=== PATIENT | male | born 1935 | race Caucasian/White ===

== ENCOUNTER → 2017-09-26 11:12 | Outpatient (CLI) | payer MEDICARE, OTHER, SELFPAY ==
[2017-09-26 12:17] LABS: Absolute Lymphocyte Count 2.05 X10^3/ul (0.83-4.51); Absolute Neutrophil Count 4.5 X10^3/uL (2.0-7.7); Basophil# 0.02 X10^3/uL; Basophil% 0.3 % (0-1); Eosinophil# 0.33 X10^3/uL; Eosinophils% 4.5 % (0-5); Hemoglobin 13.4 g/dl (13.0-16.5); Lymphocyte # 2.05 X10^3/ul (4.0); Lymphocyte % 27.7 % (19-41); Mean Corp Hgb Conc 32.7 g/gl (32-36); Mean Corpuscular Hgb 30.4 pg (27.0-32.0); Mean Platelet Vol. 10.4 fl (6.2-12.0); Monocyte# 0.46 X10^3/uL; Monocyte% 6.2 % (0-10); Neutrophil # 4.51 X10^3/uL (2.7-7.7); Platelet Count 228 K/mm3 (150-450); RBC Distribution Width CV 14.6 % (11.6-14.6); RBC Distribution Width SD 48.2 fl (35.1-43.9); Red Blood Count 4.41 M/mm3 (4.6-6.2); White Blood Count 7.4 K/mm3 (4.4-11.0)
[2017-09-26 12:19] LABS: POSITIVE COUNT NO; POSITIVE DIFFERENTIAL NO; POSITIVE MORPHOLOGY NO
[2017-09-26 12:23] LABS: ALB/GLOB Ratio 1.2 RATIO (0.9-2.4); AST(SGOT) 24 U/L (15-37); Alanine Aminotransfer ALT/SGPT 27 U/L (16-61); Albumin, Serum 4.3 g/dL (3.2-5.0); Alkaline Phosphatase 98 U/L (45-117); Anion Gap 10 (5-15); BUN 27 mg/dL (7-18); BUN/Creat Ratio 19.7 RATIO (10-20); Calcium,Total 8.9 mg/dL (8.5-10.1); Chloride 106 mmol/L (98-107); Creatinine, Serum 1.37 mg/dL (0.70-1.30); EST Glomerular Filtration Rate 53 mL/min (>60); Est Glom Filt Rate - Afr Amer 64 mL/min (>60); Globulin 3.6 g/dL (2.2-4.2); Glucose 88 mg/dL (74-106); Potassium 4.4 mmol/L (3.5-5.1); Protein, Total 7.9 g/dL (6.4-8.2); Sodium Level 140 mmol/L (136-145); Uric Acid 3.6 mg/dL (3.5-7.2)
== END ==
PROVIDERS: Family Provider Family Medicine Geriatric Medicine; PCP Family Medicine Geriatric Medicine; Visit Provider Family Medicine Geriatric Medicine
DX: I10 Essential (primary) hypertension (principal); E55.9 Vitamin D deficiency, unspecified; M10.9 Gout, unspecified
CPT/HCPCS: 36415; 80053; 82306; 84443; 84550; 85025

== ENCOUNTER → 2018-03-28 10:02 | Outpatient (CLI) | payer MEDICARE, OTHER, SELFPAY ==
[2018-03-28 12:48] LABS: Absolute Lymphocyte Count 2.03 X10^3/ul (0.83-4.51); Absolute Neutrophil Count 3.7 X10^3/uL (2.0-7.7); Basophil# 0.02 X10^3/uL; Basophil% 0.3 % (0-1); Eosinophil# 0.42 X10^3/uL; Eosinophils% 6.4 % (0-5); Hematocrit 40.3 % (40-54); Hemoglobin 13.4 g/dl (13.0-16.5); Lymphocyte # 2.03 X10^3/ul (4.0); Lymphocyte % 30.7 % (19-41); Mean Corp Hgb Conc 33.3 g/gl (32-36); Mean Corpuscular Hgb 31.4 pg (27.0-32.0); Mean Corpuscular Volume 94.4 fL (80-94); Mean Platelet Vol. 9.9 fl (6.2-12.0); Monocyte# 0.42 X10^3/uL; Monocyte% 6.4 % (0-10); Neutrophil # 3.71 X10^3/uL (2.7-7.7); Platelet Count 229 K/mm3 (150-450); RBC Distribution Width SD 46.8 fl (35.1-43.9); Red Blood Count 4.27 M/mm3 (4.6-6.2); White Blood Count 6.6 K/mm3 (4.4-11.0)
[2018-03-28 12:53] LABS: POSITIVE COUNT NO; POSITIVE DIFFERENTIAL NO; POSITIVE MORPHOLOGY NO
[2018-03-28 13:16] LABS: ALB/GLOB Ratio 1.2 RATIO (0.9-2.4); AST(SGOT) 23 U/L (15-37); Alanine Aminotransfer ALT/SGPT 21 U/L (16-61); Albumin, Serum 4.3 g/dL (3.2-5.0); Alkaline Phosphatase 72 U/L (45-117); Anion Gap 11 (5-15); BUN 29 mg/dL (7-18); Calcium,Total 9.4 mg/dL (8.5-10.1); Chloride 107 mmol/L (98-107); Creatinine, Serum 1.53 mg/dL (0.70-1.30); EST Glomerular Filtration Rate 47 mL/min (>60); Est Glom Filt Rate - Afr Amer 56 mL/min (>60); Globulin 3.7 g/dL (2.2-4.2); Glucose 88 mg/dL (74-106); Potassium 4.6 mmol/L (3.5-5.1); Sodium Level 140 mmol/L (136-145); Uric Acid 4.4 mg/dL (3.5-7.2)
[2018-03-29 08:49] LABS: Vitamin D,25 Hydroxy 48.4 ng/mL (29.95-100.01)
== END ==
PROVIDERS: Family Provider Family Medicine Geriatric Medicine; PCP Family Medicine Geriatric Medicine; Visit Provider Family Medicine Geriatric Medicine
DX: I10 Essential (primary) hypertension (principal); E55.9 Vitamin D deficiency, unspecified; M10.9 Gout, unspecified
CPT/HCPCS: 80053; 82306; 84443; 84550; 85025

== ENCOUNTER → 2018-09-30 11:46 | Outpatient (CLI) | payer MEDICARE, OTHER, SELFPAY ==
[2018-09-30 13:44] LABS: Absolute Lymphocyte Count 2.13 X10^3/ul (0.83-4.51); Absolute Neutrophil Count 3.4 X10^3/uL (2.0-7.7); Basophil# 0.02 X10^3/uL; Basophil% 0.3 % (0-1); Eosinophil# 0.45 X10^3/uL; Hematocrit 41.4 % (40-54); Hemoglobin 13.1 g/dl (13.0-16.5); Lymphocyte # 2.13 X10^3/ul (4.0); Lymphocyte % 33.3 % (19-41); Mean Corp Hgb Conc 31.6 g/gl (32-36); Mean Corpuscular Hgb 30.4 pg (27.0-32.0); Mean Corpuscular Volume 96.1 fL (80-94); Mean Platelet Vol. 10.1 fl (6.2-12.0); Monocyte# 0.36 X10^3/uL; Monocyte% 5.6 % (0-10); Neutrophil # 3.43 X10^3/uL (2.7-7.7); Neutrophil % 53.6 % (47-70); Platelet Count 231 K/mm3 (150-450); RBC Distribution Width CV 13.9 % (11.6-14.6); RBC Distribution Width SD 48.9 fl (35.1-43.9); Red Blood Count 4.31 M/mm3 (4.6-6.2); White Blood Count 6.4 K/mm3 (4.4-11.0)
[2018-09-30 13:46] LABS: POSITIVE COUNT NO; POSITIVE DIFFERENTIAL NO; POSITIVE MORPHOLOGY NO
[2018-09-30 14:00] LABS: ALB/GLOB Ratio 1.3 RATIO (0.9-2.4); AST(SGOT) 18 U/L (15-37); Alanine Aminotransfer ALT/SGPT 20 U/L (16-61); Albumin, Serum 4.3 g/dL (3.2-5.0); Alkaline Phosphatase 76 U/L (45-117); Anion Gap 13 (5-15); BUN 29 mg/dL (7-18); BUN/Creat Ratio 18.8 RATIO (10-20); Chloride 110 mmol/L (98-107); Creatinine, Serum 1.54 mg/dL (0.70-1.30); EST Glomerular Filtration Rate 46 mL/min (>60); Est Glom Filt Rate - Afr Amer 56 mL/min (>60); Globulin 3.4 g/dL (2.2-4.2); Glucose 99 mg/dL (74-106); Potassium 4.2 mmol/L (3.5-5.1); Protein, Total 7.7 g/dL (6.4-8.2); Sodium Level 145 mmol/L (136-145); Thyroid Stim Hormone (TSH) 1.28 uIU/mL (0.358-3.74); Uric Acid 3.4 mg/dL (3.5-7.2)
== END ==
PROVIDERS: Family Provider Family Medicine Geriatric Medicine; PCP Family Medicine Geriatric Medicine; Visit Provider Family Medicine Geriatric Medicine
DX: E11.9 Type 2 diabetes mellitus without complications (principal); E55.9 Vitamin D deficiency, unspecified; M10.9 Gout, unspecified; I10 Essential (primary) hypertension
CPT/HCPCS: 36415; 80053; 82306; 84443; 84550; 85025

== ENCOUNTER → 2019-04-02 | Outpatient (CLI) | payer MEDICARE, OTHER, SELFPAY ==
[2019-04-02 12:48] LABS: Absolute Lymphocyte Count 1.95 X10^3/uL (0.83-4.51); Absolute Neutrophil Count 4.3 X10^3/uL (2.0-7.7); Basophil# 0.02 X10^3/uL; Basophil% 0.3 % (0-1); Eosinophils% 4.4 % (0-5); Hematocrit 39.2 % (40-54); Hemoglobin 12.9 g/dL (13.0-16.5); Lymphocyte # 1.95 X10^3/ul (4.0); Lymphocyte % 28.3 % (19-41); Mean Corp Hgb Conc 32.9 g/dL (32-36); Mean Corpuscular Hgb 31.3 pg (27.0-32.0); Mean Corpuscular Volume 95.1 fL (80-94); Monocyte# 0.29 X10^3/uL; Monocyte% 4.2 % (0-10); NRBC Flagged by Analyzer 0 % (0-5); Neutrophil % 62.4 % (47-70); Platelet Count 208 K/mm3 (150-450); RBC Distribution Width CV 14.3 % (11.6-14.6); RBC Distribution Width SD 49.6 fl (35.1-43.9); Red Blood Count 4.12 M/mm3 (4.6-6.2); White Blood Count 6.9 K/mm3 (4.4-11.0)
[2019-04-02 13:07] LABS: Vitamin D,25 Hydroxy 74.4 ng/mL (29.95-100.01)
[2019-04-02 13:12] LABS: ALB/GLOB Ratio 1.1 RATIO (0.9-2.4); AST(SGOT) 17 U/L (15-37); Alanine Aminotransfer ALT/SGPT 20 U/L (16-61); Albumin, Serum 3.9 g/dL (3.2-5.0); Alkaline Phosphatase 76 U/L (45-117); BUN 31 mg/dL (7-18); BUN/Creat Ratio 19.3 RATIO (10-20); Calcium,Total 9.1 mg/dL (8.5-10.1); Creatinine, Serum 1.61 mg/dL (0.70-1.30); EST Glomerular Filtration Rate 44 mL/min (>60); Est Glom Filt Rate - Afr Amer 53 mL/min (>60); Globulin 3.6 g/dL (2.2-4.2); Glucose 114 mg/dL (74-106); Potassium 4.3 mmol/L (3.5-5.1); Protein, Total 7.5 g/dL (6.4-8.2); Sodium Level 140 mmol/L (136-145); Uric Acid 3.4 mg/dL (3.5-7.2)
[2019-04-02 13:13] LABS: Anion Gap 9 (5-15); Chloride 109 mmol/L (98-107); Thyroid Stim Hormone (TSH) 0.97 uIU/mL (0.358-3.74)
== END | disposition home or self-care (01) ==
LOC: POLAB3 08:47
PROVIDERS: Family Provider Family Medicine Geriatric Medicine; PCP Family Medicine Geriatric Medicine; Visit Provider Family Medicine Geriatric Medicine
DX: E55.9 Vitamin D deficiency, unspecified (principal); I10 Essential (primary) hypertension; M10.9 Gout, unspecified
CPT/HCPCS: 36415; 80053; 82306; 84443; 84550; 85025

== ENCOUNTER → 2019-09-16 10:45 | Outpatient (CLI) | payer MEDICARE, OTHER, SELFPAY ==
--- NOTE | 2019-09-16 10:55 | RAD_ITS ---
STUDY: X-RAY - LEFT KNEE REASON FOR EXAM: Left knee pain. TECHNIQUE: 4 view(s) of the knee. COMPARISON: Radiographs 09/14/2014. FINDINGS: Normal visualized distal femur. Normal visualized proximal tibia and fibula. Normal proximal tibiofibular articulation. Normal medial femorotibial compartment. There is severe joint space loss of the lateral femorotibial compartment, increased since the prior study. There is mild joint space narrowing of the patellofemoral articulation without interval change. There is a small metallic foreign body at the anterior aspect of the knee as on the prior study. There is vascular calcification. RAD/Knee 4 or More Views IMPRESSION: Arthrosis of the lateral femorotibial compartment, increased since the prior study. Mild arthrosis of the patellofemoral compartment. Electronically Signed: Sahil Amaya MD at 11:08 EST Tel , Service support ,
== END ==
LOC: RAD 10:50
PROVIDERS: PCP Family Medicine Geriatric Medicine; Referring Provider Family Medicine Geriatric Medicine; Visit Provider Family Medicine Geriatric Medicine
DX: M25.562 Pain in left knee (principal)
CPT/HCPCS: 73564

== ENCOUNTER → 2019-09-30 13:47 | Outpatient (CLI) | payer MEDICARE, OTHER, SELFPAY ==
[2019-09-24 08:14] VITALS: BMI 22.7
[2019-09-30 15:12] LABS: Erythrocyte Sedimentation Rate 17 mm/hr (0-20)
[2019-09-30 15:15] LABS: Absolute Neutrophil Count 7.6 X10^3/uL (2.0-7.7); Basophil# 0.03 X10^3/uL; Basophil% 0.3 % (0-1); Hematocrit 38.1 % (40-54); Hemoglobin 12.3 g/dL (13.0-16.5); Lymphocyte % 18.8 % (19-41); Mean Corp Hgb Conc 32.3 g/dL (32-36); Mean Corpuscular Volume 92.9 fL (80-94); Mean Platelet Vol. 9.7 fl (6.2-12.0); Monocyte# 0.38 X10^3/uL; Monocyte% 3.8 % (0-10); NRBC Flagged by Analyzer 0 % (0-5); Neutrophil # 7.58 X10^3/uL (2.7-7.7); Neutrophil % 74.7 % (47-70); Platelet Count 246 K/mm3 (150-450); RBC Distribution Width CV 14.5 % (11.6-14.6); RBC Distribution Width SD 49.5 fl (35.1-43.9); White Blood Count 10.1 K/mm3 (4.4-11.0)
[2019-09-30 16:26] LABS: Anion Gap 6 (5-15); BUN 33 mg/dL (7-18); BUN/Creat Ratio 19.2 RATIO (10-20); Calcium,Total 9.1 mg/dL (8.5-10.1); Chloride 112 mmol/L (98-107); Creatinine, Serum 1.72 mg/dL (0.70-1.30); EST Glomerular Filtration Rate 41 mL/min (>60); Est Glom Filt Rate - Afr Amer 49 mL/min (>60); Glucose 151 mg/dL (74-106); Potassium 4.2 mmol/L (3.5-5.1); Sodium Level 139 mmol/L (136-145)
[2019-09-30 19:47] LABS: M R Staph aureus DNA By PCR Negative (Negative); Probe Check PASS; Staph aureus DNA By PCR POSITIVE (Negative)
== END ==
PROVIDERS: PCP Family Medicine Geriatric Medicine; Referring Provider Podiatrist; Visit Provider Podiatrist
DX: L03.032 Cellulitis of left toe (principal)
CPT/HCPCS: 36415; 80048; 85025; 85652; 86140; 87070; 87075; 87077; 87186; 87205; 87640

== ENCOUNTER → 2019-10-02 09:24 | Outpatient (CLI) | payer MEDICARE, OTHER, SELFPAY ==
[2019-09-24 08:14] VITALS: BMI 22.7
[2019-10-02 12:34] LABS: Absolute Lymphocyte Count 1.91 X10^3/uL (0.83-4.51); Absolute Neutrophil Count 9.3 X10^3/uL (2.0-7.7); Basophil# 0.04 X10^3/uL; Basophil% 0.3 % (0-1); Eosinophil# 0.34 X10^3/uL; Eosinophils% 2.8 % (0-5); Hematocrit 38.6 % (40-54); Hemoglobin 12.2 g/dL (13.0-16.5); Lymphocyte # 1.91 X10^3/ul (4.0); Lymphocyte % 15.8 % (19-41); Mean Corp Hgb Conc 31.6 g/dL (32-36); Mean Corpuscular Hgb 29.6 pg (27.0-32.0); Mean Corpuscular Volume 93.7 fL (80-94); Mean Platelet Vol. 9.6 fl (6.2-12.0); Monocyte# 0.39 X10^3/uL; Monocyte% 3.2 % (0-10); NRBC Flagged by Analyzer 0 % (0-5); Neutrophil # 9.34 X10^3/uL (2.7-7.7); Neutrophil % 77.3 % (47-70); Platelet Count 266 K/mm3 (150-450); RBC Distribution Width CV 14.4 % (11.6-14.6); RBC Distribution Width SD 49.2 fl (35.1-43.9); Red Blood Count 4.12 M/mm3 (4.6-6.2); White Blood Count 12.1 K/mm3 (4.4-11.0)
[2019-10-02 12:58] LABS: Vitamin D,25 Hydroxy 22.2 ng/mL (29.95-100.01)
[2019-10-02 13:03] LABS: ALB/GLOB Ratio 0.9 RATIO (0.9-2.4); AST(SGOT) 15 U/L (15-37); Alanine Aminotransfer ALT/SGPT 23 U/L (16-61); Albumin, Serum 3.7 g/dL (3.2-5.0); Alkaline Phosphatase 111 U/L (45-117); Anion Gap 8 (5-15); BUN 27 mg/dL (7-18); BUN/Creat Ratio 19.7 RATIO (10-20); Calcium,Total 9.3 mg/dL (8.5-10.1); Chloride 114 mmol/L (98-107); Creatinine, Serum 1.37 mg/dL (0.70-1.30); EST Glomerular Filtration Rate 53 mL/min (>60); Est Glom Filt Rate - Afr Amer 64 mL/min (>60); Globulin 4.3 g/dL (2.2-4.2); Glucose 142 mg/dL (74-106); Potassium 4.1 mmol/L (3.5-5.1); Sodium Level 141 mmol/L (136-145); Thyroid Stim Hormone (TSH) 1.21 uIU/mL (0.358-3.74); Uric Acid 3.2 mg/dL (3.5-7.2)
== END ==
PROVIDERS: PCP Family Medicine Geriatric Medicine; Visit Provider Family Medicine Geriatric Medicine
DX: I10 Essential (primary) hypertension (principal); E55.9 Vitamin D deficiency, unspecified; M10.9 Gout, unspecified
CPT/HCPCS: 36415; 80053; 82306; 84443; 84550; 85025

== ENCOUNTER 2019-10-13 12:53 | Day surgery (SDC) | payer MEDICARE, OTHER, SELFPAY ==
[2019-09-24 08:14] VITALS: BMI 22.7
[2019-10-13 13:00] VITALS: BP 136/81; PULSE 82; RESP 16; TEMP 36.9; O2SAT 98; BMI 21.8
--- NOTE | 2019-10-13 14:15 | BON_PTH ---
PATIENT: JACK LEBRON LOC: [facility] – [place] U#:[id number] AGE/SX: 84/M ROOM: RE10/13/[address]: Dr. Ryan Gonzales DPM : 1935 BED: DIS: 10/13/2019 SPEC #: [id number] RECD: 10/13/19 16:10 STATUS: [place] RERadha #: [id number] DANIELLE: 10/13/19 14:[address]: Ryan Gonzales DEPT: SURGICAL PATHOLOGY RECD BY: Chiki Woods ENTERED: 10/14/19 09:26 SP TYPE: Bone OTHR DR: Dr. Mayur Pereira MD Tissues: A - Bone of foot, NOS B - Bone of foot, NOS Procedures: Decalcification bone/plaque Special Stain Group I Surgery Specimen Level III Surgery Specimen Level IV AFB Stain (control) GMS Stain (control) HEADER OPERATION: Debridement/partial amputation second toe PRE-OP DIAGNOSIS: Cellulitis left lower limb; osteomyelitis left second toe TISSUE SUBMITTED: A - Clearance fragment left second toe, B - Left second toe MICROSCOPIC DIAGNOSIS A. Left second toe, clearance fragment: A piece of bone, negative for acute osteomyelitis. B. Left second toe, amputation: Focal ulceration with associated acute inflammation and abscess formation. Underlying bone with acute osteomyelitis. Special stains for acid fast bacilli and fungi are negative for organisms; matched controls are appropriate. ALEJANDRA:sepideh 10/17/19 MICROSCOPIC DESCRIPTION Slides are reviewed. GROSS DESCRIPTION A - Received in fixative is one container labeled with the patient's name and designated clearance fragment left second toe. The specimen consists of a piece of bone measuring 0.8 x 0.6 x 0.2 cm. The entire specimen is submitted in one cassette after decalcification. B - Received in fixative is one container labeled with the patient's name and designated left second toe. The specimen consists of a portion of toe measuring 3 x 2 x 1.5 cm. The tip of the toe shows an extensive area of ulceration measuring 1 cm in greatest dimension. Reporting Process Consultant sections are submitted in two cassettes as follows: 1 - skin with ulceration, 2 - bone after decalcification. / ALEJANDRA:sepideh 10/14/19 TC:2 CPT: 71757, 84309, 70411 x2, 75736 x2
--- NOTE | 2019-10-13 14:15 | RAD_ITS ---
STUDY: X-RAY LEFT FOOT, SECOND TOE REASON FOR EXAM: Male, 84 years old. PARTIAL AMPUTATION LEFT 2nd TOE TECHNIQUE: 2 view(s) of the toe were obtained. COMPARISON: None. FINDINGS: Normal visualized metatarsus. Normal metatarsophalangeal (M.T.P) joint. Normal interphalangeal joints. There are status post amputation changes of the second toe at the level of the PIP joint. The soft tissue structures are unremarkable. RAD/Toe(s) Min 2 Views IMPRESSION: Status post amputation changes of the second digit at the level of the PIP joint. Electronically Signed: Modesto Aldana MD at 16:24 EST , Service support ,
--- NOTE | 2019-10-13 14:43 | DCINST_ITS ---
Discharge Diet: Light diet - advance as tolerated Weight Bearing Status: Partial weight bearing - Limit weightbearing on left foot, wear offloading surgical shoe to left foot with all weightbearing and ambulation Keep extremity elevated above heart level: Left Leg - Keep left foot elevated as much as possible Call your doctor if your incision/area has: Continuous Slow Oozing, Sudden Increased Bleeding, Foul Smelling Discharge Call your doctor if you observe: Fever of 101 or Higher, Shortness of breath, Chest pain, Calf discomfort, Uncontrolled pain Cleanse incision/area with: Do not get Incision Wet - Keep dressing left foot clean, dry and intact., Keep Dressing Clean & Dry Allergies/Adverse Reactions: Allergies No Known Allergies Allergy (Verified 10/09/19 14:50) Medications to take at Discharge allopurinol 300 mg tablet 300 mg PO DAILY 09/24/19 doxazosin 2 mg tablet 2 mg PO DAILY 09/24/19 pramipexole 1.5 mg tablet 1.5 mg PO QHS 09/24/19 pravastatin 20 mg tablet 20 mg PO DAILY 09/24/19 Amoxicillin/Potassium Clav [Amox-Clav 500-125 mg Tablet] 1 ea PO BID 10/09/19 Donepezil HCl [Aricept] 5 mg PO DAILY 10/09/19 Multivitamin [Daily Multiple Vitamin] 1 ea PO DAILY 10/09/19 Primary Care Physician: Mayur Pereira Chi, MD [Primary Care Provider] - Test Results: Test results from this visit will be discussed in further detail at your follow- up appointment, if applicable. Please Follow Up With: Ryan Gonzales DPM When: Sunday10/17/2019 at 11:45AM, sooner if needed
[2019-10-13] MEDS: Bupivacaine Mpf 0.5% 30 ML VIAL (14:50)
--- NOTE | 2019-10-13 15:30 | OP.PCM_ITS ---
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 Jose Daniel Ramos Type of Anesthesia:: Local Specimen's removed: 1. Removed soft tissue and bone from left 2nd toe sent to pathology. 2. Culture of necrotic bone left 2nd toe sent to micobiology. 3. Clearance fragment left 2nd toe sent to pathology and microbiology Estimated Blood Loss (mL): 10mL Description of Procedure: Indications: The patient is a 84 year old gentleman who has necrotic ulceration at the very distal tip of the left 2nd toe, culture shows staph aureus, bone is exposed with localized erythema and edema to the distal toe, there is some purulence to the tip of the toe as well. We discussed the options with the patient as well as with his in detail. Patient elected to proceed with surgical debridement/amputation of the left 2nd toe.This was discussed in great detail, and ultimately patient elected to proceed with this procedure. This was discussed with him (his was present as well) in detail, reviewed the possible benefits vs risks. They were advised the risks include, but are not limited to pain, further infections, need for further surgery, nonhealing, delay healing, scarring, poor cosmetic result, numbness, weakness, loss of function, complex regional pain syndrome, blood clots, loss of limb, loss of life. Patient expressed understanding and agreement, and able to repeat back, all questions were answered. The consent form was reviewed and it was freely signed. No guaranties were given nor implied. Operative Procedure: The patient was brought into the operating room, and was place on the operating room table in the supine position. He was carefully secured to the operating room table with a safely belt around his waist. A time out was performed, the patient was properly identified and the surgical plan was confirmed. Patient was already on antibiotics - Augmentin 500/125mg PO q 12 hours. A well padded pneumatic tourniquet was placed around the left ankle. The patient received a total of 7mL of 0.5% Marcaine plain was given as a left foot 2nd ray block after the skin was cleansed with 70% isopropyl alcohol. The left f oot was scrubbed, prepped and draped in the usual aseptic fashion. The left foot was exsanguinated using as Esmarch bandage, and the left ankle pneumatic tourniquet was inflated to 250mmHg. There was noted to be an ulceration to the distal aspect of the 2nd toe as noted above. The cellulitis extended to the base of the middle phalanx. Also the 2nd toe was hammered (chronic). The ulceration measured 1cm x 1cm and 0.7cm in depth down to bone. Using a 15 scalpel blade the ulceration was debrided in excisional fashion removing all nonviable, necrotic soft tissue and bone from the site. The toe was disarticulated at the proximal interphalangeal joint excising the distal toe and ulceration. The distal phalanx was noted to be nonviable, soft, yellow consistent with osteomyelitis. The middle phalanx was more healthy appearing and base of the middle phalanx was hard, white and did not appear to be infected. A bone culture was obtained from the distal phalanx and was sent to microbiology for further evaluation. The debrided distal toe was sent to pathology for further evaluation as well. The site was flushed out with copious amounts of normal saline solution. Using a bone cutting rongeur a piece of the bone was resected from the base of the middle phalanx and sent to microbiology and pathology as a clearance fragment. All remaining tissues appeared to be healthy and viable, free of any infection. The site was again flushed out with copious amounts of normal saline solution. A flap was created with the remaining viable skin using a 15 blade, the skin edges were brought together and were reapproximated using 3-0 Prolene. The pneumatic tourniquet was deflated (total tourniquet time was 15 minutes), and there was immediate return of good vascular flow to the left foot, with normal temperature gradient and CFT < 2 seconds to the amputation site and to all remaining toes. A dressing was applied which consisted of betadine soaked adaptic, 4x4 gauze, kerlix and eunice dressing. Intra operative flouroscopy was obtained and the end of the procedure which confirmed 2nd toe debridement, no acute changes otherwise. Images were saved and printed. Patient tolerated the above procedure well with no complications. He was transported from the operating room to the recovery room in good condition. Post operative orders placed. Post operating instructions were reviewed with patient and his and son (they were with patient today) in detail. Keep left foot elevated, keep dressing left foot clean, dry and intact, and limit weightbearing left foot as much as possible. Continue with Augmentin 500/125mg q 12 hours, new labs were ordered and are pending at this time. Patient to follow up with me in office on Sunday10/17/2019 at 11:45am, sooner if needed. They agreed with plan. Grafts/Implants Used: None - Complications None
[2019-10-13 15:52] VITALS: BP 137/81; BP 162/77; PULSE 79; RESP 16; TEMP 36.5; O2SAT 99
[2019-10-13 16:01] LABS: Absolute Lymphocyte Count 1.81 X10^3/uL (0.83-4.51); Absolute Neutrophil Count 5.5 X10^3/uL (2.0-7.7); Basophil# 0.03 X10^3/uL; Basophil% 0.4 % (0-1); Eosinophil# 0.59 X10^3/uL; Hematocrit 37.2 % (40-54); Hemoglobin 11.8 g/dL (13.0-16.5); Lymphocyte # 1.81 X10^3/ul (4.0); Lymphocyte % 21.5 % (19-41); Mean Corp Hgb Conc 31.7 g/dL (32-36); Mean Corpuscular Volume 91.4 fL (80-94); Mean Platelet Vol. 8.7 fl (6.2-12.0); Monocyte# 0.38 X10^3/uL; Monocyte% 4.5 % (0-10); NRBC Flagged by Analyzer 0 % (0-5); Neutrophil # 5.51 X10^3/uL (2.7-7.7); Neutrophil % 65.6 % (47-70); Platelet Count 226 K/mm3 (150-450); RBC Distribution Width CV 14.6 % (11.6-14.6); RBC Distribution Width SD 48.7 fl (35.1-43.9); Red Blood Count 4.07 M/mm3 (4.6-6.2); White Blood Count 8.4 K/mm3 (4.4-11.0)
[2019-10-13 16:31] LABS: Anion Gap 7 (5-15); BUN 34 mg/dL (7-18); BUN/Creat Ratio 26.8 RATIO (10-20); Calcium,Total 9.3 mg/dL (8.5-10.1); Chloride 114 mmol/L (98-107); Creatinine, Serum 1.27 mg/dL (0.70-1.30); EST Glomerular Filtration Rate 58 mL/min (>60); Est Glom Filt Rate - Afr Amer 70 mL/min (>60); Estimated Creatinine Clearance 49.37 ml/min; Glucose 91 mg/dL (74-106); Potassium 4.3 mmol/L (3.5-5.1); Sodium Level 142 mmol/L (136-145)
== END 2019-10-13 15:57 | disposition home or self-care (01) ==
LOC: SDC 12:53 → AC 12:55
PROVIDERS: PCP Family Medicine Geriatric Medicine; Referring Provider Podiatrist; Visit Provider Podiatrist
PROC: (CPT 28825; principal; 2019-10-13 14:00)
DX: L97.524 Non-pressure chronic ulcer of other part of left foot with necrosis of bone (principal); M19.90 Unspecified osteoarthritis, unspecified site; Z87.891 Personal history of nicotine dependence; Z79.899 Other long term (current) drug therapy; M86.172 Other acute osteomyelitis, left ankle and foot; B95.61 Methicillin susceptible Staphylococcus aureus infection as the cause of diseases classified elsewhere; M20.42 Other hammer toe(s) (acquired), left foot; G60.8 Other hereditary and idiopathic neuropathies; L03.116 Cellulitis of left lower limb
CPT/HCPCS: 28825; 36415; 73660; 76000; 80048; 85025; 87015; 87070; 87075; 87102; 87116; 87176; 87205; 87206; 88304; 88305; 88311; 88312

== ENCOUNTER → 2019-12-04 11:35 | Outpatient (CLI) | payer MEDICARE, OTHER, SELFPAY | PROVIDERS: Referring Provider Podiatrist; Visit Provider Podiatrist | DX: L03.032 Cellulitis of left toe (principal) | CPT/HCPCS: 87070; 87075; 87077; 87186; 87205 ==

== ENCOUNTER 2019-12-05 10:17 | Day surgery (SDC) | payer MEDICARE, OTHER, SELFPAY ==
--- NOTE | 2019-12-05 | BON_PTH ---
PATIENT: JACK LEBRON [place] [facility] [place][id number] AGE/SX: 84/M ROOM: RE12/05/[address]: Dr. Ryan Gonzales DPM : 1935 BED: DIS: 12/05/2019 SPEC #: [id number] RECD: 12/06/19 00:37 STATUS: [place] REQ #: [id number] DANIELLE: 12/05/19 00:[address]: Ryan Gonzales DEPT: SURGICAL PATHOLOGY RECD BY: Kelvin Arriola ENTERED: 12/08/19 10:09 SP TYPE: Bone OTHR DR: Dr. Mayur Pereira MD Tissues: A - Bone of foot, NOS B - Bone of foot, NOS Procedures: Decalcification bone/plaque Special Stain Group I Surgery Specimen Level III Surgery Specimen Level IV AFB Stain (control) GMS Stain (control) HEADER OPERATION: Amputation second toe PRE-OP DIAGNOSIS: Osteomyelitis and cellulitis of left second toe TISSUE SUBMITTED: A - Left second toe, B - Clearance fragment left second toe MICROSCOPIC DIAGNOSIS A. Left second toe, amputation: Focal ulceration, acute inflammation and abscess formation. Bone with acute osteomyelitis. Special stains for acid fast bacilli and fungi are negative for organisms; matched controls are appropriate. B. Clearance fragment left second toe: A piece of bone, negative for acute osteomyelitis. ALEJANDRA:sepideh 12/11/19 MICROSCOPIC DESCRIPTION Slides are reviewed. GROSS DESCRIPTION A - Received in fixative is one container labeled with the patient's name and designated left second toe. The specimen consists of a portion of toe measuring 5.5 x 1.5 x 1 cm. A focal area of ulceration is noted close to the tip measuring 1 cm in greatest dimension. Also present in the container are detached pieces of skin and soft tissue measuring in aggregate 3 x 2 x 0.5 cm. Outboard Motor Tester sections are submitted in three cassettes as follows: 1 - bone underneath the ulcerated area, 2 - ulcerated area, 3 - longitudinal section of the toe after decalcification. B - Received in fixative is one container labeled with the patient's name and designated clearance fragment left second toe. The specimen consists of a fragment of bone 0.6 x 0.3 x 0.2 cm. The specimen is totally submitted in one cassette after decalcification. / ALEJANDRA:sepideh 12/08/19 TC:2 CPT: 14309, 24127, 65434 x2, 98209 x2
[2019-12-05 10:45] VITALS: BP 115/66; PULSE 88; RESP 16; TEMP 36.6; O2SAT 100; BMI 22.8
--- NOTE | 2019-12-05 12:33 | DCINST_ITS ---
Discharge Diet: Light diet - advance as tolerated Discharge Activity: May Not Drive Weight Bearing Status: Partial weight bearing - Ok to put weight on left heel, - - Limit weightbearing to left foot as much as absolute possible. Use surgical shoe when up to left foot Keep extremity elevated above heart level: Left Leg - Keep left foot elevated for at least 50 minutes of every hour Call your doctor if your incision/area has: Continuous Slow Oozing, Sudden In creased Bleeding, Increased Pain/ Swelling, Increased Redness, Foul Smelling Discharge Call your doctor if you observe: Fever of 101 or Higher, Shortness of breath, Chest pain, Calf discomfort, Uncontrolled pain Cleanse incision/area with: Do not get Incision Wet, Keep Dressing Clean & Dry Allergies/Adverse Reactions: Allergies No Known Allergies Allergy (Verified 10/09/19 14:50) Medications to take at Discharge allopurinol 300 mg tablet 300 mg PO DAILY 09/24/19 doxazosin 2 mg tablet 2 mg PO DAILY 09/24/19 pramipexole 1.5 mg tablet 1.5 mg PO QHS 09/24/19 pravastatin 20 mg tablet 20 mg PO DAILY 09/24/19 Amoxicillin/Potassium Clav [Amox-Clav 500-125 mg Tablet] 1 ea PO BID 10/09/19 Donepezil HCl [Aricept] 5 mg PO DAILY 10/09/19 Multivitamin [Daily Multiple Vitamin] 1 ea PO DAILY 10/09/19 Amoxicillin/Potassium Clav [Augmentin 500-125 Tablet] 1 ea PO Q12H #14 tab 10/13/19 Primary Care Physician: Mayur Pereira Chi, MD [Primary Care Provider] - Test Results: Test results from this visit will be discussed in further detail at your follow- up appointment, if applicable. Please Follow Up With: Ryan Gonzales DPM When: as scheduled on Sunday12/08/2019 at noon, call sooner if needed
[2019-12-05] MEDS: Bupivacaine Mpf 0.5% 30 ML VIAL (12:55)
--- NOTE | 2019-12-05 13:48 | PCM.OPRPT ---
Report of Operation Date of Procedure: 12/05/19 Pre-Operative Diagnosis: Ulcer down to bone, osteomyelitis, cellulitis left 2nd toe Post-Operative Diagnosis: Same Surgery/Procedure Performed:: Left 2nd toe amputation Type of Anesthesia:: Local Specimen's removed: 1. Removed left 2nd toe sent to patholgy. 2. Bone biopsy of the proximal phalanx (head) left 2nd toe sent to microbiology. 3. Clearance fragment from base of the proximal phalanx left 2nd toe sent to pathology and microbiology Estimated Blood Loss (mL): 20mL Description of Procedure: Indications: The patient is a 84 year old gentleman who had a necrotic ulceration at the very distal tip of the left 2nd toe, culture showed staph aureus, bone was exposed with localized erythema and edema to the distal toe, and patient underwent partial 2nd toe debridement/amputation 10/13/2019. Site was healing, clearance fragment negative for osteomyelitis but the site did not heal all of the way, opened up and got reinfected w/ bone exposed. Patient and his thinks the site got irritated from rubbing in his slippers at home, also patient and his reports he has been very active on foot. Given the findings patient elected to proceed with further surgical debridement/amputation of the entire left 2nd toe.This was discussed in great detail, and ultimately patient elected to proceed with this procedure. This was discussed with him (his was present as well) in detail, reviewed the possible benefits vs risks. They were advised the risks include, but are not limited to pain, further infections, need for further surgery, nonhealing, delay healing, scarring, poor cosmetic result, numbness, weakness, loss of function, complex regional pain syndrome, blood clots, loss of limb, loss of life. Patient expressed understanding and agreement, and able to repeat back, all questions were answered. The consent form was reviewed and it was freely signed. No guaranties were given nor implied. Operative Procedure: The patient was brought into the operating room, and was place on the operating room table in the supine position. He was carefully secured to the operating room table with a safely belt around his waist. A time out was performed, the patient was properly identified and the surgical plan was confirmed. Patient was already on antibiotics - Augmentin 500/125mg PO q 12 hours. A well padded pneumatic tourniquet was placed around the left ankle. The patient received a total of 10mL of 0.5% Marcaine plain was given as a left foot 2nd ray block after the skin was cleansed with 70% isopropyl alcohol. The left foot was scrubbed, prepped and draped in the usual aseptic fashion. The left foot was exsanguinated using as Esmarch bandage, and the left ankle pneumatic tourniquet was inflated to 250mmHg. There was noted to be an ulceration to the distal aspect of the 2nd toe which probed to the head of the proximal phalanx, there was some cellulitis and drainage from site which only extended to the tip of the residual toe. The ulceration measured 0.7cm x 0.4cm and 0.3cm in depth down to bone. Using a 15 scalpel blade an incision was made around the base of the toe, and the toe was disarticulated at the level of the 2nd metatarsal phalangeal joint excising the toe and ulceration. The head of the proximal phalanx of hard and clinically did not appear to have clear signs of osteomyelitis. The base of the proximal phalanx was healthy appearing was hard, white and did not appear to be infected. A bone culture was obtained from the head of the proximal phalanx and was sent to microbiology for further evaluation. The debrided/excised 2nd toe was sent to pathology for further evaluation as well. The site was flushed out with copious amounts of normal saline solution. Using a bone cutting rongeur a piece of the bone was resected from the base of the proximal phalanx and sent to microbiology and pathology as a clearance fragment. The head of the 2nd metatarsal was also healthy, viable, white, hard and appeared free of infection. All remaining tissues appeared to be healthy and viable, free of any infection. The site was again flushed out with copious amounts of normal saline solution. A flap was created with the remaining viable skin using a 15 blade, the skin edges were brought together and were reapproximated using 3-0 Prolene. The pneumatic tourniquet was deflated (total tourniquet time was 7 minutes) early and prior to closure due to bleeding/venous tourniquet effect, and there was immediate return of good vascular flow to the left foot, with normal temperature gradient and CFT < 2 seconds to the amputation site and to all remaining toes. Hemostasis achieved prior to closure. A dressing was applied which consisted of betadine soaked adaptic, 4x4 gauze, kerlix and eunice dressing. Patient tolerated the above procedure well with no complications. He was transported from the operating room to the recovery room in good condition. Post operative orders placed. Post operating instructions were reviewed with patient and his who was with patient today, in detail. Keep left foot elevated for at least 50 minutes per hour, keep dressing left foot clean, dry and intact, and limit weightbearing left foot as much as possible. Advised patient he must take it very easy and recommended heel weightbearing w/ surgical shoe only, recommended use of a walker, he declined an order/prescription for one, patient's states they have on at home or can get one from her aunt. Continue with Augmentin 500/125mg q 12 hours. Patient to follow up with me in office on Sunday12/08/2019 at noon, sooner if needed. They agreed with plan. Also of note left foot xrays were obtained after procedure, 3 views. These were reviewed. There is amputation of the left 2nd toe, otherwise no acute findings. Grafts/Implants Used: None - Complications None
--- NOTE | 2019-12-05 13:50 | RAD_ITS ---
STUDY: X-RAY - LEFT FOOT CLINICAL: Male, 84 years old. POST OP 2ND DIGIT AMPUTATION TECHNIQUE: 3 view(s) of the foot. COMPARISON: None. FINDINGS: There is metatarsus varus hallux valgus deformity. Degenerative arthrosis of the first metatarsophalangeal (M.T.P) joint. Normal interphalangeal joints of the remaining toes. There are status post amputation changes of the second toe at the level of the PIP joint. The soft tissue structures are unremarkable. RAD/Foot min 3 Views IMPRESSION: Status post amputation changes of the second digit at the level of the PIP joint. Electronically Signed: Rajni Moreira, at 14:23 EDT Tel , Service support ,
[2019-12-05 14:26] VITALS: BP 115/66; BP 162/83; PULSE 79; RESP 16; TEMP 36.4; O2SAT 98
== END 2019-12-05 14:31 | disposition home or self-care (01) ==
LOC: SDC 10:19 → AC 10:19
PROVIDERS: PCP Family Medicine Geriatric Medicine; Referring Provider Podiatrist; Visit Provider Podiatrist
PROC: (CPT 28810; principal; 2019-12-05 11:45)
DX: M86.172 Other acute osteomyelitis, left ankle and foot (principal); L03.032 Cellulitis of left toe; L97.522 Non-pressure chronic ulcer of other part of left foot with fat layer exposed; M19.90 Unspecified osteoarthritis, unspecified site; Z87.891 Personal history of nicotine dependence; Z79.899 Other long term (current) drug therapy; L03.116 Cellulitis of left lower limb; G60.8 Other hereditary and idiopathic neuropathies
CPT/HCPCS: 28810; 73630; 87015; 87070; 87075; 87077; 87102; 87116; 87176; 87186; 87205; 87206; 88304; 88305; 88311; 88312

== ENCOUNTER → 2019-12-29 10:36 | Outpatient (CLI) | payer MEDICARE, OTHER, SELFPAY ==
[2019-12-05 10:45] VITALS: BMI 22.8
--- NOTE | 2019-12-29 10:41 | ART_ITS ---
Reason For Study: Left foot ulcer Procedure A bilateral lower extremity continuous wave Doppler with analog waveform analysis,segmental pressures,and ankle brachial indexes without exercise. Left Segmental Pressures Left brachial= 160mmHg. Left posterior tibial artery = >254mmHg. Left dorsalis pedis artery = >254mmHg. Left digit = 83 mmHg. The left dorsalis pedis waveforms are biphasic. The left posterior tibial artery waveforms are biphasic. Right Segmental Pressures Right brachial= 154mmHg. Right posterior tibial artery = >254mmHg. Right dorsalis pedis artery = >254mmHg. Right digit = 88 mmHg. The right dorsalis pedis waveforms are triphasic. The right posterior tibial artery waveforms are triphasic. Indices The right ankle brachial index by the dorsalis pedis is NC. The right ankle brachial index by the posterior tibial artery is NC. The right digital-brachial index is 0.55. The left ankle brachial index by the dorsalis pedis is NC. The left ankle brachial index by the posterior tibial artery is NC. The left digital-brachial index is 0.52. Interpretation Summary Triphasic Doppler waveforms are noted at ankle level on the right. Biphasic Doppler waveforms are noted at ankle level on the left. Pulse-volume recording waveform amplitudes are diminished at ankle and digital levels bilaterally. Resting ankle-brachial indices could not be determined on either side due to the non-compressibility of the vasculature. Digital-brachial indices are mildly diminished. There is evidence of arterial calcification at ankle level bilaterally. 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 Ordering Physician: Ryan Gonzales Referring Physician: Mayur Pereira Chi Performed By: Mar Dugan RVT
== END ==
PROVIDERS: PCP Family Medicine Geriatric Medicine; Referring Provider Podiatrist; Visit Provider Podiatrist
DX: I73.9 Peripheral vascular disease, unspecified (principal); L97.529 Non-pressure chronic ulcer of other part of left foot with unspecified severity
CPT/HCPCS: 93923

== ENCOUNTER → 2020-01-27 11:13 | Outpatient (CLI) | payer MEDICARE, OTHER, SELFPAY ==
[2020-01-27 12:49] LABS: Absolute Lymphocyte Count 3.34 X10^3/uL (0.83-4.51); Basophil# 0.05 X10^3/uL; Basophil% 0.6 % (0-1); Eosinophil# 0.91 X10^3/uL; Eosinophils% 11.8 % (0-5); Hematocrit 38.3 % (40-54); Hemoglobin 12.1 g/dL (13.0-16.5); Lymphocyte # 3.34 X10^3/ul (4.0); Lymphocyte % 43.2 % (19-41); Mean Corp Hgb Conc 31.6 g/dL (32-36); Mean Corpuscular Hgb 29.7 pg (27.0-32.0); Mean Corpuscular Volume 93.9 fL (80-94); Mean Platelet Vol. 9.9 fl (6.2-12.0); Monocyte% 5.2 % (0-10); NRBC Flagged by Analyzer 0 % (0-5); Neutrophil # 3.03 X10^3/uL (2.7-7.7); Neutrophil % 39.1 % (47-70); Platelet Count 234 K/mm3 (150-450); RBC Distribution Width CV 14.1 % (11.6-14.6); RBC Distribution Width SD 47.5 fl (35.1-43.9); Red Blood Count 4.08 M/mm3 (4.6-6.2); White Blood Count 7.7 K/mm3 (4.4-11.0)
[2020-01-27 13:26] LABS: ALB/GLOB Ratio 0.9 RATIO (0.9-2.4); AST(SGOT) 19 U/L (15-37); Alanine Aminotransfer ALT/SGPT 17 U/L (16-61); Albumin, Serum 3.9 g/dL (3.2-5.0); Alkaline Phosphatase 90 U/L (45-117); Anion Gap 8 (5-15); BUN 27 mg/dL (7-18); BUN/Creat Ratio 18.5 RATIO (10-20); Calcium,Total 9.5 mg/dL (8.5-10.1); Chloride 111 mmol/L (98-107); Creatinine, Serum 1.46 mg/dL (0.70-1.30); EST Glomerular Filtration Rate 49 mL/min (>60); Est Glom Filt Rate - Afr Amer 59 mL/min (>60); Globulin 4.2 g/dL (2.2-4.2); Glucose 100 mg/dL (74-106); Potassium 4.3 mmol/L (3.5-5.1); Protein, Total 8.1 g/dL (6.4-8.2); Sodium Level 139 mmol/L (136-145); Thyroid Stim Hormone (TSH) 0.92 uIU/mL (0.358-3.74); Uric Acid 3.3 mg/dL (3.5-7.2)
== END ==
PROVIDERS: PCP Family Medicine Geriatric Medicine; Visit Provider Family Medicine Geriatric Medicine
DX: I10 Essential (primary) hypertension (principal); E55.9 Vitamin D deficiency, unspecified; M10.9 Gout, unspecified
CPT/HCPCS: 36415; 80053; 82306; 84443; 84550; 85025

== ENCOUNTER → 2020-03-15 10:54 | Outpatient (CLI) | payer MEDICARE, OTHER, SELFPAY ==
--- NOTE | 2020-03-15 11:16 | CT_ITS ---
STUDY: CT BRAIN WITHOUT CONTRAST REASON FOR EXAM: Male, 84 years old. FALL/? CLOSED HEAD INJURY RADIATION DOSAGE (If Supplied By Facility): CTDIvol = ( 44.99 ) mGy, DLP = ( 829.85 ) mGycm TECHNIQUE: Transaxial CT imaging of the brain was performed without administration of intravenous contrast material. Individualized dose optimization techniques were used for this CT. COMPARISON: No relevant priors. FINDINGS: Normal soft tissue structures. Normal calvarium. There is mild cerebral atrophy with widening of the extra-axial spaces and ventricular dilatation. There are areas of decreased attenuation within the white matter tracts of the supratentorial brain, consistent with microvascular disease changes. There are small punctate calcifications of the basal ganglia which are seen in the aging brain as a normal variant. Normal brainstem. Normal cerebellum. There is no intracranial hemorrhage. There are no findings of an acute ischemic infarction. Atherosclerotic calcification of the cavernous portions of the internal carotid arteries bilaterally as well as the vertebral arteries. Normal visualized paranasal sinuses. CT/Brain/Head without Contrast IMPRESSION: Chronic involutional changes of the brain. Electronically Signed: Dustin Brito, at 12:32 EDT , Service support ,
--- NOTE | 2020-03-15 11:30 | RAD_ITS ---
STUDY: X-RAY CHEST REASON FOR EXAM: Male, 84 years old. DYSPNEA ON EXERTION. TECHNIQUE: PA and lateral views of the chest. COMPARISON: Comparison is made with prior study dated 09-11-12. FINDINGS: Mild elevation of the right hemidiaphragm. Persistent increased linear markings at the lung bases. This may represent bibasilar scarring. There is no demonstrated pleural abnormality. Normal size heart. Normal mediastinum and donal. Normal visualized pulmonary arteries. There is atherosclerotic calcification of the aortic arch with tortuosity. There are diffuse degenerative changes of the visualized thoracic spine. Mild dextroscoliosis. Normal visualized ribs, clavicles, and shoulders. There is no demonstrated abnormality of the visualized soft tissue structures of the upper abdomen. RAD/Chest PA and Lateral IMPRESSION: Findings suggestive of bibasilar scarring. This has progressed as compared to prior study. Electronically Signed: Dustin Brito, at 12:36 EDT , Service support ,
[2020-03-15 12:17] LABS: Absolute Lymphocyte Count 2.13 X10^3/uL (0.83-4.51); Absolute Neutrophil Count 4.3 X10^3/uL (2.0-7.7); Basophil# 0.04 X10^3/uL; Basophil% 0.5 % (0-1); Eosinophil# 0.62 X10^3/uL; Eosinophils% 8.3 % (0-5); Hematocrit 37.2 % (40-54); Hemoglobin 11.6 g/dL (13.0-16.5); Lymphocyte # 2.13 X10^3/ul (4.0); Lymphocyte % 28.5 % (19-41); Mean Corp Hgb Conc 31.2 g/dL (32-36); Mean Corpuscular Hgb 28.9 pg (27.0-32.0); Mean Corpuscular Volume 92.8 fL (80-94); Mean Platelet Vol. 9.8 fl (6.2-12.0); Monocyte# 0.41 X10^3/uL; Monocyte% 5.5 % (0-10); NRBC Flagged by Analyzer 0 % (0-5); Neutrophil # 4.25 X10^3/uL (2.7-7.7); Neutrophil % 56.8 % (47-70); Platelet Count 231 K/mm3 (150-450); RBC Distribution Width SD 50.7 fl (35.1-43.9); Red Blood Count 4.01 M/mm3 (4.6-6.2); White Blood Count 7.5 K/mm3 (4.4-11.0)
[2020-03-15 12:53] LABS: ALB/GLOB Ratio 0.9 RATIO (0.9-2.4); AST(SGOT) 21 U/L (15-37); Alanine Aminotransfer ALT/SGPT 19 U/L (16-61); Albumin, Serum 3.7 g/dL (3.2-5.0); Alkaline Phosphatase 103 U/L (45-117); Anion Gap 4 (5-15); BUN 33 mg/dL (7-18); BUN/Creat Ratio 24.1 RATIO (10-20); Calcium,Total 9.1 mg/dL (8.5-10.1); Chloride 109 mmol/L (98-107); Creatinine, Serum 1.37 mg/dL (0.70-1.30); EST Glomerular Filtration Rate 53 mL/min (>60); Est Glom Filt Rate - Afr Amer 64 mL/min (>60); Globulin 3.9 g/dL (2.2-4.2); Glucose 98 mg/dL (74-106); Potassium 4.2 mmol/L (3.5-5.1); Protein, Total 7.6 g/dL (6.4-8.2); Sodium Level 138 mmol/L (136-145)
== END ==
PROVIDERS: PCP Family Medicine Geriatric Medicine; Referring Provider Family Medicine Geriatric Medicine; Visit Provider Family Medicine Geriatric Medicine
DX: G93.9 Disorder of brain, unspecified (principal); S09.90XA Unspecified injury of head, initial encounter; R06.89 Other abnormalities of breathing
CPT/HCPCS: 36415; 70450; 71046; 80053; 85025

== ENCOUNTER → 2020-03-30 14:25 | Outpatient (CLI) | payer MEDICARE, OTHER, SELFPAY ==
[2020-03-30 15:53] LABS: Absolute Lymphocyte Count 1.95 X10^3/uL (0.83-4.51); Absolute Neutrophil Count 4.7 X10^3/uL (2.0-7.7); Basophil# 0.03 X10^3/uL; Basophil% 0.4 % (0-1); Eosinophil# 0.56 X10^3/uL; Eosinophils% 7.4 % (0-5); Hemoglobin 11.8 g/dL (13.0-16.5); Lymphocyte # 1.95 X10^3/ul (4.0); Lymphocyte % 25.7 % (19-41); Mean Corp Hgb Conc 32.8 g/dL (32-36); Mean Corpuscular Hgb 30.1 pg (27.0-32.0); Mean Corpuscular Volume 91.8 fL (80-94); Monocyte# 0.35 X10^3/uL; Monocyte% 4.6 % (0-10); NRBC Flagged by Analyzer 0 % (0-5); Neutrophil # 4.66 X10^3/uL (2.7-7.7); Neutrophil % 61.5 % (47-70); Platelet Count 232 K/mm3 (150-450); RBC Distribution Width CV 15.3 % (11.6-14.6); RBC Distribution Width SD 51.2 fl (35.1-43.9); Red Blood Count 3.92 M/mm3 (4.6-6.2); White Blood Count 7.6 K/mm3 (4.4-11.0)
--- NOTE | 2020-03-30 15:56 | RAD_ITS ---
STUDY: X-RAY - LUMBAR SPINE REASON FOR EXAM: Male, 84 years old. Her back pain radiating down both legs. Numbness. TECHNIQUE: 3 view(s) of the lumbar spine were obtained. COMPARISON: None FINDINGS: Normal lumbar lordosis. There is a levoscoliosis with convexity at T12. There is a normal alignment of the vertebrae. There is generalized demineralization of the vertebral bodies. There is endplate spondylosis and disc space narrowing at multiple levels. There is no evidence of acute fracture or loss of vertebral axial height. There is atherosclerotic calcification of the abdominal aorta without a demonstrated aneurysm. RAD/Lumbar Spine 2 or 3 Views IMPRESSION: 1. Levoscoliosis of the thoracolumbar spine. 2. Visual changes and osteopenia of the lumbar spine without fracture or subluxation. Electronically Signed: Marko Curtis DO at 21:43 EDT Tel [phone], Service support ,
[2020-03-30 16:29] LABS: AST(SGOT) 22 U/L (15-37); Alanine Aminotransfer ALT/SGPT 22 U/L (16-61); Albumin, Serum 3.8 g/dL (3.2-5.0); Alkaline Phosphatase 92 U/L (45-117); Anion Gap 5 (5-15); BUN 31 mg/dL (7-18); BUN/Creat Ratio 18.9 RATIO (10-20); Calcium,Total 9.1 mg/dL (8.5-10.1); Chloride 110 mmol/L (98-107); Creatinine, Serum 1.64 mg/dL (0.70-1.30); EST Glomerular Filtration Rate 43 mL/min (>60); Est Glom Filt Rate - Afr Amer 52 mL/min (>60); Globulin 3.8 g/dL (2.2-4.2); Glucose 95 mg/dL (74-106); Potassium 4.2 mmol/L (3.5-5.1); Protein, Total 7.6 g/dL (6.4-8.2); Sodium Level 139 mmol/L (136-145); Thyroid Stim Hormone (TSH) 1.16 uIU/mL (0.358-3.74); Uric Acid 3.5 mg/dL (3.5-7.2)
[2020-03-30 16:55] LABS: Vitamin D,25 Hydroxy 29.3 ng/mL
== END ==
LOC: POLAB3 14:26 → RAD 15:41
PROVIDERS: PCP Family Medicine Geriatric Medicine; Referring Provider Family Medicine Geriatric Medicine; Visit Provider Family Medicine Geriatric Medicine
DX: E55.9 Vitamin D deficiency, unspecified (principal); I10 Essential (primary) hypertension; M10.9 Gout, unspecified; R20.9 Unspecified disturbances of skin sensation
CPT/HCPCS: 36415; 72100; 80053; 82306; 84443; 84550; 85025

== ENCOUNTER → 2020-05-25 12:34 | Outpatient (CLI) | payer MEDICARE, OTHER, SELFPAY ==
[2020-05-06 11:55] VITALS: BMI 22.3
--- NOTE | 2020-05-25 12:35 | CDU_ITS ---
Reason For Study: Syncope Rt. Velocities/BP Lt. Velocities/BP Prox CCA 77.3/9.5 cm/sec. Prox CCA 76.5/5.3 cm/sec. Mid CCA 73.4/6.9 cm/sec. Mid CCA 54.2/9.1 cm/sec. Dist CCA 86.5/6.9 cm/sec. Dist CCA 64 cm/sec. Prox ICA 79/9 cm/sec. Prox ICA 145.5/20.4 cm/sec. Mid ICA 135.7/22.5 cm/sec. Mid ICA 112.6/11.6 cm/sec. Dist ICA 91.3/15.1 cm/sec. Dist ICA 57.2/17 cm/sec. Rt. ICA/CCA = 1.76. Lt. ICA/CCA = 2.27. Prox ECA 112 cm/sec. Prox ECA 176.9 cm/sec. Rt. Vert. 54.2/8 cm/sec. Lt. Vert. 35.5/8 cm/sec. Right Extracranial There is heterogeneous, irregular atherosclerotic plaque noted in the right common carotid artery. There is heterogeneous, irregular atherosclerotic plaque noted in the right internal carotid artery. There is intimal thickening but no significant atherosclerotic plaque noted in the right external carotid artery. Antegrade flow is noted in the right vertebral artery. Left Extracranial There is homogeneous, smooth atherosclerotic plaque noted in the left common carotid artery. There is heterogeneous, irregular atherosclerotic plaque noted in the left internal carotid artery. There is heterogeneous, irregular atherosclerotic plaque noted in the left external carotid artery. Antegrade flow is noted in the left vertebral artery. Procedure Carotid Duplex [id number]. This is a Carotid Duplex examination using B-mode, color flow and specral Doppler. Exam performed in department. Interpretation Summary Irregular calcific plaque with shadowing right common carotid with an extensive amount within the proximal right internal carotid 50-69% stenosis right internal carotid <50% stenosis right external carotid Irregular calcific plaque within the proximal left internal carotid with 50-69% stenosis <50% stenosis left external carotid Patent and antegrade vertebrals bilaterally Ordering Physician: Paresh Diaz Referring Physician: Mayur Pereira Chi Performed By: Mar Dugan RVT
--- NOTE | 2020-05-25 12:35 | ECHOD_ITS ---
Reason For Study: Syncope Procedure This was a 2D Doppler, Color Flow transthoracic echocardiogram. The exam was of adequate technical quality. Exam performed in department. Left Ventricle Normal LV size. Mild concentric left ventricular hypertrophy. Left ventricular systolic function is normal. The estimated ejection fraction is 60 %. No evidence for diastolic dysfunction. No regional wall motion abnormalities noted. Right Ventricle Normal RV size. Normal systolic function. Atria The left atrium is mildly enlarged. Normal right atrium. No doppler evidence for ASD. Mitral Valve There is no mitral annular calcification. Mild focal mitral valve calcification of the posterior leaflet. Tricuspid Valve Normal tricuspid valve. Mild tricuspid valve insufficiency. Right ventricular systolic pressure estimated to be 34 mmHg. Aortic Valve Trisinus/trileaflet aortic valve. Mild diffuse aortic valve thickening. Moderate diffuse aortic valve calcification. Mild aortic stenosis. Mild (1+) aortic valve insufficiency. Pulmonic Valve The pulmonic valve is not well visualized. Trivial pulmonic valve insufficiency. Great Vessels Normal sized aortic root. Pericardium/Pleural No pericardial effusion. MMode/2D Measurements & Calculations LVIDd: 4.5 cm IVSd: 1.4 cm LVOT diam: 2.0 cm LVIDs: 2.8 cm LVPWd: 1.4 cm LVOT area: 3.2 cm2 FS: 38.3 % Ao root diam: 4.1 cm LAV(MOD-bp): 63.3 ml LVAd ap4: 29.9 cm2 LA dimension: 3.9 cm LAV(MOD-bp) Indexed: 30.9 ml/m2 EDV(MOD-sp4): 80.6 ml LAV(MOD-sp2): 58.6 ml EDV(sp4-el): 81.9 ml LAV(MOD-sp4): 67.1 ml LVAs ap4: 15.7 cm2 ESV(MOD-sp4): 29.2 ml ESV(sp4-el): 28.2 ml EF(MOD-sp4): 63.8 % EF(sp4-el): 65.6 % SV(MOD-sp4): 51.4 ml SV(sp4-el): 53.7 ml LA A4 area: 22.0 cm2 RA A4 area: 18.4 cm2 Time Measurements MV dec time: 0.26 sec Doppler Measurements & Calculations MV E max umair: 94.9 cm/sec Lat Peak E' Umair: 7.4 cm/sec Med Peak E' Umair: 7.7 cm/sec MV A max umair: 118.0 cm/sec E/E' lat: 12.8 E/E' med: 12.3 MV E/A: 0.80 MV V2 max: 123.3 cm/sec MV P1/2t max umair: 107.9 cm/sec Ao V2 max: 167.4 cm/sec MV max P.1 mmHg MV P1/2t: 87.7 msec Ao max P.2 mmHg MV V2 mean: 69.2 cm/sec MV mean P.3 mmHg MV dec slope: 360.2 cm/sec2 JOY(V,D): 1.8 cm2 MV V2 VTI: 34.6 cm MVA(P1/2t): 2.5 cm2 AI max umair: 507.2 cm/sec LV V1 max: 92.3 cm/sec PA V2 max: 82.5 cm/sec AI max P.9 mmHg LV V1 max P.4 mmHg AI dec slope: 323.1 cm/sec2 AI P1/2t: 459.8 msec TR max umair: 275.9 cm/sec TR max P.5 mmHg Interpretation Summary Left ventricular systolic function is normal. The estimated ejection fraction is 60 %. Mild concentric left ventricular hypertrophy. The left atrium is mildly enlarged. Mild focal mitral valve calcification of the posterior leaflet. Mild tricuspid valve insufficiency. Mild aortic stenosis. Mild (1+) aortic valve insufficiency. Trivial pulmonic valve insufficiency. Right ventricular systolic pressure estimated to be 34 mmHg. No evidence for diastolic dysfunction. Ordering Physician: Paresh Diaz Referring Physician: Mayur Pereira Chi Performed By: Gabriel Martínez RCS
== END ==
PROVIDERS: PCP Family Medicine Geriatric Medicine; Referring Provider Internal Medicine Cardiovascular Disease; Visit Provider Internal Medicine Cardiovascular Disease
DX: R55 Syncope and collapse (principal); R06.02 Shortness of breath; E78.2 Mixed hyperlipidemia; I10 Essential (primary) hypertension; G30.9 Alzheimer's disease, unspecified; F02.80 Dementia in other diseases classified elsewhere, unspecified severity, without behavioral disturbance, psychotic disturbance, mood disturbance, and anxiety
CPT/HCPCS: 93225; 93226; 93306; 93880

== ENCOUNTER → 2020-06-28 14:59 | Outpatient (CLI) | payer MEDICARE, OTHER, SELFPAY ==
[2020-06-28 14:59] VITALS: BMI 22.3
[2020-06-28 15:35] LABS: Absolute Lymphocyte Count 1.47 X10^3/uL (0.83-4.51); Absolute Neutrophil Count 4.8 X10^3/uL (2.0-7.7); Basophil# 0.04 X10^3/uL; Basophil% 0.5 % (0-1); Eosinophil# 0.65 X10^3/uL; Eosinophils% 8.8 % (0-5); Hematocrit 34.6 % (40-54); Hemoglobin 11.2 g/dL (13.0-16.5); Lymphocyte # 1.47 X10^3/ul (4.0); Lymphocyte % 19.9 % (19-41); Mean Corp Hgb Conc 32.4 g/dL (32-36); Mean Corpuscular Hgb 31.6 pg (27.0-32.0); Mean Corpuscular Volume 97.7 fL (80-94); Mean Platelet Vol. 9.2 fl (6.2-12.0); Monocyte# 0.43 X10^3/uL; Monocyte% 5.8 % (0-10); NRBC Flagged by Analyzer 0 % (0-5); Neutrophil # 4.79 X10^3/uL (2.7-7.7); Neutrophil % 64.7 % (47-70); Platelet Count 235 K/mm3 (150-450); RBC Distribution Width CV 14.3 % (11.6-14.6); RBC Distribution Width SD 51.5 fl (35.1-43.9); Red Blood Count 3.54 M/mm3 (4.6-6.2); White Blood Count 7.4 K/mm3 (4.4-11.0)
[2020-06-28 16:04] LABS: Vitamin D,25 Hydroxy 28.1 ng/mL
[2020-06-28 16:26] LABS: ALB/GLOB Ratio 0.9 RATIO (0.9-2.4); AST(SGOT) 25 U/L (15-37); Alanine Aminotransfer ALT/SGPT 24 U/L (16-61); Albumin, Serum 3.7 g/dL (3.2-5.0); Alkaline Phosphatase 108 U/L (45-117); Anion Gap 6 (5-15); BUN 29 mg/dL (7-18); BUN/Creat Ratio 18.8 RATIO (10-20); Calcium,Total 8.8 mg/dL (8.5-10.1); Chloride 110 mmol/L (98-107); Creatinine, Serum 1.54 mg/dL (0.70-1.30); EST Glomerular Filtration Rate 46 mL/min (>60); Est Glom Filt Rate - Afr Amer 56 mL/min (>60); Globulin 4.2 g/dL (2.2-4.2); Glucose 93 mg/dL (74-106); Potassium 4.6 mmol/L (3.5-5.1); Protein, Total 7.9 g/dL (6.4-8.2); Sodium Level 139 mmol/L (136-145); Thyroid Stim Hormone (TSH) 1.38 uIU/mL (0.358-3.74)
== END ==
PROVIDERS: PCP Family Medicine Geriatric Medicine; Referring Provider Family Medicine Geriatric Medicine; Visit Provider Family Medicine Geriatric Medicine
DX: E55.9 Vitamin D deficiency, unspecified (principal); I10 Essential (primary) hypertension; M10.9 Gout, unspecified
CPT/HCPCS: 36415; 80053; 82306; 84443; 84550; 85025

== ENCOUNTER → 2020-08-27 12:15 | Outpatient (CLI) | payer MEDICARE, OTHER, SELFPAY ==
[2020-06-28 14:59] VITALS: BMI 22.3
--- NOTE | 2020-08-27 12:20 | RAD_ITS ---
STUDY: X-RAY - LUMBAR SPINE REASON FOR EXAM: Male, 84 years old. LEFT FOOT DROP, HX FALL TECHNIQUE: 2 view(s) of the lumbar spine were obtained. COMPARISON: 03/30/2020 FINDINGS: Normal lumbar lordosis. Moderate levoscoliosis of the thoracic lumbar spine. 10 mm of anterolisthesis of L4 on L5 which is unchanged There is multilevel endplate spondylosis of the lumbar vertebrae. There is multi-level degenerative disc disease with multi-level disc space narrowing. The soft tissue structures are unremarkable. RAD/Lumbar Spine 2 or 3 Views IMPRESSION: Moderate levoscoliosis with diffuse degenerative disc disease with 10 mm of anterolisthesis of L4 and L5. Electronically Signed: Vadim Guevara MD at 17:23 EST Tel , Service support ,
--- NOTE | 2020-08-27 12:20 | CT_ITS ---
STUDY: CT BRAIN WITHOUT CONTRAST REASON FOR EXAM: Male, 84 years old. Closed head injury 2 weeks ago. RADIATION DOSAGE (If Supplied By Facility): CTDIvol = ( 44.99 ) mGy, DLP = ( 829.85 ) mGycm TECHNIQUE: Transaxial CT imaging of the brain was performed without administration of intravenous contrast material. Individualized dose optimization techniques were used for this CT. COMPARISON: Comparison is made with prior study dated 03/15/2020. FINDINGS: Normal soft tissue structures. Normal calvarium. There is mild cerebral atrophy with widening of the extra-axial spaces and ventricular dilatation. There are areas of decreased attenuation within the white matter tracts of the supratentorial brain, consistent with microvascular disease changes. Normal basal ganglia and thalami. Normal brainstem. There is mild cerebellar atrophy. There is no intracranial hemorrhage. There are no findings of an acute ischemic infarction. Atherosclerotic calcification of the cavernous portions of the internal carotid arteries as well as the vertebral arteries. Normal visualized paranasal sinuses. CT/Brain/Head without Contrast IMPRESSION: Chronic involutional changes of the brain. Electronically Signed: Dustin Brito, at 13:01 EST , Service support ,
--- NOTE | 2020-08-27 12:21 | RAD_ITS ---
STUDY: X-RAY - LEFT KNEE REASON FOR EXAM: Male, 84 years old. LEFT FOOT DROP, HX FALL TECHNIQUE: 4 view(s) of the knee. COMPARISON: 09/16/2019 FINDINGS: Normal visualized distal femur. Normal visualized proximal tibia and fibula. Normal proximal tibiofibular articulation. There is mild degenerative arthrosis of the medial femorotibial compartment. There is moderate degenerative arthrosis of the lateral femorotibial compartment with moderate joint space narrowing. There is mild degenerative arthrosis of the patellofemoral articulation. The soft tissue structures are unremarkable. RAD/Knee 4 or More Views IMPRESSION: Degenerative arthrosis. Electronically Signed: Vadim Guevara MD at 17:24 EST Tel , Service support ,
--- NOTE | 2020-08-27 12:21 | RAD_ITS ---
STUDY: X-RAY - LEFT TIBIA AND FIBULA REASON FOR EXAM: Male, 84 years old. LEFT FOOT DROP, HX FALL TECHNIQUE: 4 view(s) of the tibia and fibula were obtained. COMPARISON: None. FINDINGS: Normal visualized tibia. Normal visualized fibula. Vascular calcification RAD/Tibia & Fibula 2 Views IMPRESSION: Vascular calcification. No acute abnormality is seen. Electronically Signed: Dustin Brito, at 14:57 EST , Service support ,
--- NOTE | 2020-08-27 12:21 | RAD_ITS ---
STUDY: X-RAY - LEFT ANKLE REASON FOR EXAM: Male, 84 years old. LEFT FOOT DROP, HX FALL TECHNIQUE: 3 view(s) of the ankle. COMPARISON: None. FINDINGS: Normal visualized distal tibia and fibula. Normal medial and lateral malleoli. Normal tibiotalar articulation and ankle mortise. Normal visualized talus and calcaneus. The visualized subtalar, talonavicular, calcaneocuboid and tarsal articulations are normal. The soft tissue structures are unremarkable. RAD/Ankle min 3 Views IMPRESSION: Normal x-ray examination of the ankle. Electronically Signed: Vadim Guevara MD at 7:16 EST Tel , Service support ,
== END ==
PROVIDERS: PCP Family Medicine Geriatric Medicine; Referring Provider Family Medicine Geriatric Medicine; Visit Provider Family Medicine Geriatric Medicine
DX: S09.90XA Unspecified injury of head, initial encounter (principal); M21.372 Foot drop, left foot
CPT/HCPCS: 70450; 72100; 73564; 73590; 73610

== ENCOUNTER → 2020-09-04 07:40 | Outpatient (CLI) | payer MEDICARE, OTHER, SELFPAY ==
[2020-06-28 14:59] VITALS: BMI 22.3
--- NOTE | 2020-09-04 07:45 | MRI_ITS ---
STUDY: MRI LUMBAR SPINE WITHOUT CONTRAST REASON FOR EXAM: Male, 84 years old. left radiculopathy -- severe weakness left leg, unable to bear weight, unable to walk, prev lumbar surgery 2006 TECHNIQUE: Standardized fat and water weighted pulse sequences were obtained in the sagittal and axial planes. COMPARISON: 05/14/2007 FINDINGS: T12-L1: No change in the mild bilobed disc protrusion with right foraminal protrusion which produces mild spinal stenosis and moderate right neural foraminal stenosis. Normal lumbar lordosis. Mild dextroscoliosis. Normal conus medullaris that terminates at the T12 to L1-2: Mild right facet hypertrophy and moderate left facet hypertrophy with the mild ligament flavum hypertrophy. No change in the 2 mm retrolisthesis of L1 on L2 with a mild bilobed disc protrusion which produces mild spinal stenosis and mild bilateral neural foraminal stenosis. L2-3: Moderate bilateral facet hypertrophy and ligament flavum hypertrophy. Enlarging broad disc protrusion which is now moderate in size and produces severe spinal stenosis and mild bilateral neural foraminal stenosis. L3-4: Moderate bilateral facet hypertrophy and ligament flavum hypertrophy. Enlarging broad disc protrusion which is the now moderate in size producing severe spinal stenosis and moderate bilateral neural foraminal stenosis. L4-5: Status post posterior decompression with 10 mm of anterolisthesis of L4 on L5 which is unchanged. Enlarging broad disc protrusion which is now moderate in size producing with severe spinal stenosis and severe bilateral neural foraminal stenosis. L5-S1: Normal endplates. Normal disc height, hydration and morphology. Normal bilateral facet joints. Normal central canal and bilateral lateral recesses. Normal bilateral intervertebral neural foramina. Normal visualized sacral ala. Normal visualized paraspinous soft tissue structures. MRI/Spine Lumbar (Routine) IMPRESSION: Dextroscoliosis with worsening degenerative disc disease as described above. Electronically Signed: Vadim Guevara MD at 11:18 EST Tel , Service support ,
== END ==
LOC: MRI 07:42
PROVIDERS: PCP Family Medicine Geriatric Medicine; Referring Provider Family Medicine Geriatric Medicine; Visit Provider Family Medicine Geriatric Medicine
DX: M54.16 Radiculopathy, lumbar region (principal); M79.605 Pain in left leg
CPT/HCPCS: 72148

== ENCOUNTER → 2020-10-04 15:02 | Outpatient (CLI) | payer MEDICARE, OTHER, SELFPAY ==
[2020-06-28 14:59] VITALS: BMI 22.3
[2020-10-04 15:47] LABS: Absolute Lymphocyte Count 1.25 X10^3/uL (0.83-4.51); Absolute Neutrophil Count 4.5 X10^3/uL (2.0-7.7); Basophil# 0.05 X10^3/uL; Basophil% 0.8 % (0-1); Eosinophil# 0.29 X10^3/uL; Eosinophils% 4.5 % (0-5); Hematocrit 42.4 % (40-54); Hemoglobin 13.3 g/dL (13.0-16.5); Lymphocyte # 1.25 X10^3/ul (4.0); Lymphocyte % 19.3 % (19-41); Mean Corp Hgb Conc 31.4 g/dL (32-36); Mean Corpuscular Hgb 29.6 pg (27.0-32.0); Mean Corpuscular Volume 94.2 fL (80-94); Mean Platelet Vol. 9.5 fl (6.2-12.0); Monocyte# 0.33 X10^3/uL; Monocyte% 5.1 % (0-10); NRBC Flagged by Analyzer 0 % (0-5); Neutrophil # 4.48 X10^3/uL (2.7-7.7); Neutrophil % 69.2 % (47-70); Platelet Count 227 K/mm3 (150-450); RBC Distribution Width CV 15.4 % (11.6-14.6); RBC Distribution Width SD 52.6 fl (35.1-43.9); White Blood Count 6.5 K/mm3 (4.4-11.0)
[2020-10-04 16:12] LABS: Vitamin D,25 Hydroxy 30.7 ng/mL
[2020-10-04 16:21] LABS: AST(SGOT) 35 U/L (15-37); Alanine Aminotransfer ALT/SGPT 26 U/L (16-61); Alkaline Phosphatase 106 U/L (45-117); Anion Gap 6 (5-15); BUN 31 mg/dL (7-18); BUN/Creat Ratio 19.1 RATIO (10-20); Calcium,Total 9.5 mg/dL (8.5-10.1); Chloride 113 mmol/L (98-107); Creatinine, Serum 1.62 mg/dL (0.70-1.30); EST Glomerular Filtration Rate 43 mL/min (>60); Est Glom Filt Rate - Afr Amer 53 mL/min (>60); Globulin 4.2 g/dL (2.2-4.2); Glucose 99 mg/dL (74-106); Potassium 4.5 mmol/L (3.5-5.1); Protein, Total 8.2 g/dL (6.4-8.2); Sodium Level 141 mmol/L (136-145); Thyroid Stim Hormone (TSH) 1.66 uIU/mL (0.358-3.74); Uric Acid 3.8 mg/dL (3.5-7.2)
== END ==
PROVIDERS: PCP Family Medicine Geriatric Medicine; Referring Provider Family Medicine Geriatric Medicine; Visit Provider Family Medicine Geriatric Medicine
DX: I10 Essential (primary) hypertension (principal); E11.9 Type 2 diabetes mellitus without complications; E55.9 Vitamin D deficiency, unspecified; M10.9 Gout, unspecified
CPT/HCPCS: 36415; 80053; 82306; 84443; 84550; 85025

== ENCOUNTER 2020-10-13 11:17 | Outpatient (RCR) | payer MEDICARE, OTHER, SELFPAY ==
[2020-06-28 14:59] VITALS: BMI 22.3
== END 2020-10-13 23:59 ==
LOC: IMMUN 11:17
PROVIDERS: PCP Family Medicine Geriatric Medicine; Visit Provider Family Medicine
DX: Z23 Encounter for immunization (principal)
CPT/HCPCS: 0011A; 0012A; 91301

== ENCOUNTER 2020-12-08 09:15 | Inpatient (IN) | payer MEDICARE, OTHER, SELFPAY ==
[2020-06-28 14:59] VITALS: BMI 22.3
[2020-12-08] VITALS (24 sets, daily range): BP systolic 104–182; BP diastolic 52–88; PULSE 73–92; RESP 15–26; TEMP 36.3–36.8; O2SAT 95–100; BMI 22.7; BMI 22.1
--- NOTE | 2020-12-08 09:33 | EKG12_ITS ---
Test Reason : WEAKNESS Blood Pressure : / mmHG Vent. Rate : 079 BPM Atrial Rate : 079 BPM P-R Int : 000 ms QRS Dur : 092 ms QT Int : 400 ms P-R-T Axes : 020 005 033 degrees QTc Int : 458 ms Sinus rhythm with A-V dissociation and Accelerated Junctional rhythm Left ventricular hypertrophy with repolarization abnormality Abnormal ECG Confirmed by ADRI CHAIDEZ, BROOKE ([id number]), commercial production editor MELISSA VARGAS ([id number]) on 12/10/2020 8:08:46 AM Referred By: Confirmed By:IRLANDA RUSH MD
--- NOTE | 2020-12-08 09:45 | ED.DCSUM_ITS ---
- ER Visit Summary Date of Service: 12/08/20 Chief Complaint: Generalized weakness History of Present Illness: The patient is a 85 M presenting due to generalized weakness x1 week. Patient is also having black stools over the same time period. He is not on anticoagulants. He complains of mild cough. He denies chest pain or shortness of breath. Denies abdominal pain, vomiting, diarrhea. Denies recent fever. He had second Covid vaccine October 2020. History is limited secondary to dementia. Physical Examination: Vitals are stable. Patient is afebrile. Alert no acute distress. HEENT exam is unremarkable. Neck is supple. Lungs are clear and equal bilaterally. Heart is regular rate and rhythm. Abdomen is soft nontender nondistended. Rectal: Black stool Extremities are unremarkable. Skin is warm and dry. No focal neurologic deficit. Normal strength and sensation Remainder of exam is unremarkable. Emergency Department Course and Treatment: Patient was given IV fluids. EKG is sinus rhythm with LVH, rate of 79. CBC shows hemoglobin 7.1. Chemistries show CO2 15, glucose 140, BUN 88, creatinine 1.66. INR 1.2. Lactic acid 3.8. Troponin is negative. Covid negative. Patient was typed and crossed for packed red blood cells. Patient was unable to stand for orthostatic vital signs due to weakness in his legs. Chest x-ray read by myself and radiology shows findings suggestive of scarring. There has been essentially no change. Patient is hemodynamically stable. Discussed with hospitalist for admission. Disposition: Admission Impression: GI bleed, anemia, weakness This note was generated with [employer] dictation software. It may contain incorrect words, spelling, and punctuation that were not noted in review of the chart prior to signing ED Disposition - Plan for ED Patient: Disposition: Acute Care [facility]
[2020-12-08 09:52] LABS: Absolute Lymphocyte Count 1.64 X10^3/uL (0.83-4.51); Absolute Neutrophil Count 6.8 X10^3/uL (2.0-7.7); Basophil# 0.06 X10^3/uL; Basophil% 0.6 % (0-1); Eosinophil# 0.56 X10^3/uL; Eosinophils% 5.9 % (0-5); Hematocrit 22.5 % (40-54); Hemoglobin 7.1 g/dL (13.0-16.5); Lymphocyte # 1.64 X10^3/ul (0.83-4.51); Lymphocyte % 17.3 % (19-41); Mean Corp Hgb Conc 31.6 g/dL (32-36); Mean Corpuscular Hgb 31.6 pg (27.0-32.0); Mean Platelet Vol. 9.6 fl (6.2-12.0); Monocyte# 0.36 X10^3/uL; Monocyte% 3.8 % (0-10); NRBC Flagged by Analyzer 0 % (0-5); Neutrophil # 6.76 X10^3/uL (2.7-7.7); Neutrophil % 71.3 % (47-70); Platelet Count 241 K/mm3 (150-450); RBC Distribution Width CV 15.1 % (11.6-14.6); RBC Distribution Width SD 55.1 fl (35.1-43.9); Red Blood Count 2.25 M/mm3 (4.6-6.2); White Blood Count 9.5 K/mm3 (4.4-11.0)
[2020-12-08 10:01] LABS: Albumin, Serum 3.3 g/dL (3.2-5.0); BUN 88 mg/dL (7-18); Creatinine, Serum 1.66 mg/dL (0.70-1.30); EST Glomerular Filtration Rate 42 mL/min (>60); Est Glom Filt Rate - Afr Amer 51 mL/min (>60); Estimated Creatinine Clearance 36.64 ml/min; Globulin 3.6 g/dL (2.2-4.2); Glucose 140 mg/dL (74-106); International Normalized Ratio 1.2; Protein, Total 6.9 g/dL (6.4-8.2); Prothrombin Time (Protime)PT. 14.7 SECONDS (11.7-14.9)
[2020-12-08 10:02] LABS: ALB/GLOB Ratio 0.9 RATIO (0.9-2.4); AST(SGOT) 17 U/L (15-37); Alanine Aminotransfer ALT/SGPT 19 U/L (16-61); Alkaline Phosphatase 79 U/L (45-117); Anion Gap 11 (5-15); Calcium,Total 8.8 mg/dL (8.5-10.1); Chloride 114 mmol/L (98-107); Partial Thromboplast Time 25.5 Seconds (24.1-36.2); Potassium 3.6 mmol/L (3.5-5.1); Sodium Level 140 mmol/L (136-145)
[2020-12-08 10:06] LABS: Lactic Acid 3.8 mmol/L (0.4-1.9)
--- NOTE | 2020-12-08 10:18 | RAD_ITS ---
STUDY: X-RAY CHEST REASON FOR EXAM: Male, 85 years old. Sob TECHNIQUE: Single AP portable view of the chest. COMPARISON: Comparison is made with prior study dated 03/15/2020. FINDINGS: EKG electrodes are seen. Stable increased linear markings in both upper lobes as well as in the lower lobes suggestive of scarring. There is no demonstrated pleural abnormality. Normal size heart. Normal mediastinum and donal. Normal visualized pulmonary arteries. There is atherosclerotic calcification of the aortic arch with tortuosity. There are diffuse degenerative changes of the visualized thoracic spine. Normal visualized ribs, clavicles, and shoulders. Small hiatal hernia. RAD/Chest 1 View (Portable) IMPRESSION: Findings suggestive of scarring. There has been essentially no change. Electronically Signed: Dustin Brito MD at 10:47 EDT , Service support ,
--- NOTE | 2020-12-08 11:30 | NURSING ---
ICU [facility] GI BLEED, ANEMIA
--- NOTE | 2020-12-08 11:31 | HP.PCM_ITS ---
Problem List (1) Peripheral arterial disease Status: Chronic (2) Bilateral carotid artery stenosis Status: Chronic (3) DDD (degenerative disc disease), lumbar Status: Chronic (4) Segmental and somatic dysfunction of pelvic region Status: Acute (5) Segmental and somatic dysfunction of lumbar region Status: Acute (6) Alzheimers disease Status: Chronic (7) Mixed hyperlipidemia Status: Chronic (8) Essential hypertension Status: Chronic (9) Syncope Status: Inactive Qualifiers: Syncope type: unspecified Qualified Code(s): R55 - Syncope and collapse (10) Upper GI bleed Status: Acute (11) Acute blood loss anemia Status: Acute History of Present Illness Date of Admission: 12/08/20 Chief Complaint: Black stool for more than 1 week The patient is a 85 year old M with multiple comorbidities as listed above came to ER for black stool for more than 1 week probably 10 days. Patient also felt generalized weakness and at one time about a week ago he rolled down from the bed on the floor but did not had major injury and no syncope. Denies chest pain, shortness of breath, abdominal pain, nausea, vomiting or diarrhea. Patient also has dementia and ambulates on walker. He complains of pain and arthritis in the knee and hip joint, more on the left leg. He also had 2 surgeries on the left great toe. Patient has history of hypertension and bilateral carotid artery stenosis, moderate disease and follows Dr. Crespo and Dr. Diaz. Patient is not on anticoagulant. Patient having average 1 bowel movement, black stool for last 1 week. Twelve-lead EKG shows sinus rhythm or accelerated junctional rhythm with LVH, QTC 458 ms. Previous EKG in April 2020 sinus rhythm with LVH. In ED, heart rate in normal range. Blood pressure elevated 160/82 and respiratory rate around 20 per night. H&H found to be 7.1/22 and lactic acid 3.8. BUN/creatinine elevated at 88/1.66 Past Medical History Past Medical History (Chronic Problems): Chronic Problems (Last Reviewed 06/18/20 @ 13:57 by Pati Kern) Peripheral arterial disease (Chronic) Bilateral carotid artery stenosis (Chronic) DDD (degenerative disc disease), lumbar (Chronic) Alzheimers disease (Chronic) Mixed hyperlipidemia (Chronic) Essential hypertension (Chronic) Medical History: Medical History (Last Reviewed 06/18/20 @ 13:57 by Pati Kern) Peripheral arterial disease (Acute) I73.9 Bilateral carotid artery stenosis (Chronic) I65.23 DDD (degenerative disc disease), lumbar (Chronic) M51.36 Segmental and somatic dysfunction of pelvic region (Acute) M99.05 Segmental and somatic dysfunction of lumbar region (Acute) M99.03 Alzheimers disease (Chronic) G30.9, F02.80 Mixed hyperlipidemia (Chronic) E78.2 Essential hypertension (Chronic) I10 Syncope (Acute) R55 BPH (benign prostatic hyperplasia) N40.0 Depression F32.9 Hx of gout Z87.39 RLS (restless legs syndrome) G25.81 Hx of primary hypertension Z86.79 Allergies No Known Allergies Allergy (Verified 12/08/20 09:21) Home Medications: Ambulatory Orders Medication Instructions Recorded allopurinol 300 mg tablet 300 mg PO DAILY 09/24/19 doxazosin 2 mg tablet 2 mg PO DAILY 09/24/19 pravastatin 20 mg tablet 20 mg PO DAILY 09/24/19 Donepezil HCl [Aricept] 5 mg PO DAILY 10/09/19 Multivitamin [Daily Multiple 1 ea PO DAILY 10/09/19 Vitamin] memantine 10 mg tablet 10 mg PO BID 05/04/20 pramipexole 1.5 mg tablet 1.5 mg PO TID tab 05/06/20 sertraline 50 mg tablet 50 mg PO DAILY 05/06/20 polyethylene glycol 3350 17 17 g PO DAILY 06/18/20 gram/dose oral powder Surgical History: Surgical History (Last Reviewed 06/18/20 @ 13:57 by Pati Kern) Amputation of toe of left foot S98.132A History of back surgery Z98.890 History of hernia repair Z98.890, Z87.19 Smoking Status: Former smoker - *Family History Paternal Family History: Family History (Last Updated 06/18/20 @ 13:58 by Pati Kern) Mother Arthritis Father Hypertension CVA (cerebral vascular accident) Review of Systems Constitutional: Reports: Malaise, Weakness, Fatigue. Denies: Chills, Fever, Weight Change HEENT: Reports: Difficulty Hearing. Denies: Head Aches, Sinus Congestion, Sinus Drainage Cardiovascular: Denies: Chest Pain, Palpitations Respiratory: Denies: Cough, Shortness of breath at rest, Sputum production Gastrointestinal: Denies: Abdominal Pain, Nausea, Vomiting Genitourinary: Denies: Dysuria Musculoskeletal: Reports: Joint Pain, Joint stiffness, Leg Pain, Muscle pain. Denies: Joint Tenderness Skin: Denies: Rash, Wounds Neurological: Reports: Balance problems, Incoordination. Denies: Focal weakness, Numbness, Tingling Psychiatric: Reports: Anxiety. Denies: Depression, Homicidal Ideations, Suicidal Ideations Hematologic/ Lymphatic: Denies: Easy Bruising, Easy Bleeding VTE Information - Inpt Only VTE Present on Admission: No VTE Mechan Device Prophylaxis: None VTE Pharm Prophylaxis ordered?: No Reason prophylaxis not ordered:: Medical Contraindication - Active upper GI bleed Objective: Physical exam General: Alert, Oriented x3, Cooperative HEENT: Hard to hear, atraumatic, PERRLA, EOMI, Normocephalic Oral: No Gingival or Mucosal Lesions/ Ulcerations Neck: Supple, No JVD, Negative Carotid Bruits Lungs: Air entry diminished in bilateral lung bases. No crepitation/rhonchi Cardiovascular: Regular rate, Regular Rhythm, Normal S1, Normal S2, ESM over right second ICS and LLSB Abdomen: Bowel Sounds Present, Soft, Non Tender, Non-Distended : No renal angle tenderness. No suprapubic tenderness. Extremities: No edema, Capillary Refill Less than 3 Seconds Skin: No rashes, No breakdown Musculoskeletal: Moderate muscle atrophy of the lower extremities. No Tenderness to Palpation of Joints or Extremities Neurological: Cranial nerves II-XII grossly intact, Deep Tendon Reflexes 2+/4 and Symmetrical, Neuro grossly intact Psych/Mental Status: Mild cognitive impairment, flat affect. - Physical Exam Vitals/I&O's: Vital Signs Temp Pulse Resp BP Pulse Ox 98 F 77 18 160/82 H 100 12/08/20 11:27 12/08/20 11:27 12/08/20 11:27 12/08/20 11:27 12/08/20 11:27 Oxygen Delivery Method Room Air Weight: 172 lb 6.424 oz Body Mass Index (BMI) 22.7 Microbiology Past 72 Hours 12/08/20 09:40 Stool Stool Occult Blood (KARSTEN) - Final 12/08/20 09:42 Mucosa - Nose SARS-CoV-2 Antigen (Rapid) - Final Laboratory Results 12/08/20 09:20: Blood Type Pending, Antibody Screen Pending, Crossmatch See Detail 12/08/20 09:25: WBC 9.5, RBC 2.25 L, Hgb 7.1 L, Hct 22.5 L, MCV 100.0 H, MCH 31.6, MCHC 31.6 L, RDW Std Deviation 55.1 H, RDW Coeff of Kristan 15.1 H, Plt Count 241, MPV 9.6, Immature Gran % (Auto) 1.100 H, Neut % (Auto) 71.3 H, Lymph % (Auto) 17.3 L, [place] % (Auto) 3.8, Eos % (Auto) 5.9 H, Baso % (Auto) 0.6, Absolute Neuts (auto) 6.8, Absolute Lymphs (auto) 1.64, Nucleated RBC % 0 12/08/20 09:25: PT 14.7, INR 1.2, APTT 25.5 12/08/20 09:25: Sodium 140, Potassium 3.6, Chloride 114 H, Carbon Dioxide 15.0 L , Anion Gap 11, BUN 88 H, Creatinine 1.66 H, Estim Creat Clear Calc 36.64, Est GFR (MDRD) Af Amer 51 L, Est GFR (MDRD) Non-Af 42 L, BUN/Creatinine Ratio 53.0 H , Glucose 140 H, Calcium 8.8, Total Bilirubin 0.50, AST 17, ALT 19, Alkaline Phosphatase 79, Troponin I < 0.015, Total Protein 6.9, Albumin 3.3, Globulin 3.6, Albumin/Globulin Ratio 0.9 12/08/20 09:25: Lactic Acid 3.8 H* Assessment/Plan All Active Problems (Last Reviewed 06/18/20 @ 13:57 by Pati Kern) Upper GI bleed (Acute) Acute blood loss anemia (Acute) Segmental and somatic dysfunction of pelvic region (Acute) Segmental and somatic dysfunction of lumbar region (Acute) This 85-year-old question gentleman admitted for generalized weakness, melena and found to have severe anemia and lactic acidosis 1. Acute symptomatic anemia of blood loss due to upper GI bleed: Patient H&H was 13.3/42 in September 2020 and a drop to 7.1/22.1. 1 unit of PRBC ordered. Patient is being admitted in ICU. Surgeon consult consulted. As per patient he had colonoscopy and EGD probably more than 10 years ago and does not remember any abnormality. IV PPI twice daily monitor H&H after PRBC transfusion. 2 lactic acidosis most probably secondary to hypovolemia: Normal saline ordered at 125 mill per hour. Titrate the dose as per intake and output, cardiopulmonary hemodynamic parameters. 3. Acute prerenal azotemia on baseline CKD stage IIIb: Patient last BUN/creatinine 31/1.62 in October 10. Admitted with 88/1.66. Monitor kidney function and electrolytes. 4. Hypertension: Currently n.p.o., IV antihypertensive ordered. Home medication resumed 5. Dyslipidemia: On statin 6. Bilateral carotid stenosis: Follows Dr. Gagan Crespo and Dr. Diaz 7. Other comorbidities include Alzheimer's dementia VTE prophylaxis: Bilateral SCDs. Pharmacological prophylaxis contraindicated Living will/advanced directive/end of life care: Patient does not have living will or advanced directive. His is power of estate planning attorney for health after discussion of benefits/risks procedures involved with full code, DNR CC arrest and DNR CC, the patient opted for DNR-CC Arrest with no intubation and does not want to be on artificial life support measures Patient does not want artificial life support including intubation, tube feed, ventilator and/chest compression, central venous catheter, vasopressor and DC shock if needed Total time spent in [id number] encounter in discussion of advanced directive 16 minutes. Inpatient E&M: 03705 Init Hosp L3 Procedures: 56782 Advncd Care Plan 30 Min
--- NOTE | 2020-12-08 11:36 | NURSING ---
ICU 6 GI BLEED, LACTIC ACIDOSIS MALAIKA
[2020-12-08] MEDS: 0.9% Normal Saline 1,000 ML 125 ML IV (12:42)
[2020-12-08 12:46] LABS: Magnesium 2.3 mg/dL (1.6-2.6)
[2020-12-08] MEDS: 0.9% Saline Lock 10 ML Syringe IV (13:00)
--- NOTE | 2020-12-08 13:38 | CON.PCM_ITS ---
Reason for Consult Date of Consultation: 12/08/20 History of Present Illness: The patient is a 85 year old M presented to the ER due to melena. Patient states been ongoing for about 3 weeks he has vomited about every 2 to 3 days they are looser than usual. Patient states they are black and he came to the ER due to his urging him to do so. Patient denies any reflux, abdominal pain. Patient states he is last had a colonoscopy 5 between 10 and 20 years ago he is only had one is by Dr. Kam. Patient denies ever having an EGD. Patient's hemoglobin on admission was 7.1. He is currently getting 1 unit packed red blood cells. Past Medical History Past Medical History (Chronic Problems): Chronic Problems (Last Reviewed 06/18/20 @ 13:57 by Pati Kern) Peripheral arterial disease (Chronic) Bilateral carotid artery stenosis (Chronic) DDD (degenerative disc disease), lumbar (Chronic) Alzheimers disease (Chronic) Mixed hyperlipidemia (Chronic) Essential hypertension (Chronic) Medical History: Medical History (Last Reviewed 06/18/20 @ 13:57 by Pati Kern) Peripheral arterial disease (Chronic) I73.9 Bilateral carotid artery stenosis (Chronic) I65.23 DDD (degenerative disc disease), lumbar (Chronic) M51.36 Segmental and somatic dysfunction of pelvic region (Acute) M99.05 Segmental and somatic dysfunction of lumbar region (Acute) M99.03 Alzheimers disease (Chronic) G30.9, F02.80 Mixed hyperlipidemia (Chronic) E78.2 Essential hypertension (Chronic) I10 BPH (benign prostatic hyperplasia) N40.0 Depression F32.9 Hx of gout Z87.39 RLS (restless legs syndrome) G25.81 Hx of primary hypertension Z86.79 Syncope (Inactive) R55 Allergies No Known Allergies Allergy (Verified 12/08/20 09:21) Home Medications: Ambulatory Orders Medication Instructions Recorded allopurinol 300 mg tablet 300 mg PO DAILY 09/24/19 doxazosin 2 mg tablet 2 mg PO DAILY 09/24/19 pravastatin 20 mg tablet 20 mg PO DAILY 09/24/19 Donepezil HCl [Aricept] 5 mg PO DAILY 10/09/19 Multivitamin [Daily Multiple 1 ea PO DAILY 10/09/19 Vitamin] memantine 10 mg tablet 10 mg PO BID 09/15/20 pramipexole 1.5 mg tablet 1.5 mg PO TID tab 05/06/20 sertraline 50 mg tablet 50 mg PO DAILY 05/06/20 Surgical History: Surgical History (Last Reviewed 06/18/20 @ 13:57 by Pati Kren) Amputation of toe of left foot S98.132A History of back surgery Z98.890 History of hernia repair Z98.890, Z87.19 Smoking Status: Former smoker - *Family History Paternal Family History: Family History (Last Updated 06/18/20 @ 13:58 by Pati Kern) Mother Arthritis Father Hypertension CVA (cerebral vascular accident) Review of Systems Constitutional: Denies: Anorexia Eyes: Reports: Blurred vision HEENT: Denies: Difficulty Swallowing Cardiovascular: Denies: Chest Pain Respiratory: Denies: Cough Gastrointestinal: Reports: Melena. Denies: Abdominal Pain, Nausea, Vomiting Genitourinary: Denies: Dysuria Musculoskeletal: Denies: Joint Pain Skin: Denies: Jaundice Neurological: Denies: Confusion Psychiatric: Denies: Anxiety, Depression Hematologic/ Lymphatic: Reports: Anemia. Denies: Easy Bruising, Easy Bleeding Patient Problems: Active and Suspected Problems (Last Reviewed 06/18/20 @ 13:57 by Pati Kern) Upper GI bleed (Acute) Acute blood loss anemia (Acute) Segmental and somatic dysfunction of pelvic region (Acute) Segmental and somatic dysfunction of lumbar region (Acute) - Physical Exam Vitals/I&O's: Vital Signs Temp Pulse Resp BP Pulse Ox 97.3 F L 86 26 H 169/75 H 100 12/08/20 12:25 12/08/20 12:45 12/08/20 12:45 12/08/20 12:45 12/08/20 12:45 Oxygen Delivery Method Room Air Weight: 167 lb 8 oz Body Mass Index (BMI) 22.1 Intake and Output for Last 24 Hours 12/06/20 12/07/20 12/08/20 23:59 23:59 23:59 Intake Total 610 / 610 Balance 610 / 610 General: Alert, Oriented x3, Cooperative, No apparent distress HEENT: Atraumatic Lungs: Normal air movement Cardiovascular: Regular rate Abdomen: Soft, Non Tender, Non-Distended Extremities: No clubbing, No cyanosis, No edema Neurological: Cranial nerves II-XII grossly intact Psych/Mental Status: Normal Affect Microbiology Past 72 Hours 12/08/20 09:40 Stool Stool Occult Blood (KARSTEN) - Final 12/08/20 09:42 Mucosa - Nose SARS-CoV-2 Antigen (Rapid) - Final Laboratory Results 12/08/20 09:20: Blood Type O NEGATIVE, Antibody Screen NEGATIVE, Crossmatch See Detail 12/08/20 09:25: WBC 9.5, RBC 2.25 L, Hgb 7.1 L, Hct 22.5 L, MCV 100.0 H, MCH 31.6, MCHC 31.6 L, RDW Std Deviation 55.1 H, RDW Coeff of Kristan 15.1 H, Plt Count 241, MPV 9.6, Immature Gran % (Auto) 1.100 H, Neut % (Auto) 71.3 H, Lymph % (Auto) 17.3 L, [place] % (Auto) 3.8, Eos % (Auto) 5.9 H, Baso % (Auto) 0.6, Absolute Neuts (auto) 6.8, Absolute Lymphs (auto) 1.64, Nucleated RBC % 0 12/08/20 09:25: PT 14.7, INR 1.2, APTT 25.5 12/08/20 09:25: Sodium 140, Potassium 3.6, Chloride 114 H, Carbon Dioxide 15.0 L , Anion Gap 11, BUN 88 H, Creatinine 1.66 H, Estim Creat Clear Calc 36.64, Est GFR (MDRD) Af Amer 51 L, Est GFR (MDRD) Non-Af 42 L, BUN/Creatinine Ratio 53.0 H , Glucose 140 H, Calcium 8.8, Total Bilirubin 0.50, AST 17, ALT 19, Alkaline Phosphatase 79, Troponin I < 0.015, Total Protein 6.9, Albumin 3.3, Globulin 3.6, Albumin/Globulin Ratio 0.9 12/08/20 09:25: Lactic Acid 3.8 H* 12/08/20 09:25: Magnesium 2.3 Current Medications Acetaminophen (Acetaminophen 325 Mg Tablet) 650 mg PO Q6H PRN PRN PRN Reason: Pain Score 1-10/Temp > 100.7 F Al Hydroxide/Mg Hydroxide (Mag Hydrox/Al Hydrox/Simeth 30 Ml Udc) 30 ml PO Q6H PRN PRN PRN Reason: Gastric Burning Albuterol Sulfate (Albuterol 2.5 Mg/3 Ml Vial.Neb.) 2.5 mg INHALATION Q2H PRN PRN PRN Reason: SOB/Wheezing Hydromorphone HCl (Hydromorphone 0.5 Mg/0.5 Ml Syringe) 0.5 mg IV Q4H PRN PRN PRN Reason: Pain Score 6-10 Sodium Chloride () 1,000 mls @ 125 mls/hr IV .Q8H [facility] Stop: 12/09/20 04:13 Last Admin: 12/08/20 12:42 Dose: 125 mls/hr Documented by: Pantoprazole Sodium 40 mg/ (Sodium Chloride) 110 mls @ 330 mls/hr IV Q12 BRTITNEY Sodium Chloride () 500 mls @ 15 mls/hr IV PRN PRN PRN Reason: Blood Transfusion Oxycodone HCl (Oxycodone 5 Mg Tablet) 5 mg PO Q4H PRN PRN PRN Reason: Pain Score 4-5 Prochlorperazine Edisylate (Prochlorperazine 10 Mg/2 Ml Vial) 5 mg IV Q4H PRN PRN PRN Reason: Breakthrough Nausea/Vomiting Senna/Docusate Sodium (Senna/Docusate Sodium 1 Tablet) 2 tablet PO BID PRN PRN Reason: Constipation Sodium Chloride (0.9% Saline Lock 10 Ml Syringe) 10 - 40 ml IV UD PRN PRN Reason: SALINE FLUSH Last Admin: 12/08/20 13:00 Dose: 20 ml Documented by: Assessment/Plan All Active Problems (Last Reviewed 06/18/20 @ 13:57 by Pati Kern) Upper GI bleed (Acute) Acute blood loss anemia (Acute) Segmental and somatic dysfunction of pelvic region (Acute) Segmental and somatic dysfunction of lumbar region (Acute) 85 y/o M with anemia, melena I have discussed the above with the patient. I have offered the patient EGD for evaluation. I have explained the risks/benefits of the procedure and described the procedure. I have discussed the risks with the patient, including but not limited to: infection, bleeding, perforation of the GI tract requiring emergency surgery, inability to complete the procedure, injury to any internal organs, complications of anesthesia, etc. - the patient understands and agrees to proceed. I have answered all the patient's questions to the patient's satisfaction and the patient has no further questions. Asked with patient that if I not find any obvious cause for bleed with EGD would plan to do a bowel prep and a colonoscopy the following day. Patient was agreeable with plan. -IV Protonix Tawanna Cannon M.D. Pager: [phone] [facility] [address] [place] [address], [facility], [address] [place] [address] Office: [phone] Procedure Criteria Procedure Type: Elective - Already received 2 doses of the vaccine last dose was on 11/10/2020 COVID Risk Discussion: The surgeon/proceduralist and patient have discussed in detail the risk of exposure to and/or potential harm posed by the COVID-19 virus with having a surgery/procedure at this time versus the risk of delaying the surgery/procedure. It is not possible to know either the risk of delaying the surgery or procedure or chance of getting an infection with perfect accuracy, but a joint decision was made between the patient and the surgeon/proceduralist to proceed at this time with the scheduled surgery/procedure as indicated on the consent form. Inpatient E&M: 97616 Init Hosp L3
[2020-12-08 13:43] LABS: Reflex Lactate? Y
[2020-12-08 14:21] LABS: Lactic Acid 1.1 mmol/L (0.4-1.9)
[2020-12-08 16:24] LABS: Bacteria 0 SEEN /hpf (None Seen); Mucous, Urine 0 SEEN /hpf (<or=2+); Red Blood Cells-Urine 0 SEEN /hpf (0-5); Squamous Epithelial Cells - UA 0 SEEN /hpf (0-5); White Blood Cells 0 SEEN /hpf (0-5)
[2020-12-08 16:47] LABS: Color, Urine Yellow (Yellow); Glucose, Dipstick Normal (Normal); Ketone-Dipstick Negative (Negative); Leukocyte Esterase-Dipstick Negative /ul (Negative); Nitrite-Dipstick Negative (Negative); Occult Blood-Urine Negative /ul (Negative); Protein-Dipstick Negative (Negative); Specific Gravity, Urine 1.015 (1.002-1.030); Urine Bilirubin Dipstick Negative (Negative); Urine Clarity Clear (Clear); Urine Urobilinogen Normal (Normal)
[2020-12-08] MEDS: hydrALAZINE 20 MG/ML Vial 5 MG IV (17:12)
[2020-12-08 17:26] LABS: Hematocrit 25.1 % (40-54); Hemoglobin 8.1 g/dL (13.0-16.5)
[2020-12-08] MEDS: CLARIFY ORDER NOTE (17:49)
[2020-12-08] MEDS: Acetaminophen 325 MG Tablet 650 MG PO (20:20)
[2020-12-08] MEDS: 0.9% Normal Saline 1,000 ML 100 ML IV (20:42)
[2020-12-08] MEDS: Memantine Hydrochloride 10 MG Tablet PO (20:42)
[2020-12-08] MEDS: Pravastatin 20 MG Tablet PO (20:43)
[2020-12-09] VITALS (37 sets, daily range): BP systolic 89–196; BP diastolic 54–98; PULSE 72–113; RESP 15–26; TEMP 36.1–37; O2SAT 96–100
[2020-12-09 03:27] LABS: Absolute Lymphocyte Count 1.23 X10^3/uL (0.83-4.51); Absolute Neutrophil Count 4.7 X10^3/uL (2.0-7.7); Basophil# 0.07 X10^3/uL; Eosinophils% 9.8 % (0-5); Hematocrit 22.7 % (40-54); Hemoglobin 7.2 g/dL (13.0-16.5); Lymphocyte # 1.23 X10^3/ul (0.83-4.51); Lymphocyte % 17.2 % (19-41); Mean Corp Hgb Conc 31.7 g/dL (32-36); Mean Corpuscular Hgb 31.7 pg (27.0-32.0); Mean Platelet Vol. 8.8 fl (6.2-12.0); Monocyte# 0.39 X10^3/uL; Monocyte% 5.4 % (0-10); NRBC Flagged by Analyzer 0 % (0-5); Neutrophil % 65.5 % (47-70); Platelet Count 210 K/mm3 (150-450); RBC Distribution Width CV 15.1 % (11.6-14.6); RBC Distribution Width SD 54.3 fl (35.1-43.9); Red Blood Count 2.27 M/mm3 (4.6-6.2); White Blood Count 7.2 K/mm3 (4.4-11.0)
[2020-12-09 03:45] LABS: Anion Gap 7 (5-15); BUN 57 mg/dL (7-18); BUN/Creat Ratio 48.7 RATIO (10-20); Calcium,Total 8.2 mg/dL (8.5-10.1); Chloride 118 mmol/L (98-107); Creatinine, Serum 1.17 mg/dL (0.70-1.30); EST Glomerular Filtration Rate 63 mL/min (>60); Est Glom Filt Rate - Afr Amer 76 mL/min (>60); Estimated Creatinine Clearance 51.32 ml/min; Glucose 86 mg/dL (74-106); Potassium 3.4 mmol/L (3.5-5.1); Sodium Level 142 mmol/L (136-145)
--- NOTE | 2020-12-09 06:52 | NURSING ---
0630-Patient transferred to PACU on bed and hooked up to monitor. Handoff was done with [employer].
--- NOTE | 2020-12-09 07:30 | EGD_PTH ---
PATIENT: JACK LEBRON LOC: [facility] U#:[id number] AGE/SX: 85/M ROOM: [facility] RE12/08/[address]: Dr. Kirk Skaggs MD : 1935 BED: 1 DIS: 12/11/2020 SPEC #: [id number] RECD: 12/09/20 11:19 STATUS: [place] RE #: [id number] DANIELLE: 12/09/20 07:[address]: Tawanna Cannon DEPT: SURGICAL PATHOLOGY RECD BY: Chasity Gallego ENTERED: 12/09/20 12:34 SP TYPE: EGD BIOPSY OTHR DR: MD Dr. Mayur Romero Chi, MD Dr. Tamera Robotham, MD Tissues: Gastric mucous membrane Procedures: Surgery Specimen Level IV Comments: @ Ordering doctor for SUIV edited from to @ by RGOOD at 12/09/20 1549 @ Submitting doctor edited from to @ by RGOOD at 12/09/20 1549 HEADER OPERATION: [place] ([facility] PRE-OP DIAGNOSIS: Upper GI bleed; acute blood loss anemia TISSUE SUBMITTED: Antrum biopsy for H. pylori and path MICROSCOPIC DIAGNOSIS Antrum biopsy: Mild gastritis. See microscopic description and comment. ALEJANDRA:sepideh 12/10/2020 COMMENT The results of immunohistochemistry for Helicobacter pylori will be reported separately ([id number]). MICROSCOPIC DESCRIPTION Slides are reviewed. The specimen shows fragments of gastric mucosa with chronic inflammatory cell infiltrates in the lamina propria consisting of lymphocytes and plasma cells, consistent with mild chronic gastritis. GROSS DESCRIPTION Received in fixative is one container labeled with the patient's name and designated antrum biopsy. The specimen consists of one irregular fragment of light sanchez soft tissue that measures 0.4 x 0.4 x 0.1 cm. The specimen is totally submitted in one cassette. / ALEJANDRA:sepideh 12/09/20 TC:3 [facility]: [id number]
--- NOTE | 2020-12-09 07:30 | IMM_PTH ---
PATIENT: JACK LEBRON LOC: [facility] U#:[id number] AGE/SX: 85/M ROOM: [facility] RE12/08/[address]: Dr. Kirk Skaggs MD : 1935 BED: 1 DIS: 12/11/2020 SPEC #: [id number] RECD: 12/09/20 14:29 STATUS: [place] REQ #: [id number] DANIELLE: 12/09/20 07:[address]: Tawanna Cannon DEPT: IMMUNOHISTOCHEMISTRY RECD BY: Laurie Kenney ENTERED: 12/09/20 14:30 SP TYPE: IMMUNO OTHR DR: MD Dr. Mayur Romero Chi, MD Tissues: Stomach, NOS Procedures: H Pylori (initial) PHYSICIAN & INSTITUTION [place] [address] SPECIMEN INFORMATION: Tissue Source: Antrum biopsy Clinical Info: Upper GI bleed, acute blood loss anemia Specimen Number: [id number] CPT code: 80748 METHODOLOGY: Deparaffinized sections of prefer/formalin-fixed tissue or PAP/DQ stained slides are incubated with monoclonal/polyclonal antibodies/oligonucleotide probes. Localization is made via biotin free immunoperoxidase method. Appropriate controls are performed and reacted as expected. Results on target cell population are indicated in the following table: RESULTS: ANTIBODY / CLONE RESULT H Pylori (polyclonal) negative These tests were developed and their performance characteristics determined by [facility]. They may not have been cleared or approved by the U.S. Food and Drug Administration. The FDA has determined that such clearance or approval is not necessary. INTERPRETATION: Antrum biopsy: Negative for Helicobacter pylori organisms. SJ:sepideh 12/10/2020
--- NOTE | 2020-12-09 08:33 | OP.CCLET_ITS ---
12/09/2020 Mayur Pereira MD [address] [place] [address] Re : Upper GI endoscopy procedure for Franco Yates Dear Dr. Pereira This procedure was performed on November. My impressions and recommendations are as follows: Impressions : - Z-line regular, 40 cm from the incisors. - Small hiatal hernia. - Erythematous mucosa in the antrum. Biopsied. - One non-bleeding duodenal ulcer-eroding into pylorus. - Normal first portion of the duodenum and second portion of the duodenum. Recommendations : - Soft diet. - Use Protonix (pantoprazole) 40 mg IV BID while in hospital & will change to PO BID on D/C. - Await pathology results. - Return patient to hospital [facility] for ongoing care. - Continue present medications. My findings are described in the full procedure note, which is enclosed. If I can be of further assistance, please feel free to contact me at Doctor phone number(s): , Work: . Sincerely, MD Tawanna Lomax MD 12/09/2020 8:32:46 AM This report has been signed electronically.
--- NOTE | 2020-12-09 08:33 | OP.EGD_ITS ---
Patient Name: Franco Yates Procedure Date: 12/09/2020 7:04 AM Date of : 1935 Age: 85 Procedure: Upper GI endoscopy Indications: Melena Providers: Tawanna Cannon MD Medicines: Monitored Anesthesia Care Patient Profile: This is an 85 year old male. Complications: No immediate complications. Procedure: Pre-Anesthesia Assessment: - Prior to the procedure, a History and Physical was performed, and patient medications and allergies were reviewed. The patient's tolerance of previous anesthesia was also reviewed. The risks and benefits of the procedure and the sedation options and risks were discussed with the patient. All questions were answered, and informed consent was obtained. Prior Anticoagulants: The patient has taken no previous anticoagulant or antiplatelet agents. ASA Grade Assessment: Per anesthesia. After reviewing the risks and benefits, the patient was deemed in satisfactory condition to undergo the procedure. After obtaining informed consent, the endoscope was passed under direct vision. Throughout the procedure, the patient's blood pressure, pulse, and oxygen saturations were monitored continuously. The gastroscope was introduced through the mouth, and advanced to the second part of duodenum. The upper GI endoscopy was accomplished without difficulty. The patient tolerated the procedure well. Scope In: 7:29:53 AM Scope Out: 7:33:46 AM Total Procedure Duration Time 0 hours 3 minutes 53 seconds Findings: The Z-line was regular and was found 40 cm from the incisors. A small hiatal hernia was present. Moderately erythematous mucosa without bleeding was found in the gastric antrum. Biopsies were taken with a cold forceps for histology. Biopsies were taken with a cold forceps for Helicobacter pylori cultures. One non-bleeding cratered duodenal ulcer was found in the duodenal bulb. The lesion was 10 mm in largest dimension- eroding into pylorus. The first portion of the duodenum and second portion of the duodenum were normal. Impression: - Z-line regular, 40 cm from the incisors. - Small hiatal hernia. - Erythematous mucosa in the antrum. Biopsied. - One non-bleeding duodenal ulcer-eroding into pylorus. - Normal first portion of the duodenum and second portion of the duodenum. Recommendation: - Soft diet. - Use Protonix (pantoprazole) 40 mg IV BID while in hospital & will change to PO BID on D/C. - Await pathology results. - Return patient to hospital [facility] for ongoing care. - Continue present medications. Procedure Code(s): --- Professional --- 61343, Esophagogastroduodenoscopy, flexible, transoral; with biopsy, single or multiple Diagnosis Code(s): --- Professional --- K44.9, Diaphragmatic hernia without obstruction or gangrene K31.89, Other diseases of stomach and duodenum K26.9, Duodenal ulcer, unspecified as acute or chronic, without hemorrhage or perforation K92.1, Melena (includes Hematochezia) CPT copyright 2017 [employer]. All rights reserved. The codes documented in this report are preliminary and upon director global sales review may be revised to meet current compliance requirements. MD Tawanna Lomax MD 12/09/2020 8:32:46 AM This report has been signed electronically. Number of Addenda: 0 Note Initiated On: 12/09/2020 7:04 AM
[2020-12-09] MEDS: Doxazosin 1 MG Tablet 2 MG PO (09:04)
[2020-12-09] MEDS: Allopurinol 100 MG Tablet 200 MG PO (09:04)
[2020-12-09] MEDS: Sertraline 50 MG Tablet PO (09:04)
[2020-12-09] MEDS: Memantine Hydrochloride 10 MG Tablet PO ×2 (09:04→19:58)
[2020-12-09] MEDS: Donepezil HCl 5 MG Tablet PO (09:04)
--- NOTE | 2020-12-09 10:35 | CASEMGMT ---
ADELITA MARROQUIN Face to Face with patient for initial transition planning/care coordination assessment. RN CM introduced self and role at [facility]. Patient lying in bed, alert and slightly confused. Patient willing to participate in assessment and is able to answer most questions appropriately. Patient gave permission to call to verify information. RN CM called , care providers, pharmacy, and demographics verified. Patient and wish to discharge home, will monitor for need for HHC. states he has no further needs or concerns at this time. CM to follow for discharge planning needs that may arise. PCP: Randall Specialists: Emily director of diagnostic imaging Preferred Pharmacy: [facility] Insurance: [facility] Prescription Benefit: yes Living Will/HPOA: yes, Lisa Yates LNOK: Living Arrangements: Patient lives with in a 1.5 story home with bed and bath on first floor. 5 steps and railing to enter the home. Patient is independent but assists with ADLs at times. Transportation: DME/HHC: Patient has shower chair, cane, and walker at home. No previous HHC or SNF. Will monitor how patient progresses with therapy and need for HHC Disposition Plan: Patient to discharge home with family support and follow-up plans in place. Monitor for HHC. Mar LEHMAN, RN, CM
--- NOTE | 2020-12-09 11:32 | NURSING ---
patient stating Help Im in a car and need to find the emergency brake, this thing is rolling away. ADELITA Crouch and this RN redirected patient, boosted up in bed, reoriented and emotional support provided, bed exit on.
--- NOTE | 2020-12-09 11:33 | CASEMGMT ---
Social Work Per RNCM who spoke with pt , pt does have a HCPOA naming Lisa Yates. Documents are not on file. SANDRINE Delgadillo
[2020-12-09] MEDS: proMETHazine 25 MG/ML Syringe 12.5 MG IM (11:59)
[2020-12-09] MEDS: Sucralfate 1 GM Tablet PO ×3 (12:04→19:58)
[2020-12-09] MEDS: Haloperidol Lactate 5 MG/ML Vial 2 MG IV ×2 (13:24→18:19)
--- NOTE | 2020-12-09 14:03 | NURSING ---
pt continuously attempting to get OOB, pulled off EKG leads and pulse ox, stated look at those birds up there and my two sons across the [place]. This RN redirected and attempted to reorient patient, patient becoming more agitated stated just let me leave, you can't hold me here or I will hold you down PRN haldol given, emotional support provided and educated on POC. updated, per she wants patient to stay in the hospital until he is ready to leave, she is unable to care for him at home.
[2020-12-09] MEDS: hydrALAZINE 20 MG/ML Vial 10 MG IV (15:04)
--- NOTE | 2020-12-09 15:25 | PCM.PN.HOSP ---
Patient Problems: Active and Suspected Problems (Last Reviewed 06/18/20 @ 13:57 by Pati Kern) Upper GI bleed (Acute) Acute blood loss anemia (Acute) Segmental and somatic dysfunction of pelvic region (Acute) Segmental and somatic dysfunction of lumbar region (Acute) Reason for Visit: Follow-up for GI bleed, dementia with aggressive behavior Objective: Patient blood pressure is elevated 178/88, 126/88. Heart rate in the 80s to 90s per minute. Sinus rhythm with PVCs General: Awake, fluctuating level of alertness. Dementia, aggression HEENT: Hard to hear, atraumatic, PERRLA, EOMI, Normocephalic Oral: No Gingival or Mucosal Lesions/ Ulcerations Neck: Supple, No JVD, Negative Carotid Bruits Lungs: Air entry diminished in bilateral lung bases. No crepitation/rhonchi Cardiovascular: Regular rate, Regular Rhythm, Normal S1, Normal S2, systolic over right second ICS and LLSB Abdomen: Bowel Sounds Present, Soft, Non Tender, Non-Distended : No renal angle tenderness. No suprapubic tenderness. Extremities: No edema, Capillary Refill Less than 3 Seconds Skin: No rashes, No breakdown Musculoskeletal: Moderate muscle atrophy of the lower extremities. No Tenderness to Palpation of Joints or Extremities Neurological: Cranial nerves II-XII grossly intact, Deep Tendon Reflexes 2+/4 and Symmetrical, Neuro grossly intact Psych/Mental Status: Dementia, flat affect. Vitals/I&O's: Vital Signs Temp Pulse Resp BP Pulse Ox 97.5 F L 98 18 196/88 H 98 12/09/20 12:00 12/09/20 15:04 12/09/20 15:00 12/09/20 15:04 12/09/20 15:00 Oxygen Delivery Method Room Air Weight: 170 lb 3.15 oz Body Mass Index (BMI) 22.1 Intake and Output for Last 24 Hours 12/07/20 12/08/20 12/09/20 23:59 23:59 23:59 Intake Total 1951.25 / 1951.25 2473.33 / 2473.33 Output Total 900 / 900 1275 / 1275 Balance 1051.25 / 1051.25 1198.33 / 1198.33 Microbiology Past 72 Hours 12/08/20 09:40 Stool Stool Occult Blood (KARSTEN) - Final 12/08/20 09:42 Mucosa - Nose SARS-CoV-2 Antigen (Rapid) - Final Laboratory Results 12/08/20 09:20: Crossmatch See Detail 12/08/20 09:20: Crossmatch See Detail 12/08/20 16:10: Urine Color Yellow, Urine Clarity Clear, Urine pH 6.0, Ur Specific [place] 1.015, Urine Protein Negative, Urine Glucose (UA) Normal, Urine Ketones Negative, Urine Occult Blood Negative, Urine Nitrite Negative, Urine Bilirubin Negative, Urine Urobilinogen Normal, Ur Leukocyte Esterase Negative, Urine RBC 0 SEEN, Urine WBC 0 SEEN, Ur Squamous Epith Cells 0 SEEN, Urine Bacteria 0 SEEN, Urine Mucus 0 SEEN 12/08/20 17:13: Hgb 8.1 L, Hct 25.1 L 12/09/20 03:15: WBC 7.2, RBC 2.27 L, Hgb 7.2 L, Hct 22.7 L, MCV 100.0 H, MCH 31.7, MCHC 31.7 L, RDW Std Deviation 54.3 H, RDW Coeff of Kristan 15.1 H, Plt Count 210, MPV 8.8, Immature Gran % (Auto) 1.100 H, Neut % (Auto) 65.5, Lymph % (Auto) 17.2 L, [place] % (Auto) 5.4, Eos % (Auto) 9.8 H, Baso % (Auto) 1.0, Absolute Neuts (auto) 4.7, Absolute Lymphs (auto) 1.23, Nucleated RBC % 0 12/09/20 03:15: Sodium 142, Potassium 3.4 L, Chloride 118 H, Carbon Dioxide 17.0 L, Anion Gap 7, BUN 57 H, Creatinine 1.17, Estim Creat Clear Calc 51.32, Est GFR (MDRD) Af Amer 76, Est GFR (MDRD) Non-Af 63, BUN/Creatinine Ratio 48.7 H, Glucose 86, Calcium 8.2 L Current Medications Acetaminophen (Acetaminophen 325 Mg Tablet) 650 mg PO Q6H PRN PRN PRN Reason: Pain Score 1-10/Temp > 100.7 F Last Admin: 12/08/20 20:20 Dose: 650 mg Documented by: Al Hydroxide/Mg Hydroxide (Mag Hydrox/Al Hydrox/Simeth 30 Ml Udc) 30 ml PO Q6H PRN PRN PRN Reason: Gastric Burning Albuterol Sulfate (Albuterol 2.5 Mg/3 Ml Vial.Neb.) 2.5 mg INHALATION Q2H PRN PRN PRN Reason: SOB/Wheezing Allopurinol (Allopurinol 100 Mg Tablet) 200 mg PO DAILY [facility] Last Admin: 12/09/20 09:04 Dose: 200 mg Documented by: Donepezil HCl (Donepezil Hcl 5 Mg Tablet) 5 mg PO DAILY [facility] Last Admin: 12/09/20 09:04 Dose: 5 mg Documented by: Doxazosin Mesylate (Doxazosin 1 Mg Tablet) 2 mg PO DAILY [facility] Last Admin: 12/09/20 09:04 Dose: 2 mg Documented by: Haloperidol Lactate (Haloperidol Lactate 5 Mg/Ml Vial) 2 mg IV Q4H PRN PRN PRN Reason: AGITATION Last Admin: 12/09/20 13:24 Dose: 2 mg Documented by: Hydralazine HCl (Hydralazine 20 Mg/Ml Vial) 5 mg IV Q4H PRN PRN PRN Reason: SBP more than 160 mmHg Last Admin: 12/08/20 17:12 Dose: 5 mg Documented by: Hydralazine HCl (Hydralazine 20 Mg/Ml Vial) 10 mg IV Q4H PRN PRN PRN Reason: SBP more than 190 mmHg Last Admin: 12/09/20 15:04 Dose: 10 mg Documented by: Hydromorphone HCl (Hydromorphone 0.5 Mg/0.5 Ml Syringe) 0.5 mg IV Q4H PRN PRN PRN Reason: Pain Score 6-10 Pantoprazole Sodium 40 mg/ (Sodium Chloride) 110 mls @ 330 mls/hr IV Q12 [facility] Last Infusion: 12/09/20 09:24 Dose: Infused Documented by: Sodium Chloride () 500 mls @ 15 mls/hr IV PRN PRN PRN Reason: Blood Transfusion Last Infusion: 12/09/20 11:44 Dose: Infused Documented by: Memantine (Memantine Hydrochloride 10 Mg Tablet) 10 mg PO BID [facility] Last Admin: 12/09/20 09:04 Dose: 10 mg Documented by: Oxycodone HCl (Oxycodone 5 Mg Tablet) 5 mg PO Q4H PRN PRN PRN Reason: Pain Score 4-5 Pramipexole Dihydrochloride (Pramipexole Di-Hcl 1 Mg Tablet) 4 mg PO QHS [facility] Pramipexole Dihydrochloride (Pramipexole Di-Hcl 0.5 Mg Tablet) 0.5 mg PO QHS [facility] Pravastatin Sodium (Pravastatin 20 Mg Tablet) 20 mg PO QHS [facility] Last Admin: 12/08/20 20:43 Dose: 20 mg Documented by: Prochlorperazine Edisylate (Prochlorperazine 10 Mg/2 Ml Vial) 5 mg IV Q4H PRN PRN PRN Reason: Breakthrough Nausea/Vomiting Senna/Docusate Sodium (Senna/Docusate Sodium 1 Tablet) 2 tablet PO BID PRN PRN Reason: Constipation Sertraline HCl (Sertraline 50 Mg Tablet) 50 mg PO DAILY [facility] Last Admin: 12/09/20 09:04 Dose: 50 mg Documented by: Sodium Chloride (0.9% Saline Lock 10 Ml Syringe) 10 - 40 ml IV UD PRN PRN Reason: SALINE FLUSH Last Admin: 12/08/20 13:00 Dose: 20 ml Documented by: Sucralfate (Sucralfate 1 Gm Tablet) 1 gm PO 1HR_ACHS [facility] Last Admin: 12/09/20 12:04 Dose: 1 gm Documented by: STROKE Vital Signs/Narrative: Vital Signs Temp Pulse Resp BP BP Pulse Ox 12/09/20 15:04 98 196/88 H 12/09/20 15:00 97 18 196/88 H 98 12/09/20 14:59 104 H 12/09/20 14:00 89 19 H 178/82 H 99 12/09/20 13:00 84 18 147/78 H 100 12/09/20 12:00 97.5 F L 77 17 144/68 H 99 Medical Necessity - Tobacco Use Smoking Status: Former smoker Assessment/Plan All Active Problems (Last Reviewed 06/18/20 @ 13:57 by Pati Kern) Upper GI bleed (Acute) Acute blood loss anemia (Acute) Segmental and somatic dysfunction of pelvic region (Acute) Segmental and somatic dysfunction of lumbar region (Acute) This 85-year-old question gentleman admitted for generalized weakness, melena and found to have severe anemia and lactic acidosis 1. Acute symptomatic anemia of blood loss due to upper GI bleed: Patient H&H was 13.3/42 in September 2020 and a drop to 7.1/22.1. 1 unit of PRBC ordered. Patient is being admitted in ICU. Surgeon consult consulted. As per patient he had colonoscopy and EGD probably more than 10 years ago and does not remember any abnormality. 12/09: On IV PPI. Patient hemoglobin dropped from 8.1. Second unit of PRBC transfusion running. Discussed with the surgeon. EGD shows 1 nonbleeding duodenal ulcer eroding into pylorus, long segment. Greatest mucosa in antrum and small hiatus hernia. On Carafate. 2 lactic acidosis most probably secondary to hypovolemia: Normal saline ordered at 125 mill per hour. Titrate the dose as per intake and output, cardiopulmonary hemodynamic parameters. Mild hypokalemia, potassium replaced. Repeat lactic acid normal 3. Acute prerenal azotemia on baseline CKD stage IIIb: Patient last BUN/creatinine 31/1.62 in October 10. Admitted with 88/1.66. Monitor kidney function and electrolytes. 12/09: BUN/creatinine improved. BUN is still elevated 57. 4. Hypertension: Currently n.p.o., IV antihypertensive ordered. Home medication resumed 5. Dyslipidemia: On statin 6. Bilateral carotid stenosis: Follows Dr. Gagan Crespo and Dr. Diaz 7. Other comorbidities include Alzheimer's dementia: Patient had aggressive behavior, restlessness and Haldol with Phenergan IV ordered. VTE prophylaxis: Bilateral SCDs. Pharmacological prophylaxis contraindicated Living will/advanced directive/end of life care: Patient does not have living will or advanced directive. His is power of commercial litigation attorney for health after discussion of benefits/risks procedures involved with full code, DNR CC arrest and DNR CC, the patient opted for DNR-CC Arrest with no intubation and does not want to be on artificial life support measures Patient does not want artificial life support including intubation, tube feed, ventilator and/chest compression, central venous catheter, vasopressor and DC shock if needed Total time spent in [id number] encounter in discussion of advanced directive 16 minutes. Inpatient E&M: [id number] [facility] L3
[2020-12-09] MEDS: Lactated Ringers 1,000 ML 75 ML IV (15:41)
[2020-12-09] MEDS: 0.9% Saline Lock 10 ML Syringe IV (18:19)
[2020-12-09] MEDS: proCHLORPERazine 10 MG/2 ML Vial 5 MG IV (19:31)
[2020-12-09] MEDS: Pravastatin 20 MG Tablet PO (19:58)
[2020-12-09] MEDS: Pramipexole Di-HCl 0.5 MG Tablet PO (19:58)
[2020-12-09] MEDS: QUEtiapine 25 MG Tablet PO (20:36)
[2020-12-10] VITALS (23 sets, daily range): BP systolic 102–165; BP diastolic 52–88; PULSE 77–111; RESP 14–21; TEMP 36.4–37.1; O2SAT 94–100
[2020-12-10] MEDS: QUEtiapine 25 MG Tablet PO (00:10)
[2020-12-10] MEDS: Haloperidol Lactate 5 MG/ML Vial 2 MG IV (00:10)
[2020-12-10 04:11] LABS: Absolute Lymphocyte Count 1.02 X10^3/uL (0.83-4.51); Absolute Neutrophil Count 7.2 X10^3/uL (2.0-7.7); Basophil# 0.02 X10^3/uL; Basophil% 0.2 % (0-1); Eosinophil# 0.64 X10^3/uL; Eosinophils% 6.8 % (0-5); Hematocrit 25.5 % (40-54); Hemoglobin 8.6 g/dL (13.0-16.5); Lymphocyte # 1.02 X10^3/ul (0.83-4.51); Lymphocyte % 10.9 % (19-41); Mean Corp Hgb Conc 33.7 g/dL (32-36); Mean Corpuscular Hgb 32.2 pg (27.0-32.0); Mean Corpuscular Volume 95.5 fL (80-94); Mean Platelet Vol. 8.5 fl (6.2-12.0); Monocyte# 0.46 X10^3/uL; Monocyte% 4.9 % (0-10); NRBC Flagged by Analyzer 0 % (0-5); Neutrophil # 7.16 X10^3/uL (2.7-7.7); Neutrophil % 76.7 % (47-70); Platelet Count 218 K/mm3 (150-450); RBC Distribution Width CV 15.3 % (11.6-14.6); RBC Distribution Width SD 51.5 fl (35.1-43.9); Red Blood Count 2.67 M/mm3 (4.6-6.2); White Blood Count 9.4 K/mm3 (4.4-11.0)
[2020-12-10 04:46] LABS: Anion Gap 5 (5-15); BUN 31 mg/dL (7-18); BUN/Creat Ratio 26.7 RATIO (10-20); Calcium,Total 8.5 mg/dL (8.5-10.1); Chloride 119 mmol/L (98-107); Creatinine, Serum 1.16 mg/dL (0.70-1.30); EST Glomerular Filtration Rate 64 mL/min (>60); Est Glom Filt Rate - Afr Amer 77 mL/min (>60); Estimated Creatinine Clearance 51.76 ml/min; Glucose 88 mg/dL (74-106); Magnesium 1.9 mg/dL (1.6-2.6); Potassium 3.5 mmol/L (3.5-5.1); Sodium Level 145 mmol/L (136-145)
--- NOTE | 2020-12-10 08:12 | CASEMGMT ---
RN CM NOTE: [facility] Palliative screen completed for [facility] 3. Pt does not meet criteria at this time. Cora LEHMAN RN CM
[2020-12-10] MEDS: 0.9% Saline Lock 10 ML Syringe IV ×2 (11:02→22:07)
--- NOTE | 2020-12-10 11:24 | CASEMGMT ---
Social Work SW reviewed pt chart. Max A x2 for bed mobility and sitting EOB. Max A x2 for attempt to stand and pt unable. Pt confused and agitated. CORRINE placed call to pt Lisa to discuss discharge plan. Lisa states that pt was able to ambulate in his home with a wheeled walker and dress himself. At times Lisa would assist pt with getting out of chair/off commode. Pt was to have an appointment with Dr. Chow for evaluation of knee. Lisa also states pt is alert and oriented and able to hold appropriate conversations with . SW did inform of pt current functionality and recommendations for short term SNF for rehabilitation. Pt states she will absolutely not send pt to a fdc. SW then broached idea of TCU. Pt again refused stating she would care for him at home. SW reiterated that pt is currently needed Max A x2. Lisa would like to hire a caregiver to come to the home to assist. SW provided list of private duty aids to Lisa and encouraged her to start calling immediately as staffing is difficult to find. Discussed skilled home health as well. SW encouraged pt to speak with three sons to discuss discharge plan. Nursing updated. SW will continue to follow for d/c planning. SANDRINE Delgadillo
--- NOTE | 2020-12-10 12:55 | PCM.PN.SRG ---
Patient Problems: Active and Suspected Problems (Last Reviewed 06/18/20 @ 13:57 by Pati Kern) Upper GI bleed (Acute) Acute blood loss anemia (Acute) Segmental and somatic dysfunction of pelvic region (Acute) Segmental and somatic dysfunction of lumbar region (Acute) Subjective: Pt sleeping, per nursing he hasn't slept in 36 hrs, did wake briefly to deny abd pain. - Physical Exam Vitals/I&O's: Vital Signs Temp Pulse Resp BP Pulse Ox 98.6 F 90 16 165/83 H 96 12/10/20 18:41 12/10/20 18:41 12/10/20 18:41 12/10/20 18:41 12/10/20 18:41 Oxygen Delivery Method Room Air Weight: 169 lb 15.622 oz Body Mass Index (BMI) 22.1 Intake and Output for Last 24 Hours 12/08/20 12/09/20 12/10/20 23:59 23:59 23:59 Intake Total 1951.25 / 1951.25 2618.33 / 2678.33 1760 / 1760 Output Total 900 / 900 1275 / 1275 325 / 325 Balance 1051.25 / 1051.25 1343.33 / 1403.33 1435 / 1435 General: Cooperative, No apparent distress Abdomen: Soft, Non Tender, Non-Distended Microbiology Past 72 Hours 12/08/20 09:40 Stool Stool Occult Blood (KARSTEN) - Final 12/08/20 09:42 Mucosa - Nose SARS-CoV-2 Antigen (Rapid) - Final Laboratory Results 12/10/20 03:55: WBC 9.4, RBC 2.67 L, Hgb 8.6 L, Hct 25.5 L, MCV 95.5 H, MCH 32.2 H, MCHC 33.7 D, RDW Std Deviation 51.5 H, RDW Coeff of Kristan 15.3 H, Plt Count 218, MPV 8.5, Immature Gran % (Auto) 0.500, Neut % (Auto) 76.7 H, Lymph % (Auto) 10.9 L, [place] % (Auto) 4.9, Eos % (Auto) 6.8 H, Baso % (Auto) 0.2, Absolute Neuts (auto) 7.2, Absolute Lymphs (auto) 1.02, Nucleated RBC % 0 12/10/20 03:55: Sodium 145, Potassium 3.5, Chloride 119 H, Carbon Dioxide 21.0, Anion Gap 5, BUN 31 H, Creatinine 1.16, Estim Creat Clear Calc 51.76, Est GFR (MDRD) Af Amer 77, Est GFR (MDRD) Non-Af 64, BUN/Creatinine Ratio 26.7 H, Glucose 88, Calcium 8.5, Magnesium 1.9 Current Medications Acetaminophen (Acetaminophen 325 Mg Tablet) 650 mg PO Q6H PRN PRN PRN Reason: Pain Score 1-10/Temp > 100.7 F Last Admin: 12/08/20 20:20 Dose: 650 mg Documented by: Al Hydroxide/Mg Hydroxide (Mag Hydrox/Al Hydrox/Simeth 30 Ml Udc) 30 ml PO Q6H PRN PRN PRN Reason: Gastric Burning Albuterol Sulfate (Albuterol 2.5 Mg/3 Ml Vial.Neb.) 2.5 mg INHALATION Q2H PRN PRN PRN Reason: SOB/Wheezing Allopurinol (Allopurinol 100 Mg Tablet) 200 mg PO DAILY [facility] Last Admin: 12/10/20 13:11 Dose: 200 mg Documented by: Donepezil HCl (Donepezil Hcl 5 Mg Tablet) 5 mg PO DAILY [facility] Last Admin: 12/10/20 13:11 Dose: 5 mg Documented by: Doxazosin Mesylate (Doxazosin 1 Mg Tablet) 2 mg PO DAILY [facility] Last Admin: 12/10/20 13:10 Dose: 2 mg Documented by: Haloperidol Lactate (Haloperidol Lactate 5 Mg/Ml Vial) 2 mg IV Q4H PRN PRN PRN Reason: AGITATION Last Admin: 12/10/20 00:10 Dose: 2 mg Documented by: Hydralazine HCl (Hydralazine 20 Mg/Ml Vial) 5 mg IV Q4H PRN PRN PRN Reason: SBP more than 160 mmHg Last Admin: 12/08/20 17:12 Dose: 5 mg Documented by: Hydralazine HCl (Hydralazine 20 Mg/Ml Vial) 10 mg IV Q4H PRN PRN PRN Reason: SBP more than 190 mmHg Last Admin: 12/09/20 15:04 Dose: 10 mg Documented by: Hydromorphone HCl (Hydromorphone 0.5 Mg/0.5 Ml Syringe) 0.5 mg IV Q4H PRN PRN PRN Reason: Pain Score 6-10 Pantoprazole Sodium 40 mg/ (Sodium Chloride) 110 mls @ 330 mls/hr IV Q12 [facility] Last Infusion: 12/10/20 11:22 Dose: Infused Documented by: Sodium Chloride () 500 mls @ 15 mls/hr IV PRN PRN PRN Reason: Blood Transfusion Last Infusion: 12/09/20 11:44 Dose: Infused Documented by: Memantine (Memantine Hydrochloride 10 Mg Tablet) 10 mg PO BID [facility] Last Admin: 12/10/20 13:11 Dose: 10 mg Documented by: Nutritional Formula (Lactose Free) (Ensure Enlive 120 Ml Liquid) 120 ml PO 4X/DAY [facility] Last Admin: 12/10/20 19:01 Dose: 120 ml Documented by: Oxycodone HCl (Oxycodone 5 Mg Tablet) 5 mg PO Q4H PRN PRN PRN Reason: Pain Score 4-5 Potassium Chloride (Potassium Chloride Oral Soln 20 Meq/15 Ml Udc) [facility] Last Admin: 12/10/20 13:10 Dose: 40 meq Documented by: Pramipexole Dihydrochloride (Pramipexole Di-Hcl 1 Mg Tablet) 4 mg PO QHS [facility] Pramipexole Dihydrochloride (Pramipexole Di-Hcl 0.5 Mg Tablet) 0.5 mg PO QHS [facility] Last Admin: 12/09/20 19:58 Dose: 0.5 mg Documented by: Pravastatin Sodium (Pravastatin 20 Mg Tablet) 20 mg PO QHS [facility] Last Admin: 12/09/20 19:58 Dose: 20 mg Documented by: Prochlorperazine Edisylate (Prochlorperazine 10 Mg/2 Ml Vial) 5 mg IV Q4H PRN PRN PRN Reason: Breakthrough Nausea/Vomiting Last Admin: 12/09/20 19:31 Dose: 5 mg Documented by: Quetiapine Fumarate (Quetiapine 25 Mg Tablet) 25 mg PO QHS PRN PRN PRN Reason: insomnia Senna/Docusate Sodium (Senna/Docusate Sodium 1 Tablet) 2 tablet PO BID PRN PRN Reason: Constipation Sertraline HCl (Sertraline 50 Mg Tablet) 50 mg PO DAILY [facility] Last Admin: 12/10/20 13:11 Dose: 50 mg Documented by: Sodium Chloride (0.9% Saline Lock 10 Ml Syringe) 10 - 40 ml IV UD PRN PRN Reason: SALINE FLUSH Last Admin: 12/10/20 11:02 Dose: 10 ml Documented by: Sucralfate (Sucralfate 1 Gm Tablet) 1 gm PO 1HR_ACHS [facility] Last Admin: 12/10/20 19:01 Dose: 1 gm Documented by: Medical Necessity - Tobacco Use Smoking Status: Former smoker Assessment/Plan All Active Problems (Last Reviewed 06/18/20 @ 13:57 by Pati Kern) Upper GI bleed (Acute) Acute blood loss anemia (Acute) Segmental and somatic dysfunction of pelvic region (Acute) Segmental and somatic dysfunction of lumbar region (Acute) 85 y/o M with anemia, melena s/p EGD duodenal ulcer s/p PRBC x 2 total soft diet Anemia- 8.6 from 7.2 after additional PRBC -IV Protonix, d/c on protonix 40 mg PO BID Tawanna Cannon M.D. Pager: [phone] [facility] [address] [place] [address], Outpatient [place], [address] [place] [address] Office: [phone] Inpatient E&M: [id number] [facility] L2
[2020-12-10] MEDS: Potassium Chloride Oral Soln 20 MEQ/15 ML UDC 40 MEQ PO (13:10)
[2020-12-10] MEDS: Doxazosin 1 MG Tablet 2 MG PO (13:10)
[2020-12-10] MEDS: Donepezil HCl 5 MG Tablet PO (13:11)
[2020-12-10] MEDS: Sertraline 50 MG Tablet PO (13:11)
[2020-12-10] MEDS: Memantine Hydrochloride 10 MG Tablet PO ×2 (13:11→22:10)
[2020-12-10] MEDS: Sucralfate 1 GM Tablet PO ×3 (13:11→22:09)
[2020-12-10] MEDS: Allopurinol 100 MG Tablet 200 MG PO (13:11)
--- NOTE | 2020-12-10 14:10 | NURSING ---
wound photo: left hip
--- NOTE | 2020-12-10 14:11 | NURSING ---
wound photo: nakia
--- NOTE | 2020-12-10 15:34 | CASEMGMT ---
Social Work SW received a call from pt Lisa who is now inquiring about TCU. SW again explained TCU to her including Medicare Coverage, services provided and visitation policy. Lisa states she will now consider this but needs to talk to pt and to her sons again. Message left with Shanthi in TCU inquiring about bed availability. Will await determination. SANDRINE Delgadillo
--- NOTE | 2020-12-10 16:40 | PN_ITS ---
Patient Problems: Active and Suspected Problems (Last Reviewed 06/18/20 @ 13:57 by Pati Kern) Upper GI bleed (Acute) Acute blood loss anemia (Acute) Segmental and somatic dysfunction of pelvic region (Acute) Segmental and somatic dysfunction of lumbar region (Acute) Reason for Visit: Follow-up for GI bleed, altered mental status with agitation. Objective: As per nursing staff, patient was very agitated and could not sleep last night. Was given 2 mg IV Haldol x2 doses in the last 24 hours and patient sleeping in the morning. eating disorder psychologist shows sinus rhythm. Heart rate and blood pressure controlled. Physical exam General: Sleeping in the morning but woke up later. Dementia, intermittent restlessness and anxiety/agitation HEENT: Hard to hear, atraumatic, PERRLA, EOMI, Normocephalic Oral: No Gingival or Mucosal Lesions/ Ulcerations Neck: Supple, No JVD, Negative Carotid Bruits Lungs: Air entry diminished in bilateral lung bases. No crepitation/rhonchi Cardiovascular: Regular rate, Regular Rhythm, Normal S1, Normal S2, systolic over right second ICS and LLSB Abdomen: Bowel Sounds Present, Soft, Non Tender, Non-Distended : No renal angle tenderness. No suprapubic tenderness. Extremities: No edema, Capillary Refill Less than 3 Seconds Skin: No rashes, No breakdown Musculoskeletal: Moderate muscle atrophy of the lower extremities. No Tenderness to Palpation of Joints or Extremities Neurological: Cranial nerves II-XII grossly intact, Deep Tendon Reflexes 2+/4 and Symmetrical, Neuro grossly intact Psych/Mental Status: Dementia, flat affect. Vitals/I&O's: Vital Signs Temp Pulse Resp BP Pulse Ox 98.1 F 81 15 106/54 L 99 12/10/20 12:00 12/10/20 16:00 12/10/20 16:00 12/10/20 16:00 12/10/20 16:00 Oxygen Delivery Method Room Air Weight: 169 lb 15.622 oz Body Mass Index (BMI) 22.1 Intake and Output for Last 24 Hours 12/08/20 12/09/20 12/10/20 23:59 23:59 23:59 Intake Total 1951.25 / 1951.25 2618.33 / 2678.33 1760 / 1760 Output Total 900 / 900 1275 / 1275 325 / 325 Balance 1051.25 / 1051.25 1343.33 / 1403.33 1435 / 1435 Microbiology Past 72 Hours 12/08/20 09:40 Stool Stool Occult Blood (KARSTEN) - Final 12/08/20 09:42 Mucosa - Nose SARS-CoV-2 Antigen (Rapid) - Final Laboratory Results 12/10/20 03:55: WBC 9.4, RBC 2.67 L, Hgb 8.6 L, Hct 25.5 L, MCV 95.5 H, MCH 32.2 H, MCHC 33.7 D, RDW Std Deviation 51.5 H, RDW Coeff of Kristan 15.3 H, Plt Count 218, MPV 8.5, Immature Gran % (Auto) 0.500, Neut % (Auto) 76.7 H, Lymph % (Auto) 10.9 L, [place] % (Auto) 4.9, Eos % (Auto) 6.8 H, Baso % (Auto) 0.2, Absolute Neuts (auto) 7.2, Absolute Lymphs (auto) 1.02, Nucleated RBC % 0 12/10/20 03:55: Sodium 145, Potassium 3.5, Chloride 119 H, Carbon Dioxide 21.0, Anion Gap 5, BUN 31 H, Creatinine 1.16, Estim Creat Clear Calc 51.76, Est GFR (MDRD) Af Amer 77, Est GFR (MDRD) Non-Af 64, BUN/Creatinine Ratio 26.7 H, Glucose 88, Calcium 8.5, Magnesium 1.9 Current Medications Acetaminophen (Acetaminophen 325 Mg Tablet) 650 mg PO Q6H PRN PRN PRN Reason: Pain Score 1-10/Temp > 100.7 F Last Admin: 12/08/20 20:20 Dose: 650 mg Documented by: Al Hydroxide/Mg Hydroxide (Mag Hydrox/Al Hydrox/Simeth 30 Ml Udc) 30 ml PO Q6H PRN PRN PRN Reason: Gastric Burning Albuterol Sulfate (Albuterol 2.5 Mg/3 Ml Vial.Neb.) 2.5 mg INHALATION Q2H PRN PRN PRN Reason: SOB/Wheezing Allopurinol (Allopurinol 100 Mg Tablet) 200 mg PO DAILY [facility] Last Admin: 12/10/20 13:11 Dose: 200 mg Documented by: Donepezil HCl (Donepezil Hcl 5 Mg Tablet) 5 mg PO DAILY [facility] Last Admin: 12/10/20 13:11 Dose: 5 mg Documented by: Doxazosin Mesylate (Doxazosin 1 Mg Tablet) 2 mg PO DAILY [facility] Last Admin: 12/10/20 13:10 Dose: 2 mg Documented by: Haloperidol Lactate (Haloperidol Lactate 5 Mg/Ml Vial) 2 mg IV Q4H PRN PRN PRN Reason: AGITATION Last Admin: 12/10/20 00:10 Dose: 2 mg Documented by: Hydralazine HCl (Hydralazine 20 Mg/Ml Vial) 5 mg IV Q4H PRN PRN PRN Reason: SBP more than 160 mmHg Last Admin: 12/08/20 17:12 Dose: 5 mg Documented by: Hydralazine HCl (Hydralazine 20 Mg/Ml Vial) 10 mg IV Q4H PRN PRN PRN Reason: SBP more than 190 mmHg Last Admin: 12/09/20 15:04 Dose: 10 mg Documented by: Hydromorphone HCl (Hydromorphone 0.5 Mg/0.5 Ml Syringe) 0.5 mg IV Q4H PRN PRN PRN Reason: Pain Score 6-10 Pantoprazole Sodium 40 mg/ (Sodium Chloride) 110 mls @ 330 mls/hr IV Q12 [facility] Last Infusion: 12/10/20 11:22 Dose: Infused Documented by: Sodium Chloride () 500 mls @ 15 mls/hr IV PRN PRN PRN Reason: Blood Transfusion Last Infusion: 12/09/20 11:44 Dose: Infused Documented by: Memantine (Memantine Hydrochloride 10 Mg Tablet) 10 mg PO BID [facility] Last Admin: 12/10/20 13:11 Dose: 10 mg Documented by: Nutritional Formula (Lactose Free) (Ensure Enlive 120 Ml Liquid) 120 ml PO 4X/DAY [facility] Oxycodone HCl (Oxycodone 5 Mg Tablet) 5 mg PO Q4H PRN PRN PRN Reason: Pain Score 4-5 Potassium Chloride (Potassium Chloride Oral Soln 20 Meq/15 Ml Udc) [facility] Last Admin: 12/10/20 13:10 Dose: 40 meq Documented by: Pramipexole Dihydrochloride (Pramipexole Di-Hcl 1 Mg Tablet) 4 mg PO QHS [facility] Pramipexole Dihydrochloride (Pramipexole Di-Hcl 0.5 Mg Tablet) 0.5 mg PO QHS [facility] Last Admin: 12/09/20 19:58 Dose: 0.5 mg Documented by: Pravastatin Sodium (Pravastatin 20 Mg Tablet) 20 mg PO QHS [facility] Last Admin: 12/09/20 19:58 Dose: 20 mg Documented by: Prochlorperazine Edisylate (Prochlorperazine 10 Mg/2 Ml Vial) 5 mg IV Q4H PRN PRN PRN Reason: Breakthrough Nausea/Vomiting Last Admin: 12/09/20 19:31 Dose: 5 mg Documented by: Senna/Docusate Sodium (Senna/Docusate Sodium 1 Tablet) 2 tablet PO BID PRN PRN Reason: Constipation Sertraline HCl (Sertraline 50 Mg Tablet) 50 mg PO DAILY [facility] Last Admin: 12/10/20 13:11 Dose: 50 mg Documented by: Sodium Chloride (0.9% Saline Lock 10 Ml Syringe) 10 - 40 ml IV UD PRN PRN Reason: SALINE FLUSH Last Admin: 12/10/20 11:02 Dose: 10 ml Documented by: Sucralfate (Sucralfate 1 Gm Tablet) 1 gm PO 1HR_ACHS [facility] Last Admin: 12/10/20 13:11 Dose: 1 gm Documented by: STROKE Vital Signs/Narrative: Vital Signs Pulse Resp BP Pulse Ox 12/10/20 16:00 81 15 106/54 L 99 12/10/20 15:00 100 16 129/69 H 100 12/10/20 14:00 104 H 21 H 103/88 H 95 12/10/20 13:00 100 20 H 135/84 H 98 Medical Necessity - Tobacco Use Smoking Status: Former smoker Assessment/Plan All Active Problems (Last Reviewed 06/18/20 @ 13:57 by Pati Kern) Upper GI bleed (Acute) Acute blood loss anemia (Acute) Segmental and somatic dysfunction of pelvic region (Acute) Segmental and somatic dysfunction of lumbar region (Acute) This 85-year-old question gentleman admitted for generalized weakness, melena and found to have severe anemia and lactic acidosis 1. Acute symptomatic anemia of blood loss due to upper GI bleed: Patient H&H was 13.3/42 in September 2020 and a drop to 7.1/22.1. 1 unit of PRBC ordered. Patient is being admitted in ICU. Surgeon consult consulted. As per patient he had colonoscopy and EGD probably more than 10 years ago and does not remember any abnormality. 12/09: On IV PPI. Patient hemoglobin dropped from 8.1. Second unit of PRBC transfusion running. Discussed with the surgeon. EGD shows 1 nonbleeding duodenal ulcer eroding into pylorus, long segment. Greatest mucosa in antrum and small hiatus hernia. On Carafate. 12/10: H&H stable 8./25. Hemodynamically stable to transfer to PCU. 2 lactic acidosis most probably secondary to hypovolemia: Normal saline ordered at 125 mill per hour. Titrate the dose as per intake and output, cardiopulmonary hemodynamic parameters. Mild hypokalemia, potassium replaced. Repeat lactic acid normal. Patient had total of 2 units of PRBC transfusion. Acute encephalopathy/delirium with baseline dementia probably multifactorial related to metabolic/GI bleed/environmental: Patient required IV Haldol but currently quiet and oriented. Continue orientation cues. 3. Acute prerenal azotemia on baseline CKD stage IIIb: Patient last BUN/creatinine 31/1.62 in October 10. Admitted with 88/1.66. Monitor kidney function and electrolytes. 12/09: BUN/creatinine improved. BUN is still elevated 57. 4. Hypertension: Currently n.p.o., IV antihypertensive ordered. Home medication resumed 5. Dyslipidemia: On statin 6. Bilateral carotid stenosis: Follows Dr. Gagan Crespo and Dr. Diaz 7. Other comorbidities include Alzheimer's dementia: Patient had aggressive behavior, restlessness and Haldol with Phenergan IV ordered. VTE prophylaxis: Bilateral SCDs. Pharmacological prophylaxis contraindicated Living will/advanced directive/end of life care: Patient does not have living will or advanced directive. His is power of traffic law attorney for health after discussion of benefits/risks procedures involved with full code, DNR CC arrest and DNR CC, the patient opted for DNR-CC Arrest with no intubation and does not want to be on artificial life support measures Patient does not want artificial life support including intubation, tube feed, ventilator and/chest compression, central venous catheter, vasopressor and DC shock if needed Total time spent in [id number] encounter in discussion of advanced directive 16 minutes. Inpatient E&M: [id number] [id number]
[2020-12-10] MEDS: Pramipexole Di-HCl 1 MG Tablet 4 MG PO (22:08)
[2020-12-10] MEDS: Pramipexole Di-HCl 0.5 MG Tablet PO (22:09)
[2020-12-10] MEDS: Pravastatin 20 MG Tablet PO (22:10)
[2020-12-11] VITALS (7 sets, daily range): BP systolic 130–139; BP diastolic 66–73; PULSE 74–93; RESP 16–18; TEMP 36.4–36.8; O2SAT 95–97
[2020-12-11] MEDS: Sucralfate 1 GM Tablet PO ×2 (06:19→11:39)
[2020-12-11] MEDS: 0.9% Saline Lock 10 ML Syringe IV (06:20)
[2020-12-11 06:29] LABS: Absolute Lymphocyte Count 1.32 X10^3/uL (0.83-4.51); Absolute Neutrophil Count 5.1 X10^3/uL (2.0-7.7); Basophil# 0.03 X10^3/uL; Basophil% 0.4 % (0-1); Hematocrit 27.4 % (40-54); Hemoglobin 8.8 g/dL (13.0-16.5); Lymphocyte # 1.32 X10^3/ul (0.83-4.51); Lymphocyte % 17.5 % (19-41); Mean Corp Hgb Conc 32.1 g/dL (32-36); Mean Corpuscular Hgb 31.8 pg (27.0-32.0); Mean Corpuscular Volume 98.9 fL (80-94); Mean Platelet Vol. 9.5 fl (6.2-12.0); Monocyte# 0.45 X10^3/uL; NRBC Flagged by Analyzer 0 % (0-5); Neutrophil # 5.09 X10^3/uL (2.7-7.7); Neutrophil % 67.6 % (47-70); Platelet Count 249 K/mm3 (150-450); RBC Distribution Width SD 54.3 fl (35.1-43.9); Red Blood Count 2.77 M/mm3 (4.6-6.2); White Blood Count 7.5 K/mm3 (4.4-11.0)
[2020-12-11 06:34] LABS: Anion Gap 5 (5-15); BUN 34 mg/dL (7-18); BUN/Creat Ratio 26.8 RATIO (10-20); Calcium,Total 8.8 mg/dL (8.5-10.1); Chloride 119 mmol/L (98-107); Creatinine, Serum 1.27 mg/dL (0.70-1.30); EST Glomerular Filtration Rate 57 mL/min (>60); Est Glom Filt Rate - Afr Amer 69 mL/min (>60); Estimated Creatinine Clearance 45.75 ml/min; Glucose 102 mg/dL (74-106); Potassium 3.8 mmol/L (3.5-5.1); Sodium Level 144 mmol/L (136-145)
--- NOTE | 2020-12-11 07:39 | PN.SURG_ITS ---
Patient Problems: Active and Suspected Problems (Last Reviewed 06/18/20 @ 13:57 by Pati Kern) Upper GI bleed (Acute) Acute blood loss anemia (Acute) Segmental and somatic dysfunction of pelvic region (Acute) Segmental and somatic dysfunction of lumbar region (Acute) Subjective: No issues overnight - Physical Exam Vitals/I&O's: Vital Signs Temp Pulse Resp BP Pulse Ox 98.1 F 75 18 139/69 H 97 12/11/20 03:07 12/11/20 06:56 12/11/20 03:07 12/11/20 03:07 12/11/20 03:07 Oxygen Delivery Method Room Air Weight: 164 lb 10.965 oz Body Mass Index (BMI) 22.1 Intake and Output for Last 24 Hours 12/09/20 12/10/20 12/11/20 23:59 23:59 23:59 Intake Total 2618.33 / 2678.33 1870 / 1870 Output Total 1275 / 1275 325 / 475 325 / 325 Balance 1343.33 / 1403.33 1545 / 1395 -325 / -325 Neck: No JVD Lungs: Normal air movement Cardiovascular: Regular rate, Regular Rhythm Abdomen: Soft, Non Tender, Non-Distended Microbiology Past 72 Hours 12/08/20 09:40 Stool Stool Occult Blood (KARSTEN) - Final 12/08/20 09:42 Mucosa - Nose SARS-CoV-2 Antigen (Rapid) - Final Laboratory Results 12/11/20 05:34: Sodium 144, Potassium 3.8, Chloride 119 H, Carbon Dioxide 20.0 L , Anion Gap 5, BUN 34 H, Creatinine 1.27, Estim Creat Clear Calc 45.75, Est GFR (MDRD) Af Amer 69, Est GFR (MDRD) Non-Af 57 L, BUN/Creatinine Ratio 26.8 H, Glucose 102, Calcium 8.8 12/11/20 05:34: WBC 7.5, RBC 2.77 L, Hgb 8.8 L, Hct 27.4 L, MCV 98.9 H, MCH 31.8, MCHC 32.1, RDW Std Deviation 54.3 H, RDW Coeff of Kristan 16.0 H, Plt Count 249, MPV 9.5, Immature Gran % (Auto) 0.500, Neut % (Auto) 67.6, Lymph % (Auto) 17.5 L, [place] % (Auto) 6.0, Eos % (Auto) 8.0 H, Baso % (Auto) 0.4, Absolute Neuts (auto) 5.1, Absolute Lymphs (auto) 1.32, Nucleated RBC % 0 Current Medications Acetaminophen (Acetaminophen 325 Mg Tablet) 650 mg PO Q6H PRN PRN PRN Reason: Pain Score 1-10/Temp > 100.7 F Last Admin: 12/08/20 20:20 Dose: 650 mg Documented by: Al Hydroxide/Mg Hydroxide (Mag Hydrox/Al Hydrox/Simeth 30 Ml Udc) 30 ml PO Q6H PRN PRN PRN Reason: Gastric Burning Albuterol Sulfate (Albuterol 2.5 Mg/3 Ml Vial.Neb.) 2.5 mg INHALATION Q2H PRN PRN PRN Reason: SOB/Wheezing Allopurinol (Allopurinol 100 Mg Tablet) 200 mg PO DAILY [facility] Last Admin: 12/10/20 13:11 Dose: 200 mg Documented by: Donepezil HCl (Donepezil Hcl 5 Mg Tablet) 5 mg PO DAILY [facility] Last Admin: 12/10/20 13:11 Dose: 5 mg Documented by: Doxazosin Mesylate (Doxazosin 1 Mg Tablet) 2 mg PO DAILY [facility] Last Admin: 12/10/20 13:10 Dose: 2 mg Documented by: Haloperidol Lactate (Haloperidol Lactate 5 Mg/Ml Vial) 2 mg IV Q4H PRN PRN PRN Reason: AGITATION Last Admin: 12/10/20 00:10 Dose: 2 mg Documented by: Hydralazine HCl (Hydralazine 20 Mg/Ml Vial) 5 mg IV Q4H PRN PRN PRN Reason: SBP more than 160 mmHg Last Admin: 12/08/20 17:12 Dose: 5 mg Documented by: Hydralazine HCl (Hydralazine 20 Mg/Ml Vial) 10 mg IV Q4H PRN PRN PRN Reason: SBP more than 190 mmHg Last Admin: 12/09/20 15:04 Dose: 10 mg Documented by: Hydromorphone HCl (Hydromorphone 0.5 Mg/0.5 Ml Syringe) 0.5 mg IV Q4H PRN PRN PRN Reason: Pain Score 6-10 Pantoprazole Sodium 40 mg/ (Sodium Chloride) 110 mls @ 330 mls/hr IV Q12 [facility] Last Infusion: 12/10/20 22:30 Dose: Infused Documented by: Sodium Chloride () 500 mls @ 15 mls/hr IV PRN PRN PRN Reason: Blood Transfusion Last Infusion: 12/09/20 11:44 Dose: Infused Documented by: Memantine (Memantine Hydrochloride 10 Mg Tablet) 10 mg PO BID [facility] Last Admin: 12/10/20 22:10 Dose: 10 mg Documented by: Nutritional Formula (Lactose Free) (Ensure Enlive 120 Ml Liquid) 120 ml PO 4X/DAY [facility] Last Admin: 12/10/20 22:07 Dose: 120 ml Documented by: Oxycodone HCl (Oxycodone 5 Mg Tablet) 5 mg PO Q4H PRN PRN PRN Reason: Pain Score 4-5 Potassium Chloride (Potassium Chloride Oral Soln 20 Meq/15 Ml Udc) 40 meq PO DAILYCM [facility] Last Admin: 12/10/20 13:10 Dose: 40 meq Documented by: Pramipexole Dihydrochloride (Pramipexole Di-Hcl 1 Mg Tablet) 4 mg PO QHS [facility] Last Admin: 12/10/20 22:08 Dose: 4 mg Documented by: Pramipexole Dihydrochloride (Pramipexole Di-Hcl 0.5 Mg Tablet) 0.5 mg PO QHS [facility] Last Admin: 12/10/20 22:09 Dose: 0.5 mg Documented by: Pravastatin Sodium (Pravastatin 20 Mg Tablet) 20 mg PO QHS [facility] Last Admin: 12/10/20 22:10 Dose: 20 mg Documented by: Prochlorperazine Edisylate (Prochlorperazine 10 Mg/2 Ml Vial) 5 mg IV Q4H PRN PRN PRN Reason: Breakthrough Nausea/Vomiting Last Admin: 12/09/20 19:31 Dose: 5 mg Documented by: Quetiapine Fumarate (Quetiapine 25 Mg Tablet) 25 mg PO QHS PRN PRN PRN Reason: insomnia Senna/Docusate Sodium (Senna/Docusate Sodium 1 Tablet) 2 tablet PO BID PRN PRN Reason: Constipation Sertraline HCl (Sertraline 50 Mg Tablet) 50 mg PO DAILY [facility] Last Admin: 12/10/20 13:11 Dose: 50 mg Documented by: Sodium Chloride (0.9% Saline Lock 10 Ml Syringe) 10 - 40 ml IV UD PRN PRN Reason: SALINE FLUSH Last Admin: 12/11/20 06:20 Dose: 10 ml Documented by: Sucralfate (Sucralfate 1 Gm Tablet) 1 gm PO 1HR_ACHS [facility] Last Admin: 12/11/20 06:19 Dose: 1 gm Documented by: Medical Necessity - Tobacco Use Smoking Status: Former smoker Assessment/Plan All Active Problems (Last Reviewed 06/18/20 @ 13:57 by Pati Kern) Upper GI bleed (Acute) Acute blood loss anemia (Acute) Segmental and somatic dysfunction of pelvic region (Acute) Segmental and somatic dysfunction of lumbar region (Acute) 85-year-old male with anemia and duodenal ulcer 1. Patient is tolerating a diet and is on PPI. Patient should be discharged home on PPI. Okay for discharge from our standpoint as the hemoglobin is staying stable. Jeremy Landers MD Pager: [facility] [address] [place] [address], [address] [place] [address] Office:
[2020-12-11] MEDS: Potassium Chloride Oral Soln 20 MEQ/15 ML UDC 40 MEQ PO (08:52)
[2020-12-11] MEDS: Donepezil HCl 5 MG Tablet PO (08:53)
[2020-12-11] MEDS: Allopurinol 100 MG Tablet 200 MG PO (08:54)
[2020-12-11] MEDS: Sertraline 50 MG Tablet PO (08:54)
[2020-12-11] MEDS: Memantine Hydrochloride 10 MG Tablet PO (08:55)
[2020-12-11] MEDS: Doxazosin 1 MG Tablet 2 MG PO (08:55)
--- NOTE | 2020-12-11 11:21 | TREXTCAR_ITS ---
- Diet 12/09/20 08:53 Diet: Regular - General Food consistency:: Mechanical (Minced/Moist) Liquid Consistency:: Regular/Thin Is pt able to select menu?: Yes Diet Comments: mechanical soft - Routine Orders/Code Status Routine Lab Work: CBC - CBC on 12/14 [facility] - No intubation - Wound(s) left hip Wound Type: Pressure Injury Dressing Change: Mepilex coccyx Wound Type: ? pilonidal cyst Dressing Change: Mepilex - Therapies Weight Bearing: Weight bearing as tolerated Physical Therapy: Eval and Treat Occupational Therapy: Eval and Treat Speech Therapy: Eval and Treat - Problem/Diagnosis (1) Peripheral arterial disease Status: Chronic (2) Bilateral carotid artery stenosis Status: Chronic (3) DDD (degenerative disc disease), lumbar Status: Chronic (4) Segmental and somatic dysfunction of pelvic region Status: Acute (5) Segmental and somatic dysfunction of lumbar region Status: Acute (6) Alzheimers disease Status: Chronic (7) Mixed hyperlipidemia Status: Chronic (8) Essential hypertension Status: Chronic (9) Syncope Status: Inactive (10) Upper GI bleed Status: Acute (11) Acute blood loss anemia Status: Acute - Allergies/Procedures Done in Hospital Allergies/Adverse Reactions: Allergies No Known Allergies Allergy (Verified 12/08/20 09:21) - Type of Care/Length of Stay Estimated LOS: Convalescent Care Less Than 30 days Type of Care Needed: Skilled Rehab Potential: Good Prognosis: Good - Additional Orders/Day of Discharge Day of Discharge: 12/11/20 - Dietary and Speech Recommendations Dietitian Recommendations/Changes: advance diet as tolerated to regular; ONS pending PO intake when diet advanced - Follow Up Care Primary Care Physician: Mayur Pereira Chi, MD [Primary Care Provider] - Please follow up with your Primary Care Physician in: In 1 to 2 weeks Please Follow Up With: Tawanna Cannon MD When: For GI bleed in 2 weeks
--- NOTE | 2020-12-11 11:22 | CASEMGMT ---
SOCIAL WORK Updated by Mar MARROQUIN, per physician patient is ready for discharge. Call to Shanthi with TCU admissions. Per Shanthi, patient able to discharge to TCU today and will update TCU staff. Mar MARROQUIN. Michael Vargas MSW, ANIME DESIGNER
--- NOTE | 2020-12-11 11:23 | PCM.DC.SUM ---
Discharge Date and Diagnosis - Problem List Patient Problems: Active and Suspected Problems (Last Reviewed 06/18/20 @ 13:57 by Pati Kern) Upper GI bleed (Acute) Acute blood loss anemia (Acute) Segmental and somatic dysfunction of pelvic region (Acute) Segmental and somatic dysfunction of lumbar region (Acute) Date of Admission: 12/08/20 Date of Discharge: 12/11/20 - Primary Discharge Diagnosis Acute Problems: Active Problems (Last Reviewed 06/18/20 @ 13:57 by Pati Kern) Upper GI bleed (Acute) Acute blood loss anemia (Acute) Segmental and somatic dysfunction of pelvic region (Acute) Segmental and somatic dysfunction of lumbar region (Acute) - Secondary Discharge Diagnosis Chronic Problems: Chronic Problems (Last Reviewed 06/18/20 @ 13:57 by Pati Kern) Peripheral arterial disease (Chronic) Bilateral carotid artery stenosis (Chronic) DDD (degenerative disc disease), lumbar (Chronic) Alzheimers disease (Chronic) Mixed hyperlipidemia (Chronic) Essential hypertension (Chronic) Hospital Course and Treatment Consultations 12/08/20 16:30 Consult: Onc/Wound/manager inventory management Routine Comment: Reason for Consult:: open area on left hip, not healing per patient Summary of Care Provided: [] This 85-year-old question gentleman admitted for generalized weakness, melena and found to have severe anemia and lactic acidosis. Patient was admitted in ICU. 1. Acute symptomatic anemia of blood loss due to upper GI bleed: Patient H&H was 13.3/42 in September 2020 and a drop to 7.1/22.1. Plavix was held. Surgeon consult consulted. As per patient he had colonoscopy and EGD probably more than 10 years ago and does not remember any abnormality. Patient required 2 units of PRBC transfusion during hospital course. Last H&H 8.04/15. EGD shows 1 nonbleeding duodenal ulcer eroding into pylorus, long segment. Greatest mucosa in antrum and small hiatus hernia. On IV PPI twice daily and Carafate. 2 lactic acidosis most probably secondary to hypovolemia: Patient was well hydrated. Repeat lactic acid is normal Acute encephalopathy/delirium with baseline dementia probably multifactorial related to metabolic/GI bleed/environmental: Patient required IV Haldol but currently quiet and oriented. Continue orientation cues. At time of discharge, patient is pleasant behavior. Acute encephalopathy resolved. 3. Acute prerenal azotemia on baseline CKD stage IIIb: Patient last BUN/creatinine 31/1.62 in October 10. BUN/creatinine at baseline. 34/1.27 4. Hypertension: Home medication resumed 5. Dyslipidemia: On statin 6. Bilateral carotid stenosis: Follows Dr. Gagan Crespo and Dr. Diaz. Plavix resumed 7. Other comorbidities include Alzheimer's dementia: Patient had aggressive behavior, restlessness and Haldol with Phenergan IV ordered. VTE prophylaxis: Bilateral SCDs. Pharmacological prophylaxis contraindicated CODE STATUS: DNR CCA no intubation Discharge medication reconciliation done. Discharge follow-up instructions completed. Discharge process discussed with the patient and all questions were answered to patient's satisfaction. Discharged on Protonix 40 mg p.o. twice daily and Carafate. Discharge to TCU Total time spent, exact 35 minutes on discharge meds reconciliation, examination, coordination of care with nurses and ancillary staff, review of imaging and blood test and discussion with the patient on follow-up instructions Patient Problems: Active and Suspected Problems (Last Reviewed 06/18/20 @ 13:57 by Pati Kern) Upper GI bleed (Acute) Acute blood loss anemia (Acute) Segmental and somatic dysfunction of pelvic region (Acute) Segmental and somatic dysfunction of lumbar region (Acute) Objective: Seen and examined. Pleasant behavior. No agitation. Heart rate and blood pressure controlled. Physical exam General: Confusion. Dementia. disoriented with time place. HEENT: Hard to hear, atraumatic, PERRLA, EOMI, Normocephalic Oral: No Gingival or Mucosal Lesions/ Ulcerations Neck: Supple, No JVD, Negative Carotid Bruits Lungs: Air entry diminished in bilateral lung bases. No crepitation/rhonchi Cardiovascular: Regular rate, Regular Rhythm, Normal S1, Normal S2, systolic over right second ICS and LLSB Abdomen: Bowel Sounds Present, Soft, Non Tender, Non-Distended : No renal angle tenderness. No suprapubic tenderness. Extremities: No edema, Capillary Refill Less than 3 Seconds Skin: No rashes, No breakdown Musculoskeletal: Moderate muscle atrophy of the lower extremities. No Tenderness to Palpation of Joints or Extremities Neurological: Cranial nerves II-XII grossly intact, Deep Tendon Reflexes 2+/4 and Symmetrical, Neuro grossly intact Psych/Mental Status: Dementia, flat affect. - Physical Exam Vitals/I&O's: Vital Signs Temp Pulse Resp BP Pulse Ox 97.6 F L 93 18 137/66 H 95 12/11/20 09:08 12/11/20 09:08 12/11/20 09:08 12/11/20 09:08 12/11/20 09:08 Oxygen Delivery Method Room Air Weight: 164 lb 10.965 oz Body Mass Index (BMI) 22.1 Intake and Output for Last 24 Hours 12/09/20 12/10/20 12/11/20 23:59 23:59 23:59 Intake Total 2618.33 / 2678.33 1870 / 1870 110 / 110 Output Total 1275 / 1275 325 / 475 325 / 325 Balance 1343.33 / 1403.33 1545 / 1395 -215 / -215 Microbiology Past 72 Hours 12/08/20 09:40 Stool Stool Occult Blood (KARSTEN) - Final 12/08/20 09:42 Mucosa - Nose SARS-CoV-2 Antigen (Rapid) - Final Laboratory Results 12/11/20 05:34: Sodium 144, Potassium 3.8, Chloride 119 H, Carbon Dioxide 20.0 L, Anion Gap 5, BUN 34 H, Creatinine 1.27, Estim Creat Clear Calc 45.75, Est GFR (MDRD) Af Amer 69, Est GFR (MDRD) Non-Af 57 L, BUN/Creatinine Ratio 26.8 H, Glucose 102, Calcium 8.8 12/11/20 05:34: WBC 7.5, RBC 2.77 L, Hgb 8.8 L, Hct 27.4 L, MCV 98.9 H, MCH 31.8, MCHC 32.1, RDW Std Deviation 54.3 H, RDW Coeff of Kristan 16.0 H, Plt Count 249, MPV 9.5, Immature Gran % (Auto) 0.500, Neut % (Auto) 67.6, Lymph % (Auto) 17.5 L, [place] % (Auto) 6.0, Eos % (Auto) 8.0 H, Baso % (Auto) 0.4, Absolute Neuts (auto) 5.1, Absolute Lymphs (auto) 1.32, Nucleated RBC % 0 Current Medications Acetaminophen (Acetaminophen 325 Mg Tablet) 650 mg PO Q6H PRN PRN PRN Reason: Pain Score 1-10/Temp > 100.7 F Last Admin: 12/08/20 20:20 Dose: 650 mg Documented by: Al Hydroxide/Mg Hydroxide (Mag Hydrox/Al Hydrox/Simeth 30 Ml Udc) 30 ml PO Q6H PRN PRN PRN Reason: Gastric Burning Albuterol Sulfate (Albuterol 2.5 Mg/3 Ml Vial.Neb.) 2.5 mg INHALATION Q2H PRN PRN PRN Reason: SOB/Wheezing Allopurinol (Allopurinol 100 Mg Tablet) 200 mg PO DAILY [facility] Last Admin: 12/11/20 08:54 Dose: 200 mg Documented by: Donepezil HCl (Donepezil Hcl 5 Mg Tablet) 5 mg PO DAILY [facility] Last Admin: 12/11/20 08:53 Dose: 5 mg Documented by: Doxazosin Mesylate (Doxazosin 1 Mg Tablet) 2 mg PO DAILY [facility] Last Admin: 12/11/20 08:55 Dose: 2 mg Documented by: Haloperidol Lactate (Haloperidol Lactate 5 Mg/Ml Vial) 2 mg IV Q4H PRN PRN PRN Reason: AGITATION Last Admin: 12/10/20 00:10 Dose: 2 mg Documented by: Hydralazine HCl (Hydralazine 20 Mg/Ml Vial) 5 mg IV Q4H PRN PRN PRN Reason: SBP more than 160 mmHg Last Admin: 12/08/20 17:12 Dose: 5 mg Documented by: Hydralazine HCl (Hydralazine 20 Mg/Ml Vial) 10 mg IV Q4H PRN PRN PRN Reason: SBP more than 190 mmHg Last Admin: 12/09/20 15:04 Dose: 10 mg Documented by: Hydromorphone HCl (Hydromorphone 0.5 Mg/0.5 Ml Syringe) 0.5 mg IV Q4H PRN PRN PRN Reason: Pain Score 6-10 Sodium Chloride () 500 mls @ 15 mls/hr IV PRN PRN PRN Reason: Blood Transfusion Last Infusion: 12/09/20 11:44 Dose: Infused Documented by: Memantine (Memantine Hydrochloride 10 Mg Tablet) 10 mg PO BID [facility] Last Admin: 12/11/20 08:55 Dose: 10 mg Documented by: Nutritional Formula (Lactose Free) (Ensure Enlive 120 Ml Liquid) 120 ml PO 4X/DAY [facility] Last Admin: 12/11/20 08:52 Dose: 120 ml Documented by: Oxycodone HCl (Oxycodone 5 Mg Tablet) 5 mg PO Q4H PRN PRN PRN Reason: Pain Score 4-5 Pantoprazole Sodium (Pantoprazole Sodium 40 Mg Tablet) 40 mg PO BID [facility] Potassium Chloride (Potassium Chloride Oral Soln 20 Meq/15 Ml Udc) [facility] Last Admin: 12/11/20 08:52 Dose: 40 meq Documented by: Pramipexole Dihydrochloride (Pramipexole Di-Hcl 1 Mg Tablet) 4 mg PO QHS [facility] Last Admin: 12/10/20 22:08 Dose: 4 mg Documented by: Pramipexole Dihydrochloride (Pramipexole [facility]5 Mg Tablet[facility] Admin: 12/10/20 22:09 Dose: 0.5 mg Documented by: Pravastatin Sodium (Pravastatin 20 Mg Tablet) 20 mg PO QHS [facility] Last Admin: 12/10/20 22:10 Dose: 20 mg Documented by: Prochlorperazine Edisylate (Prochlorperazine 10 Mg/2 Ml Vial) 5 mg IV Q4H PRN PRN PRN Reason: Breakthrough Nausea/Vomiting Last Admin: 12/09/20 19:31 Dose: 5 mg Documented by: Quetiapine Fumarate (Quetiapine 25 Mg Tablet) 25 mg PO QHS PRN PRN PRN Reason: insomnia Senna/Docusate Sodium (Senna/Docusate Sodium 1 Tablet) 2 tablet PO BID PRN PRN Reason: Constipation Sertraline HCl (Sertraline 50 Mg Tablet) 50 mg PO DAILY [facility] Last Admin: 12/11/20 08:54 Dose: 50 mg Documented by: Sodium Chloride (0.9% Saline Lock 10 Ml Syringe) 10 - 40 ml IV UD PRN PRN Reason: SALINE FLUSH Last Admin: 12/11/20 06:20 Dose: 10 ml Documented by: Sucralfate (Sucralfate 1 Gm Tablet) 1 gm PO 1HR_ACHS [facility] Last Admin: 12/11/20 06:19 Dose: 1 gm Documented by: Home Medications: Medications to take at Discharge allopurinol 300 mg tablet 300 mg PO DAILY 09/24/19 doxazosin 2 mg tablet 2 mg PO DAILY 09/24/19 pravastatin 20 mg tablet 20 mg PO DAILY 09/24/19 Donepezil HCl [Aricept] 5 mg PO DAILY 10/09/19 Multivitamin [Daily Multiple Vitamin] 1 ea PO DAILY 10/09/19 memantine 10 mg tablet 10 mg PO BID 05/04/20 pramipexole 1.5 mg tablet 4.5 mg PO QHS tab 05/06/20 sertraline 50 mg tablet 50 mg PO DAILY 05/06/20 Pantoprazole Sodium [Protonix] 40 mg PO BID #120 tab 12/10/20 Clopidogrel Bisulfate [Plavix] 75 mg PO DAILY #0 12/11/20 Senna/Docusate Sodium [Senokot-S] 2 tablet PO BID PRN tablet 12/11/20 Sucralfate [Carafate] 1 gm PO 1HR_ACHS #90 tablet 12/11/20 Following Prescriptions Were Given to Patient: Sucralfate [Carafate] 1 gm PO 1HR_ACHS #90 tablet Transmission Status: Received by [facility]/pharmacy #[id number] Pantoprazole Sodium [Protonix] 40 mg PO BID #120 tab Transmission Status: Received by [facility]/pharmacy #[id number] Primary Care Physician: Mayur Pereira Chi, MD [Primary Care Provider] - Please follow up with your Primary Care Physician in: In 1 to 2 weeks Please Follow Up With: Tawanna Cannon MD When: For GI bleed in 2 weeks Medical Necessity - Tobacco Use Smoking Status: Former smoker Meaningful Use Info Meaningful Use Diagnoses (Choose all that apply): None applicable Inpatient E&M: [id number] [facility]
--- NOTE | 2020-12-23 16:36 | PCM.HOSP.N ---
Hospitalist Note Hi Dr Skaggs, On the transfer summary there is mention of a pressure injury of the left hip and a pilonidal cyst of the coccyx. The discharge summary has open areea on left hip not healing per patient. Please clarify if the pressure injury is a valid diagnosis.
== END 2020-12-11 15:19 | disposition skilled nursing facility (03) | DRG 377 ==
LOC: ED 11:30 → ICU 11:36 → PCU 12-10 18:35
PROVIDERS: Surgery; Admitting Provider Internal Medicine; Emergency Provider Emergency Medicine; PCP Family Medicine Geriatric Medicine; Visit Provider Internal Medicine
PROC: 0DJ08ZZ Inspection of Upper Intestinal Tract, Via Natural or Artificial Opening Endoscopic (ICD-10-PCS; CPT 43235; principal; 2020-12-09 07:25)
DX: K26.4 Chronic or unspecified duodenal ulcer with hemorrhage (principal); G93.41 Metabolic encephalopathy; D62 Acute posthemorrhagic anemia; F02.81 Dementia in other diseases classified elsewhere, unspecified severity, with behavioral disturbance; E87.2 Acidosis; K44.9 Diaphragmatic hernia without obstruction or gangrene; M99.03 Segmental and somatic dysfunction of lumbar region; M99.05 Segmental and somatic dysfunction of pelvic region; I73.9 Peripheral vascular disease, unspecified; M51.36 Other intervertebral disc degeneration, lumbar region; E78.2 Mixed hyperlipidemia; G30.9 Alzheimer's disease, unspecified; N40.0 Benign prostatic hyperplasia without lower urinary tract symptoms; M10.9 Gout, unspecified; F32.9 Major depressive disorder, single episode, unspecified; G25.81 Restless legs syndrome; I12.9 Hypertensive chronic kidney disease with stage 1 through stage 4 chronic kidney disease, or unspecified chronic kidney disease; N18.32 Chronic kidney disease, stage 3b; Z79.899 Other long term (current) drug therapy; Z79.02 Long term (current) use of antithrombotics/antiplatelets; Z87.891 Personal history of nicotine dependence; E87.6 Hypokalemia; Z66 Do not resuscitate; L89.220 Pressure ulcer of left hip, unstageable
CPT/HCPCS: 36415; 71045; 80048; 80053; 81001; 82274; 83605; 83735; 84484; 85014; 85018; 85025; 85610; 85730; 86850; 86900; 86901; 86920; 86922; 87426; 88305; 88342; 93005; 97110; 97162; 97166; 97530; 97535; 97802; 99251; 99285; J7030; J7040; J7120; P9016; A4216; G0463; J2405

== ENCOUNTER 2020-12-11 15:32 | Inpatient (IN) | payer MEDICARE, OTHER, SELFPAY ==
[2020-12-08 12:06] VITALS: BMI 22.1
[2020-12-11 15:54] VITALS: BP 172/84; PULSE 88; RESP 18; TEMP 37.1; O2SAT 97; BMI 21.8
--- NOTE | 2020-12-11 16:46 | PCM.HP.STD ---
Problem List (1) Debility Status: Acute (2) Acute anemia Status: Acute (3) Melena Status: Acute (4) Acute kidney injury Status: Acute (5) Upper gastrointestinal bleed Status: Acute (6) Encephalopathy Status: Acute (7) Peripheral arterial occlusive disease Status: Chronic (8) Lumbar disc disease Status: Chronic (9) Hypertension Status: Chronic (10) Hyperlipidemia Status: Chronic (11) Gout Status: Chronic (12) Benign localized hyperplasia of prostate Status: Chronic (13) Depression Status: Chronic (14) Bilateral carotid artery stenosis Status: Chronic (15) Alzheimers disease Status: Chronic History of Present Illness Date of Admission: 12/11/20 Chief Complaint: Here for rehabilitation, strengthening, prior to discharge home with . 12/08/2020 The patient is a 85 year old Male with below past medical history presented to [facility] Emergency Department with generalized weakness. 12/08/2020 EKG sinus rhythm with AV dissociation, and accelerated junctional rhythm, left ventricular hypertrophy and repolarization abnormality. 12/08/2020 Chest X-ray showed scarring, no change. Generalized weakness for 1 week, black stools for 1 week. Mild cough, up to date on COVID19 vaccine 09/21. IV fluids given, Hemoglobin 7.1, BUN 88, Cr 1.66. Lactic acid 3.8, Troponin negative, COVID19 negative. Type and Cross 1 unit PRBC. 12/08/2020 Admit to ICU. Transfuse 1 unit PRBC, IV PPI BID, consult general surgery for gastrointestinal bleeding. IV blood pressure medication ordered for elevated blood pressure. 12/09/2020 General Surgery performed EGD showing gastritis, small hiatal hernia, non-bleeding duodenal ulcer. 12/09/2020 Transfuse 2nd unit PRBC. Haldol, Phenergan IV ordered for aggressive behavior secondary to Alzheimer Disease. 12/10/2020 Agitated at night, Haldol 2MG IV x 2 doses given. Carafate added. Lactic acid normalized. Acute kidney injury improved with IV fluids, and transfusion. 12/11/2020 Hemoglobin 8.8. IV PPI BID, Carafate for gastritis, duodenal ulcer. Acute encephalopathy resolved. Acute kidney injury resolved. 12/11/2020 Admit to TCU with debility, here for rehabilitation, strengthening, prior to discharge home with . Past Medical History Past Medical History (Chronic Problems): Chronic Problems (Last Reviewed 06/18/20 @ 13:57 by Pati Kern) Peripheral arterial occlusive disease (Chronic) Lumbar disc disease (Chronic) Hypertension (Chronic) Hyperlipidemia (Chronic) Gout (Chronic) Benign localized hyperplasia of prostate (Chronic) Depression (Chronic) Peripheral arterial disease (Chronic) Bilateral carotid artery stenosis (Chronic) DDD (degenerative disc disease), lumbar (Chronic) Alzheimers disease (Chronic) Mixed hyperlipidemia (Chronic) Essential hypertension (Chronic) Medical History: Medical History (Last Reviewed 06/18/20 @ 13:57 by Pati Kern) Peripheral arterial disease (Chronic) I73.9 Bilateral carotid artery stenosis (Chronic) I65.23 DDD (degenerative disc disease), lumbar (Chronic) M51.36 Segmental and somatic dysfunction of pelvic region (Acute) M99.05 Segmental and somatic dysfunction of lumbar region (Acute) M99.03 Alzheimers disease (Chronic) G30.9, F02.80 Mixed hyperlipidemia (Chronic) E78.2 Essential hypertension (Chronic) I10 BPH (benign prostatic hyperplasia) N40.0 Depression F32.9 Hx of gout Z87.39 RLS (restless legs syndrome) G25.81 Hx of primary hypertension Z86.79 Syncope (Inactive) R55 Allergies No Known Allergies Allergy (Verified 12/08/20 09:21) Home Medications: Ambulatory Orders Medication Instructions Recorded allopurinol 300 mg tablet 300 mg PO DAILY 09/24/19 doxazosin 2 mg tablet 2 mg PO DAILY 09/24/19 pravastatin 20 mg tablet 20 mg PO DAILY 09/24/19 Donepezil HCl [Aricept] 5 mg PO DAILY 10/09/19 Multivitamin [Daily Multiple 1 ea PO DAILY 10/09/19 Vitamin] memantine 10 mg tablet 10 mg PO BID 05/04/20 pramipexole 1.5 mg tablet 4.5 mg PO QHS tab 05/06/20 sertraline 50 mg tablet 50 mg PO DAILY 05/06/20 Clopidogrel Bisulfate [Plavix] 75 mg PO DAILY 12/11/20 Pantoprazole Sodium [Protonix] 40 mg PO BID 12/11/20 Senna/Docusate Sodium [Senokot-S] 2 tablet PO BID PRN tablet 12/11/20 Sucralfate [Carafate] 1 gm PO 1HR_ACHS 12/11/20 Surgical History: Surgical History (Last Reviewed 06/18/20 @ 13:57 by Pati Kern) Amputation of toe of left foot S98.132A History of back surgery Z98.890 History of hernia repair Z98.890, Z87.19 Surgical History: herniorrhaphy, - - Amputation left foot toe. Psychiatric History: Depression Lives: Spouse/ Significant Other Smoking Status: Former smoker Tobacco Use: Non-smoker Alcohol: None Drugs: None - *Family History Maternal Family History: Family History (Last Updated 06/18/20 @ 13:58 by Pati Kern) Mother Arthritis Father Hypertension CVA (cerebral vascular accident) History Items: No pertinent history Paternal Family History: Family History (Last Updated 06/18/20 @ 13:58 by Pati Kern) Mother Arthritis Father Hypertension CVA (cerebral vascular accident) History Items: No pertinent history Review of Systems Constitutional: Denies: Chills, Fever, Weight Change HEENT: Denies: Head Aches, Sinus Congestion, Sinus Drainage Cardiovascular: Denies: Chest Pain, Palpitations Respiratory: Denies: Cough, Shortness of breath at rest, Sputum production Gastrointestinal: Denies: Abdominal Pain, Nausea, Vomiting Genitourinary: Denies: Dysuria Musculoskeletal: Denies: Joint Pain, Joint Tenderness Skin: Denies: Rash, Wounds Neurological: Denies: Numbness, Tingling, Focal weakness Psychiatric: Denies: Anxiety, Depression, Homicidal Ideations, Suicidal Ideations Hematologic/ Lymphatic: Denies: Easy Bruising, Easy Bleeding VTE Information - Inpt Only VTE Present on Admission: No VTE Mechan Device Prophylaxis: Knee High RYAN Hose VTE Pharm Prophylaxis ordered?: No Reason prophylaxis not ordered:: Medical Contraindication Patient Problems: Active and Suspected Problems (Last Reviewed 06/18/20 @ 13:57 by Pati Kern) Debility (Acute) Acute anemia (Acute) Melena (Acute) Acute kidney injury (Acute) Upper gastrointestinal bleed (Acute) Encephalopathy (Acute) - Physical Exam Vitals/I&O's: Vital Signs Temp Pulse Resp BP Pulse Ox 98.7 F 88 18 172/84 H 97 12/11/20 15:54 12/11/20 15:54 12/11/20 15:54 12/11/20 15:54 12/11/20 15:54 Oxygen Delivery Method Room Air Weight: 74.933 kg Body Mass Index (BMI) 21.8 General: Alert, Oriented x3, Cooperative HEENT: Atraumatic, PERRLA, EOMI, Normocephalic Neck: Supple, No JVD, Negative Carotid Bruits Lungs: Clear to auscultation, Normal air movement Cardiovascular: Regular rate, No murmurs Abdomen: Bowel Sounds Present, Soft, Non Tender Extremities: No edema, Capillary Refill Less than 3 Seconds Skin: No rashes, No breakdown Musculoskeletal: No Tenderness to Palpation of Joints or Extremities Neurological: Cranial nerves II-XII grossly intact Psych/Mental Status: Normal Affect, Appropriate Current Medications Allopurinol (Allopurinol 300 Mg Tablet) 300 mg PO DAILY@0800 [facility] Clopidogrel Bisulfate (Clopidogrel Bisulfate 75 Mg Tablet) 75 mg PO DAILY [facility] Donepezil HCl (Donepezil Hcl 5 Mg Tablet) 5 mg PO DAILY [facility] Memantine (Memantine Hydrochloride 10 Mg Tablet) 10 mg PO BID [facility] Multivitamins (Multivitamins,Therapeutic Tablet) 1 tablet PO DAILY@0800 [facility] Non-Formulary Medication (Doxazosin Mesylate [Cardura]) 2 mg PO DAILY [facility] Non-Formulary Medication (Pramipexole Di-Hcl [Pramipexole Dihydrochloride]) 4.5 mg PO QHS [facility] Pantoprazole Sodium (Pantoprazole Sodium 40 Mg Tablet) 40 mg PO BID [facility] Pravastatin Sodium (Pravastatin 20 Mg Tablet) 20 mg PO DAILY [facility] Senna/Docusate Sodium (Senna/Docusate Sodium 1 Tablet) 2 tablet PO BID PRN PRN Reason: Constipation Sertraline HCl (Sertraline 50 Mg Tablet) 50 mg PO DAILY [facility] Sodium Chloride (0.9% Saline Lock 10 Ml Syringe) 10 - 40 ml IV UD PRN PRN Reason: SALINE FLUSH Sucralfate (Sucralfate 1 Gm Tablet) 1 gm PO 1HR_ACHS [facility] Tuberculin PPD (Tuberculin,Purif.Prot.Deriv. 50 Tu/Ml Vial) 5 tu ID X1 ONE Stop: 12/12/20 10:01 Tuberculin PPD (Tuberculin,Purif.Prot.Deriv. 50 Tu/Ml Vial) 5 tu ID X1 ONE Stop: 12/19/20 10:01 Assessment/Plan All Active Problems (Last Reviewed 06/18/20 @ 13:57 by Pati Kern) Upper GI bleed (Acute) Acute blood loss anemia (Acute) Debility (Acute) Acute anemia (Acute) Melena (Acute) Acute kidney injury (Acute) Upper gastrointestinal bleed (Acute) Encephalopathy (Acute) Segmental and somatic dysfunction of pelvic region (Acute) Segmental and somatic dysfunction of lumbar region (Acute) 85 year old male with below past medical history hospitalized for upper gastrointestinal bleed secondary to gastritis, duodenal ulcer, complicated by acute encephalopathy, Alzheimer Disease, admitted to TCU with debility, here for rehabilitation, strengthening, prior to discharge home with . Debility - PT/OT. Dysphagia - ST. Pain - Tylenol 1000MG Q6H PRN pain (1-10). Bowel - Senna/colace 2 tablets BID PRN. Adult immunization - Administer Prevnar 13, Pneumovax 23, Fluzone, COVID19 vaccine as appropriate. DVT prophylaxis - Hold, UGIB. Gout - Allopurinol 300MG daily. Peripheral arterial occlusive disease/carotid artery stenosis - Plavix 75MG daily. Alzheimer Disease - Donepezil 5MG daily, Memantine 10MG BID. BPH - Doxazosin 2MG daily. Nutrition - Ensure Enlive 120ML 4x/day. Gastritis/Duodenal ulcer - Pantoprazole 40MG BID, Sucralfate 1GM QACHS. Restless Leg syndrome - Pramexipole 4.5MG QHS. Hyperlipidemia - Pravastatin 20MG QHS. Depression - Sertraline 50MG daily, stable chronic prison use, GDR not recommended. Insomnia - Melatonin 10MG QHS.
[2020-12-11 16:49] VITALS: BP 143/80; PULSE 82
[2020-12-11] MEDS: Memantine Hydrochloride 10 MG Tablet PO (18:20)
[2020-12-11] MEDS: Pantoprazole Sodium 40 MG Tablet PO (18:20)
[2020-12-11] MEDS: 0.9% Saline Lock 10 ML Syringe IV (18:22)
[2020-12-11] MEDS: Pramipexole Di-HCl 0.5 MG Tablet PO (20:30)
[2020-12-11] MEDS: Sucralfate 1 GM Tablet PO (20:30)
[2020-12-11] MEDS: Pramipexole Di-HCl 1 MG Tablet 4 MG PO (20:30)
[2020-12-11] MEDS: Pravastatin 20 MG Tablet PO (20:31)
[2020-12-12] MEDS: Doxazosin 1 MG Tablet 2 MG PO (05:56)
[2020-12-12] MEDS: 0.9% Saline Lock 10 ML Syringe IV ×2 (05:56→18:53)
[2020-12-12] MEDS: Sertraline 50 MG Tablet PO (05:57)
[2020-12-12] MEDS: Donepezil HCl 5 MG Tablet PO (05:57)
[2020-12-12] MEDS: Memantine Hydrochloride 10 MG Tablet PO ×2 (05:57→17:34)
[2020-12-12] MEDS: Pantoprazole Sodium 40 MG Tablet PO ×2 (05:57→17:34)
[2020-12-12] MEDS: Clopidogrel Bisulfate 75 MG Tablet PO (05:57)
[2020-12-12 06:02] VITALS: BP 143/72; PULSE 81; RESP 16; TEMP 36.7; O2SAT 98
[2020-12-12 06:02] LABS: Absolute Lymphocyte Count 1.36 X10^3/uL (0.83-4.51); Absolute Neutrophil Count 4.5 X10^3/uL (2.0-7.7); Basophil# 0.04 X10^3/uL; Basophil% 0.6 % (0-1); Eosinophil# 0.49 X10^3/uL; Eosinophils% 7.1 % (0-5); Hematocrit 33.2 % (40-54); Hemoglobin 9.5 g/dL (13.0-16.5); Lymphocyte # 1.36 X10^3/ul (0.83-4.51); Lymphocyte % 19.8 % (19-41); Mean Corp Hgb Conc 28.6 g/dL (32-36); Mean Corpuscular Hgb 31.7 pg (27.0-32.0); Mean Corpuscular Volume 110.7 fL (80-94); Mean Platelet Vol. 9.2 fl (6.2-12.0); Monocyte% 5.8 % (0-10); NRBC Flagged by Analyzer 0 % (0-5); Neutrophil # 4.54 X10^3/uL (2.7-7.7); Platelet Count 200 K/mm3 (150-450); RBC Distribution Width CV 15.8 % (11.6-14.6); RBC Distribution Width SD 60.4 fl (35.1-43.9); White Blood Count 6.9 K/mm3 (4.4-11.0)
[2020-12-12 06:27] LABS: Anion Gap 2 (5-15); BUN 33 mg/dL (7-18); BUN/Creat Ratio 34.3 RATIO (10-20); Calcium,Total 8.4 mg/dL (8.5-10.1); Chloride 115 mmol/L (98-107); Creatinine, Serum 0.96 mg/dL (0.70-1.30); EST Glomerular Filtration Rate 79 mL/min (>60); Est Glom Filt Rate - Afr Amer 96 mL/min (>60); Estimated Creatinine Clearance 60.71 ml/min; Glucose 117 mg/dL (74-106); Potassium 4.3 mmol/L (3.5-5.1); Sodium Level 134 mmol/L (136-145)
[2020-12-12] MEDS: Sucralfate 1 GM Tablet PO ×4 (06:32→20:48)
[2020-12-12] MEDS: Multivitamins,Therapeutic Tablet 1 TABLET PO (08:19)
[2020-12-12] MEDS: Allopurinol 300 MG Tablet PO (08:19)
[2020-12-12 08:32] VITALS: PULSE 97; O2SAT 96
[2020-12-12] MEDS: Tuberculin,Purif.prot.deriv. 50 TU/ML Vial 5 ML ID (09:59)
[2020-12-12] MEDS: Senna/Docusate Sodium 1 Tablet 2 TABLET PO (10:19)
--- NOTE | 2020-12-12 10:29 | NURSING ---
Pt LBM to be noted on 12/08/20 pt given Prune Juice and PRN Senna will continue to monitor.
[2020-12-12 14:23] VITALS: BP 111/76; PULSE 96; RESP 18; TEMP 36.3; O2SAT 97
[2020-12-12] MEDS: Pramipexole Di-HCl 1 MG Tablet 4 MG PO (20:48)
[2020-12-12] MEDS: Pravastatin 20 MG Tablet PO (20:49)
[2020-12-12] MEDS: Pramipexole Di-HCl 0.5 MG Tablet PO (20:49)
[2020-12-13] MEDS: Clopidogrel Bisulfate 75 MG Tablet PO (06:02)
[2020-12-13] MEDS: Sertraline 50 MG Tablet PO (06:02)
[2020-12-13] MEDS: Doxazosin 1 MG Tablet 2 MG PO (06:02)
[2020-12-13] MEDS: Memantine Hydrochloride 10 MG Tablet PO ×2 (06:02→16:57)
[2020-12-13] MEDS: Sucralfate 1 GM Tablet PO ×4 (06:02→21:53)
[2020-12-13] MEDS: Pantoprazole Sodium 40 MG Tablet PO ×2 (06:02→16:57)
[2020-12-13] MEDS: Donepezil HCl 5 MG Tablet PO (06:02)
[2020-12-13 06:03] VITALS: BP 129/69; PULSE 80; RESP 16; TEMP 36.5; O2SAT 96
[2020-12-13] MEDS: Allopurinol 300 MG Tablet PO (07:50)
[2020-12-13] MEDS: Multivitamins,Therapeutic Tablet 1 TABLET PO (07:50)
[2020-12-13] MEDS: Iron Polysaccharide Complex 150 MG CAPSULE PO (07:50)
[2020-12-13 10:00] VITALS: PULSE 94; RESP 18; O2SAT 94
--- NOTE | 2020-12-13 13:09 | CASEMGMT ---
Addendum entered by Mikala Whitman 12/14/20 09:30: completed Palliative screening tool. Pt is appropriate. Referral made to [facility]. Original Note: Social Work Met with patient for initial assessment. Pt completed BIMS but poor historian. Contacted to complete assessment. confirmed full code code status and is providing copies of advanced directives. states she is HCPOA. Explained Medicare benefit and encouraged to contact secondary insurance to ensure copay coverage. explained goal is for pt to return home with her as she was primary caregiver but starting to fatigue as pt is heavy assist. Inquired about alternative DC plan. stated she would hire additional help at home, no SNF. Offered to provide list of nonskilled HHC - agreeable. Provided list in room for her when she visits pt. denied any other resources at this time. SW to continue to follow. Mikala Whitman, [employer]
[2020-12-13] MEDS: Acetaminophen 500 MG Tablet 1000 MG PO (13:30)
[2020-12-13 14:40] VITALS: BP 119/63; PULSE 93; RESP 20; TEMP 37.2; O2SAT 97
--- NOTE | 2020-12-13 16:11 | PHA.CONS_ITS ---
<Kassy Sanz - Last Filed: 12/13/20 16:11> Progress Note - Pharmacy Subjective: TCU Admission Objective: Allergies No Known Allergies Allergy (Verified 12/08/20 09:21) Current Medications Generic Name Dose Route Start Last Admin Trade Name Jeremyq PRN Reason Stop Dose Admin Acetaminophen 1,000 mg 12/11/20 17:00 12/13/20 13:30 Acetaminophen 500 Mg Tablet PO 1,000 mg Q6H PRN PRN Administration Pain Score 1-10 Allopurinol 300 mg 12/12/20 08:00 12/13/20 07:50 Allopurinol 300 Mg Tablet PO 300 mg DAILY@0800 [facility] Administration Bisacodyl 10 mg 12/12/20 21:30 Bisacodyl 10 Mg Suppository RC DAILY PRN Constipation Clopidogrel Bisulfate 75 mg 12/12/20 06:00 12/13/20 06:02 Clopidogrel Bisulfate 75 Mg Tablet PO 75 mg DAILY BRITTNEY Administration Donepezil HCl 5 mg 12/12/20 06:00 12/13/20 06:02 Donepezil Hcl 5 Mg Tablet PO 5 mg DAILY BRITTNEY Administration Doxazosin Mesylate 2 mg 12/12/20 06:00 12/13/20 06:02 Doxazosin 1 Mg Tablet PO 2 mg DAILY BRITTNEY Administration Melatonin 10 mg 12/13/20 22:00 Melatonin 10 Mg Tablet PO QHS BRITTNEY Memantine 10 mg 12/11/20 18:00 12/13/20 06:02 Memantine Hydrochloride 10 Mg Tablet PO 10 mg BID BRITTNEY Administration Multivitamins 1 tablet 12/12/20 08:00 12/13/20 07:50 Multivitamins,Therapeutic Tablet PO 1 tablet DAILY@0800 [facility] Administration Nutritional Formula (Lactose Free) 120 ml 12/11/20 17:00 12/13/20 11:50 Ensure Enlive 120 Ml Liquid PO 120 ml 4X/DAY BRITTNEY Administration Pantoprazole Sodium 40 mg 12/11/20 18:00 12/13/20 06:02 Pantoprazole Sodium 40 Mg Tablet PO 40 mg BID BRITTNEY Administration Polysaccharide Iron Complex 150 mg 12/13/20 08:00 12/13/20 07:50 Iron Polysaccharide Complex 150 Mg Capsule PO 150 mg DAILYCM BRITTNEY Administration Pramipexole Dihydrochloride 4 mg 12/11/20 22:00 12/12/20 20:48 Pramipexole Di-Hcl 1 Mg Tablet PO 4 mg QHS BRITTNEY Administration Pramipexole Dihydrochloride 0.5 mg 12/11/20 22:00 12/12/20 20:49 Pramipexole Di-Hcl 0.5 Mg Tablet PO 0.5 mg QHS BRITTNEY Administration Pravastatin Sodium 20 mg 12/11/20 22:00 12/12/20 20:49 Pravastatin 20 Mg Tablet PO 20 mg QHS BRITTNEY Administration Senna/Docusate Sodium 2 tablet 12/11/20 16:10 12/12/20 10:19 Senna/Docusate Sodium 1 Tablet PO 2 tablet BID PRN PRN Administration Constipation Sertraline HCl 50 mg 12/12/20 06:00 12/13/20 06:02 Sertraline 50 Mg Tablet PO 50 mg DAILY BRITTNEY Administration Sodium Chloride 10 - 40 ml 12/11/20 15:56 12/12/20 18:53 0.9% Saline Lock 10 Ml Syringe IV 10 ml UD PRN Administration SALINE FLUSH Sucralfate 1 gm 12/11/20 22:00 12/13/20 11:50 Sucralfate 1 Gm Tablet PO 1 gm 1HR_ACHS BRITTNEY Administration Tuberculin PPD 5 tu 12/19/20 10:00 Tuberculin,Purif.Prot.Deriv. 50 Tu/Ml Vial ID 12/19/20 10:01 X1 ONE Problem List (Last Reviewed 06/18/20 @ 13:57 by Pati Kern) Debility (Acute) Acute anemia (Acute) Melena (Acute) Acute kidney injury (Acute) Upper gastrointestinal bleed (Acute) Encephalopathy (Acute) Peripheral arterial occlusive disease (Chronic) Lumbar disc disease (Chronic) Hypertension (Chronic) Hyperlipidemia (Chronic) Gout (Chronic) Benign localized hyperplasia of prostate (Chronic) Depression (Chronic) Bilateral carotid artery stenosis (Chronic) Alzheimers disease (Chronic) Vital Signs Temp Pulse Resp BP Pulse Ox 99 F 93 20 H 119/63 97 12/13/20 14:40 12/13/20 14:40 12/13/20 14:40 12/13/20 14:40 12/13/20 14:40 Oxygen Delivery Method Room Air Weight: 74.933 kg Body Mass Index (BMI) 21.8 Sodium 134 mmol/L (136-145) L 12/12/20 05:50 Potassium 4.3 mmol/L (3.5-5.1) 12/12/20 05:50 Chloride 115 mmol/L (98-107) H 12/12/20 05:50 Carbon Dioxide 17.0 mmol/L (21.0-32.0) L 12/12/20 05:50 Anion Gap 2 (5-15) L 12/12/20 05:50 BUN 33 mg/dL (7-18) H 12/12/20 05:50 Creatinine 0.96 mg/dL (0.70-1.30) 12/12/20 05:50 Est GFR (MDRD) Af Amer 96 mL/min (>60) 12/12/20 05:50 Est GFR (MDRD) Non-Af 79 mL/min (>60) 12/12/20 05:50 BUN/Creatinine Ratio 34.3 RATIO (10-20) H 12/12/20 05:50 Glucose 117 mg/dL (74-106) H 12/12/20 05:50 Assessment/Plan: 1. Pain: acetaminophen 1000mg PO Q6H PRN pain 1-10. Please continue to monitor for increased pain and PRN usage. 2. Gout: allopurinol 300mg PO daily. Please continue to monitor for gout and renal function. 3. PAD/carotid artery stenosis: clopidogrel 75mg PO daily. Please continue to monitor for S/S of bleeding and hemoglobin (last 9.5g/dL). 4. Alzheimer disease: donepezil 5mg PO daily and memantine 10mg PO BID. Please continue to monitor for GI side effects. 5. BPH: doxazosin 2mg PO daily. Please continue to monitor BP (last 119/63). 6. Iron deficiency (hemoglobin 9.5g/dL): Ferrex 150mg PO DAILYCM. Please continue to monitor hemoglobin and for dark stools. 7. Gastritis/duodenal ulcer: pantoprazole 40mg PO BID and sucralfate 1gm PO 1HR_ACHS. Please continue to monitor for diarrhea, S/S of bleeding, and stomach pain. 8. Restless leg syndrome: pramipexole 4.5mg PO QHS. Please continue to monitor for restless legs. *9. Hyperlipidemia: pravastatin 20mg PO QHS. Please consider ordering a lipid panel if clinically appropriate. Last LDL from 2014. Thanks. 10. Insomnia: melatonin 10mg PO QHS. Please continue to monitor for excessive drowsiness. 11. Nutrition: multivitamin 1T PO DAILYCM. Please continue to monitor. Psychotropic Medications: 1. Depression: sertraline 50mg PO daily. Please see physician note regarding GDR. Unnecessary Medications: None Bowel Regimen: senna/docusate 2T PO BID PRN. Please continue to monitor for constipation and PRN usage. Date of Note:: 12/13/20 - Provider Comments Provider responsibility: Provider responsible to enter orders to implement recommendations <Mayur Pereira Chi - Last Filed: 12/13/20 17:24> Progress Note - Pharmacy Subjective: [] Objective: Allergies No Known Allergies Allergy (Verified 12/08/20 09:21) Current Medications Generic Name Dose Route Start Last Admin Trade Name Freq PRN Reason Stop Dose Admin Acetaminophen 1,000 mg 12/11/20 17:00 12/13/20 13:30 Acetaminophen 500 Mg Tablet PO 1,000 mg Q6H PRN PRN Administration Pain Score 1-10 Allopurinol 300 mg 12/12/20 08:00 12/13/20 07:50 Allopurinol 300 Mg Tablet PO 300 mg DAILY@0800 [facility] Administration Bisacodyl 10 mg 12/12/20 21:30 Bisacodyl 10 Mg Suppository RC DAILY PRN Constipation Clopidogrel Bisulfate 75 mg 12/12/20 06:00 12/13/20 06:02 Clopidogrel Bisulfate 75 Mg Tablet PO 75 mg DAILY [facility] Administration Donepezil HCl 5 mg 12/12/20 06:00 12/13/20 06:02 Donepezil Hcl 5 Mg Tablet PO 5 mg DAILY [facility] Administration Doxazosin Mesylate 2 mg 12/12/20 06:00 12/13/20 06:02 Doxazosin 1 Mg Tablet PO 2 mg DAILY BR[facility]NEY Administration Melatonin 10 mg 12/13/20 22:00 Melatonin 10 Mg Tablet PO QHS BRITTNEY Memantine 10 mg 12/11/20 18:00 12/13/20 16:57 Memantine Hydrochloride 10 Mg Tablet PO 10 mg BID BRITTNEY Administration Multivitamins 1 tablet 12/12/20 08:00 12/13/20 07:50 Multivitamins,Therapeutic Tablet PO 1 tablet DAILY@0800 [facility] Administration Nutritional Formula (Lactose Free) 120 ml 12/11/20 17:00 12/13/20 16:58 Ensure Enlive 120 Ml Liquid PO 120 ml 4X/DAY [facility]NEY Administration Pantoprazole Sodium 40 mg 12/11/20 18:00 12/13/20 16:57 Pantoprazole Sodium 40 Mg Tablet PO 40 mg BID BRITTNEY Administration Polysaccharide Iron Complex 150 mg 12/13/20 08:00 12/13/20 07:50 Iron Polysaccharide Complex 150 Mg Capsule PO 150 mg DAILYCM BRITTNEY Administration Pramipexole Dihydrochloride 4 mg 12/11/20 22:00 12/12/20 20:48 Pramipexole Di-Hcl 1 Mg Tablet PO 4 mg QHS BRITTNEY Administration Pramipexole Dihydrochloride 0.5 mg 12/11/20 22:00 12/12/20 20:49 Pramipexole Di-Hcl 0.5 Mg Tablet PO 0.5 mg QHS [facility] Administration Pravastatin Sodium 20 mg 12/11/20 22:00 12/12/20 20:49 Pravastatin 20 Mg Tablet PO 20 mg QHS BRITTNEY Administration Senna/Docusate Sodium 2 tablet 12/11/20 16:10 12/12/20 10:19 Senna/Docusate Sodium 1 Tablet PO 2 tablet BID PRN PRN Administration Constipation Sertraline HCl 50 mg 12/12/20 06:00 12/13/20 06:02 Sertraline 50 Mg Tablet PO 50 mg DAILY BRITTNEY Administration Sodium Chloride 10 - 40 ml 12/11/20 15:56 12/12/20 18:53 0.9% Saline Lock 10 Ml Syringe IV 10 ml UD PRN Administration SALINE FLUSH Sucralfate 1 gm 12/11/20 22:00 12/13/20 16:57 Sucralfate 1 Gm Tablet PO 1 gm 1HR_ACHS BRITTNEY Administration Tuberculin PPD 5 tu 12/19/20 10:00 Tuberculin,Purif.Prot.Deriv. 50 Tu/Ml Vial ID 12/19/20 10:01 X1 ONE Problem List (Last Reviewed 06/18/20 @ 13:57 by Pati Kern) Debility (Acute) Acute anemia (Acute) Melena (Acute) Acute kidney injury (Acute) Upper gastrointestinal bleed (Acute) Encephalopathy (Acute) Peripheral arterial occlusive disease (Chronic) Lumbar disc disease (Chronic) Hypertension (Chronic) Hyperlipidemia (Chronic) Gout (Chronic) Benign localized hyperplasia of prostate (Chronic) Depression (Chronic) Bilateral carotid artery stenosis (Chronic) Alzheimers disease (Chronic) Vital Signs Temp Pulse Resp BP Pulse Ox 99 F 93 20 H 119/63 97 12/13/20 14:40 12/13/20 14:40 12/13/20 14:40 12/13/20 14:40 12/13/20 14:40 Oxygen Delivery Method Room Air Weight: 74.933 kg Body Mass Index (BMI) 21.8 Sodium 134 mmol/L (136-145) L 12/12/20 05:50 Potassium 4.3 mmol/L (3.5-5.1) 12/12/20 05:50 Chloride 115 mmol/L (98-107) H 12/12/20 05:50 Carbon Dioxide 17.0 mmol/L (21.0-32.0) L 12/12/20 05:50 Anion Gap 2 (5-15) L 12/12/20 05:50 BUN 33 mg/dL (7-18) H 12/12/20 05:50 Creatinine 0.96 mg/dL (0.70-1.30) 12/12/20 05:50 Est GFR (MDRD) Af Amer 96 mL/min (>60) 12/12/20 05:50 Est GFR (MDRD) Non-Af 79 mL/min (>60) 12/12/20 05:50 BUN/Creatinine Ratio 34.3 RATIO (10-20) H 12/12/20 05:50 Glucose 117 mg/dL (74-106) H 12/12/20 05:50 Assessment/Plan: Psychotropic Medications: Unnecessary Medications: Bowel Regimen: - Provider Comments Provider responsibility: Provider responsible to enter orders to implement recommendations Provider Comments to Recommendations by Pharmacy: Agree
[2020-12-13] MEDS: Pravastatin 20 MG Tablet PO (21:53)
[2020-12-13] MEDS: MELATONIN 10 MG TABLET PO (21:53)
[2020-12-13] MEDS: Pramipexole Di-HCl 1 MG Tablet 4 MG PO (21:55)
[2020-12-13] MEDS: Pramipexole Di-HCl 0.5 MG Tablet PO (21:55)
[2020-12-14 05:00] VITALS: BP 182/80; PULSE 83; RESP 18; TEMP 36.8; O2SAT 93
[2020-12-14] MEDS: Sertraline 50 MG Tablet PO (06:00)
[2020-12-14] MEDS: Donepezil HCl 5 MG Tablet PO (06:00)
[2020-12-14] MEDS: Doxazosin 1 MG Tablet 2 MG PO (06:00)
[2020-12-14] MEDS: Memantine Hydrochloride 10 MG Tablet PO ×2 (06:00→16:54)
[2020-12-14] MEDS: Clopidogrel Bisulfate 75 MG Tablet PO (06:00)
[2020-12-14] MEDS: Pantoprazole Sodium 40 MG Tablet PO ×2 (06:00→16:54)
[2020-12-14] MEDS: Sucralfate 1 GM Tablet PO ×4 (07:00→20:32)
[2020-12-14] MEDS: Allopurinol 300 MG Tablet PO (08:00)
[2020-12-14] MEDS: Iron Polysaccharide Complex 150 MG CAPSULE PO (08:00)
[2020-12-14] MEDS: Multivitamins,Therapeutic Tablet 1 TABLET PO (08:00)
[2020-12-14 11:47] VITALS: PULSE 84; RESP 18; O2SAT 95
[2020-12-14 15:03] VITALS: BP 120/66; PULSE 85; RESP 16; TEMP 37; O2SAT 94
[2020-12-14] MEDS: MELATONIN 10 MG TABLET PO (20:32)
[2020-12-14] MEDS: Pramipexole Di-HCl 0.5 MG Tablet PO (20:33)
[2020-12-14] MEDS: Pravastatin 20 MG Tablet PO (20:33)
[2020-12-14] MEDS: Pramipexole Di-HCl 1 MG Tablet 4 MG PO (20:38)
[2020-12-15 05:13] VITALS: BP 136/54; PULSE 69; RESP 17; TEMP 36.6; O2SAT 95
[2020-12-15] MEDS: Sucralfate 1 GM Tablet PO ×4 (05:13→22:32)
[2020-12-15] MEDS: Pantoprazole Sodium 40 MG Tablet PO ×2 (05:13→17:13)
[2020-12-15] MEDS: Sertraline 50 MG Tablet PO (05:13)
[2020-12-15] MEDS: Memantine Hydrochloride 10 MG Tablet PO ×2 (05:13→17:13)
[2020-12-15] MEDS: Clopidogrel Bisulfate 75 MG Tablet PO (05:13)
[2020-12-15] MEDS: Donepezil HCl 5 MG Tablet PO (05:13)
[2020-12-15] MEDS: Doxazosin 1 MG Tablet 2 MG PO (05:13)
[2020-12-15] MEDS: Allopurinol 300 MG Tablet PO (08:52)
[2020-12-15] MEDS: Multivitamins,Therapeutic Tablet 1 TABLET PO (08:53)
[2020-12-15] MEDS: Iron Polysaccharide Complex 150 MG CAPSULE PO (08:53)
[2020-12-15] MEDS: Acetaminophen 500 MG Tablet 1000 MG PO (09:56)
[2020-12-15 10:00] VITALS: RESP 16; O2SAT 92
--- NOTE | 2020-12-15 11:44 | CASEMGMT ---
Social Work IDT met with patient and for care plan meeting. Discussed patient's progress in therapy and nursing. Explained Medicare benefit and encouraged to contact secondary insurance to ensure copay coverage. 's goal is for pt to return home with her. Inquired about alternative DC plan. would hire aides to help her every other day, requested MOW resources and hand rails in the bathroom installed. Provided resources for all. Offered therapy family training closer to DC to ensure can provide care for pt. agreeable. SW to continue to follow to assist with DC plans. Mikala Whitman, ACCOUNTING DIRECTOR POWERED BRIDGE SPECIALIST
[2020-12-15 12:04] VITALS: BP 117/55; PULSE 72; O2SAT 96
--- NOTE | 2020-12-15 12:50 | NURSING ---
Addendum entered by Berenice Cueva 12/15/20 14:53: Called to update left message. Original Note: Pt called Nurses to room d/t vomiting after choking on Cottage cheese. Pt found to have vomited up cottage cheese on gown and tray. Pt continued t choke. Pt vital signs BP 117/55 P72 SpO2 96% RA lungs clear. Dr. Pereira updated and new order for chest X-ray 12/16/20. Will continue to monitor pt. Call light within reach.
[2020-12-15 13:21] VITALS: BP 113/72; PULSE 72; RESP 20; TEMP 37.1; O2SAT 95
--- NOTE | 2020-12-15 13:41 | PCM.CONS.GEN ---
Assessment & Plan Assessment/Plan (1) Bilateral chronic knee pain: Status: Chronic Code(s): M25.561 - Pain in right knee; M25.562 - Pain in left knee; G89.29 - Other chronic pain (2) Debility: Status: Acute Code(s): R53.81 - Other malaise (3) Rheumatoid arthritis: Status: Acute Code(s): M06.9 - Rheumatoid arthritis, unspecified Qualifiers: Laterality: right Rheumatoid arthritis location: foot Rheumatoid factor presence: unspecified presence Qualified Code(s): M06.9 - Rheumatoid arthritis, unspecified (4) Acute anemia: Status: Acute Code(s): D64.9 - Anemia, unspecified (5) Alzheimers disease: Status: Chronic Code(s): G30.9 - Alzheimer's disease, unspecified; F02.80 - Dementia in other diseases classified elsewhere without behavioral disturbance Plan: 85-year-old male with bilateral chronic knee pain, left greater than right. Seen today for initial palliative care consultation. -Pain significant to knees, especially on the left. As needed Tylenol 1 g every 6 hours as needed. Would add oxycodone 5 mg every 6 hours as needed and follow-up in a week to assess effectiveness and evaluate requirements. We will make adjustments as needed. -Oxycodone 5 mg every 6 hours as needed -Continue with therapy ?No NSAIDs secondary to history of GI bleed ?Ice and heat as needed ?Possible ECF placement? Goal is to return home with , possibly C vs private duty? -Encourage fluid intake, follow w/ ST for swallowing ?FULL CODE ?We will follow-up next week HPI Consult Data Date of Consult: 12/20/20 HPI Narrative HPI Narrative: JACK LEBRON is an 85 yr old M, PMH as below, originally presented to [facility] with generalized weakness for about a week as well as black stools. Patient does have a history of dementia and lives alone. Seen today for initial palliative care consultation for symptom management of knee pain, right greater than left. Work-up in the ED included EKG which showed sinus rhythm versus accelerated junctional rhythm with LVH, hemoglobin of 7.1, lactic acid 3.8, and BUN/creatinine 88/1.66. The patient was admitted to the intensive care unit for further evaluation and management. General surgery was consulted for rectal bleeding. Recommended EGD, if nothing was identified as source, would follow the next day with a colonoscopy. Patient is on IV Protonix. EGD showed moderate erythema to the mucosa, no bleeding in the gastric antrum. Biopsies were taken. There was also one nonbleeding cratered duodenal ulcer eroding into the pylorus. Small hiatal hernia. Recommendations were for soft diet, continuing Protonix, and awaiting pathology results. The patient did receive 2 units of PRBC. Patient required IV Haldol for delirium in the setting of dementia. Acute encephalopathy had resolved by the time he was discharged from the hospital 12/11. He does follow with Dr. Gagan Crespo and Dr. Diaz for his bilateral carotid stenosis and hypertension. Current CODE STATUS is a DNR CCA with no intubation. At the time of discharge, patient was on Protonix 40 mg twice daily and Carafate. He was then discharged to the transitional care unit for further rehab. Patient complains of pain to the right and left knee, however left seems to be worse. It is constant but fluctuates in severity. Nothing really relieves the pain, therapy aggravates it. It is aching and throbbing at times. He takes Tylenol at home as needed. No other medications have been given here at the hospital. He has never had an issue with stronger pain medications. He is not taking any NSAIDs secondary to history of GI bleed. [facility] Medical History (Updated 12/15/20 @ 13:59 by Lizz Garza NP-Jh) Alzheimers disease Bilateral carotid artery stenosis BPH (benign prostatic hyperplasia) DDD (degenerative disc disease), lumbar Depression Essential hypertension Hx of gout Hx of primary hypertension Mixed hyperlipidemia Peripheral arterial disease RLS (restless legs syndrome) Segmental and somatic dysfunction of lumbar region Segmental and somatic dysfunction of pelvic region Syncope Home Medications allopurinol 300 mg tablet 300 mg PO DAILY 09/24/19 [History Last Taken Unknown] doxazosin 2 mg tablet 2 mg PO DAILY 09/24/19 [History Last Taken 10/13/19 07:00] pravastatin 20 mg tablet 20 mg PO DAILY 09/24/19 [History Last Taken Unknown] donepezil 5 mg PO DAILY 10/09/19 [History Last Taken Unknown] multivitamin 1 ea PO DAILY 10/09/19 [History Last Taken Unknown] memantine 10 mg tablet 10 mg PO BID 05/04/20 [History Last Taken Unknown] pramipexole 1.5 mg tablet 4.5 mg PO QHS tab 05/06/20 [History Last Taken Unknown] sertraline 50 mg tablet 50 mg PO DAILY 05/06/20 [History Last Taken Unknown] clopidogrel 75 mg PO DAILY 12/11/20 [History Last Taken Unknown] pantoprazole 40 mg PO BID 12/11/20 [History Last Taken Unknown] sennosides-docusate sodium 2 tablet PO BID PRN tablet 12/11/20 [Rx Last Taken Unknown] sucralfate 1 gm PO 1HR_ACHS 12/11/20 [History Last Taken Unknown] Allergy/AdvReac Type Severity Reaction Status Date / Time No Known Allergies Allergy Verified 12/08/20 09:21 Family History (Updated 06/18/20 @ 13:58 by Pati Kern) Mother Arthritis Father Hypertension CVA (cerebral vascular accident) Surgical History (Updated 12/08/20 @ 11:[address] Kirk Skaggs MD) Amputation of toe of left foot History of back surgery History of hernia repair Social History (Updated 06/18/20 @ 14:[address] Gagan Crespo MD) Smoking Status: Former smoker alcohol intake: never substance use type: does not use caffeine: No ROS Constitutional Constitutional: Reports fatigue and weakness Eyes Eyes: Denies change in vision ENT HEENT: Reports hearing loss; Denies sore throat Cardiovascular Cardiovascular: Denies chest pain, edema or orthopnea Respiratory/Chest Respiratory/Chest: Denies cough or shortness of breath at rest Gastrointestinal Gastrointestinal: Denies abdominal pain, nausea or vomiting Genitourinary Genitourinary: Denies dysuria Musculoskeletal Musculoskeletal: Reports extremity pain, joint pain, limited range of motion, muscle weakness and radiating pain into limb Integumentary Integumentary: Denies rash Neurologic Neurologic: Denies focal weakness, numbness or tingling Psychiatric Psychiatric: Denies anxiety or depression Hematologic/Lymphatic Hematologic/Lymphatic: Reports easy bruising Physical Exam Const alert Constitutional Narrative: oriented to self and place HEENT normocephalic and head/scalp atraumatic Mouth: dry mucous membranes Neck supple General: trachea midline Resp normal respiratory effort and clear to auscultation bilaterally Cardio regular rate, regular rhythm, S1 normal heart sound and S2 normal heart sound GI non-tender GI Narrative: normal BS, distended more so on the left upper abdomen Extremity no clubbing, cyanosis or edema Skin Rashes: no rashes Neuro CN's II-XII intact bilaterally Psych affect normal Psych Narrative: cooperative, forgetful Appearance: appropriate Lab / Micro Data Result Diagrams: 12/19/20 04:35 12/19/20 04:35
--- NOTE | 2020-12-15 15:50 | ST ---
Spoke with nursing who reports patient had choking episode at lunch this date with chest xray planned for 12/16/20. Entered pt room to discuss with pt and pt's . Pt reports he took a bite initially of minced and moist textured meat and before swallowing first bite pt went to take 2nd bite of cottage cheese and began choking on initial bite of meat before completely consuming cottage cheese. Pt and deny difficulty with chewing/swallowing otherwise. Education provided regarding taking one bite at a time and swallowing fully until taking 2ns bite, alternating bites/sips, and sitting upright when eating. Pt agreeable to plan.
[2020-12-15] MEDS: Senna/Docusate Sodium 1 Tablet 2 TABLET PO (19:39)
[2020-12-15] MEDS: MELATONIN 10 MG TABLET PO (22:33)
[2020-12-15] MEDS: Pramipexole Di-HCl 1 MG Tablet 4 MG PO (22:33)
[2020-12-15] MEDS: Pravastatin 20 MG Tablet PO (22:34)
[2020-12-15] MEDS: Pramipexole Di-HCl 0.5 MG Tablet PO (22:34)
[2020-12-15] MEDS: Nystatin Powder 15gm Bottle 1 APPLIC TOPICAL (23:14)
[2020-12-16 04:23] VITALS: BP 115/60; PULSE 72; RESP 20; TEMP 37.3; O2SAT 95
[2020-12-16] MEDS: Nystatin Powder 15gm Bottle 1 APPLIC TOPICAL ×2 (04:25→17:34)
[2020-12-16] MEDS: Menthol/Lanolin/Calamine/Znox 113 GM Tube 1 APPLIC TOPICAL ×2 (04:29→17:34)
[2020-12-16] MEDS: Donepezil HCl 5 MG Tablet PO (04:30)
[2020-12-16] MEDS: Doxazosin 1 MG Tablet 2 MG PO (04:30)
[2020-12-16] MEDS: Memantine Hydrochloride 10 MG Tablet PO ×2 (04:31→17:34)
[2020-12-16] MEDS: Pantoprazole Sodium 40 MG Tablet PO ×2 (04:31→17:34)
[2020-12-16] MEDS: Senna/Docusate Sodium 1 Tablet 2 TABLET PO ×2 (04:31→17:36)
[2020-12-16] MEDS: Sertraline 50 MG Tablet PO (04:31)
[2020-12-16] MEDS: Clopidogrel Bisulfate 75 MG Tablet PO (04:31)
--- NOTE | 2020-12-16 05:50 | RAD_ITS ---
STUDY: X-RAY CHEST REASON FOR EXAM: Male, 85 years old. Aspiration TECHNIQUE: Single frontal view of the chest. COMPARISON: 12/08/2020 FINDINGS: Nonspecific elevation RIGHT hemidiaphragm. No pneumothorax or pleural effusion identified. Again noted bilateral pulmonary scarring/atelectasis. Normal size heart. Aortic calcifications. There are diffuse degenerative changes of the visualized thoracic spine. There is degenerative osteoarthritis of the bilateral shoulders. There is no demonstrated abnormality of the visualized soft tissue structures of the upper abdomen. RAD/Chest 1 View (Portable) IMPRESSION: Again noted bilateral increased pulmonary markings which likely represents scarring/atelectasis as these were seen on prior study 12/08/2020 as well as 03/15/2020. A superimposed mild infiltrate within this region cannot be totally excluded. There is no focal consolidation identified. If there is continuing clinical concern follow-up PA and lateral radiograph the chest could be performed. Electronically Signed: Froilan Prasad MD at 6:29 EDT Tel , Service support ,
[2020-12-16] MEDS: Iron Polysaccharide Complex 150 MG CAPSULE PO (07:49)
[2020-12-16] MEDS: Multivitamins,Therapeutic Tablet 1 TABLET PO (07:49)
[2020-12-16] MEDS: Allopurinol 300 MG Tablet PO (07:49)
[2020-12-16] MEDS: Sucralfate 1 GM Tablet PO ×4 (07:49→21:45)
[2020-12-16] MEDS: Acetaminophen 500 MG Tablet 1000 MG PO (08:48)
[2020-12-16 09:11] VITALS: PULSE 79; RESP 18; O2SAT 95
--- NOTE | 2020-12-16 13:01 | MDS.RN ---
Completed pain interview for DANA 12/18/20
[2020-12-16] MEDS: oxyCODONE 5 MG Tablet PO (15:11)
[2020-12-16 15:32] VITALS: BP 120/68; PULSE 80; RESP 18; TEMP 37.1; O2SAT 96
--- NOTE | 2020-12-16 15:52 | NURSING ---
Attempted to call pt's . Left message to return call.
[2020-12-16] MEDS: MELATONIN 10 MG TABLET PO (21:45)
[2020-12-16] MEDS: Pramipexole Di-HCl 0.5 MG Tablet PO (21:46)
[2020-12-16] MEDS: Pravastatin 20 MG Tablet PO (21:48)
[2020-12-16] MEDS: Pramipexole Di-HCl 1 MG Tablet 4 MG PO (21:48)
[2020-12-17 05:52] VITALS: BP 118/62; PULSE 67; RESP 16; TEMP 37.1; O2SAT 94
[2020-12-17] MEDS: Menthol/Lanolin/Calamine/Znox 113 GM Tube 1 APPLIC TOPICAL ×2 (05:54→17:34)
[2020-12-17] MEDS: Donepezil HCl 5 MG Tablet PO (05:54)
[2020-12-17] MEDS: Clopidogrel Bisulfate 75 MG Tablet PO (05:55)
[2020-12-17] MEDS: Memantine Hydrochloride 10 MG Tablet PO ×2 (05:55→17:33)
[2020-12-17] MEDS: Doxazosin 1 MG Tablet 2 MG PO (05:55)
[2020-12-17] MEDS: Nystatin Powder 15gm Bottle 1 APPLIC TOPICAL ×2 (05:55→17:32)
[2020-12-17] MEDS: Sucralfate 1 GM Tablet PO ×4 (05:56→19:54)
[2020-12-17] MEDS: Sertraline 50 MG Tablet PO (05:56)
[2020-12-17] MEDS: Pantoprazole Sodium 40 MG Tablet PO ×2 (05:56→17:33)
[2020-12-17] MEDS: Senna/Docusate Sodium 1 Tablet 2 TABLET PO ×2 (05:57→17:33)
[2020-12-17] MEDS: Multivitamins,Therapeutic Tablet 1 TABLET PO (07:54)
[2020-12-17] MEDS: Allopurinol 300 MG Tablet PO (07:54)
[2020-12-17] MEDS: Iron Polysaccharide Complex 150 MG CAPSULE PO (07:54)
--- NOTE | 2020-12-17 10:55 | CASEMGMT ---
Social Work BIMS and PHQ-9 completed for MDS assessment. Mikala Whitman, CARTON INSPECTOR ORAL AND MAXILLOFACIAL SURGEON
[2020-12-17 14:10] VITALS: BP 135/70; PULSE 68; RESP 17; TEMP 37.1; O2SAT 94
[2020-12-17 19:50] VITALS: BP 155/50; PULSE 83; RESP 18; TEMP 37.3; O2SAT 93
[2020-12-17] MEDS: Acetaminophen 500 MG Tablet 1000 MG PO (19:53)
[2020-12-17] MEDS: Pramipexole Di-HCl 0.5 MG Tablet PO (19:54)
[2020-12-17] MEDS: MELATONIN 10 MG TABLET PO (19:54)
[2020-12-17] MEDS: Pramipexole Di-HCl 1 MG Tablet 4 MG PO (19:54)
[2020-12-17] MEDS: Pravastatin 20 MG Tablet PO (19:55)
[2020-12-18] MEDS: Clopidogrel Bisulfate 75 MG Tablet PO (05:45)
[2020-12-18] MEDS: Sertraline 50 MG Tablet PO (05:45)
[2020-12-18] MEDS: Donepezil HCl 5 MG Tablet PO (05:45)
[2020-12-18] MEDS: Pantoprazole Sodium 40 MG Tablet PO ×2 (05:45→17:36)
[2020-12-18] MEDS: Doxazosin 1 MG Tablet 2 MG PO (05:45)
[2020-12-18] MEDS: Memantine Hydrochloride 10 MG Tablet PO ×2 (05:45→17:36)
[2020-12-18] MEDS: Acetaminophen 500 MG Tablet 1000 MG PO (05:48)
[2020-12-18] MEDS: Senna/Docusate Sodium 1 Tablet 2 TABLET PO (05:49)
[2020-12-18] MEDS: Nystatin Powder 15gm Bottle 1 APPLIC TOPICAL ×2 (05:50→17:37)
[2020-12-18] MEDS: Sucralfate 1 GM Tablet PO ×4 (05:50→20:59)
[2020-12-18 06:18] VITALS: BP 111/39; PULSE 70; RESP 18; TEMP 37; O2SAT 93
[2020-12-18] MEDS: Menthol/Lanolin/Calamine/Znox 113 GM Tube 1 APPLIC TOPICAL ×2 (06:20→17:37)
[2020-12-18] MEDS: Iron Polysaccharide Complex 150 MG CAPSULE PO (07:43)
[2020-12-18] MEDS: Allopurinol 300 MG Tablet PO (07:43)
[2020-12-18] MEDS: Multivitamins,Therapeutic Tablet 1 TABLET PO (07:43)
[2020-12-18] MEDS: oxyCODONE 5 MG Tablet PO (09:04)
[2020-12-18 13:11] VITALS: BP 121/53; PULSE 64; RESP 22; TEMP 37.2; O2SAT 95
[2020-12-18] MEDS: Pramipexole Di-HCl 1 MG Tablet 4 MG PO (20:59)
[2020-12-18] MEDS: Pramipexole Di-HCl 0.5 MG Tablet PO (21:00)
[2020-12-18] MEDS: MELATONIN 10 MG TABLET PO (21:00)
[2020-12-18] MEDS: Pravastatin 20 MG Tablet PO (21:01)
[2020-12-19 04:33] VITALS: BP 121/54; PULSE 67; RESP 18; TEMP 37.2; O2SAT 92
[2020-12-19] MEDS: Pantoprazole Sodium 40 MG Tablet PO ×2 (04:37→17:25)
[2020-12-19] MEDS: Doxazosin 1 MG Tablet 2 MG PO (04:37)
[2020-12-19] MEDS: Donepezil HCl 5 MG Tablet PO (04:37)
[2020-12-19] MEDS: Senna/Docusate Sodium 1 Tablet 2 TABLET PO ×2 (04:37→17:27)
[2020-12-19] MEDS: Clopidogrel Bisulfate 75 MG Tablet PO (04:37)
[2020-12-19] MEDS: Sucralfate 1 GM Tablet PO ×4 (04:37→23:02)
[2020-12-19] MEDS: Sertraline 50 MG Tablet PO (04:37)
[2020-12-19] MEDS: Memantine Hydrochloride 10 MG Tablet PO ×2 (04:37→17:24)
[2020-12-19] MEDS: Menthol/Lanolin/Calamine/Znox 113 GM Tube 1 APPLIC TOPICAL ×2 (04:38→16:17)
[2020-12-19] MEDS: Nystatin Powder 15gm Bottle 1 APPLIC TOPICAL ×2 (04:38→17:27)
[2020-12-19 04:47] LABS: Absolute Lymphocyte Count 1.44 X10^3/uL (0.83-4.51); Absolute Neutrophil Count 5.5 X10^3/uL (2.0-7.7); Basophil# 0.05 X10^3/uL; Basophil% 0.6 % (0-1); Eosinophil# 0.38 X10^3/uL; Eosinophils% 4.8 % (0-5); Hemoglobin 8.5 g/dL (13.0-16.5); Lymphocyte # 1.44 X10^3/ul (0.83-4.51); Lymphocyte % 18.2 % (19-41); Mean Corp Hgb Conc 31.5 g/dL (32-36); Mean Corpuscular Hgb 30.8 pg (27.0-32.0); Mean Corpuscular Volume 97.8 fL (80-94); Mean Platelet Vol. 8.7 fl (6.2-12.0); Monocyte# 0.47 X10^3/uL; Monocyte% 5.9 % (0-10); NRBC Flagged by Analyzer 0 % (0-5); Neutrophil # 5.48 X10^3/uL (2.7-7.7); Neutrophil % 69.5 % (47-70); Platelet Count 262 K/mm3 (150-450); RBC Distribution Width SD 53.5 fl (35.1-43.9); Red Blood Count 2.76 M/mm3 (4.6-6.2); White Blood Count 7.9 K/mm3 (4.4-11.0)
[2020-12-19 05:06] LABS: Anion Gap 5 (5-15); BUN 39 mg/dL (7-18); BUN/Creat Ratio 28.1 RATIO (10-20); Calcium,Total 8.6 mg/dL (8.5-10.1); Chloride 107 mmol/L (98-107); Creatinine, Serum 1.39 mg/dL (0.70-1.30); EST Glomerular Filtration Rate 52 mL/min (>60); Est Glom Filt Rate - Afr Amer 63 mL/min (>60); Estimated Creatinine Clearance 42.89 ml/min; Glucose 97 mg/dL (74-106); Sodium Level 137 mmol/L (136-145)
[2020-12-19] MEDS: Allopurinol 300 MG Tablet PO (07:53)
[2020-12-19] MEDS: Iron Polysaccharide Complex 150 MG CAPSULE PO (07:53)
[2020-12-19] MEDS: Multivitamins,Therapeutic Tablet 1 TABLET PO (07:53)
[2020-12-19] MEDS: Tuberculin,Purif.prot.deriv. 50 TU/ML Vial 5 ML ID (11:54)
[2020-12-19 16:19] VITALS: BP 122/59; PULSE 67; RESP 18; TEMP 36.6; O2SAT 97
[2020-12-19] MEDS: oxyCODONE 5 MG Tablet PO (18:16)
[2020-12-19] MEDS: Pramipexole Di-HCl 1 MG Tablet 4 MG PO (23:03)
[2020-12-19] MEDS: Pravastatin 20 MG Tablet PO (23:04)
[2020-12-19] MEDS: Pramipexole Di-HCl 0.5 MG Tablet PO (23:04)
[2020-12-19] MEDS: MELATONIN 10 MG TABLET PO (23:07)
[2020-12-20 05:45] VITALS: BP 112/49; PULSE 66; RESP 16; TEMP 37.2; O2SAT 92
[2020-12-20] MEDS: Clopidogrel Bisulfate 75 MG Tablet PO (05:47)
[2020-12-20] MEDS: Pantoprazole Sodium 40 MG Tablet PO ×2 (05:47→17:48)
[2020-12-20] MEDS: Donepezil HCl 5 MG Tablet PO (05:47)
[2020-12-20] MEDS: Sucralfate 1 GM Tablet PO ×4 (05:47→21:20)
[2020-12-20] MEDS: Senna/Docusate Sodium 1 Tablet 2 TABLET PO ×2 (05:48→17:50)
[2020-12-20] MEDS: Memantine Hydrochloride 10 MG Tablet PO ×2 (05:48→17:48)
[2020-12-20] MEDS: Doxazosin 1 MG Tablet 2 MG PO (05:48)
[2020-12-20] MEDS: Sertraline 50 MG Tablet PO (05:48)
[2020-12-20] MEDS: Nystatin Powder 15gm Bottle 1 APPLIC TOPICAL ×2 (05:49→17:48)
[2020-12-20] MEDS: Menthol/Lanolin/Calamine/Znox 113 GM Tube 1 APPLIC TOPICAL ×2 (05:49→17:49)
[2020-12-20] MEDS: Multivitamins,Therapeutic Tablet 1 TABLET PO (07:52)
[2020-12-20] MEDS: Allopurinol 300 MG Tablet PO (07:52)
[2020-12-20] MEDS: Iron Polysaccharide Complex 150 MG CAPSULE PO (07:52)
[2020-12-20 09:20] VITALS: BP 112/59; BP 144/64; BP 87/47; PULSE 58; PULSE 77
--- NOTE | 2020-12-20 09:27 | PCA ---
This [employer]IC[employer] and [employer] OFFICER Arabella assisted patient to BSC and he became very light-headed and called out for help. Patient became very lethargic, I stayed with patient and Arabella brought in nurse. Patient assisted back to bed. Orhtos ordered and completed, nurse updated.
[2020-12-20 09:57] VITALS: PULSE 65; RESP 16; TEMP 36.6; O2SAT 95
[2020-12-20] MEDS: oxyCODONE 5 MG Tablet PO (10:07)
--- NOTE | 2020-12-20 10:24 | NURSING ---
pt resting in bed, call light in reach. denies dizziness, nausea, chest pain, etc. at this time. afebrile. will update dr kendrick with vitals. pt c/o LT knee and foot/ankle pain from arthritis rating 03/29, oxyir given. encouraged fluids, pt has not been drinking enough, explained that he needs to keep hydrated. pt verbalized understanding. will encourage today.
[2020-12-20] MEDS: 0.9% Normal Saline 1,000 ML 999 ML IV (13:24)
[2020-12-20 14:56] VITALS: BP 126/63; PULSE 67; RESP 18; TEMP 37.1; O2SAT 94
[2020-12-20] MEDS: Pramipexole Di-HCl 1 MG Tablet 4 MG PO (21:18)
[2020-12-20] MEDS: MELATONIN 10 MG TABLET PO (21:18)
[2020-12-20] MEDS: Pravastatin 20 MG Tablet PO (21:19)
[2020-12-20] MEDS: Pramipexole Di-HCl 0.5 MG Tablet PO (21:19)
[2020-12-20] MEDS: Acetaminophen 500 MG Tablet 1000 MG PO (21:23)
[2020-12-21] MEDS: Senna/Docusate Sodium 1 Tablet 2 TABLET PO ×2 (05:45→17:28)
[2020-12-21 05:53] LABS: Hematocrit 26.3 % (40-54); Hemoglobin 8.1 g/dL (13.0-16.5)
[2020-12-21 06:00] VITALS: BP 99/47; PULSE 69; RESP 16; TEMP 37; O2SAT 93
[2020-12-21] MEDS: Sertraline 50 MG Tablet PO (06:02)
[2020-12-21] MEDS: Pantoprazole Sodium 40 MG Tablet PO ×2 (06:02→17:27)
[2020-12-21] MEDS: Donepezil HCl 5 MG Tablet PO (06:02)
[2020-12-21] MEDS: Sucralfate 1 GM Tablet PO ×4 (06:02→20:31)
[2020-12-21] MEDS: Menthol/Lanolin/Calamine/Znox 113 GM Tube 1 APPLIC TOPICAL ×2 (06:03→17:28)
[2020-12-21] MEDS: Doxazosin 1 MG Tablet 2 MG PO (06:03)
[2020-12-21] MEDS: Memantine Hydrochloride 10 MG Tablet PO ×2 (06:03→17:28)
[2020-12-21] MEDS: Clopidogrel Bisulfate 75 MG Tablet PO (06:03)
[2020-12-21] MEDS: Nystatin Powder 15gm Bottle 1 APPLIC TOPICAL ×2 (06:04→17:28)
--- NOTE | 2020-12-21 07:47 | NURSING ---
Dr. Pereira updated on new HGB of 8.1. No new orders entered at this time. Will continue to monitor pt for signs and Symptoms.
[2020-12-21] MEDS: Multivitamins,Therapeutic Tablet 1 TABLET PO (08:02)
[2020-12-21] MEDS: oxyCODONE 5 MG Tablet PO (08:02)
[2020-12-21] MEDS: Iron Polysaccharide Complex 150 MG CAPSULE PO (08:02)
[2020-12-21] MEDS: Allopurinol 300 MG Tablet PO (08:02)
--- NOTE | 2020-12-21 11:11 | NURSING ---
Updated pt's on phone this shift. will be in for a visit @4:00pm
[2020-12-21 12:49] VITALS: BP 109/52; PULSE 72; RESP 18; TEMP 37; O2SAT 95
--- NOTE | 2020-12-21 17:23 | NURSING ---
Addendum entered by Berenice Cueva 12/22/20 14:22: Dr. Pereira's office called and stated that pt is due for PPSV23. Called and updated and she would like us to give him the vaccine. Original Note: pt's stated that he is up to date on Pneumonia vaccines. Called Dr. Pereira's office to verify awaiting on return call.
[2020-12-21] MEDS: MELATONIN 10 MG TABLET PO (20:32)
[2020-12-21] MEDS: Pramipexole Di-HCl 0.5 MG Tablet PO (20:34)
[2020-12-21] MEDS: Pramipexole Di-HCl 1 MG Tablet 4 MG PO (20:34)
[2020-12-21] MEDS: Pravastatin 20 MG Tablet PO (20:35)
[2020-12-21 22:21] VITALS: RESP 16
[2020-12-22] MEDS: Donepezil HCl 5 MG Tablet PO (05:04)
[2020-12-22] MEDS: Menthol/Lanolin/Calamine/Znox 113 GM Tube 1 APPLIC TOPICAL ×2 (05:04→18:07)
[2020-12-22] MEDS: Memantine Hydrochloride 10 MG Tablet PO ×2 (05:05→18:09)
[2020-12-22] MEDS: Nystatin Powder 15gm Bottle 1 APPLIC TOPICAL ×2 (05:05→18:07)
[2020-12-22] MEDS: Doxazosin 1 MG Tablet 2 MG PO (05:05)
[2020-12-22 05:06] VITALS: BP 115/58; PULSE 62; RESP 18; TEMP 36.9; O2SAT 94
[2020-12-22] MEDS: Pantoprazole Sodium 40 MG Tablet PO ×2 (05:06→18:10)
[2020-12-22] MEDS: Sertraline 50 MG Tablet PO (05:06)
[2020-12-22] MEDS: Sucralfate 1 GM Tablet PO ×4 (05:06→22:12)
[2020-12-22] MEDS: Senna/Docusate Sodium 1 Tablet 2 TABLET PO ×2 (05:06→18:09)
[2020-12-22] MEDS: Clopidogrel Bisulfate 75 MG Tablet PO (05:06)
[2020-12-22] MEDS: Allopurinol 300 MG Tablet PO (08:43)
[2020-12-22] MEDS: Iron Polysaccharide Complex 150 MG CAPSULE PO (08:43)
[2020-12-22] MEDS: Multivitamins,Therapeutic Tablet 1 TABLET PO (08:43)
[2020-12-22 12:14] VITALS: BP 122/38; BP 127/43; BP 131/52; PULSE 69; PULSE 70; PULSE 75
[2020-12-22 13:18] VITALS: BP 132/53; PULSE 65; RESP 18; TEMP 36.4; O2SAT 95
[2020-12-22 13:39] VITALS: BP 100/54
--- NOTE | 2020-12-22 14:11 | NURSING ---
Called pt's for daily update.
--- NOTE | 2020-12-22 18:11 | NURSING ---
This nurse called to pt room d/t pt choking on his dinner. Pt vomited up some solid food and phlegm. Lungs clear to auscultation. Dr. Pereira updated new order for chest x-ray on 12/23/20. Will also consult speech. Will continue to monitor.
[2020-12-22] MEDS: MELATONIN 10 MG TABLET PO (22:12)
[2020-12-22] MEDS: Pravastatin 20 MG Tablet PO (22:12)
[2020-12-22] MEDS: Pramipexole Di-HCl 1 MG Tablet 4 MG PO (22:13)
[2020-12-22] MEDS: Pramipexole Di-HCl 0.5 MG Tablet PO (22:13)
[2020-12-23 05:51] VITALS: BP 113/54; PULSE 68; RESP 16; TEMP 37.1; O2SAT 95
[2020-12-23] MEDS: Donepezil HCl 5 MG Tablet PO (05:53)
[2020-12-23] MEDS: Clopidogrel Bisulfate 75 MG Tablet PO (05:53)
[2020-12-23] MEDS: Sucralfate 1 GM Tablet PO ×4 (05:53→21:28)
[2020-12-23] MEDS: Sertraline 50 MG Tablet PO (05:53)
[2020-12-23] MEDS: Memantine Hydrochloride 10 MG Tablet PO ×2 (05:53→17:29)
[2020-12-23] MEDS: Doxazosin 1 MG Tablet 2 MG PO (05:54)
[2020-12-23] MEDS: Pantoprazole Sodium 40 MG Tablet PO ×2 (05:54→17:30)
[2020-12-23] MEDS: Nystatin Powder 15gm Bottle 1 APPLIC TOPICAL ×2 (05:54→17:32)
[2020-12-23] MEDS: Menthol/Lanolin/Calamine/Znox 113 GM Tube 1 APPLIC TOPICAL ×2 (05:54→17:32)
[2020-12-23] MEDS: Senna/Docusate Sodium 1 Tablet 2 TABLET PO ×2 (05:57→17:31)
--- NOTE | 2020-12-23 06:30 | RAD_ITS ---
STUDY: X-RAY CHEST REASON FOR EXAM: Male, 85 years old. Aspiration TECHNIQUE: AP and lateral views of the chest. COMPARISON: Comparison is made with prior study dated 12/16/2020. FINDINGS: Stable elevation of the right hemidiaphragm. Stable mild increased markings at the right lung base suggestive of either atelectasis and/or infiltrate. The lungs are clear and expanded. There is no demonstrated pleural abnormality. Normal size heart. Normal mediastinum and doanl. Normal visualized pulmonary arteries. There is atherosclerotic calcification of the aortic arch with tortuosity. There are diffuse degenerative changes of the visualized thoracic spine. Normal visualized ribs, clavicles, and shoulders. There is no demonstrated abnormality of the visualized soft tissue structures of the upper abdomen. RAD/Chest PA and Lateral IMPRESSION: Stable elevation of the right hemidiaphragm with persistent increased markings at the right lung base suggestive of either right basilar atelectasis and/or infiltrate. Electronically Signed: Dustin Brito MD at 8:18 EDT , Service support ,
--- NOTE | 2020-12-23 07:20 | NURSING ---
Large amount of dark brown, soft stool this am. New mepliex applied to coccyx. Pt to go to radiology per ADAPTIVE PHYSICAL EDUCATION SPECIALIST this am for CXR.
[2020-12-23 07:41] LABS: Hematocrit 26.1 % (40-54); Hemoglobin 8.2 g/dL (13.0-16.5)
[2020-12-23] MEDS: Iron Polysaccharide Complex 150 MG CAPSULE PO (08:39)
[2020-12-23] MEDS: Multivitamins,Therapeutic Tablet 1 TABLET PO (08:39)
[2020-12-23] MEDS: Allopurinol 300 MG Tablet PO (08:39)
--- NOTE | 2020-12-23 09:23 | ST ---
Spoke with nursing who reports pt had choking episode yesterday 12/22/20 at dinner. Pt reports it was due to piece of meat feeling like it got stuck although pt could breath and talk during event. Pt admits to laying in bed during meal. Education provided regarding pt requiring upright status in chair for all meals and to alternate bites with sips while always having drink close by. Written reminder left on dry erase board. Nurse Francesca made aware. Bedside swallow evaluation WNL. Breath sounds remain clear per nursing documentation. Would consider esophogram to rule out esophogeal stricture or dysfunction. Note left for Dr. Pereira.
[2020-12-23 10:00] VITALS: PULSE 80; RESP 16; O2SAT 95
--- NOTE | 2020-12-23 10:18 | MDS.RN ---
Information for the mds was obtained from review of the clinical record, interview of resident, staff, and direct observation of resident's care.
[2020-12-23 13:49] VITALS: BP 136/61; PULSE 67; RESP 16; TEMP 36.9; O2SAT 94
[2020-12-23] MEDS: Pramipexole Di-HCl 0.5 MG Tablet PO (21:29)
[2020-12-23] MEDS: Pravastatin 20 MG Tablet PO (21:29)
[2020-12-23] MEDS: MELATONIN 10 MG TABLET PO (21:29)
[2020-12-23] MEDS: Pramipexole Di-HCl 1 MG Tablet 4 MG PO (21:30)
[2020-12-24 04:00] VITALS: BP 121/62; PULSE 70; RESP 16; TEMP 37.1; O2SAT 94
[2020-12-24] MEDS: Menthol/Lanolin/Calamine/Znox 113 GM Tube 1 APPLIC TOPICAL ×2 (05:25→18:48)
[2020-12-24] MEDS: Nystatin Powder 15gm Bottle 1 APPLIC TOPICAL ×2 (05:25→18:48)
--- NOTE | 2020-12-24 08:40 | NURSING ---
Pt off floor to imaging for esophageal dual contrast.
[2020-12-24] MEDS: Sucralfate 1 GM Tablet PO ×3 (10:22→22:11)
[2020-12-24] MEDS: Allopurinol 300 MG Tablet PO (10:22)
[2020-12-24] MEDS: Pantoprazole Sodium 40 MG Tablet PO ×2 (10:22→18:48)
[2020-12-24] MEDS: Multivitamins,Therapeutic Tablet 1 TABLET PO (10:22)
[2020-12-24] MEDS: Clopidogrel Bisulfate 75 MG Tablet PO (10:22)
[2020-12-24] MEDS: Iron Polysaccharide Complex 150 MG CAPSULE PO (10:22)
[2020-12-24] MEDS: Sertraline 50 MG Tablet PO (10:23)
[2020-12-24] MEDS: Memantine Hydrochloride 10 MG Tablet PO ×2 (10:24→18:48)
[2020-12-24] MEDS: Doxazosin 1 MG Tablet 2 MG PO (10:24)
[2020-12-24] MEDS: Donepezil HCl 5 MG Tablet PO (10:24)
--- NOTE | 2020-12-24 10:30 | NURSING ---
During Morning med pass pt was NPO. Called pharmacy to verify if okay to still administer meds per Regan okjatin to give.
[2020-12-24 14:08] VITALS: BP 105/42; PULSE 73; RESP 14; TEMP 36.2; O2SAT 95
--- NOTE | 2020-12-24 14:47 | NURSING ---
Called and updated pt's on barium swallow.
--- NOTE | 2020-12-24 17:10 | RAD_ITS ---
STUDY: X-RAY - ESOPHAGUS (BARIUM SWALLOW) WITH FLUOROSCOPY REASON FOR EXAM: Male, 85 years old. Choking TECHNIQUE: 23 view(s) of the esophagus were obtained following swallowing of barium. FLUOROSCOPY TIME (if supplied): (50) minutes/seconds COMPARISON: None. FINDINGS: There is no demonstrated esophageal foreign body. There is evidence of moderate tertiary contractions of the mid and distal esophagus. Normal gastroesophageal junction, without a demonstrated hiatal hernia. There is atherosclerotic calcification of the aortic arch with tortuosity of the descending aorta. Normal visualized pulmonary parenchyma. There are diffuse degenerative changes of the visualized thoracic spine. 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 Electronically Signed: Dustin Brito MD at 9:18 EDT , Service support ,
[2020-12-24 22:00] VITALS: PULSE 73; RESP 18; O2SAT 94
[2020-12-24] MEDS: Senna/Docusate Sodium 1 Tablet 2 TABLET PO (22:11)
[2020-12-24] MEDS: MELATONIN 10 MG TABLET PO (22:12)
[2020-12-24] MEDS: Pramipexole Di-HCl 1 MG Tablet 4 MG PO (22:12)
[2020-12-24] MEDS: Pramipexole Di-HCl 0.5 MG Tablet PO (22:14)
[2020-12-24] MEDS: Pravastatin 20 MG Tablet PO (22:15)
[2020-12-25 04:00] VITALS: BP 121/57; PULSE 67; RESP 16; TEMP 37.1; O2SAT 94
[2020-12-25] MEDS: Clopidogrel Bisulfate 75 MG Tablet PO (04:24)
[2020-12-25] MEDS: Donepezil HCl 5 MG Tablet PO (04:24)
[2020-12-25] MEDS: Menthol/Lanolin/Calamine/Znox 113 GM Tube 1 APPLIC TOPICAL ×2 (04:25→18:00)
[2020-12-25] MEDS: Doxazosin 1 MG Tablet 2 MG PO (04:25)
[2020-12-25] MEDS: Pantoprazole Sodium 40 MG Tablet PO ×2 (04:25→17:59)
[2020-12-25] MEDS: Nystatin Powder 15gm Bottle 1 APPLIC TOPICAL ×2 (04:25→18:00)
[2020-12-25] MEDS: Sertraline 50 MG Tablet PO (04:25)
[2020-12-25] MEDS: Memantine Hydrochloride 10 MG Tablet PO ×2 (04:25→17:59)
[2020-12-25] MEDS: Senna/Docusate Sodium 1 Tablet 2 TABLET PO (04:30)
[2020-12-25] MEDS: Iron Polysaccharide Complex 150 MG CAPSULE PO (08:05)
[2020-12-25] MEDS: Sucralfate 1 GM Tablet PO ×4 (08:05→21:28)
[2020-12-25] MEDS: Allopurinol 300 MG Tablet PO (08:05)
[2020-12-25] MEDS: Multivitamins,Therapeutic Tablet 1 TABLET PO (08:05)
[2020-12-25 11:03] VITALS: PULSE 69; RESP 16; O2SAT 96
[2020-12-25 13:39] VITALS: BP 109/40; PULSE 77; RESP 16; TEMP 36.7; O2SAT 96
[2020-12-25] MEDS: MELATONIN 10 MG TABLET PO (21:31)
[2020-12-25] MEDS: Pravastatin 20 MG Tablet PO (21:31)
[2020-12-25] MEDS: Pramipexole Di-HCl 1 MG Tablet 4 MG PO (21:31)
[2020-12-25] MEDS: Pramipexole Di-HCl 0.5 MG Tablet PO (21:32)
[2020-12-26 05:11] VITALS: BP 117/57; PULSE 67; RESP 16; TEMP 37; O2SAT 96
[2020-12-26] MEDS: Sucralfate 1 GM Tablet PO ×4 (05:13→22:01)
[2020-12-26] MEDS: Donepezil HCl 5 MG Tablet PO (05:13)
[2020-12-26] MEDS: Memantine Hydrochloride 10 MG Tablet PO ×2 (05:13→17:23)
[2020-12-26] MEDS: Pantoprazole Sodium 40 MG Tablet PO ×2 (05:13→17:23)
[2020-12-26] MEDS: Clopidogrel Bisulfate 75 MG Tablet PO (05:13)
[2020-12-26 05:14] LABS: Absolute Lymphocyte Count 1.51 X10^3/uL (0.83-4.51); Absolute Neutrophil Count 4.4 X10^3/uL (2.0-7.7); Basophil# 0.05 X10^3/uL; Basophil% 0.7 % (0-1); Eosinophil# 0.49 X10^3/uL; Eosinophils% 6.9 % (0-5); Hemoglobin 8.2 g/dL (13.0-16.5); Lymphocyte # 1.51 X10^3/ul (0.83-4.51); Lymphocyte % 21.2 % (19-41); Mean Corp Hgb Conc 31.5 g/dL (32-36); Mean Corpuscular Hgb 30.5 pg (27.0-32.0); Mean Corpuscular Volume 96.7 fL (80-94); Mean Platelet Vol. 8.6 fl (6.2-12.0); Monocyte% 8.4 % (0-10); NRBC Flagged by Analyzer 0 % (0-5); Neutrophil # 4.44 X10^3/uL (2.7-7.7); Neutrophil % 62.4 % (47-70); Platelet Count 298 K/mm3 (150-450); RBC Distribution Width CV 14.1 % (11.6-14.6); RBC Distribution Width SD 49.5 fl (35.1-43.9); Red Blood Count 2.69 M/mm3 (4.6-6.2); White Blood Count 7.1 K/mm3 (4.4-11.0)
[2020-12-26] MEDS: Menthol/Lanolin/Calamine/Znox 113 GM Tube 1 APPLIC TOPICAL ×2 (05:14→17:24)
[2020-12-26] MEDS: Doxazosin 1 MG Tablet 2 MG PO (05:14)
[2020-12-26] MEDS: Nystatin Powder 15gm Bottle 1 APPLIC TOPICAL ×2 (05:14→17:24)
[2020-12-26] MEDS: Sertraline 50 MG Tablet PO (05:14)
[2020-12-26 05:29] LABS: Anion Gap 5 (5-15); BUN 38 mg/dL (7-18); BUN/Creat Ratio 24.5 RATIO (10-20); Calcium,Total 8.5 mg/dL (8.5-10.1); Chloride 110 mmol/L (98-107); Creatinine, Serum 1.55 mg/dL (0.70-1.30); EST Glomerular Filtration Rate 46 mL/min (>60); Est Glom Filt Rate - Afr Amer 55 mL/min (>60); Estimated Creatinine Clearance 38.81 ml/min; Glucose 96 mg/dL (74-106); Sodium Level 141 mmol/L (136-145)
[2020-12-26] MEDS: Multivitamins,Therapeutic Tablet 1 TABLET PO (08:00)
[2020-12-26] MEDS: Allopurinol 300 MG Tablet PO (08:00)
[2020-12-26] MEDS: Iron Polysaccharide Complex 150 MG CAPSULE PO (08:00)
[2020-12-26 14:56] VITALS: BP 148/65; PULSE 69; RESP 16; TEMP 36.6; O2SAT 97
[2020-12-26] MEDS: MELATONIN 10 MG TABLET PO (22:02)
[2020-12-26] MEDS: Pramipexole Di-HCl 0.5 MG Tablet PO (22:02)
[2020-12-26] MEDS: Pramipexole Di-HCl 1 MG Tablet 4 MG PO (22:02)
[2020-12-26] MEDS: Pravastatin 20 MG Tablet PO (22:03)
[2020-12-27 05:15] VITALS: BP 143/70; PULSE 73; RESP 16; TEMP 36.8; O2SAT 94
[2020-12-27] MEDS: Sucralfate 1 GM Tablet PO ×4 (05:19→21:22)
[2020-12-27] MEDS: Sertraline 50 MG Tablet PO (05:19)
[2020-12-27] MEDS: Pantoprazole Sodium 40 MG Tablet PO ×2 (05:19→16:30)
[2020-12-27] MEDS: Donepezil HCl 5 MG Tablet PO (05:19)
[2020-12-27] MEDS: Senna/Docusate Sodium 1 Tablet 2 TABLET PO ×2 (05:19→16:33)
[2020-12-27] MEDS: Clopidogrel Bisulfate 75 MG Tablet PO (05:19)
[2020-12-27] MEDS: Menthol/Lanolin/Calamine/Znox 113 GM Tube 1 APPLIC TOPICAL ×2 (05:19→16:30)
[2020-12-27] MEDS: Memantine Hydrochloride 10 MG Tablet PO ×2 (05:19→16:30)
[2020-12-27] MEDS: Nystatin Powder 15gm Bottle 1 APPLIC TOPICAL ×2 (05:20→16:30)
--- NOTE | 2020-12-27 05:25 | NURSING ---
Mepilex found off rt heel, none on floor, new duoderm applied to rt heel, heel boots in place. heels floated off bed.
[2020-12-27] MEDS: Allopurinol 300 MG Tablet PO (08:04)
[2020-12-27] MEDS: Multivitamins,Therapeutic Tablet 1 TABLET PO (08:04)
[2020-12-27] MEDS: Iron Polysaccharide Complex 150 MG CAPSULE PO (08:04)
[2020-12-27] MEDS: Doxazosin 1 MG Tablet 2 MG PO (08:04)
[2020-12-27 10:00] VITALS: PULSE 75; RESP 18; O2SAT 97
[2020-12-27 13:56] VITALS: BP 116/48; PULSE 74; RESP 18; TEMP 36.7; O2SAT 95
--- NOTE | 2020-12-27 14:22 | NURSING ---
wound photo: kaela cleft
--- NOTE | 2020-12-27 16:30 | CASEMGMT ---
Social Work Met with patient and patient spouse in room per request. Patient requesting to discharge to home with spouse on 12/29/2020. Patient and patient spouse aware of recommendation for patient to have 24/7 care in the home. Therapy is recommending for patient to have physical and occupational therapy as well as a home health aide. Patient is agreeable to home health services. Patient spouse provided with list of home health companies and is to pick a company. Patient only DME need is a Bedside [employer]. Patient and patient spouse agreeable to having DME set up by social sciences chair. Patient spouse plans to provide transportation to home. Patient with no further questions. Social Work to continue to follow for: Setting up of [facility] DME set up Discharge planning/support. Proposed discharge date: 12/29/2020. ALYSHA Villafana
--- NOTE | 2020-12-27 19:04 | PCM.DC.SUM ---
Providers Date of Admission: 12/11/20 Primary Care Physician: Dr. Mayur Pereira MD Consultations 12/26/20 16:41 Consult: Onc/Wound/marketing support coordinator Routine Comment: Reason for Consult:: open slit gluteal cleft, worsening Reason For Visit: GI BLEED, LACTIC ACIDOSIS Diagnosis Discharge Diagnosis (1) Bilateral chronic knee pain: Status: Chronic Code(s): M25.561 - Pain in right knee; M25.562 - Pain in left knee; G89.29 - Other chronic pain (2) Debility: Status: Acute Code(s): R53.81 - Other malaise (3) Rheumatoid arthritis: Status: Acute Code(s): M06.9 - Rheumatoid arthritis, unspecified Qualifiers: Rheumatoid arthritis location: foot Rheumatoid factor presence: unspecified presence Laterality: right Qualified Code(s): M06.9 - Rheumatoid arthritis, unspecified (4) Acute anemia: Status: Acute Code(s): D64.9 - Anemia, unspecified (5) Alzheimers disease: Status: Chronic Code(s): G30.9 - Alzheimer's disease, unspecified; F02.80 - Dementia in other diseases classified elsewhere without behavioral disturbance Medications at Discharge Home Medications allopurinol 300 mg tablet 300 mg PO DAILY 09/24/19 doxazosin 2 mg tablet 2 mg PO DAILY 09/24/19 pravastatin 20 mg tablet 20 mg PO DAILY 09/24/19 donepezil 5 mg PO DAILY 10/09/19 multivitamin 1 ea PO DAILY 10/09/19 memantine 10 mg tablet 10 mg PO BID 05/04/20 pramipexole 1.5 mg tablet 4.5 mg PO QHS tab 05/06/20 sertraline 50 mg tablet 50 mg PO DAILY 05/06/20 clopidogrel 75 mg PO DAILY 12/11/20 pantoprazole 40 mg PO BID 30 Days #60 tab 12/27/20 polysaccharide iron complex [Ferrex 150] 150 mg PO DAILYCM 30 Days #30 cap 12/27/20 sucralfate 1 gm PO 1HR_ACHS 30 Days #120 tab 12/27/20 Hospital Course Operations None Procedures None Summary of Care Provided Minutes Spent on Discharge: 35 Hospital Course: 85 year old male with below past medical history hospitalized for upper gastrointestinal bleed secondary to gastritis, duodenal ulcer, complicated by acute encephalopathy, Alzheimer Disease, admitted to TCU with debility, here for rehabilitation, strengthening, prior to discharge home with . On TCU, resident had choking, episodes, speech therapy did not feel he was aspirating, esophagram showed tertiary contractions which may have contributed to his symptoms. Discharge home with wifef 12/29/2020, Home Health Care PT/OT/DIRECTOR BIOLOGICS, Bedside commode. ABG / Lab / Microbiology Data Result Diagrams: 12/26/20 05:01 12/26/20 05:01 D/C Instructions Discharge Diet: No restrictions Discharge Activity: Return to Normal Activity, May Shower and Use Walker Weight Bearing Status: Weight bearing as tolerated Call your doctor if you observe: Fever of 101 or Higher, Shortness of breath, Fainting spells, Chest pain and Uncontrolled pain Additional Instructions: Discharge home with wifef 12/29/2020, Home Health Care PT/OT/DIRECTOR BIOLOGICS, Bedside commode. Please Follow Up With: Mayur Pereira Chi, MD Meaningful Use Info Meaningful Use Diagnoses (Choose all that apply): None applicable Discharge Plan Admission Admit Date/Time: 12/11/20 15:32 Primary Reason for Your Visit: Debility Attending Provider: Mayur Pereira Chi Primary Care Provider: Mayur Pereira Chi Instructions Additional Instructions / Restrictions: Discharge home with wifef 12/29/2020, Home Health Care PT/OT/DIRECTOR BIOLOGICS, Bedside commode. Discharge Orders/Prescriptions Prescriptions: New polysaccharide iron complex [Ferrex 150] 150 mg iron Capsule 150 mg PO DAILYCM 30 Days Qty: 30 RF: 0 Continued doxazosin 2 mg tablet 2 mg PO DAILY RF: 0 pravastatin 20 mg tablet 20 mg PO DAILY RF: 0 allopurinol 300 mg tablet 300 mg PO DAILY RF: 0 pramipexole 1.5 mg tablet 4.5 mg PO QHS RF: 0 sertraline 50 mg tablet 50 mg PO DAILY RF: 0 memantine 10 mg tablet 10 mg PO BID RF: 0 multivitamin 1 EACH tablet 1 ea PO DAILY RF: 0 donepezil 5 MG tablet 5 mg PO DAILY RF: 0 clopidogrel 75 MG tablet 75 mg PO DAILY RF: 0 sucralfate 1 GM tablet 1 gm PO 1HR_ACHS 30 Days Qty: 120 RF: 0 pantoprazole 40 MG tablet 40 mg PO BID 30 Days Qty: 60 RF: 0 Discontinued sennosides-docusate sodium 1 TABLET tablet 2 tablet PO BID PRN (Reason: Constipation) RF: 0 Referrals / Follow Up: Mayur Pereira Chi, MD [Primary Care Provider] - Disposition Disposition (needs filled in before D/C Order can be placed): Home, self care
[2020-12-27] MEDS: MELATONIN 10 MG TABLET PO (21:23)
[2020-12-27] MEDS: Pramipexole Di-HCl 1 MG Tablet 4 MG PO (21:23)
[2020-12-27] MEDS: Pravastatin 20 MG Tablet PO (21:24)
[2020-12-27] MEDS: Pramipexole Di-HCl 0.5 MG Tablet PO (21:24)
[2020-12-28 04:00] VITALS: BP 113/45; PULSE 69; RESP 18; TEMP 36.9; O2SAT 93
[2020-12-28] MEDS: Clopidogrel Bisulfate 75 MG Tablet PO (04:34)
[2020-12-28] MEDS: Memantine Hydrochloride 10 MG Tablet PO ×2 (04:34→16:51)
[2020-12-28] MEDS: Donepezil HCl 5 MG Tablet PO (04:34)
[2020-12-28] MEDS: Pantoprazole Sodium 40 MG Tablet PO ×2 (04:35→16:51)
[2020-12-28] MEDS: Menthol/Lanolin/Calamine/Znox 113 GM Tube 1 APPLIC TOPICAL ×2 (04:35→16:52)
[2020-12-28] MEDS: Sertraline 50 MG Tablet PO (04:36)
[2020-12-28] MEDS: oxyCODONE 5 MG Tablet PO (05:02)
[2020-12-28] MEDS: Nystatin Powder 15gm Bottle 1 APPLIC TOPICAL ×2 (05:28→16:53)
[2020-12-28] MEDS: Iron Polysaccharide Complex 150 MG CAPSULE PO (09:21)
[2020-12-28] MEDS: Allopurinol 300 MG Tablet PO (09:22)
[2020-12-28] MEDS: Doxazosin 1 MG Tablet 2 MG PO (09:22)
[2020-12-28] MEDS: Multivitamins,Therapeutic Tablet 1 TABLET PO (09:22)
[2020-12-28] MEDS: Sucralfate 1 GM Tablet PO ×4 (09:22→21:29)
[2020-12-28 14:01] VITALS: BP 109/52; PULSE 92; RESP 16; TEMP 36.2; O2SAT 95
--- NOTE | 2020-12-28 14:17 | CASEMGMT ---
Social Work Spoke with to inquire about HHC preference. chose [facility]. Referral made for PT/OT/SN/CLINICAL RESOURCE DIRECTOR. BSC was delivered to room from [facility]. KRISTIN Pena
--- NOTE | 2020-12-28 14:53 | NURSING ---
Called pt's to update on pt left message.
[2020-12-28] MEDS: Senna/Docusate Sodium 1 Tablet 2 TABLET PO (16:54)
[2020-12-28] MEDS: Acetaminophen 500 MG Tablet 1000 MG PO (20:05)
[2020-12-28] MEDS: Pramipexole Di-HCl 0.5 MG Tablet PO (21:29)
[2020-12-28] MEDS: MELATONIN 10 MG TABLET PO (21:29)
[2020-12-28] MEDS: Pramipexole Di-HCl 1 MG Tablet 4 MG PO (21:29)
[2020-12-28] MEDS: Pravastatin 20 MG Tablet PO (21:29)
[2020-12-29 06:44] VITALS: BP 111/61; PULSE 65; RESP 18; TEMP 36.9; O2SAT 95
[2020-12-29] MEDS: Sertraline 50 MG Tablet PO (06:46)
[2020-12-29] MEDS: Clopidogrel Bisulfate 75 MG Tablet PO (06:46)
[2020-12-29] MEDS: Pantoprazole Sodium 40 MG Tablet PO (06:46)
[2020-12-29] MEDS: Donepezil HCl 5 MG Tablet PO (06:46)
[2020-12-29] MEDS: Memantine Hydrochloride 10 MG Tablet PO (06:46)
[2020-12-29] MEDS: Menthol/Lanolin/Calamine/Znox 113 GM Tube 1 APPLIC TOPICAL (06:47)
[2020-12-29] MEDS: Nystatin Powder 15gm Bottle 1 APPLIC TOPICAL (06:47)
--- NOTE | 2020-12-29 07:07 | PCA ---
Pt rang out via call light, answered call light was not able to understand what pt was requesting through the call light went back to assist pt with his needs and noticed he has a bloody nose from the left nostril cleaned pt's nose with a tissues and notified regulatory affairs spec nurse on duty. After inital clean up no more blood was visible.
[2020-12-29] MEDS: Allopurinol 300 MG Tablet PO (08:16)
[2020-12-29] MEDS: Sucralfate 1 GM Tablet PO (08:16)
[2020-12-29] MEDS: Doxazosin 1 MG Tablet 2 MG PO (08:16)
[2020-12-29] MEDS: Iron Polysaccharide Complex 150 MG CAPSULE PO (08:16)
[2020-12-29] MEDS: oxyCODONE 5 MG Tablet PO (08:16)
[2020-12-29] MEDS: Multivitamins,Therapeutic Tablet 1 TABLET PO (08:16)
[2020-12-29 09:59] VITALS: RESP 18
[2020-12-29 11:07] VITALS: BP 110/43; PULSE 73; RESP 18; TEMP 36.9; O2SAT 97
== END 2020-12-29 11:00 | disposition home health service (06) | DRG 56 ==
PROVIDERS: Admitting Provider Family Medicine Geriatric Medicine; PCP Family Medicine Geriatric Medicine; Visit Provider Family Medicine Geriatric Medicine
DX: G30.9 Alzheimer's disease, unspecified (principal); K29.71 Gastritis, unspecified, with bleeding; K26.4 Chronic or unspecified duodenal ulcer with hemorrhage; G93.40 Encephalopathy, unspecified; Z23 Encounter for immunization; F02.80 Dementia in other diseases classified elsewhere, unspecified severity, without behavioral disturbance, psychotic disturbance, mood disturbance, and anxiety; M99.03 Segmental and somatic dysfunction of lumbar region; M99.05 Segmental and somatic dysfunction of pelvic region; I73.9 Peripheral vascular disease, unspecified; N40.0 Benign prostatic hyperplasia without lower urinary tract symptoms; G25.81 Restless legs syndrome; F32.9 Major depressive disorder, single episode, unspecified; I10 Essential (primary) hypertension; E78.2 Mixed hyperlipidemia; M10.9 Gout, unspecified; M06.9 Rheumatoid arthritis, unspecified; M51.36 Other intervertebral disc degeneration, lumbar region; Z79.02 Long term (current) use of antithrombotics/antiplatelets; Z79.899 Other long term (current) drug therapy; Z87.891 Personal history of nicotine dependence
CPT/HCPCS: 36415; 71045; 71046; 74220; 80048; 85014; 85018; 85025; 87635; 90732; 92610; 97110; 97116; 97163; 97166; 97530; 97535; 97802; G0009; J7030; A4216; U0002

== ENCOUNTER → 2021-01-04 15:20 | Outpatient (CLI) | payer MEDICARE, OTHER, SELFPAY ==
[2020-12-11 15:54] VITALS: BMI 21.8
[2021-01-04 17:34] LABS: Absolute Lymphocyte Count 2.02 X10^3/uL (0.83-4.51); Absolute Neutrophil Count 5.8 X10^3/uL (2.0-7.7); Basophil# 0.04 X10^3/uL; Basophil% 0.5 % (0-1); Eosinophil# 0.25 X10^3/uL; Eosinophils% 2.9 % (0-5); Hematocrit 31.3 % (40-54); Hemoglobin 9.7 g/dL (13.0-16.5); Lymphocyte # 2.02 X10^3/ul (0.83-4.51); Lymphocyte % 23.7 % (19-41); Mean Corpuscular Hgb 29.5 pg (27.0-32.0); Mean Corpuscular Volume 95.1 fL (80-94); Mean Platelet Vol. 9.1 fl (6.2-12.0); Monocyte# 0.42 X10^3/uL; Monocyte% 4.9 % (0-10); NRBC Flagged by Analyzer 0 % (0-5); Neutrophil # 5.76 X10^3/uL (2.7-7.7); Neutrophil % 67.6 % (47-70); Platelet Count 339 K/mm3 (150-450); RBC Distribution Width SD 48.9 fl (35.1-43.9); Red Blood Count 3.29 M/mm3 (4.6-6.2); White Blood Count 8.5 K/mm3 (4.4-11.0)
[2021-01-04 17:56] LABS: Vitamin D,25 Hydroxy 34.3 ng/mL
[2021-01-04 18:52] LABS: ALB/GLOB Ratio 0.7 RATIO (0.9-2.4); AST(SGOT) 26 U/L (15-37); Alanine Aminotransfer ALT/SGPT 28 U/L (16-61); Albumin, Serum 3.1 g/dL (3.2-5.0); Alkaline Phosphatase 97 U/L (45-117); Anion Gap 11 (5-15); BUN 19 mg/dL (7-18); BUN/Creat Ratio 13.9 RATIO (10-20); Calcium,Total 8.7 mg/dL (8.5-10.1); Chloride 109 mmol/L (98-107); Creatinine, Serum 1.37 mg/dL (0.70-1.30); EST Glomerular Filtration Rate 53 mL/min (>60); Est Glom Filt Rate - Afr Amer 64 mL/min (>60); Globulin 4.3 g/dL (2.2-4.2); Glucose 106 mg/dL (74-106); Potassium 3.6 mmol/L (3.5-5.1); Protein, Total 7.4 g/dL (6.4-8.2); Sodium Level 140 mmol/L (136-145); Thyroid Stim Hormone (TSH) 0.82 uIU/mL (0.358-3.74); Uric Acid 3.7 mg/dL (3.5-7.2)
== END ==
PROVIDERS: PCP Family Medicine Geriatric Medicine; Visit Provider Family Medicine Geriatric Medicine
DX: E55.9 Vitamin D deficiency, unspecified (principal); I10 Essential (primary) hypertension; M10.9 Gout, unspecified
CPT/HCPCS: 36415; 80053; 82306; 84443; 84550; 85025

== ENCOUNTER → 2021-02-02 12:08 | Outpatient (CLI) | payer MEDICARE, OTHER, SELFPAY ==
[2020-12-11 15:54] VITALS: BMI 21.8
[2021-01-27 14:46] VITALS: BMI 23.5
[2021-02-02 12:38] LABS: Absolute Lymphocyte Count 2.12 X10^3/uL (0.83-4.51); Absolute Neutrophil Count 4.8 X10^3/uL (2.0-7.7); Basophil# 0.04 X10^3/uL; Basophil% 0.5 % (0-1); Eosinophil# 0.58 X10^3/uL; Eosinophils% 7.2 % (0-5); Hematocrit 35.9 % (40-54); Hemoglobin 11.1 g/dL (13.0-16.5); Lymphocyte # 2.12 X10^3/ul (0.83-4.51); Lymphocyte % 26.3 % (19-41); Mean Corp Hgb Conc 30.9 g/dL (32-36); Mean Corpuscular Hgb 28.3 pg (27.0-32.0); Mean Corpuscular Volume 91.6 fL (80-94); Mean Platelet Vol. 8.7 fl (6.2-12.0); Monocyte# 0.43 X10^3/uL; Monocyte% 5.3 % (0-10); NRBC Flagged by Analyzer 0 % (0-5); Neutrophil # 4.84 X10^3/uL (2.7-7.7); Neutrophil % 60.1 % (47-70); Platelet Count 254 K/mm3 (150-450); RBC Distribution Width CV 14.4 % (11.6-14.6); RBC Distribution Width SD 48.3 fl (35.1-43.9); Red Blood Count 3.92 M/mm3 (4.6-6.2); White Blood Count 8.1 K/mm3 (4.4-11.0)
== END ==
PROVIDERS: PCP Family Medicine Geriatric Medicine; Referring Provider Family Medicine Geriatric Medicine; Visit Provider Family Medicine Geriatric Medicine
DX: D64.9 Anemia, unspecified (principal)
CPT/HCPCS: 36415; 85025

== ENCOUNTER 2021-02-10 14:30 | Outpatient (RCR) | payer MEDICARE, OTHER, SELFPAY ==
[2020-12-11 15:54] VITALS: BMI 21.8
[2021-01-20 13:28] VITALS: BP 151/57; PULSE 84; RESP 16; TEMP 36.2; BMI 23.5
--- NOTE | 2021-01-20 14:59 | HP.PCM_ITS ---
History of Present Illness Date of Service: 01/20/21 Chief Complaint: Nonhealing wound to buttock since November 2020 History of Wound: This is an 85-year-old white male who presents to the wound healing center today with complaint of nonhealing ulcer to the sacral region since November 2020. He has a past medical history significant for dementia, hypertension, hyperlipidemia, restless leg syndrome, gout, BPH, and recent GI bleed with recent hospital stay in November 2020 for GI bleed secondary to gastri tis complicated by acute encephalopathy. The patient presents with his today who states that for wound care they have been utilizing an Allevyn foam dressing for the last month that was prescribed to them by their primary care. States that they leave the dressing on for 5 or 6 days. Patient's does state that patient is mobile, however spends the majority of his time either in bed or in his reclining chair. He does have a offloading pressure relieving cushion in his chair. He denies any systemic or localized signs of infection at this time. He denies any other acute concerns. Past medical, family, and social history reviewed and not pertinent to the current visit and all other systems reviewed and negative with exception of those listed above. [facility] Medical History (Updated 01/20/21 @ 15:07 by Rogers Sanz NP, [employer]) Alzheimers disease Bilateral carotid artery stenosis BPH (benign prostatic hyperplasia) DDD (degenerative disc disease), lumbar Depression Essential hypertension Hx of gout Hx of primary hypertension Mixed hyperlipidemia Peripheral arterial disease Pressure injury of sacral region, stage 2 RLS (restless legs syndrome) Segmental and somatic dysfunction of lumbar region Segmental and somatic dysfunction of pelvic region Syncope Home Medications allopurinol 300 mg tablet 300 mg PO DAILY 09/24/19 [History Last Taken Unknown] doxazosin 2 mg tablet 2 mg PO DAILY 09/24/19 [History Last Taken 10/13/19 07:00] pravastatin 20 mg tablet 20 mg PO DAILY 09/24/19 [History Last Taken Unknown] donepezil 5 mg PO DAILY 10/09/19 [History Last Taken Unknown] multivitamin 1 ea PO DAILY 10/09/19 [History Last Taken Unknown] memantine 10 mg tablet 10 mg PO BID 05/04/20 [History Last Taken Unknown] pramipexole 1.5 mg tablet 4.5 mg PO QHS tab 05/06/20 [History Last Taken Unknown] sertraline 50 mg tablet 50 mg PO DAILY 05/06/20 [History Last Taken Unknown] clopidogrel 75 mg PO DAILY 12/11/20 [History Last Taken Unknown] pantoprazole 40 mg PO BID 30 Days #60 tab 12/27/20 [Rx Last Taken Unknown] polysaccharide iron complex [Ferrex 150] 150 mg PO DAILYCM 30 Days #30 cap 0 12/27/20 [Rx Last Taken Unknown] sucralfate 1 gm PO 1HR_ACHS 30 Days #120 tab 12/27/20 [Rx Last Taken Unknown] Allergy/AdvReac Type Severity Reaction Status Date / Time No Known Allergies Allergy Verified 12/08/20 09:21 Family History Mother Arthritis Father Hypertension CVA (cerebral vascular accident) Surgical History Amputation of toe of left foot History of back surgery History of hernia repair Social History Smoking Status: Former smoker alcohol intake: never substance use type: does not use caffeine: No ROS Constitutional Constitutional: Reports systems reviewed and no addt'l complaints, except as documented Eyes Eyes: Reports systems reviewed and no addt'l complaints, except as documented ENT HEENT: Reports systems reviewed and no addt'l complaints, except as documented Cardiovascular Cardiovascular: Reports systems reviewed and no addt'l complaints, except as documented Respiratory/Chest Respiratory/Chest: Reports systems reviewed and no addt'l complaints, except as documented Gastrointestinal Gastrointestinal: Reports systems reviewed and no addt'l complaints, except as documented Genitourinary Genitourinary: Reports systems reviewed and no addt'l complaints, except as documented Musculoskeletal Musculoskeletal: Reports systems reviewed and no addt'l complaints, except as documented Integumentary Integumentary: Reports systems reviewed and no addt'l complaints, except as documented Neurologic Neurologic: Reports systems reviewed and no addt'l complaints, except as documented Psychiatric Psychiatric: Reports systems reviewed and no addt'l complaints, except as documented Endocrine Endocrinology: Reports systems reviewed and no addt'l complaints, except as documented Hematologic/Lymphatic Hematologic/Lymphatic: Reports systems reviewed and no addt'l complaints, except as documented Allergic/Immunologic Allergic/Immunologic: Reports systems reviewed and no addt'l complaints, except as documented Vital Signs Vital Signs Vital Signs: 01/20/21 13:28 Temperature 97.1 F L Temperature Source Temporal Pulse Rate 84 Respiratory Rate 16 Blood Pressure 151/57 H Blood Pressure Mean 88 Blood Pressure Source Monitor Blood Pressure Position Sitting Blood Pressure Location Right Arm Oxygen Delivery Method Room Air Weight Weight: 178 lb Body Mass Index (BMI) 23.5 Physical Exam Const alert, no apparent distress and healthy appearing General Appearance: cooperative Exam Limitations: altered mental status HEENT normocephalic Head and Scalp: normal to inspection Mouth: oral and palatal mucosa normal Eyes General Eye: normal appearance of both eyes Resp normal respiratory effort, normal air movement and no use of accessory muscles Effort and Inspection: able to speak in complete sentences Auscultation: clear to auscultation bilaterally Cardio regular rate, regular rhythm, S1 normal heart sound, S2 normal heart sound, no murmurs and peripheral pulses 2+ throughout Palpation: normal PMI Rate: regular rate Heart Sounds: S1 normal and S2 normal GI normal to inspection, nondistended, normoactive bowel sounds, soft to palpation, non-tender and non-distended Palpation: soft Extremity normal to inspection and full ROM General Extremity: normal exam except as noted Skin Wound Narrative: Stage II pressure injury noted to sacral region with adherent slough, no signs of obvious infection at this time Neuro moves all extremities Sensorium / Orientation: awake and alert Psych mental status grossly normal, thought process normal and denies hallucinations Appearance: grossly normal Attitude: calm Activity / Motor Behavior: appropriate eye contact Speech: normal speech Thought Process: normal thought process Thought Content: normal thought content Attention / Concentration: attention grossly intact Insight: insight good Judgement: judgement good Debridement Note Debridement Note Post-Debridement Measurements and Additional Note: Post-Debridement Measurements/Treatment - Nurse 1 - General Ulcer Assessment Start: 01/20/21 13:28 Freq: Status: Active Protocol: KAMERON Activity Type Activity Date Activity User E-Sign Co-Sign Detail Recorded Client Recorded Date Recorded By Document 01/20/21 13:28 [id number] 01/20/21 13:39 MW 01/20/21 13:28 - Today's Visit Information Type of service Initial Visit Arrival Mode Ambulatory, Walker Transfer Assistance None Accompanied by Patient Identification Verified (Name & Yes ) Patient Requires Transmission-Based No Precautions Safety Precautions NA Height and Weight Height 6 ft 1 in Weight 178 lb Weight in Pounds 178.0 lbs Weight Measurement Method Stated by Patient Body Mass Index (BMI) 23.5 BMI Classification Normal BSA - Simon 2.05 Vital Signs Temperature (97.8 F-99.1 F) 97.1 F L Temperature Source Temporal Pulse Rate (60-100) 84 Pulse Location Monitor Respiratory Rate (12-18) 16 Respiratory rate source Observation Oxygen Delivery Method Room Air Blood Pressure (90/60-120/80) 151/57 H Blood Pressure Mean 88 Source Monitor Position Sitting Blood Pressure Location Right Arm Communication Assessment Preferred language Japanese Assistant Director Of Security Required No Able to Read Yes Able to Write Yes Communication Tools None Caregiver Communication Skills No Impairment Impairment Right Hearing Abillity Hard of Hearing Left Hearing Abillity Hard of Hearing Visual Assistive Devices Glasses Teaching Assessment Preferences Verbal,Written Barriers to Learning None Readiness To Learn Excellent Willingness to Engage in Self Management High Activies Readiness to Engage in Self Management High Activities Anxiety Level Calm Cooperation Cooperative Perception Coherent Interest in Health Problem Asks Questions Does Patient Smoke tobacco or other Yes substances Smoking Status Former smoker Is Patient Diabetic No Functional Assessment Recent Decline in Ability to Perform Denies Any Declines Assistive Device With Patient Yes List Device(s) with Patient walker Culture/Scientologist/Refractory Mixer Cultural/Scientologist Needs that may affect No Treatment Plan Would you allow our hospital pilot control operator helper to No meet you for the purpose of spiritual/ emotional support? Refractory Mixer to contact place of jehovah's witness No Teaching: Wound Center *Welcome to the Wound Center -Person Taught Patient,Family -Teaching Method Discussion -Response to teaching Verbalize understanding Dressing Your Wound -Person Taught Patient -Teaching Method Discussion -Response to teaching Verbalize understanding WC - Nurse 1 - General Ulcer Measurement Start: 01/20/21 13:28 Freq: Status: Active Protocol: Activity Type Activity Date Activity User E-Sign Co-Sign Detail Recorded Client Recorded Date Recorded By Document 01/20/21 13:28 [id number] 01/20/21 13:39 MW 01/20/21 13:28 Wound Center Nurse 1 #1 sacral -Combined with other wound No -Current Size (cm) - Length 1.0 -Current Size (cm) - Width 0.5 -Current Size (cm) - Depth 0.3 -Total Square Cm 0.50 -Date of Last Picture (Recall this 01/20/21 field) -Photo Taken Yes -Epithelialization None Present -Tunneling No -Undermining/Tunneling No -Circular Undermining No -Exudate Amt Medium -Exudate Type Serosanguineous -Wound Margin Thickened & Rolled Under -Granulation Amt Small (1-33%) -Granulation Quality [place] -Slough/Fibrin Yes -Necrosis Amt Large (67-100%) -Necrotic Tissue Type Adherent Slough -Structure Exposed N/A -Texture (Sol-wound Skin Appearance) No Abnormality, Assessed -Moisture (Sol-wound Skin Appearance) No Abnormality, Assessed -Color (Sol-wound Skin Appearance) No Abnormality, Rubor -Temperature (Sol-wound Skin No Abnormality Appearance) (Pt Warm) -Tenderness on Palpation (Sol-wound Yes Skin Appearance) -Ulcer Cleansing sopa and water -Foul Odor after Cleansing No -Anesthetic Used 4% Lidocaine Solution WC - Nurse 2 - General Ulcer CM Notes Start: 01/20/21 13:28 Freq: Status: Active Protocol: Activity Type Activity Date Activity User E-Sign Co-Sign Detail Recorded Client Recorded Date Recorded By Document 01/20/21 14:42 PL [id number] 01/20/21 14:44 PL 01/20/21 14:42 Wound Center Nurse 2 -Time 13:59 -Correct Patient Yes -Correct Side, Site, Position Yes -Correct Procedure Yes -Procedure Performed Yes -Type of Procedure Debridement -Clinical Debridement Subcutaneous -Tissue Removed Subcutaneous -Post Debridement (cm) - Length 1.5 -Post Debridement (cm) - Width 0.8 -Post Debridement (cm) - Depth 0.3 -Total Square (Post) (cm) 1.20 -Area of Debridement (cm) - Length 1.5 -Area of Debridement (cm) - Width 0.8 -Total Square (Area) (cm) 1.20 -Tunneling No -Undermining/Tunneling No -Circular Undermining No -Wound/Ulcer Outcome Not Healed -Ulcer Cleansing Rinsed/ Irrigated with Saline -Foul Odor after Cleansing No -Bioengineered Tissue No -Debridement - Subq, 1st 20sq cm Yes Pain Scale: 0-10 Numeric Is Patient Pain Free? Yes Wound debrided: Stage III pressure injury to sacrum Laterality: Not Applicable Type of Debridement: Excisional debridement Anesthesia Used: 5% Lidocaine Gel Depth: Down to and including healthy tissue and in the subcutaneous layer Percentage of wound debrided: 100 Instrument Used: 3mm curette Tissue Removed: Slough and devitalized tissue Severity: Fat Layer Exposed Amount of bleeding with debridement: Mild Bleeding Controlled with: Pressure Patient tolerated procedure: Patient tolerated procedure well Charges/Coding Visit Charges Office Visits / Consults: 43852 OV L4 Est Procedures Integumentary [id number]: [id number] Alem subq tissue 20 sq cm/< Assessment/Plan Assessment/Plan (1) Pressure injury of sacral region, stage 2: CODE(S): L89.152 - Pressure ulcer of sacral region, stage 2 (2) Rheumatoid arthritis: CODE(S): M06.9 - Rheumatoid arthritis, unspecified QUALIFIERS: Rheumatoid arthritis location: foot Rheumatoid factor presence: unspecified presence Laterality: right Qualified Code(s): M06.9 - Rheumatoid arthritis, unspecified (3) Debility: CODE(S): R53.81 - Other malaise (4) Peripheral arterial occlusive disease: CODE(S): I77.9 - Disorder of arteries and arterioles, unspecified (5) Hypertension: CODE(S): I10 - Essential (primary) hypertension (6) Hyperlipidemia: CODE(S): E78.5 - Hyperlipidemia, unspecified (7) Gout: CODE(S): M10.9 - Gout, unspecified (8) Depression: CODE(S): F32.9 - Major depressive disorder, single episode, unspecified (9) DDD (degenerative disc disease), lumbar: CODE(S): M51.36 - Other intervertebral disc degeneration, lumbar region (10) Alzheimers disease: CODE(S): G30.9 - Alzheimer's disease, unspecified; F02.80 - Dementia in other diseases classified elsewhere without behavioral disturbance (11) Essential hypertension: CODE(S): I10 - Essential (primary) hypertension PLAN: The patient was seen and examined at the wound center today and was updated on the plan of care. A subcutaneous debridement was performed today. The patient tolerated the procedure well. The patients wound care will consist of: Application of moistened Yudy cover with daily foam dressing, change daily. Wound cultures were collected. Baseline bloodwork held. Patient educated on the importance of diet on wound healing and instructed to increase protein and vitamin C intake. Patient verbalized understanding. Discussed the importance of protein supplementation and discussed the importance of offloading with the patient's , both verbalized understanding. Patient will follow up at wound healing center in one week or sooner if needed. Given the delayed wound healing and fact that it has been greater than 4 weeks of standard wound care, will apply for advanced skin substitute. This note was generated with [employer] dictation software. It may contain incorrect words, spelling, and punctuation that were not noted in checking the note before signing. I have spent 35 minutes today reviewing labs, records, and history. Time includes coordinating care, interpretation of tests, and counseling the patient/family. This also includes time I spent with the patient for exam, treatment plan, and education as well as documenting clinical information in the electronic health record.
--- NOTE | 2021-01-24 15:16 | WC ---
Spoke with Katelyn from [employer] and she stated that the product [id number] did not require a prior authorization Call # [id number]
[2021-01-27 14:46] VITALS: BP 165/85; PULSE 84; RESP 20; TEMP 36.4; BMI 23.5
--- NOTE | 2021-01-27 15:41 | PN.PCM_ITS ---
History of Present Illness Date of Service: 01/27/21 Chief Complaint: Nonhealing wound to buttock since November 2020 History of Wound: This is an 85-year-old white male who presents to the wound healing center today with complaint of nonhealing ulcer to the sacral region since November 2020. He has a past medical history significant for dementia, hypertension, hyperlipidemia, restless leg syndrome, gout, BPH, and recent GI bleed with recent hospital stay in November 2020 for GI bleed secondary to gastri tis complicated by acute encephalopathy. The patient presents with his today who states that for wound care they have been utilizing an Allevyn foam dressing for the last month that was prescribed to them by their primary care. States that they leave the dressing on for 5 or 6 days. Patient's does state that patient is mobile, however spends the majority of his time either in bed or in his reclining chair. He does have a offloading pressure relieving cushion in his chair. He denies any systemic or localized signs of infection at this time. He denies any other acute concerns. Past medical, family, and social history reviewed and not pertinent to the current visit and all other systems reviewed and negative with exception of those listed above. Subjective Subjective Wound is stable without any signs of infection at this time no new concerns, wound culture was showed anaerobic cocci, staph aureus, kocuria and therefore patient was treated with Augmentin, which he is tolerating well Objective Data Objective Data Vital Signs: Vital Signs Temp Pulse Resp BP 97.6 F L 84 20 H 165/85 H 01/27/21 14:46 01/27/21 14:46 01/27/21 14:46 01/27/21 14:46 Oxygen Delivery Method Room Air Weight: 178 lb Body Mass Index (BMI) 23.5 Lab / Micro Data Micro: Microbiology 01/20/21 14:02 Wound Abcess - Sacral Gram Stain - Final 01/20/21 14:02 Wound Abcess - Sacral Wound Culture - Final Staphylococcus aureus Kocuria citlaliistinae 01/20/21 14:02 Wound Abcess - Sacral Anaerobic Culture - Final Anaerobic cocci Charges/Coding Procedures Integumentary 150xxx-152xx: [id number] Skin sub graft trnk/arm/leg Physical Exam Const alert, no apparent distress and healthy appearing General Appearance: cooperative Exam Limitations: altered mental status HEENT normocephalic Head and Scalp: normal to inspection Mouth: oral and palatal mucosa normal Eyes General Eye: normal appearance of both eyes Resp normal respiratory effort, normal air movement and no use of accessory muscles Effort and Inspection: able to speak in complete sentences Auscultation: clear to auscultation bilaterally Cardio regular rate, regular rhythm, S1 normal heart sound, S2 normal heart sound, no murmurs and peripheral pulses 2+ throughout Palpation: normal PMI Rate: regular rate Heart Sounds: S1 normal and S2 normal GI normal to inspection, nondistended, normoactive bowel sounds, soft to palpation, non-tender and non-distended Palpation: soft Extremity normal to inspection and full ROM General Extremity: normal exam except as noted Skin Wound Narrative: Stage II pressure injury noted to sacral region with adherent slough, no signs of obvious infection at this time Neuro moves all extremities Sensorium / Orientation: awake and alert Psych mental status grossly normal, thought process normal and denies hallucinations Appearance: grossly normal Attitude: calm Activity / Motor Behavior: appropriate eye contact Speech: normal speech Thought Process: normal thought process Thought Content: normal thought content Attention / Concentration: attention grossly intact Insight: insight good Judgement: judgement good Debridement Note Debridement Note Post-Debridement Measurements and Additional Note: Post-Debridement Measurements/Treatment - Nurse 1 - General Ulcer Assessment Start: 01/20/21 13:28 Freq: Status: Active Protocol: KAMERON Activity Type Activity Date Activity User E-Sign Co-Sign Detail Recorded Client Recorded Date Recorded By Document 01/20/21 13:28 MW [id number] 01/20/21 13:39 MW Document 01/27/21 14:46 DL [id number] 01/27/21 14:50 DL 01/20/21 01/27/21 13:28 14:46 - Today's Visit Information Type of service Initial Visit Follow-up Visit (Physician/PCB DESIGNER ) Arrival Mode Ambulatory, Ambulatory, Walker Walker Transfer Assistance None None Accompanied by Patient Identification Verified (Name & Yes Yes ) Patient Requires Transmission-Based No No Precautions Safety Precautions NA Height and Weight Height 6 ft 1 in Weight 178 lb Weight in Pounds 178.0 lbs Weight Measurement Method Stated by Patient Body Mass Index (BMI) 23.5 23.5 BMI Classification Normal Normal BSA - Simon 2.05 Vital Signs Temperature (97.8 F-99.1 F) 97.1 F L 97.6 F L Temperature Source Temporal Temporal Pulse Rate (60-100) 84 84 Pulse Location Monitor Monitor Respiratory Rate (12-18) 16 20 H Respiratory rate source Observation Observation Oxygen Delivery Method Room Air Blood Pressure (90/60-120/80) 151/57 H 165/85 H Blood Pressure Mean (mm Hg) 88 111 Source Monitor Monitor Position Sitting Blood Pressure Location Right Arm History Since Last Visit- (Skip if this is Patient's initial visit) Have you changed medications since your No last visit? Any new allergies or adverse reactions No Had a fall/change in ADL's that may No increase risk of falls Have you been in the hospital since your No last visit? Has dressing in place as prescribed Yes Has compression in place as prescribed N/A Has offloadiing in place as prescribed Yes Experienced any changes in pain level or No management Pain Scale: 0-10 Numeric Is Patient Pain Free? Yes Communication Assessment Preferred language Korean Artificial Stone Setter Required No Able to Read Yes Able to Write Yes Communication Tools None Caregiver Communication Skills No Impairment Impairment Right Hearing Abillity Hard of Hearing Left Hearing Abillity Hard of Hearing Visual Assistive Devices Glasses Teaching Assessment Preferences Verbal,Written Barriers to Learning None Readiness To Learn Excellent Willingness to Engage in Self Management High Activies Readiness to Engage in Self Management High Activities Anxiety Level Calm Cooperation Cooperative Perception Coherent Interest in Health Problem Asks Questions Does Patient Smoke tobacco or other Yes substances Smoking Status Former smoker Is Patient Diabetic No Functional Assessment Recent Decline in Ability to Perform Denies Any Declines Assistive Device With Patient Yes List Device(s) with Patient walker Culture/Rastafarian/Nurse Discharge Cultural/Rastafarian Needs that may affect No Treatment Plan Would you allow our hospital senior architectural designer to No meet you for the purpose of spiritual/ emotional support? Nurse Discharge to contact place of uatsdin No Teaching: Wound Center *Welcome to the Wound Center -Person Taught Patient,Family -Teaching Method Discussion -Response to teaching Verbalize understanding Dressing Your Wound -Person Taught Patient -Teaching Method Discussion -Response to teaching Verbalize understanding WC - Nurse 1 - General Ulcer Measurement Start: 01/20/21 13:28 Freq: Status: Active Protocol: Activity Type Activity Date Activity User E-Sign Co-Sign Detail Recorded Client Recorded Date Recorded By Document 01/20/21 13:28 MW [id number] 01/20/21 13:39 MW Document 01/27/21 14:46 DL [id number] 01/27/21 14:50 DL 01/20/21 01/27/21 13:28 14:46 Wound Center Nurse 1 #1 sacral -Combined with other wound No -Current Size (cm) - Length 1.0 0.8 -Current Size (cm) - Width 0.5 0.3 -Current Size (cm) - Depth 0.3 0.2 -Total Square Cm 0.50 0.24 -Date of Last Picture (Recall this 01/20/21 field) -Photo Taken Yes No -Epithelialization None Present -Tunneling No -Undermining/Tunneling No -Circular Undermining No -Exudate Amt Medium Small -Exudate Type Serosanguineous Serosanguineous -Wound Margin Thickened & Distinct, Rolled Under Outline Attached -Granulation Amt Small (1-33%) Large (67-100%) -Granulation Quality [place] -Slough/Fibrin Yes -Necrosis Amt Large (67-100%) None Present (0 %) -Necrotic Tissue Type Adherent Slough -Structure Exposed N/A N/A -Texture (Sol-wound Skin Appearance) No Abnormality, Scarring Assessed -Moisture (Sol-wound Skin Appearance) No Abnormality, No Abnormality Assessed -Color (Sol-wound Skin Appearance) No Abnormality, No Abnormality Rubor -Temperature (Sol-wound Skin No Abnormality No Abnormality Appearance) (Pt Warm) (Pt Warm) -Tenderness on Palpation (Sol-wound Yes No Skin Appearance) -Ulcer Cleansing sopa and water Rinsed/ Irrigated with Saline -Foul Odor after Cleansing No No -Anesthetic Used 4% Lidocaine 4% Lidocaine Solution Solution WC - Nurse 2 - General Ulcer CM Notes Start: 01/20/21 13:28 Freq: Status: Active Protocol: Activity Type Activity Date Activity User E-Sign Co-Sign Detail Recorded Client Recorded Date Recorded By Document 01/20/21 14:42 PL [id number] 01/20/21 14:44 PL 01/20/21 14:42 Wound Center Nurse 2 -Time 13:59 -Correct Patient Yes -Correct Side, Site, Position Yes -Correct Procedure Yes -Procedure Performed Yes -Type of Procedure Debridement -Clinical Debridement Subcutaneous -Tissue Removed Subcutaneous -Post Debridement (cm) - Length 1.5 -Post Debridement (cm) - Width 0.8 -Post Debridement (cm) - Depth 0.3 -Total Square (Post) (cm) 1.20 -Area of Debridement (cm) - Length 1.5 -Area of Debridement (cm) - Width 0.8 -Total Square (Area) (cm) 1.20 -Tunneling No -Undermining/Tunneling No -Circular Undermining No -Wound/Ulcer Outcome Not Healed -Ulcer Cleansing Rinsed/ Irrigated with Saline -Foul Odor after Cleansing No -Bioengineered Tissue No -Debridement - Subq, 1st 20sq cm Yes Pain Scale: 0-10 Numeric Is Patient Pain Free? Yes - Nurse 3 - General Ulcer D/C NN Start: 01/20/21 13:28 Freq: Status: Active Protocol: Activity Type Activity Date Activity User E-Sign Co-Sign Detail Recorded Client Recorded Date Recorded By Document 01/20/21 14:50 MW [id number] 01/20/21 15:30 MW Document 01/27/21 15:31 MW [id number] 01/27/21 15:32 MW 01/20/21 01/27/21 14:50 15:31 Wound Care Nurse 3 #1 sacral -Ulcer Cleansing Rinsed/ Not Cleansed Irrigated with Saline -Foul Odor after Cleansing No -Negative Pressure Wound Therapy N/A -Primary Dressing Applied Mepilex Border, Mepilex Border Promogran Yudy Matter -Primary Dressing Covered/Secured with Dry Gauze -Mepilex Border 1 2 -Promogran Yudy Matter 1 Treatment Response Procedure Procedure Tolerated Well Tolerated Well Pain Scale: 0-10 Numeric Is Patient Pain Free? No Yes Teaching: Wound Center Dressing Your Wound -Person Taught Patient,Family Patient,Family -Teaching Method Discussion, Discussion, Demonstration Demonstration -Response to teaching Verbalize Verbalize understanding understanding WC - Visit Discharge Discharge Condition Stable Stable Ambulatory Status Ambulatory Ambulatory Transportation Private Auto Private Auto Accompanied by Medication Reconcilliation completed & No No provided to patient/care provider Clinical Summary of Care Provided Yes Yes Additional Wound Wound debrided: stage 2 pressure ulcer of sacrum Type of Debridement: Selective debridement Anesthesia Used: 4% Lidocaine Solution Depth: Down to and including healthy tissue and in the subcutaneous layer Percentage of wound debrided: 100 Instrument Used: 3mm curette Tissue Removed: slough and devitalized tissue Severity: Fat Layer Exposed Amount of bleeding with debridement: Mild Bleeding Controlled with: Pressure Patient tolerated procedure: Patient tolerated procedure well Assessment/Plan Assessment/Plan (1) Pressure injury of sacral region, stage 2: CODE(S): L89.152 - Pressure ulcer of sacral region, stage 2 (2) Debility: CODE(S): R53.81 - Other malaise (3) Hypertension: CODE(S): I10 - Essential (primary) hypertension (4) Hyperlipidemia: CODE(S): E78.5 - Hyperlipidemia, unspecified (5) Essential hypertension: CODE(S): I10 - Essential (primary) hypertension (6) Alzheimers disease: CODE(S): G30.9 - Alzheimer's disease, unspecified; F02.80 - Dementia in other diseases classified elsewhere without behavioral disturbance (7) Rheumatoid arthritis: CODE(S): M06.9 - Rheumatoid arthritis, unspecified QUALIFIERS: Rheumatoid arthritis location: foot Rheumatoid factor presence: unspecified presence Laterality: right Qualified Code(s): M06.9 - Rheumatoid arthritis, unspecified (8) Peripheral arterial occlusive disease: CODE(S): I77.9 - Disorder of arteries and arterioles, unspecified (9) Gout: CODE(S): M10.9 - Gout, unspecified (10) Depression: CODE(S): F32.9 - Major depressive disorder, single episode, unspecified (11) DDD (degenerative disc disease), lumbar: CODE(S): M51.36 - Other intervertebral disc degeneration, lumbar region PLAN: The patient was seen and examined at the wound center today and was updated on the plan of care. A subcutaneous debridement was performed today. The patient tolerated the procedure well. The patients wound care will consist of: Application of purrapply #1 was applied today, covered with Adaptic touch and secured with Steri-Strips, 100% of the product was utilized, cover with foam dressing change every 2 to 3 days exterior dressing. Wound cultures were collected prior and patient is tolerating Augmentin. Baseline bloodwork held. Patient educated on the importance of diet on wound healing and instructed to increase protein and vitamin C intake. Patient verbalized understanding. Discussed the importance of protein supplementation and discussed the importance of offloading with the patient's , both verbalized understanding. Patient will follow up at wound healing center in one week or sooner if needed. Given the delayed wound healing and fact that it has been greater than 4 weeks of standard wound care, will apply for advanced skin substitute. This note was generated with [employer] dictation software. It may contain incorrect words, spelling, and punctuation that were not noted in checking the note before signing. I have spent 35 minutes today reviewing labs, records, and history. Time includes coordinating care, interpretation of tests, and counseling the patient/family. This also includes time I spent with the patient for exam, treatment plan, and education as well as documenting clinical information in the electronic health record.
[2021-02-03 14:31] VITALS: BP 193/91; PULSE 78; RESP 20; TEMP 36.6; BMI 23.5
--- NOTE | 2021-02-03 23:14 | PCM.WC.PN ---
History of Present Illness Date of Service: 02/03/21 Chief Complaint: Nonhealing wound to buttock since November 2020 History of Wound: This is an 85-year-old white male who presents to the wound healing center today with complaint of nonhealing ulcer to the sacral region since November 2020. He has a past medical history significant for dementia, hypertension, hyperlipidemia, restless leg syndrome, gout, BPH, and recent GI bleed with recent hospital stay in November 2020 for GI bleed secondary to gastritis complicated by acute encephalopathy. The patient presents with his today who states that for wound care they have been utilizing an Allevyn foam dressing for the last month that was prescribed to them by their primary care. States that they leave the dressing on for 5 or 6 days. Patient's does state that patient is mobile, however spends the majority of his time either in bed or in his reclining chair. He does have a offloading pressure relieving cushion in his chair. He denies any systemic or localized signs of infection at this time. He denies any other acute concerns. Past medical, family, and social history reviewed and not pertinent to the current visit and all other systems reviewed and negative with exception of those listed above. Progress of Wound: Wound size has improved dramatically with the use of purapply a.m., no new concerns Objective Data Objective Data Vital Signs: Vital Signs Temp Pulse Resp BP 98 F 78 20 H 193/91 H 02/03/21 14:31 02/03/21 14:31 02/03/21 14:31 02/03/21 14:31 Oxygen Delivery Method Room Air Weight: 178 lb Body Mass Index (BMI) 23.5 Lab / Micro Data Micro: Microbiology 01/20/21 14:02 Wound Abcess - Sacral Gram Stain - Final 01/20/21 14:02 Wound Abcess - Sacral Wound Culture - Final Staphylococcus aureus Kocuria sonnyae 01/20/21 14:02 Wound Abcess - Sacral Anaerobic Culture - Final Anaerobic cocci Charges/Coding Procedures Integumentary [id number]: [id number] Alem subq tissue 20 sq cm/< Physical Exam Const alert, no apparent distress and healthy appearing General Appearance: cooperative Exam Limitations: altered mental status HEENT normocephalic Head and Scalp: normal to inspection Mouth: oral and palatal mucosa normal Eyes General Eye: normal appearance of both eyes Resp normal respiratory effort, normal air movement and no use of accessory muscles Effort and Inspection: able to speak in complete sentences Auscultation: clear to auscultation bilaterally Cardio regular rate, regular rhythm, S1 normal heart sound, S2 normal heart sound, no murmurs and peripheral pulses 2+ throughout Palpation: normal PMI Rate: regular rate Heart Sounds: S1 normal and S2 normal GI normal to inspection, nondistended, normoactive bowel sounds, soft to palpation, non-tender and non-distended Palpation: soft Extremity normal to inspection and full ROM General Extremity: normal exam except as noted Skin Wound Narrative: Stage II pressure injury noted to sacral region with adherent slough, no signs of obvious infection at this time Neuro moves all extremities Sensorium / Orientation: awake and alert Psych mental status grossly normal, thought process normal and denies hallucinations Appearance: grossly normal Attitude: calm Activity / Motor Behavior: appropriate eye contact Speech: normal speech Thought Process: normal thought process Thought Content: normal thought content Attention / Concentration: attention grossly intact Insight: insight good Judgement: judgement good Debridement Note Debridement Note Post-Debridement Measurements and Additional Note: Post-Debridement Measurements/Treatment - Nurse 1 - General Ulcer Assessment Start: 01/20/21 13:28 Freq: Status: Active Protocol: TRIXIE.COCO Activity Type Activity Date Activity User E-Sign Co-Sign Detail Recorded Client Recorded Date Recorded By Document 01/20/21 13:28 MW [id number] 01/20/21 13:39 MW Document 01/27/21 14:46 DL [id number] 01/27/21 14:50 DL Document 02/03/21 14:31 DL [id number] 02/03/21 14:37 DL 01/20/21 01/27/21 02/03/21 13:28 14:46 14:31 - Today's Visit Information Type of service Initial Visit Follow-up Visit Follow-up Visit (Physician/JOINT FINISHER (Physician/JOINT FINISHER ) ) Arrival Mode Ambulatory, Ambulatory, Ambulatory, Walker Walker Walker Transfer Assistance None None None Accompanied by Patient Identification Verified (Name & Yes Yes Yes ) Patient Requires Transmission-Based No No No Precautions Safety Precautions NA Height and Weight Height 6 ft 1 in Weight 178 lb Weight in Pounds 178.0 lbs Weight Measurement Method Stated by Patient Body Mass Index (BMI) 23.5 23.5 23.5 BMI Classification Normal Normal Normal BSA - Simon 2.05 Vital Signs Temperature (97.8 F-99.1 F) 97.1 F L 97.6 F L 98 F Temperature Source Temporal Temporal Temporal Pulse Rate (60-100) 84 84 78 Pulse Location Monitor Monitor Respiratory Rate (12-18) 16 20 H 20 H Respiratory rate source Observation Observation Observation Oxygen Delivery Method Room Air Blood Pressure (90/60-120/80) 151/57 H 165/85 H 193/91 H Blood Pressure Mean (mm Hg) 88 111 125 Source Monitor Monitor Monitor Position Sitting Blood Pressure Location Right Arm History Since Last Visit- (Skip if this is Patient's initial visit) Have you changed medications since your No No last visit? Any new allergies or adverse reactions No No Had a fall/change in ADL's that may No No increase risk of falls Signs or symptoms of abuse and/or No neglect since last visit Have you been in the hospital since your No No last visit? Has dressing in place as prescribed Yes Yes Has compression in place as prescribed N/A Has offloadiing in place as prescribed Yes Yes Experienced any changes in pain level or No No management Pain Scale: 0-10 Numeric Is Patient Pain Free? Yes Yes Communication Assessment Preferred language Slovak Boilermaker Assembly And Erection Required No Able to Read Yes Able to Write Yes Communication Tools None Caregiver Communication Skills No Impairment Impairment Right Hearing Abillity Hard of Hearing Left Hearing Abillity Hard of Hearing Visual Assistive Devices Glasses Teaching Assessment Preferences Verbal,Written Barriers to Learning None Readiness To Learn Excellent Willingness to Engage in Self Management High Activies Readiness to Engage in Self Management High Activities Anxiety Level Calm Cooperation Cooperative Perception Coherent Interest in Health Problem Asks Questions Does Patient Smoke tobacco or other Yes substances Smoking Status Former smoker Is Patient Diabetic No Functional Assessment Recent Decline in Ability to Perform Denies Any Declines Assistive Device With Patient Yes List Device(s) with Patient walker Culture/Buddhist/Processing Technician Cultural/Buddhist Needs that may affect No Treatment Plan Would you allow our hospital welder journeyman to No meet you for the purpose of spiritual/ emotional support? Processing Technician to contact place of restoration No Teaching: Wound Center *Welcome to the Wound Center -Person Taught Patient,Family -Teaching Method Discussion -Response to teaching Verbalize understanding Dressing Your Wound -Person Taught Patient -Teaching Method Discussion -Response to teaching Verbalize understanding WC - Nurse 1 - General Ulcer Measurement Start: 01/20/21 13:28 Freq: Status: Active Protocol: Activity Type Activity Date Activity User E-Sign Co-Sign Detail Recorded Client Recorded Date Recorded By Document 01/20/21 13:28 MW [id number] 01/20/21 13:39 MW Document 01/27/21 14:46 DL [id number] 01/27/21 14:50 DL Document 02/03/21 14:31 DL [id number] 02/03/21 14:37 DL 01/20/21 01/27/21 02/03/21 13:28 14:46 14:31 Wound Center Nurse 1 #1 sacral -Combined with other wound No -Current Size (cm) - Length 1.0 0.8 0.3 -Current Size (cm) - Width 0.5 0.3 0.1 -Current Size (cm) - Depth 0.3 0.2 0.1 -Total Square Cm 0.50 0.24 0.03 -Date of Last Picture (Recall this 01/20/21 field) -Photo Taken Yes No No -Epithelialization None Present -Tunneling No -Undermining/Tunneling No -Circular Undermining No -Exudate Amt Medium Small None Present -Exudate Type Serosanguineous Serosanguineous -Wound Margin Thickened & Distinct, Flat & Intact Rolled Under Outline Attached -Granulation Amt Small (1-33%) Large (67-100%) Small (1-33%) -Granulation Quality New [place] -Slough/Fibrin Yes -Necrosis Amt Large (67-100%) None Present (0 None Present (0 %) %) -Necrotic Tissue Type Adherent Slough -Structure Exposed N/A N/A N/A -Texture (Sol-wound Skin Appearance) No Abnormality, Scarring Scarring Assessed -Moisture (Sol-wound Skin Appearance) No Abnormality, No Abnormality No Abnormality Assessed -Color (Sol-wound Skin Appearance) No Abnormality, No Abnormality Assessed Rubor -Temperature (Sol-wound Skin No Abnormality No Abnormality No Abnormality Appearance) (Pt Warm) (Pt Warm) (Pt Warm) -Tenderness on Palpation (Sol-wound Yes No No Skin Appearance) -Ulcer Cleansing sopa and water Rinsed/ Rinsed/ Irrigated with Irrigated with Saline Saline -Foul Odor after Cleansing No No No -Anesthetic Used 4% Lidocaine 4% Lidocaine 4% Lidocaine Solution Solution Solution WC - Nurse 2 - General Ulcer CM Notes Start: 01/20/21 13:28 Freq: Status: Active Protocol: Activity Type Activity Date Activity User E-Sign Co-Sign Detail Recorded Client Recorded Date Recorded By Document 01/20/21 14:42 PL [id number] 01/20/21 14:44 PL Document 01/27/21 16:09 PL [id number] 01/27/21 16:16 PL Document 02/03/21 16:23 PL [id number] 02/03/21 16:24 PL 01/20/21 01/27/21 02/03/21 14:42 16:09 16:23 Wound Center Nurse 2 #1 sacral -Time 13:59 15:13 15:06 -Correct Patient Yes Yes Yes -Correct Side, Site, Position Yes Yes Yes -Correct Procedure Yes Yes Yes -Procedure Performed Yes Yes Yes -Type of Procedure Debridement Debridement Debridement -Clinical Debridement Subcutaneous Subcutaneous Subcutaneous -Tissue Removed Subcutaneous Subcutaneous Subcutaneous -Post Debridement (cm) - Length 1.5 1.4 0.4 -Post Debridement (cm) - Width 0.8 0.9 0.2 -Post Debridement (cm) - Depth 0.3 0.1 0.1 -Total Square (Post) (cm) 1.20 1.26 0.08 -Area of Debridement (cm) - Length 1.5 1.4 0.4 -Area of Debridement (cm) - Width 0.8 0.9 0.2 -Total Square (Area) (cm) 1.20 1.26 0.08 -Tunneling No No No -Undermining/Tunneling No No No -Circular Undermining No No No -Wound/Ulcer Outcome Not Healed Not Healed Not Healed -Ulcer Cleansing Rinsed/ Rinsed/ Rinsed/ Irrigated with Irrigated with Irrigated with Saline Saline Saline -Foul Odor after Cleansing No No No -Bioengineered Tissue No Yes No -Type of Bioengineered Tissue PuraPly AM Disc -Expiration Date 04/15/23 -Product Lot Number [id number] -Percent Used 100 -Lot number of Saline Used [id number] -Bleeding Controlled with Pressure -Treatment Response Procedure Tolerated Well -Debridement - Subq, 1st 20sq cm Yes No Yes -Apply Skin Sub - 1st 25 sq cm - Legs 1 -PuraPly AM 16mm Disc (per sq cm) 2 Pain Scale: 0-10 Numeric Is Patient Pain Free? Yes Yes Yes WC - Nurse 3 - General Ulcer D/C NN Start: 01/20/21 13:28 Freq: Status: Active Protocol: Activity Type Activity Date Activity User E-Sign Co-Sign Detail Recorded Client Recorded Date Recorded By Document 01/20/21 14:50 MW [id number] 01/20/21 15:30 MW Document 01/27/21 15:31 MW [id number] 01/27/21 15:32 MW Document 02/03/21 15:30 DL [id number] 02/03/21 15:31 DL 01/20/21 01/27/21 02/03/21 14:50 15:31 15:30 Wound Care Nurse 3 #1 sacral -Ulcer Cleansing Rinsed/ Not Cleansed Rinsed/ Irrigated with Irrigated with Saline Saline -Foul Odor after Cleansing No No -Negative Pressure Wound Therapy N/A -Primary Dressing Applied Mepilex Border, Mepilex Border Promogran Promogran Yudy Matter -Other Dressing Border foam -Primary Dressing Covered/Secured with Dry Gauze Dry Gauze -Mepilex Border 1 2 -Promogran 1 -Promogran Yudy Matter 1 Treatment Response Procedure Procedure Procedure Tolerated Well Tolerated Well Tolerated Well Pain Scale: 0-10 Numeric Is Patient Pain Free? No Yes Yes Teaching: Wound Center Dressing Your Wound -Person Taught Patient,Family Patient,Family -Teaching Method Discussion, Discussion, Demonstration Demonstration -Response to teaching Verbalize Verbalize understanding understanding WC - Visit Discharge Discharge Condition Stable Stable Stable Ambulatory Status Ambulatory Ambulatory Ambulatory, Walker Transportation Private Auto Private Auto Private Auto Accompanied by Medication Reconcilliation completed & No No provided to patient/care provider Clinical Summary of Care Provided Yes Yes Wound debrided: Stage II pressure injury of sacrum Type of Debridement: Excisional debridement Anesthesia Used: 5% Lidocaine Gel Depth: Down to and including healthy tissue and in the subcutaneous layer Percentage of wound debrided: 100 Instrument Used: 5mm curette Tissue Removed: Slough and devitalized tissue Severity: Fat Layer Exposed Amount of bleeding with debridement: Mild Bleeding Controlled with: Pressure Patient tolerated procedure: Patient tolerated procedure well Assessment/Plan Assessment/Plan (1) Pressure injury of sacral region, stage 2: CODE(S): L89.152 - Pressure ulcer of sacral region, stage 2 (2) Debility: CODE(S): R53.81 - Other malaise (3) Hypertension: CODE(S): I10 - Essential (primary) hypertension (4) Hyperlipidemia: CODE(S): E78.5 - Hyperlipidemia, unspecified (5) Essential hypertension: CODE(S): I10 - Essential (primary) hypertension (6) Alzheimers disease: CODE(S): G30.9 - Alzheimer's disease, unspecified; F02.80 - Dementia in other diseases classified elsewhere without behavioral disturbance (7) Rheumatoid arthritis: CODE(S): M06.9 - Rheumatoid arthritis, unspecified QUALIFIERS: Rheumatoid arthritis location: foot Rheumatoid factor presence: unspecified presence Laterality: right Qualified Code(s): M06.9 - Rheumatoid arthritis, unspecified (8) Peripheral arterial occlusive disease: CODE(S): I77.9 - Disorder of arteries and arterioles, unspecified (9) Gout: CODE(S): M10.9 - Gout, unspecified (10) Depression: CODE(S): F32.9 - Major depressive disorder, single episode, unspecified (11) DDD (degenerative disc disease), lumbar: CODE(S): M51.36 - Other intervertebral disc degeneration, lumbar region PLAN: The patient was seen and examined at the wound center today and was updated on the plan of care. A subcutaneous debridement was performed today. The patient tolerated the procedure well. The patients wound care will consist of: Application of Promogran moistened, cover with foam dressing change every 2 to 3 days exterior dressing. Wound cultures were collected prior and patient is tolerating Augmentin based on results. Baseline bloodwork held. Patient educated on the importance of diet on wound healing and instructed to increase protein and vitamin C intake. Patient verbalized understanding. Discussed the importance of protein supplementation and discussed the importance of offloading with the patient's , both verbalized understanding. Patient will follow up at wound healing center in one week or sooner if needed. Given the delayed wound healing and fact that it has been greater than 4 weeks of standard wound care, will apply for advanced skin substitute. This note was generated with [employer] dictation software. It may contain incorrect words, spelling, and punctuation that were not noted in checking the note before signing. I have spent 35 minutes today reviewing labs, records, and history. Time includes coordinating care, interpretation of tests, and counseling the patient/family. This also includes time I spent with the patient for exam, treatment plan, and education as well as documenting clinical information in the electronic health record.
[2021-02-10 14:37] VITALS: BP 166/98; PULSE 91; RESP 18; TEMP 36.3; BMI 23.5
--- NOTE | 2021-02-10 20:20 | PN.PCM_ITS ---
History of Present Illness Date of Service: 02/10/21 Chief Complaint: Nonhealing wound to buttock since November 2020 History of Wound: This is an 85-year-old white male who presents to the wound healing center today with complaint of nonhealing ulcer to the sacral region since November 2020. He has a past medical history significant for dementia, hypertension, hyperlipidemia, restless leg syndrome, gout, BPH, and recent GI bleed with recent hospital stay in November 2020 for GI bleed secondary to gastri tis complicated by acute encephalopathy. The patient presents with his today who states that for wound care they have been utilizing an Allevyn foam dressing for the last month that was prescribed to them by their primary care. States that they leave the dressing on for 5 or 6 days. Patient's does state that patient is mobile, however spends the majority of his time either in bed or in his reclining chair. He does have a offloading pressure relieving cushion in his chair. He denies any systemic or localized signs of infection at this time. He denies any other acute concerns. Past medical, family, and social history reviewed and not pertinent to the current visit and all other systems reviewed and negative with exception of those listed above. Progress of Wound: Wound size stable, no new concerns Objective Data Objective Data Vital Signs: Vital Signs Temp Pulse Resp BP 97.4 F L 91 18 166/98 H 02/10/21 14:37 02/10/21 14:37 02/10/21 14:37 02/10/21 14:37 Oxygen Delivery Method Room Air Weight: 178 lb Body Mass Index (BMI) 23.5 Lab / Micro Data Micro: Microbiology 01/20/21 14:02 Wound Abcess - Sacral Gram Stain - Final 01/20/21 14:02 Wound Abcess - Sacral Wound Culture - Final Staphylococcus aureus Kvngcuria sonnyae 01/20/21 14:02 Wound Abcess - Sacral Anaerobic Culture - Final Anaerobic cocci Charges/Coding Procedures Integumentary [id number]: 11029 Alem subq tissue 20 sq cm/< Physical Exam Const alert, no apparent distress and healthy appearing General Appearance: cooperative Exam Limitations: altered mental status HEENT normocephalic Head and Scalp: normal to inspection Mouth: oral and palatal mucosa normal Eyes General Eye: normal appearance of both eyes Resp normal respiratory effort, normal air movement and no use of accessory muscles Effort and Inspection: able to speak in complete sentences Auscultation: clear to auscultation bilaterally Cardio regular rate, regular rhythm, S1 normal heart sound, S2 normal heart sound, no murmurs and peripheral pulses 2+ throughout Palpation: normal PMI Rate: regular rate Heart Sounds: S1 normal and S2 normal GI normal to inspection, nondistended, normoactive bowel sounds, soft to palpation, non-tender and non-distended Palpation: soft Extremity normal to inspection and full ROM General Extremity: normal exam except as noted Skin Wound Narrative: Stage II pressure injury noted to sacral region with adherent slough, no signs of obvious infection at this time Neuro moves all extremities Sensorium / Orientation: awake and alert Psych mental status grossly normal, thought process normal and denies hallucinations Appearance: grossly normal Attitude: calm Activity / Motor Behavior: appropriate eye contact Speech: normal speech Thought Process: normal thought process Thought Content: normal thought content Attention / Concentration: attention grossly intact Insight: insight good Judgement: judgement good Debridement Note Debridement Note Post-Debridement Measurements and Additional Note: Post-Debridement Measurements/Treatment - Nurse 1 - General Ulcer Assessment Start: 01/20/21 13:28 Freq: Status: Active Protocol: KAMERON Activity Type Activity Date Activity User E-Sign Co-Sign Detail Recorded Client Recorded Date Recorded By Document 01/20/21 13:28 MW [id number] 01/20/21 13:39 MW Document 01/27/21 14:46 DL [id number] 01/27/21 14:50 DL Document 02/03/21 14:31 DL [id number] 02/03/21 14:37 DL Document 02/10/21 14:37 MW [id number] 02/10/21 14:43 MW 01/20/21 01/27/21 02/03/21 13:28 14:46 14:31 - Today's Visit Information Type of service Initial Visit Follow-up Visit Follow-up Visit (Physician/CASTING MACHINE OPERATOR HELPER (Physician/CASTING MACHINE OPERATOR HELPER ) ) Arrival Mode Ambulatory, Ambulatory, Ambulatory, Walker Walker Walker Transfer Assistance None None None Accompanied by Patient Identification Verified (Name & Yes Yes Yes ) Patient Requires Transmission-Based No No No Precautions Safety Precautions NA Height and Weight Height 6 ft 1 in Weight 178 lb Weight in Pounds 178.0 lbs Weight Measurement Method Stated by Patient Body Mass Index (BMI) 23.5 23.5 23.5 BMI Classification Normal Normal Normal BSA - Simon 2.05 Vital Signs Temperature (97.8 F-99.1 F) 97.1 F L 97.6 F L 98 F Temperature Source Temporal Temporal Temporal Pulse Rate (60-100) 84 84 78 Pulse Location Monitor Monitor Respiratory Rate (12-18) 16 20 H 20 H Respiratory rate source Observation Observation Observation Oxygen Delivery Method Room Air Blood Pressure (90/60-120/80) 151/57 H 165/85 H 193/91 H Blood Pressure Mean (mm Hg) 88 111 125 Source Monitor Monitor Monitor Position Sitting Blood Pressure Location Right Arm History Since Last Visit- (Skip if this is Patient's initial visit) Have you changed medications since your No No last visit? Any new allergies or adverse reactions No No Had a fall/change in ADL's that may No No increase risk of falls Signs or symptoms of abuse and/or No neglect since last visit Have you been in the hospital since your No No last visit? Has dressing in place as prescribed Yes Yes Has compression in place as prescribed N/A Has offloadiing in place as prescribed Yes Yes Experienced any changes in pain level or No No management Left Footwear Right Footwear Pain Scale: 0-10 Numeric Is Patient Pain Free? Yes Yes Communication Assessment Preferred language Uzbek Shipping Order Clerk Required No Able to Read Yes Able to Write Yes Communication Tools None Caregiver Communication Skills No Impairment Impairment Right Hearing Abillity Hard of Hearing Left Hearing Abillity Hard of Hearing Visual Assistive Devices Glasses Teaching Assessment Preferences Verbal,Written Barriers to Learning None Readiness To Learn Excellent Willingness to Engage in Self Management High Activies Readiness to Engage in Self Management High Activities Anxiety Level Calm Cooperation Cooperative Perception Coherent Interest in Health Problem Asks Questions Does Patient Smoke tobacco or other Yes substances Smoking Status Former smoker Is Patient Diabetic No Functional Assessment Recent Decline in Ability to Perform Denies Any Declines Assistive Device With Patient Yes List Device(s) with Patient walker Culture/Adventist/Communications Project Lead Cultural/Adventist Needs that may affect No Treatment Plan Would you allow our hospital well drill operator to No meet you for the purpose of spiritual/ emotional support? Communications Project Lead to contact place of tenriism No Teaching: Wound Center *Welcome to the Wound Center -Person Taught Patient,Family -Teaching Method Discussion -Response to teaching Verbalize understanding Dressing Your Wound -Person Taught Patient -Teaching Method Discussion -Response to teaching Verbalize understanding 02/10/21 14:37 WC - Today's Visit Information Type of service Follow-up Visit (Physician/CASTING MACHINE OPERATOR HELPER ) Arrival Mode Ambulatory, Walker Transfer Assistance None Accompanied by Patient Identification Verified (Name & Yes ) Patient Requires Transmission-Based No Precautions Safety Precautions Fall Prevention Height and Weight Height Weight Weight in Pounds Weight Measurement Method Body Mass Index (BMI) 23.5 BMI Classification Normal BSA - Simon Vital Signs Temperature (97.8 F-99.1 F) 97.4 F L Temperature Source Temporal Pulse Rate (60-100) 91 Pulse Location Monitor Respiratory Rate (12-18) 18 Respiratory rate source Observation Oxygen Delivery Method Room Air Blood Pressure (90/60-120/80) 166/98 H Blood Pressure Mean (mm Hg) 120 Source Monitor Position Sitting Blood Pressure Location Right Arm History Since Last Visit- (Skip if this is Patient's initial visit) Have you changed medications since your No last visit? Any new allergies or adverse reactions No Had a fall/change in ADL's that may No increase risk of falls Signs or symptoms of abuse and/or No neglect since last visit Have you been in the hospital since your No last visit? Has dressing in place as prescribed Yes Has compression in place as prescribed N/A Has offloadiing in place as prescribed N/A Experienced any changes in pain level or No management Left Footwear Regular Shoe Right Footwear Regular Shoe Pain Scale: 0-10 Numeric Is Patient Pain Free? Yes Communication Assessment Preferred forest pathologist Required Able to Read Able to Write Communication Tools Caregiver Communication Skills Impairment Right Hearing Abillity Left Hearing Abillity Visual Assistive Devices Teaching Assessment Preferences Barriers to Learning Readiness To Learn Willingness to Engage in Self Management Activies Readiness to Engage in Self Management Activities Anxiety Level Cooperation Perception Interest in Health Problem Does Patient Smoke tobacco or other substances Smoking Status Is Patient Diabetic Functional Assessment Recent Decline in Ability to Perform Assistive Device With Patient List Device(s) with Patient Culture/Adventist/Communications Project Lead Cultural/Adventist Needs that may affect Treatment Plan Would you allow our hospital well drill operator to meet you for the purpose of spiritual/ emotional support? Communications Project Lead to contact place of tenriism Teaching: Wound Center *Welcome to the Wound Center -Person Taught -Teaching Method -Response to teaching Dressing Your Wound -Person Taught -Teaching Method -Response to teaching - Nurse 1 - General Ulcer Measurement Start: 01/20/21 13:28 Freq: Status: Active Protocol: Activity Type Activity Date Activity User E-Sign Co-Sign Detail Recorded Client Recorded Date Recorded By Document 01/20/21 13:28 MW [id number] 01/20/21 13:39 MW Document 01/27/21 14:46 DL [id number] 01/27/21 14:50 DL Document 02/03/21 14:31 DL [id number] 02/03/21 14:37 DL Document 02/10/21 14:37 MW [id number] 02/10/21 14:43 MW 01/20/21 01/27/21 02/03/21 13:28 14:46 14:31 Wound Center Nurse 1 #1 sacral -Combined with other wound No -Current Size (cm) - Length 1.0 0.8 0.3 -Current Size (cm) - Width 0.5 0.3 0.1 -Current Size (cm) - Depth 0.3 0.2 0.1 -Total Square Cm 0.50 0.24 0.03 -Date of Last Picture (Recall this 01/20/21 field) -Photo Taken Yes No No -Epithelialization None Present -Tunneling No -Undermining/Tunneling No -Circular Undermining No -Exudate Amt Medium Small None Present -Exudate Type Serosanguineous Serosanguineous -Wound Margin Thickened & Distinct, Flat & Intact Rolled Under Outline Attached -Granulation Amt Small (1-33%) Large (67-100%) Small (1-33%) -Granulation Quality Pownal Pownal Pownal -Slough/Fibrin Yes -Necrosis Amt Large (67-100%) None Present (0 None Present (0 %) %) -Necrotic Tissue Type Adherent Slough -Structure Exposed N/A N/A N/A -Texture (Sol-wound Skin Appearance) No Abnormality, Scarring Scarring Assessed -Moisture (Sol-wound Skin Appearance) No Abnormality, No Abnormality No Abnormality Assessed -Color (Sol-wound Skin Appearance) No Abnormality, No Abnormality Assessed Rubor -Temperature (Sol-wound Skin No Abnormality No Abnormality No Abnormality Appearance) (Pt Warm) (Pt Warm) (Pt Warm) -Tenderness on Palpation (Sol-wound Yes No No Skin Appearance) -Ulcer Cleansing sopa and water Rinsed/ Rinsed/ Irrigated with Irrigated with Saline Saline -Foul Odor after Cleansing No No No -Anesthetic Used 4% Lidocaine 4% Lidocaine 4% Lidocaine Solution Solution Solution Lower Limb Edema Present 02/10/21 14:37 Wound Center Nurse 1 #1 sacral -Combined with other wound No -Current Size (cm) - Length 0.6 -Current Size (cm) - Width 0.2 -Current Size (cm) - Depth 0.1 -Total Square Cm 0.12 -Date of Last Picture (Recall this field) -Photo Taken No -Epithelialization None Present -Tunneling No -Undermining/Tunneling No -Circular Undermining No -Exudate Amt Small -Exudate Type Serosanguineous -Wound Margin Flat & Intact -Granulation Amt Medium (34-66%) -Granulation Quality Pownal -Slough/Fibrin Yes -Necrosis Amt Small (1-33%) -Necrotic Tissue Type Adherent Slough -Structure Exposed N/A -Texture (Sol-wound Skin Appearance) Assessed, Scarring -Moisture (Sol-wound Skin Appearance) No Abnormality, Assessed -Color (Sol-wound Skin Appearance) No Abnormality, Assessed -Temperature (Sol-wound Skin No Abnormality Appearance) (Pt Warm) -Tenderness on Palpation (Sol-wound No Skin Appearance) -Ulcer Cleansing Rinsed/ Irrigated with Saline -Foul Odor after Cleansing No -Anesthetic Used 5% Lidocaine Gel Lower Limb Edema Present No - Nurse 2 - General Ulcer CM Notes Start: 01/20/21 13:28 Freq: Status: Active Protocol: Activity Type Activity Date Activity User E-Sign Co-Sign Detail Recorded Client Recorded Date Recorded By Document 01/20/21 14:42 PL [id number] 01/20/21 14:44 PL Document 01/27/21 16:09 PL [id number] 01/27/21 16:16 PL Document 02/03/21 16:23 PL [id number] 02/03/21 16:24 PL Document 02/10/21 18:16 PL [id number] 02/10/21 18:17 PL 01/20/21 01/27/21 02/03/21 14:42 16:09 16:23 Wound Center Nurse 2 #1 sacral -Time 13:59 15:13 15:06 -Correct Patient Yes Yes Yes -Correct Side, Site, Position Yes Yes Yes -Correct Procedure Yes Yes Yes -Procedure Performed Yes Yes Yes -Type of Procedure Debridement Debridement Debridement -Clinical Debridement Subcutaneous Subcutaneous Subcutaneous -Tissue Removed Subcutaneous Subcutaneous Subcutaneous -Post Debridement (cm) - Length 1.5 1.4 0.4 -Post Debridement (cm) - Width 0.8 0.9 0.2 -Post Debridement (cm) - Depth 0.3 0.1 0.1 -Total Square (Post) (cm) 1.20 1.26 0.08 -Area of Debridement (cm) - Length 1.5 1.4 0.4 -Area of Debridement (cm) - Width 0.8 0.9 0.2 -Total Square (Area) (cm) 1.20 1.26 0.08 -Tunneling No No No -Undermining/Tunneling No No No -Circular Undermining No No No -Wound/Ulcer Outcome Not Healed Not Healed Not Healed -Ulcer Cleansing Rinsed/ Rinsed/ Rinsed/ Irrigated with Irrigated with Irrigated with Saline Saline Saline -Foul Odor after Cleansing No No No -Bioengineered Tissue No Yes No -Type of Bioengineered Tissue PuraPly AM Disc -Expiration Date 04/15/23 -Product Lot Number [id number] -Percent Used 100 -Lot number of Saline Used [id number] -Bleeding Controlled with Pressure -Treatment Response Procedure Tolerated Well -Debridement - Subq, 1st 20sq cm Yes No Yes -Apply Skin Sub - 1st 25 sq cm - Legs 1 -PuraPly AM 16mm Disc (per sq cm) 2 Pain Scale: 0-10 Numeric Is Patient Pain Free? Yes Yes Yes 02/10/21 18:16 Wound Center Nurse 2 #1 sacral -Time 14:59 -Correct Patient Yes -Correct Side, Site, Position Yes -Correct Procedure Yes -Procedure Performed Yes -Type of Procedure Debridement -Clinical Debridement Subcutaneous -Tissue Removed Subcutaneous -Post Debridement (cm) - Length 1.0 -Post Debridement (cm) - Width 0.3 -Post Debridement (cm) - Depth 0.1 -Total Square (Post) (cm) 0.30 -Area of Debridement (cm) - Length 1.0 -Area of Debridement (cm) - Width 0.3 -Total Square (Area) (cm) 0.30 -Tunneling No -Undermining/Tunneling No -Circular Undermining No -Wound/Ulcer Outcome Not Healed -Ulcer Cleansing Rinsed/ Irrigated with Saline -Foul Odor after Cleansing No -Bioengineered Tissue No -Type of Bioengineered Tissue -Expiration Date -Product Lot Number -Percent Used -Lot number of Saline Used -Bleeding Controlled with -Treatment Response -Debridement - Subq, 1st 20sq cm Yes -Apply Skin Sub - 1st 25 sq cm - Legs -PuraPly AM 16mm Disc (per sq cm) Pain Scale: 0-10 Numeric Is Patient Pain Free? Yes - Nurse 3 - General Ulcer D/C NN Start: 01/20/21 13:28 Freq: Status: Active Protocol: Activity Type Activity Date Activity User E-Sign Co-Sign Detail Recorded Client Recorded Date Recorded By Document 01/20/21 14:50 MW [id number] 01/20/21 15:30 MW Document 01/27/21 15:31 MW [id number] 01/27/21 15:32 MW Document 02/03/21 15:30 DL [id number] 02/03/21 15:31 DL Document 02/10/21 16:16 DL [id number] 02/10/21 16:17 DL 01/20/21 01/27/21 02/03/21 14:50 15:31 15:30 Wound Care Nurse 3 #1 sacral -Ulcer Cleansing Rinsed/ Not Cleansed Rinsed/ Irrigated with Irrigated with Saline Saline -Foul Odor after Cleansing No No -Negative Pressure Wound Therapy N/A -Primary Dressing Applied Mepilex Border, Mepilex Border Promogran Promogran Yudy Matter -Other Dressing Border foam -Primary Dressing Covered/Secured with Dry Gauze Dry Gauze -Mepilex Border 1 2 -Promogran 1 -Promogran Yudy Matter 1 Treatment Response Procedure Procedure Procedure Tolerated Well Tolerated Well Tolerated Well Pain Scale: 0-10 Numeric Is Patient Pain Free? No Yes Yes Teaching: Wound Center Dressing Your Wound -Person Taught Patient,Family Patient,Family -Teaching Method Discussion, Discussion, Demonstration Demonstration -Response to teaching Verbalize Verbalize understanding understanding WC - Visit Discharge Discharge Condition Stable Stable Stable Ambulatory Status Ambulatory Ambulatory Ambulatory, Walker Transportation Private Auto Private Auto Private Auto Accompanied by Medication Reconcilliation completed & No No provided to patient/care provider Clinical Summary of Care Provided Yes Yes 02/10/21 16:16 Wound Care Nurse 3 #1 sacral -Ulcer Cleansing Rinsed/ Irrigated with Saline -Foul Odor after Cleansing No -Negative Pressure Wound Therapy -Primary Dressing Applied NonAdherent Contact Layer, Promogran Yudy Matter -Other Dressing -Primary Dressing Covered/Secured with -Mepilex Border -Promogran -Promogran Yudy Matter 1 Treatment Response Procedure Tolerated Well Pain Scale: 0-10 Numeric Is Patient Pain Free? Yes Teaching: Wound Center Dressing Your Wound -Person Taught -Teaching Method -Response to teaching WC - Visit Discharge Discharge Condition Stable Ambulatory Status Ambulatory, Walker Transportation Private Auto Accompanied by Medication Reconcilliation completed & provided to patient/care provider Clinical Summary of Care Provided Additional Wound Wound debrided: stage 2 pressure injury to sacrum Type of Debridement: Excisional debridement Anesthesia Used: 5% Lidocaine Gel Depth: Down to and including healthy tissue and in the subcutaneous layer Percentage of wound debrided: 100 Instrument Used: 5mm curette Tissue Removed: slough and devitalized tissue Severity: Fat Layer Exposed Amount of bleeding with debridement: Mild Bleeding Controlled with: Pressure Patient tolerated procedure: Patient tolerated procedure well Assessment/Plan Assessment/Plan (1) Pressure injury of sacral region, stage 2: CODE(S): L89.152 - Pressure ulcer of sacral region, stage 2 (2) Debility: CODE(S): R53.81 - Other malaise (3) Hypertension: CODE(S): I10 - Essential (primary) hypertension (4) Hyperlipidemia: CODE(S): E78.5 - Hyperlipidemia, unspecified (5) Essential hypertension: CODE(S): I10 - Essential (primary) hypertension (6) Alzheimers disease: CODE(S): G30.9 - Alzheimer's disease, unspecified; F02.80 - Dementia in other diseases classified elsewhere without behavioral disturbance (7) Rheumatoid arthritis: CODE(S): M06.9 - Rheumatoid arthritis, unspecified QUALIFIERS: Rheumatoid arthritis location: foot Rheumatoid factor presence: unspecified presence Laterality: right Qualified Code(s): M06.9 - Rheumatoid arthritis, unspecified (8) Peripheral arterial occlusive disease: CODE(S): I77.9 - Disorder of arteries and arterioles, unspecified (9) Gout: CODE(S): M10.9 - Gout, unspecified (10) Depression: CODE(S): F32.9 - Major depressive disorder, single episode, unspecified (11) DDD (degenerative disc disease), lumbar: CODE(S): M51.36 - Other intervertebral disc degeneration, lumbar region PLAN: The patient was seen and examined at the wound center today and was updated on the plan of care. A subcutaneous debridement was performed today. The patient tolerated the procedure well. The patients wound care will consist of: Application of Promogran moistened, cover with foam dressing change daily. Wound cultures were collected prior and patient completed Augmentin. Baseline bloodwork held. Patient educated on the importance of diet on wound healing and instructed to increase protein and vitamin C intake. Patient verbalized understanding. Discussed the importance of protein supplementation and discussed the importance of offloading with the patient's , both verbalized understanding. Patient will follow up at wound healing center in one week or sooner if needed. Given the delayed wound healing and fact that it has been greater than 4 weeks of standard wound care, will apply for advanced skin substitute. This note was generated with [employer] dictation software. It may cont ain incorrect words, spelling, and punctuation that were not noted in checking the note before signing. I have spent 35 minutes today reviewing labs, records, and history. Time includes coordinating care, interpretation of tests, and counseling the patient/family. This also includes time I spent with the patient for exam, treatment plan, and education as well as documenting clinical information in the electronic health record.
== END 2021-02-16 23:59 ==
LOC: WC 14:30
PROVIDERS: PCP Family Medicine Geriatric Medicine; Visit Provider Nurse Practitioner Family
DX: L89.153 Pressure ulcer of sacral region, stage 3 (principal); M06.9 Rheumatoid arthritis, unspecified; I10 Essential (primary) hypertension; E78.2 Mixed hyperlipidemia; M10.9 Gout, unspecified; G25.81 Restless legs syndrome; N40.0 Benign prostatic hyperplasia without lower urinary tract symptoms; L89.152 Pressure ulcer of sacral region, stage 2; I73.9 Peripheral vascular disease, unspecified; M51.36 Other intervertebral disc degeneration, lumbar region; F02.80 Dementia in other diseases classified elsewhere, unspecified severity, without behavioral disturbance, psychotic disturbance, mood disturbance, and anxiety; G30.9 Alzheimer's disease, unspecified; F32.9 Major depressive disorder, single episode, unspecified
CPT/HCPCS: 11042; 15271; 87070; 87075; 87077; 87186; 87205; 99213; Q4196; G0463

== ENCOUNTER → 2021-02-14 15:47 | Outpatient (CLI) | payer MEDICARE, OTHER, SELFPAY ==
[2021-02-10 14:37] VITALS: BMI 23.5
--- NOTE | 2021-02-14 16:00 | RAD_ITS ---
STUDY: X-RAY CHEST REASON FOR EXAM: Male, 85 years old. SOB TECHNIQUE: PA and lateral views of the chest. COMPARISON: 12/23/2020 FINDINGS: There are interstitial fibrotic changes of the lungs. No superimposed alveolar opacity within the lungs to suggest pneumonia or atelectasis. Slightly elevated right hemidiaphragm which is unchanged. Normal size heart. Normal mediastinum and donal. Normal visualized pulmonary arteries. Normal visualized aortic arch and descending thoracic aorta. Normal visualized thoracic spine. Normal visualized ribs, clavicles, and shoulders. There is no demonstrated abnormality of the visualized soft tissue structures of the upper abdomen. RAD/Chest PA and Lateral IMPRESSION: No change from 12/23/2020. Electronically Signed: Vadim Guevara MD at 13:52 EDT Tel , Service support ,
[2021-02-14 18:23] LABS: Absolute Lymphocyte Count 1.14 X10^3/uL (0.83-4.51); Absolute Neutrophil Count 8.3 X10^3/uL (2.0-7.7); Basophil# 0.02 X10^3/uL; Basophil% 0.1 % (0-1); Eosinophils% 29.9 % (0-5); Hematocrit 31.5 % (40-54); Hemoglobin 9.7 g/dL (13.0-16.5); Lymphocyte # 1.14 X10^3/ul (0.83-4.51); Mean Corp Hgb Conc 30.8 g/dL (32-36); Mean Corpuscular Hgb 27.4 pg (27.0-32.0); Mean Platelet Vol. 9.4 fl (6.2-12.0); Monocyte# 0.48 X10^3/uL; Monocyte% 3.4 % (0-10); NRBC Flagged by Analyzer 0 % (0-5); Neutrophil # 8.28 X10^3/uL (2.7-7.7); Neutrophil % 58.2 % (47-70); POSITIVE DIFFERENTIAL YES; POSITIVE MORPHOLOGY YES; Platelet Count 248 K/mm3 (150-450); RBC Distribution Width CV 15.1 % (11.6-14.6); Red Blood Count 3.54 M/mm3 (4.6-6.2); White Blood Count 14.2 K/mm3 (4.4-11.0)
[2021-02-14 18:29] LABS: Eosinophil# 4.25 X10^3/uL
[2021-02-14 18:45] LABS: ALB/GLOB Ratio 0.7 RATIO (0.9-2.4); AST(SGOT) 25 U/L (15-37); Alanine Aminotransfer ALT/SGPT 24 U/L (16-61); Albumin, Serum 3.1 g/dL (3.2-5.0); Alkaline Phosphatase 142 U/L (45-117); Anion Gap 10 (5-15); BUN 25 mg/dL (7-18); BUN/Creat Ratio 17.9 RATIO (10-20); CPK Total, Creatine Kinase 34 U/L (39-308); Calcium,Total 8.4 mg/dL (8.5-10.1); Chloride 109 mmol/L (98-107); EST Glomerular Filtration Rate 51 mL/min (>60); Est Glom Filt Rate - Afr Amer 62 mL/min (>60); Globulin 4.2 g/dL (2.2-4.2); Glucose 98 mg/dL (74-106); Potassium 3.5 mmol/L (3.5-5.1); Protein, Total 7.3 g/dL (6.4-8.2); Sodium Level 140 mmol/L (136-145); Thyroid Stim Hormone (TSH) 1.92 uIU/mL (0.358-3.74); Troponin-I HS 17.5 pg/mL (3.0-78.5)
[2021-02-14 19:01] LABS: Differential Indicated SCAN CRITERIA MET
[2021-02-14 19:02] LABS: Anisocytosis RARE; Macrocytosis RARE; Platelet Estimate A (ADEQ); Red Cell Morphology N CHROM NORMAL (NORM C&C)
[2021-02-14 19:29] LABS: BNP,B-Type NATRIURETIC PEPTIDE 213.4 pg/mL (0-100)
[2021-02-15 13:04] LABS: Pathologist Review Reviewed
[2021-02-16 11:41] LABS: Myoglobin, Serum 52 ng/mL (28-72)
== END ==
PROVIDERS: PCP Family Medicine Geriatric Medicine; Referring Provider Family Medicine Geriatric Medicine; Visit Provider Family Medicine Geriatric Medicine
DX: R06.02 Shortness of breath (principal); I11.0 Hypertensive heart disease with heart failure; I50.9 Heart failure, unspecified
CPT/HCPCS: 36415; 71046; 80053; 82550; 83874; 83880; 84443; 84484; 85025

== ENCOUNTER → 2021-02-16 09:16 | Outpatient (CLI) | payer MEDICARE, OTHER, SELFPAY ==
[2021-02-10 14:37] VITALS: BMI 23.5
--- NOTE | 2021-02-17 10:01 | PFT ---
INTRODUCTION: The patient is an 85-year-old male that presents for pulmonary function studies secondary to a diagnosis of shortness of breath. Respiratory therapy reported that the patient had difficulty with testing. Bronchodilators were used during testing. INTERPRETATION: Forced expiration spirometry demonstrates the presence of a moderately severe large airways obstructive ventilatory defect. There was no significant response to aerosolized bronchodilators. Spirograms are of fair quality but do not plateau indicating slow emptying of the lungs. Body plethysmography was performed and revealed a decreased TLC to 4.5 L, 64% of predicted, indicative of a moderate restrictive ventilatory impairment. Diffusing capacity by single breath CO is at the lower limits of normal. IMPRESSION: Irreversible moderately severe mixed ventilatory defect with relatively preserved diffusing capacity.
== END ==
PROVIDERS: PCP Family Medicine Geriatric Medicine; Referring Provider Family Medicine Geriatric Medicine; Visit Provider Family Medicine Geriatric Medicine
DX: R06.02 Shortness of breath (principal)
CPT/HCPCS: 94060; 94726; 94729

== ENCOUNTER → 2021-02-17 10:42 | Outpatient (CLI) | payer MEDICARE, OTHER, SELFPAY ==
[2021-02-10 14:37] VITALS: BMI 23.5
--- NOTE | 2021-02-17 10:44 | ECHOD_ITS ---
Reason For Study: CHF Procedure This was a 2D Doppler, Color Flow transthoracic echocardiogram. Exam performed in department. Left Ventricle Normal LV size. The estimated ejection fraction is 60 %. Diastolic function is indeterminate. No regional wall motion abnormalities noted. Right Ventricle Normal RV size. Normal systolic function. Atria The left atrium is mildly enlarged. Normal right atrium. No doppler evidence for ASD. Mitral Valve There is no mitral valve stenosis. Trivial mitral valve insufficiency. Tricuspid Valve There is no tricuspid stenosis. Trivial tricuspid valve insufficiency. Pulmonary artery systolic pressure is 35 mmHg. Aortic Valve Aortic sclerosis, no stenosis. There is no aortic stenosis. Mild (1+) aortic valve insufficiency. Pulmonic Valve There is no pulmonic valvular stenosis. No pulmonic valve insufficiency. Great Vessels Normal aortic root. Pericardium/Pleural No pericardial effusion. MMode/2D Measurements & Calculations LVIDd: 5.5 cm IVSd: 0.73 cm Ao root diam: 4.3 cm LVIDs: 3.9 cm LVPWd: 0.91 cm RVDd: 3.9 cm FS: 29.3 % LAV(MOD-bp): 71.7 ml LA A4 area: 25.9 cm2 LA dimension(2D): 4.2 cm LAV(MOD-bp) Indexed: 34.9 ml/m2 LAV(MOD-sp2): 61.4 ml LAV(MOD-sp4): 82.2 ml RA A4 area: 15.9 cm2 Time Measurements MV dec time: 0.24 sec Doppler Measurements & Calculations MV E max umair: 82.7 cm/sec Lat Peak E' Umair: 7.1 cm/sec Med Peak E' Umair: 7.1 cm/sec E/E' lat: 11.7 E/E' med: 11.7 Ao V2 max: 127.0 cm/sec AI max umair: 466.3 cm/sec LV V1 max: 94.9 cm/sec Ao max P.5 mmHg AI max P.0 mmHg LV V1 max P.6 mmHg AI dec slope: 370.6 cm/sec2 AI P1/2t: 368.5 msec PA V2 max: 83.4 cm/sec TR max umair: 277.4 cm/sec TR max P.8 mmHg ECHO/Echo Complete Interpretation Summary The estimated ejection fraction is 60 %. Diastolic function is indeterminate. Trivial mitral valve insufficiency. Mild (1+) aortic valve insufficiency. The left atrium is mildly enlarged. Ordering Physician: Mayur ePreira Referring Physician: Mayur Pereira Chi Performed By: Pati Ortiz, CATHIE, RVT
== END ==
PROVIDERS: PCP Family Medicine Geriatric Medicine; Referring Provider Family Medicine Geriatric Medicine; Visit Provider Family Medicine Geriatric Medicine
DX: L89.152 Pressure ulcer of sacral region, stage 2 (principal); R06.02 Shortness of breath; I11.0 Hypertensive heart disease with heart failure; I50.9 Heart failure, unspecified; E78.5 Hyperlipidemia, unspecified; N40.0 Benign prostatic hyperplasia without lower urinary tract symptoms; F02.80 Dementia in other diseases classified elsewhere, unspecified severity, without behavioral disturbance, psychotic disturbance, mood disturbance, and anxiety; G30.9 Alzheimer's disease, unspecified; I73.9 Peripheral vascular disease, unspecified
CPT/HCPCS: 11042; 93306

== ENCOUNTER 2021-03-10 15:15 | Outpatient (RCR) | payer MEDICARE, OTHER, SELFPAY ==
[2021-02-17 00:09] VITALS: BP 166/98; PULSE 91; RESP 18; TEMP 36.3
[2021-02-17 13:17] VITALS: BP 161/76; PULSE 90; RESP 18; TEMP 36.1; O2SAT 95; BMI 23.5
--- NOTE | 2021-02-17 23:52 | PN.PCM_ITS ---
History of Present Illness Date of Service: 02/17/21 Chief Complaint: Nonhealing wound to buttock since November 2020 History of Wound: This is an 85-year-old white male who presents to the wound healing center today with complaint of nonhealing ulcer to the sacral region since November 2020. He has a past medical history significant for dementia, hypertension, hyperlipidemia, restless leg syndrome, gout, BPH, and recent GI bleed with recent hospital stay in November 2020 for GI bleed secondary to gastri tis complicated by acute encephalopathy. The patient presents with his today who states that for wound care they have been utilizing an Allevyn foam dressing for the last month that was prescribed to them by their primary care. States that they leave the dressing on for 5 or 6 days. Patient's does state that patient is mobile, however spends the majority of his time either in bed or in his reclining chair. He does have a offloading pressure relieving cushion in his chair. He denies any systemic or localized signs of infection at this time. He denies any other acute concerns. Past medical, family, and social history reviewed and not pertinent to the current visit and all other systems reviewed and negative with exception of those listed above. Progress of Wound: stable, no new concerns, compliant with daily dressing changes Objective Data Objective Data Vital Signs: Vital Signs Temp Pulse Resp BP Pulse Ox 97.0 F L 90 18 161/76 H 95 02/17/21 13:17 02/17/21 13:17 02/17/21 13:17 02/17/21 13:17 02/17/21 13:17 Oxygen Delivery Method Room Air Weight: 178 lb Body Mass Index (BMI) 23.5 Charges/Coding Procedures Integumentary [id number]-113xx: [id number] Alem subq tissue 20 sq cm/< Physical Exam Const alert, no apparent distress and healthy appearing General Appearance: cooperative Exam Limitations: altered mental status HEENT normocephalic Head and Scalp: normal to inspection Mouth: oral and palatal mucosa normal Eyes General Eye: normal appearance of both eyes Resp normal respiratory effort, normal air movement and no use of accessory muscles Effort and Inspection: able to speak in complete sentences Auscultation: clear to auscultation bilaterally Cardio regular rate, regular rhythm, S1 normal heart sound, S2 normal heart sound, no murmurs and peripheral pulses 2+ throughout Palpation: normal PMI Rate: regular rate Heart Sounds: S1 normal and S2 normal GI normal to inspection, nondistended, normoactive bowel sounds, soft to palpation, non-tender and non-distended Palpation: soft Extremity normal to inspection and full ROM General Extremity: normal exam except as noted Skin Wound Narrative: Stage II pressure injury noted to sacral region with adherent slough, no signs of obvious infection at this time Neuro moves all extremities Sensorium / Orientation: awake and alert Psych mental status grossly normal, thought process normal and denies hallucinations Appearance: grossly normal Attitude: calm Activity / Motor Behavior: appropriate eye contact Speech: normal speech Thought Process: normal thought process Thought Content: normal thought content Attention / Concentration: attention grossly intact Insight: insight good Judgement: judgement good Debridement Note Debridement Note Post-Debridement Measurements and Additional Note: Post-Debridement Measurements/Treatment [facility] Nurse 1 - General Ulcer Assessment Start: 02/17/21 13:16 Freq: Status: Active Protocol: KAMERON Activity Type Activity Date Activity User E-Sign Co-Sign Detail Recorded Client Recorded Date Recorded By Document 02/17/21 13:17 NV [id number] 02/17/21 13:27 NV 02/17/21 13:17 - Today's Visit Information Type of service Follow-up Visit (Physician/PHOTO FINISHER ) Arrival Mode Walker Accompanied by Patient Identification Verified (Name & Yes ) Height and Weight Body Mass Index (BMI) 23.5 BMI Classification Normal Vital Signs Temperature (97.8 F-99.1 F) 97.0 F L Temperature Source Temporal Pulse Rate (60-100) 90 Pulse Location Monitor Respiratory Rate (12-18) 18 Respiratory rate source Observation Pulse Oximetry 95 Oxygen Delivery Method Room Air Blood Pressure (90/60-120/80) 161/76 H Blood Pressure Mean (mm Hg) 104 Source Monitor Position Sitting Blood Pressure Location Right Arm History Since Last Visit- (Skip if this is Patient's initial visit) Has dressing in place as prescribed Yes Has compression in place as prescribed Yes Has offloadiing in place as prescribed Yes Experienced any changes in pain level or No management Left Footwear Regular Shoe Right Footwear Regular Shoe [facility] Nurse 1 - General Ulcer Measurement Start: 02/17/21 13:16 Freq: Status: Active Protocol: Activity Type Activity Date Activity User E-Sign Co-Sign Detail Recorded Client Recorded Date Recorded By Document 02/17/21 13:17 NV [id number] 02/17/21 13:27 MT 02/17/21 13:17 Wound Center Nurse 1 #1 sacral -Current Size (cm) - Length 0.8 -Current Size (cm) - Width 0.3 -Current Size (cm) - Depth 0.2 -Total Square Cm 0.24 -Wound Margin Thickened -Granulation Amt Large (67-100%) -Granulation Quality Pale,[place] -Slough/Fibrin No -Texture (Sol-wound Skin Appearance) Assessed -Moisture (Sol-wound Skin Appearance) Assessed -Color (Sol-wound Skin Appearance) Assessed -Temperature (Sol-wound Skin No Abnormality Appearance) (Pt Warm) -Tenderness on Palpation (Sol-wound No Skin Appearance) -Ulcer Cleansing Rinsed/ Irrigated with Saline -Foul Odor after Cleansing No -Anesthetic Used 4% Lidocaine Solution Lower Limb Edema Present NA WC - Nurse 2 - General Ulcer CM Notes Start: 02/17/21 13:16 Freq: Status: Active Protocol: Activity Type Activity Date Activity User E-Sign Co-Sign Detail Recorded Client Recorded Date Recorded By Document 02/17/21 13:49 PL [id number] 02/17/21 13:50 PL 02/17/21 13:49 Wound Center Nurse 2 #1 sacral -Time 13:30 -Correct Patient Yes -Correct Side, Site, Position Yes -Correct Procedure Yes -Procedure Performed Yes -Type of Procedure Debridement -Clinical Debridement Subcutaneous -Tissue Removed Subcutaneous -Post Debridement (cm) - Length 0.6 -Post Debridement (cm) - Width 0.2 -Post Debridement (cm) - Depth 0.1 -Total Square (Post) (cm) 0.12 -Area of Debridement (cm) - Length 0.6 -Area of Debridement (cm) - Width 0.2 -Total Square (Area) (cm) 0.12 -Tunneling No -Undermining/Tunneling No -Circular Undermining No -Wound/Ulcer Outcome Not Healed -Ulcer Cleansing Rinsed/ Irrigated with Saline -Foul Odor after Cleansing No -Bioengineered Tissue No -Debridement - Subq, 1st 20sq cm Yes Pain Scale: 0-10 Numeric Is Patient Pain Free? Yes WC - Nurse 3 - General Ulcer D/C NN Start: 02/17/21 13:16 Freq: Status: Active Protocol: Activity Type Activity Date Activity User E-Sign Co-Sign Detail Recorded Client Recorded Date Recorded By Document 02/17/21 13:35 NV [id number] 02/17/21 13:36 NV Document 02/17/21 13:39 NV [id number] 02/17/21 13:39 NV 02/17/21 02/17/21 13:35 13:39 Wound Care Nurse 3 #1 sacral -Primary Dressing Applied Mepilex Border, Mepilex Border Promogran Yudy Matter -Mepilex Border 1 1 -Promogran Yudy Matter 1 WC - Visit Discharge Discharge Condition Stable Ambulatory Status Walker Medication Reconcilliation completed & No provided to patient/care provider Clinical Summary of Care Provided Yes Additional Wound Wound debrided: stage 2 pressure injury to sacrum Type of Debridement: Excisional debridement Anesthesia Used: 5% Lidocaine Gel Depth: Down to and including healthy tissue and in the subcutaneous layer Percentage of wound debrided: 100 Instrument Used: 5mm curette Tissue Removed: slough and devitalized tissue Severity: Fat Layer Exposed Amount of bleeding with debridement: Mild Bleeding Controlled with: Pressure Assessment/Plan Assessment/Plan (1) Pressure injury of sacral region, stage 2: CODE(S): L89.152 - Pressure ulcer of sacral region, stage 2 (2) Debility: CODE(S): R53.81 - Other malaise (3) Hypertension: CODE(S): I10 - Essential (primary) hypertension (4) Hyperlipidemia: CODE(S): E78.5 - Hyperlipidemia, unspecified (5) Essential hypertension: CODE(S): I10 - Essential (primary) hypertension (6) Alzheimers disease: CODE(S): G30.9 - Alzheimer's disease, unspecified; F02.80 - Dementia in other diseases classified elsewhere without behavioral disturbance (7) Rheumatoid arthritis: CODE(S): M06.9 - Rheumatoid arthritis, unspecified QUALIFIERS: Rheumatoid arthritis location: foot Rheumatoid factor presence: unspecified presence Laterality: right Qualified Code(s): M06.9 - Rheumatoid arthritis, unspecified (8) Peripheral arterial occlusive disease: CODE(S): I77.9 - Disorder of arteries and arterioles, unspecified (9) Gout: CODE(S): M10.9 - Gout, unspecified (10) Depression: CODE(S): F32.9 - Major depressive disorder, single episode, unspecified (11) DDD (degenerative disc disease), lumbar: CODE(S): M51.36 - Other intervertebral disc degeneration, lumbar region PLAN: The patient was seen and examined at the wound center today and was updated on the plan of care. A subcutaneous debridement was performed today. The patient tolerated the procedure well. The patients wound care will consist of: Application of Promogran moistened, cover with foam dressing change daily. Wound cultures were collected prior and patient completed Augmentin. Baseline bloodwork held. Patient educated on the importance of diet on wound healing and instructed to increase protein and vitamin C intake. Patient verbalized understanding. Discussed the importance of protein supplementation and discussed the importance of offloading with the patient's , both verbalized understanding. Patient will follow up at wound healing center in one week or sooner if needed. Given the delayed wound healing and fact that it has been greater than 4 weeks of standard wound care, will apply for advanced skin substitute. This note was generated with [employer] dictation software. It may co ntain incorrect words, spelling, and punctuation that were not noted in checking the note before signing. I have spent 35 minutes today reviewing labs, records, and history. Time includes coordinating care, interpretation of tests, and counseling the patient/family. This also includes time I spent with the patient for exam, treatment plan, and education as well as documenting clinical information in the electronic health record.
[2021-02-24 11:02] VITALS: BP 169/62; PULSE 73; RESP 24; TEMP 36.3; BMI 23.5
--- NOTE | 2021-02-24 15:47 | PN.PCM_ITS ---
History of Present Illness Date of Service: 02/24/21 Chief Complaint: Nonhealing wound to buttock since November 2020 History of Wound: This is an 85-year-old white male who presents to the wound healing center today with complaint of nonhealing ulcer to the sacral region since November 2020. He has a past medical history significant for dementia, hypertension, hyperlipidemia, restless leg syndrome, gout, BPH, and recent GI bleed with recent hospital stay in November 2020 for GI bleed secondary to gastri tis complicated by acute encephalopathy. The patient presents with his today who states that for wound care they have been utilizing an Allevyn foam dressing for the last month that was prescribed to them by their primary care. States that they leave the dressing on for 5 or 6 days. Patient's does state that patient is mobile, however spends the majority of his time either in bed or in his reclining chair. He does have a offloading pressure relieving cushion in his chair. He denies any systemic or localized signs of infection at this time. He denies any other acute concerns. Past medical, family, and social history reviewed and not pertinent to the current visit and all other systems reviewed and negative with exception of those listed above. Progress of Wound: stable, no new concerns, compliant with daily dressing changes, wound healing continues to be delayed Objective Data Objective Data Vital Signs: Vital Signs Temp Pulse Resp BP Pulse Ox 97.3 F L 73 24 H 169/62 H 95 02/24/21 11:02 02/24/21 11:02 02/24/21 11:02 02/24/21 11:02 02/17/21 13:17 Oxygen Delivery Method Room Air Weight: 178 lb Body Mass Index (BMI) 23.5 Charges/Coding Procedures Integumentary 111xxx-113xx: [id number] Alem subq tissue 20 sq cm/< Physical Exam Const alert, no apparent distress and healthy appearing General Appearance: cooperative Exam Limitations: altered mental status HEENT normocephalic Head and Scalp: normal to inspection Mouth: oral and palatal mucosa normal Eyes General Eye: normal appearance of both eyes Resp normal respiratory effort, normal air movement and no use of accessory muscles Effort and Inspection: able to speak in complete sentences Auscultation: clear to auscultation bilaterally Cardio regular rate, regular rhythm, S1 normal heart sound, S2 normal heart sound, no murmurs and peripheral pulses 2+ throughout Palpation: normal PMI Rate: regular rate Heart Sounds: S1 normal and S2 normal GI normal to inspection, nondistended, normoactive bowel sounds, soft to palpation, non-tender and non-distended Palpation: soft Extremity normal to inspection and full ROM General Extremity: normal exam except as noted Skin Wound Narrative: Stage II pressure injury noted to sacral region with adherent slough, no signs of obvious infection at this time, did have to utilize silver nitrate for excessive bleeding today, patient tolerated fair Neuro moves all extremities Sensorium / Orientation: awake and alert Psych mental status grossly normal, thought process normal and denies hallucinations Appearance: grossly normal Attitude: calm Activity / Motor Behavior: appropriate eye contact Speech: normal speech Thought Process: normal thought process Thought Content: normal thought content Attention / Concentration: attention grossly intact Insight: insight good Judgement: judgement good Debridement Note Debridement Note Post-Debridement Measurements and Additional Note: Post-Debridement Measurements/Treatment - Nurse 1 - General Ulcer Assessment Start: 02/17/21 13:16 Freq: Status: Active Protocol: [facility]ER[facility] Activity Type Activity Date Activity User E-Sign Co-Sign Detail Recorded Client Recorded Date Recorded By Document 02/17/21 13:17 MT [id number] 02/17/21 13:27 MT Document 02/24/21 11:02 ML [id number] 02/24/21 11:07 ML 02/17/21 02/24/21 13:17 11:02 - Today's Visit Information Type of service Follow-up Visit Follow-up Visit (Physician/LIQUID CHLORINE OPERATOR (Physician/LIQUID CHLORINE OPERATOR ) ) Arrival Mode Walker Ambulatory, Walker Transfer Assistance None Accompanied by Patient Identification Verified (Name & Yes Yes ) Patient Requires Transmission-Based No Precautions Safety Precautions NA Height and Weight Body Mass Index (BMI) 23.5 23.5 BMI Classification Normal Normal Vital Signs Temperature (97.8 F-99.1 F) 97.0 F L 97.3 F L Temperature Source Temporal Temporal Pulse Rate (60-100) 90 73 Pulse Location Monitor Monitor Respiratory Rate (12-18) 18 24 H Respiratory rate source Observation Observation Pulse Oximetry 95 Oxygen Delivery Method Room Air Blood Pressure (90/60-120/80) 161/76 H 169/62 H Blood Pressure Mean (mm Hg) 104 97 Source Monitor Monitor Position Sitting Sitting Blood Pressure Location Right Arm Left Arm History Since Last Visit- (Skip if this is Patient's initial visit) Have you changed medications since your No last visit? Any new allergies or adverse reactions No Had a fall/change in ADL's that may No increase risk of falls Signs or symptoms of abuse and/or No neglect since last visit Have you been in the hospital since your No last visit? Has dressing in place as prescribed Yes Yes Has compression in place as prescribed Yes N/A Has offloadiing in place as prescribed Yes N/A Experienced any changes in pain level or No No management Left Footwear Regular Shoe Regular Shoe Right Footwear Regular Shoe Regular Shoe Pain Scale: 0-10 Numeric Is Patient Pain Free? Yes - Nurse 1 - General Ulcer Measurement Start: 02/17/21 13:16 Freq: Status: Active Protocol: Activity Type Activity Date Activity User E-Sign Co-Sign Detail Recorded Client Recorded Date Recorded By Document 02/17/21 13:17 MT [id number] 02/17/21 13:27 MT Document 02/24/21 11:02 ML [id number] 02/24/21 11:07 ML 02/17/21 02/24/21 13:17 11:02 Wound Center Nurse 1 #1 sacral -Current Size (cm) - Length 0.8 0.5 -Current Size (cm) - Width 0.3 0.2 -Current Size (cm) - Depth 0.2 0.2 -Total Square Cm 0.24 0.10 -Exudate Amt Small -Exudate Type Serosanguineous -Wound Margin Thickened Distinct, Outline Attached -Granulation Amt Large (67-100%) Medium (34-66%) -Granulation Quality Pale,[facility] Pale,[facility] -Slough/Fibrin No No -Necrosis Amt None Present (0 %) -Texture (Sol-wound Skin Appearance) Assessed Assessed -Moisture (Sol-wound Skin Appearance) Assessed Assessed -Color (Sol-wound Skin Appearance) Assessed Assessed -Temperature (Sol-wound Skin No Abnormality No Abnormality Appearance) (Pt Warm) (Pt Warm) -Tenderness on Palpation (Sol-wound No No Skin Appearance) -Ulcer Cleansing Rinsed/ Rinsed/ Irrigated with Irrigated with Saline Saline -Foul Odor after Cleansing No No -Anesthetic Used 4% Lidocaine 4% Lidocaine Solution Solution Lower Limb Edema Present NA WC - Nurse 2 - General Ulcer CM Notes Start: 02/17/21 13:16 Freq: Status: Active Protocol: Activity Type Activity Date Activity User E-Sign Co-Sign Detail Recorded Client Recorded Date Recorded By Document 02/17/21 13:49 PL [id number] 02/17/21 13:50 PL Document 02/24/21 12:44 PL [id number] 02/24/21 12:45 PL 02/17/21 02/24/21 13:49 12:44 Wound Center Nurse 2 #1 sacral -Time 13:30 11:30 -Correct Patient Yes Yes -Correct Side, Site, Position Yes Yes -Correct Procedure Yes Yes -Procedure Performed Yes Yes -Type of Procedure Debridement Debridement -Clinical Debridement Subcutaneous Subcutaneous -Tissue Removed Subcutaneous Subcutaneous -Post Debridement (cm) - Length 0.6 0.3 -Post Debridement (cm) - Width 0.2 0.6 -Post Debridement (cm) - Depth 0.1 0.1 -Total Square (Post) (cm) 0.12 0.18 -Area of Debridement (cm) - Length 0.6 0.3 -Area of Debridement (cm) - Width 0.2 0.6 -Total Square (Area) (cm) 0.12 0.18 -Tunneling No No -Undermining/Tunneling No No -Circular Undermining No No -Wound/Ulcer Outcome Not Healed Not Healed -Ulcer Cleansing Rinsed/ Rinsed/ Irrigated with Irrigated with Saline Saline -Foul Odor after Cleansing No No -Bioengineered Tissue No No -Bleeding Controlled with NA -Treatment Response Procedure Tolerated Well -Debridement - Subq, 1st 20sq cm Yes Yes Pain Scale: 0-10 Numeric Is Patient Pain Free? Yes Yes - Nurse 3 - General Ulcer D/C NN Start: 02/17/21 13:16 Freq: Status: Active Protocol: Activity Type Activity Date Activity User E-Sign Co-Sign Detail Recorded Client Recorded Date Recorded By Document 02/17/21 13:35 MT [id number] 02/17/21 13:36 MT Document 02/17/21 13:39 MT [id number] 02/17/21 13:39 MT Document 02/24/21 11:49 ML [id number] 02/24/21 11:50 ML 02/17/21 02/17/21 02/24/21 13:35 13:39 11:49 Wound Care Nurse 3 #1 sacral -Ulcer Cleansing Rinsed/ Irrigated with Saline -Primary Dressing Applied Mepilex Border, Mepilex Border Promogran Promogran Yudy Matter -Other Dressing foam dressing -Mepilex Border 1 1 -Promogran 1 -Promogran Yudy Matter 1 WC - Visit Discharge Discharge Condition Stable Stable Ambulatory Status Walker Ambulatory Medication Reconcilliation completed & No No provided to patient/care provider Clinical Summary of Care Provided Yes Yes Additional Wound Wound debrided: Stage II pressure injury of sacrum Type of Debridement: Excisional debridement Anesthesia Used: 4% Lidocaine Solution Depth: in the subcutaneous layer Percentage of wound debrided: 100 Instrument Used: 3mm curette Tissue Removed: Slough and devitalized tissue Severity: Fat Layer Exposed Amount of bleeding with debridement: Mild Bleeding Controlled with: Pressure Patient tolerated procedure: Patient tolerated procedure well Assessment/Plan Assessment/Plan (1) Pressure injury of sacral region, stage 2: CODE(S): L89.152 - Pressure ulcer of sacral region, stage 2 (2) Debility: CODE(S): R53.81 - Other malaise (3) Hypertension: CODE(S): I10 - Essential (primary) hypertension (4) Hyperlipidemia: CODE(S): E78.5 - Hyperlipidemia, unspecified (5) Essential hypertension: CODE(S): I10 - Essential (primary) hypertension (6) Alzheimers disease: CODE(S): G30.9 - Alzheimer's disease, unspecified; F02.80 - Dementia in other diseases classified elsewhere without behavioral disturbance (7) Rheumatoid arthritis: CODE(S): M06.9 - Rheumatoid arthritis, unspecified QUALIFIERS: Rheumatoid arthritis location: foot Rheumatoid factor presence: unspecified presence Laterality: right Qualified Code(s): M06.9 - Rheumatoid arthritis, unspecified (8) Peripheral arterial occlusive disease: CODE(S): I77.9 - Disorder of arteries and arterioles, unspecified (9) Gout: CODE(S): M10.9 - Gout, unspecified (10) Depression: CODE(S): F32.9 - Major depressive disorder, single episode, unspecified (11) DDD (degenerative disc disease), lumbar: CODE(S): M51.36 - Other intervertebral disc degeneration, lumbar region PLAN: The patient was seen and examined at the wound center today and was updated on the plan of care. A subcutaneous debridement was performed today. The patient tolerated the procedure well. The patients wound care will consist of: Application of Promogran moistened, cover with foam dressing change daily. Wound cultures were collected prior and patient completed Augmentin. Wound cultures recollected today due to delayed wound healing baseline bloodwork held. Patient educated on the importance of diet on wound healing and instructed to increase protein and vitamin C intake. Patient verbalized understanding. Discussed the importance of protein supplementation and discussed the importance of offloading with the patient's , both verbalized understanding. Patient will follow up at wound healing center in one week or sooner if needed. Given the delayed wound healing and fact that it has been greater than 4 weeks of standard wound c are, will apply for advanced skin substitute. This note was generated with [employer] dictation software. It may contain incorrect words, spelling, and punctuation that were not noted in checking the note before signing. I have spent 35 minutes today reviewing labs, records, and history. Time includes coordinating care, interpretation of tests, and counseling the patient/family. This also includes time I spent with the patient for exam, treatment plan, and education as well as documenting clinical information in the electronic health record.
[2021-03-03 13:55] VITALS: BP 158/80; PULSE 87; RESP 18; TEMP 36.2; BMI 23.5
--- NOTE | 2021-03-03 16:16 | PCM.WC.PN ---
History of Present Illness Date of Service: 03/03/21 Chief Complaint: Nonhealing wound to buttock since November 2020 History of Wound: This is an 85-year-old white male who presents to the wound healing center today with complaint of nonhealing ulcer to the sacral region since November 2020. He has a past medical history significant for dementia, hypertension, hyperlipidemia, restless leg syndrome, gout, BPH, and recent GI bleed with recent hospital stay in November 2020 for GI bleed secondary to gastritis complicated by acute encephalopathy. The patient presents with his today who states that for wound care they have been utilizing an Allevyn foam dressing for the last month that was prescribed to them by their primary care. States that they leave the dressing on for 5 or 6 days. Patient's does state that patient is mobile, however spends the majority of his time either in bed or in his reclining chair. He does have a offloading pressure relieving cushion in his chair. He denies any systemic or localized signs of infection at this time. He denies any other acute concerns. Past medical, family, and social history reviewed and not pertinent to the current visit and all other systems reviewed and negative with exception of those listed above. Progress of Wound: stable, no new concerns, compliant with daily dressing changes, wound healing continues to be delayed, second application of puraply am today and wound cultures were reviewed and showed anaerobic cocci and therefore Augmentin was sent to the pharmacy Objective Data Objective Data Vital Signs: Vital Signs Temp Pulse Resp BP Pulse Ox 97.2 F L 87 18 158/80 H 95 03/03/21 13:55 03/03/21 13:55 03/03/21 13:55 03/03/21 13:55 02/17/21 13:17 Oxygen Delivery Method Room Air Weight: 178 lb Body Mass Index (BMI) 23.5 Lab / Micro Data Micro: Microbiology 02/24/21 10:45 Wound - Leg Gram Stain - Final 02/24/21 10:45 Wound - Leg Wound Culture - Final Staphylococcus aureus Corynebacterium minutissimum Propionibacterium propionicum 02/24/21 10:45 Wound - Leg Anaerobic Culture - Final Anaerobic cocci Actinomyces odontolyticus Charges/Coding Procedures Integumentary 150xxx-152xx: [id number] Skin sub graft trnk/arm/leg Physical Exam Const alert, no apparent distress and healthy appearing General Appearance: cooperative Exam Limitations: altered mental status HEENT normocephalic Head and Scalp: normal to inspection Mouth: oral and palatal mucosa normal Eyes General Eye: normal appearance of both eyes Resp normal respiratory effort, normal air movement and no use of accessory muscles Effort and Inspection: able to speak in complete sentences Auscultation: clear to auscultation bilaterally Cardio regular rate, regular rhythm, S1 normal heart sound, S2 normal heart sound, no murmurs and peripheral pulses 2+ throughout Palpation: normal PMI Rate: regular rate Heart Sounds: S1 normal and S2 normal GI normal to inspection, nondistended, normoactive bowel sounds, soft to palpation, non-tender and non-distended Palpation: soft Extremity normal to inspection and full ROM General Extremity: normal exam except as noted Skin Wound Narrative: Stage II pressure injury noted to sacral region with adherent slough, no signs of obvious infection at this time, Neuro moves all extremities Sensorium / Orientation: awake and alert Psych mental status grossly normal, thought process normal and denies hallucinations Appearance: grossly normal Attitude: calm Activity / Motor Behavior: appropriate eye contact Speech: normal speech Thought Process: normal thought process Thought Content: normal thought content Attention / Concentration: attention grossly intact Insight: insight good Judgement: judgement good Debridement Note Debridement Note Post-Debridement Measurements and Additional Note: Post-Debridement Measurements/Treatment - Nurse 1 - General Ulcer Assessment Start: 02/17/21 13:16 Freq: Status: Active Protocol: TRIXIE.COCO Activity Type Activity Date Activity User E-Sign Co-Sign Detail Recorded Client Recorded Date Recorded By Document 02/17/21 13:17 MN [id number] 02/17/21 13:27 MN Document 02/24/21 11:02 [id number] 02/24/21 11:07 Document 03/03/21 13:55 [id number] 03/03/21 13:57 02/17/21 02/24/21 03/03/21 13:17 11:02 13:55 - Today's Visit Information Type of service Follow-up Visit Follow-up Visit Follow-up Visit (Physician/PRINTING ROLLER POLISHER (Physician/PRINTING ROLLER POLISHER (Physician/PRINTING ROLLER POLISHER ) ) ) Arrival Mode Walker Ambulatory, Ambulatory, Walker Walker Transfer Assistance None None Accompanied by Patient Identification Verified (Name & Yes Yes Yes ) Patient Requires Transmission-Based No No Precautions Safety Precautions NA Fall Prevention Height and Weight Body Mass Index (BMI) 23.5 23.5 23.5 BMI Classification Normal Normal Normal Vital Signs Temperature (97.8 F-99.1 F) 97.0 F L 97.3 F L 97.2 F L Temperature Source Temporal Temporal Temporal Pulse Rate (60-100) 90 73 87 Pulse Location Monitor Monitor Monitor Respiratory Rate (12-18) 18 24 H 18 Respiratory rate source Observation Observation Observation Pulse Oximetry 95 Oxygen Delivery Method Room Air Room Air Blood Pressure (90/60-120/80) 161/76 H 169/62 H 158/80 H Blood Pressure Mean (mm Hg) 104 97 106 Source Monitor Monitor Monitor Position Sitting Sitting Sitting Blood Pressure Location Right Arm Left Arm Right Arm History Since Last Visit- (Skip if this is Patient's initial visit) Have you changed medications since your No No last visit? Any new allergies or adverse reactions No No Had a fall/change in ADL's that may No No increase risk of falls Signs or symptoms of abuse and/or No No neglect since last visit Have you been in the hospital since your No No last visit? Has dressing in place as prescribed Yes Yes Yes Has compression in place as prescribed Yes N/A N/A Has offloadiing in place as prescribed Yes N/A N/A Experienced any changes in pain level or No No No management Left Footwear Regular Shoe Regular Shoe Regular Shoe Right Footwear Regular Shoe Regular Shoe Regular Shoe Pain Scale: 0-10 Numeric Is Patient Pain Free? Yes Yes WC - Nurse 1 - General Ulcer Measurement Start: 02/17/21 13:16 Freq: Status: Active Protocol: Activity Type Activity Date Activity User E-Sign Co-Sign Detail Recorded Client Recorded Date Recorded By Document 02/17/21 13:17 MT [id number] 02/17/21 13:27 MT Document 02/24/21 11:02 ML [id number] 02/24/21 11:07 ML Document 03/03/21 13:55 MW [id number] 03/03/21 13:57 MW 02/17/21 02/24/21 03/03/21 13:17 11:02 13:55 Wound Center Nurse 1 #1 sacral -Combined with other wound No -Current Size (cm) - Length 0.8 0.5 0.5 -Current Size (cm) - Width 0.3 0.2 0.2 -Current Size (cm) - Depth 0.2 0.2 0.4 -Total Square Cm 0.24 0.10 0.10 -Photo Taken No -Epithelialization None Present -Tunneling No -Undermining/Tunneling No -Circular Undermining No -Exudate Amt Small Small -Exudate Type Serosanguineous Serosanguineous -Wound Margin Thickened Distinct, Distinct, Outline Outline Attached Attached -Granulation Amt Large (67-100%) Medium (34-66%) Medium (34-66%) -Granulation Quality Pale,Seis [place] Pale,Seis [place] Seis [place] -Slough/Fibrin No No Yes -Necrosis Amt None Present (0 Medium (34-66%) %) -Necrotic Tissue Type Adherent Slough -Structure Exposed N/A -Texture (Sol-wound Skin Appearance) Assessed Assessed Assessed, Scarring -Moisture (Sol-wound Skin Appearance) Assessed Assessed Assessed, Maceration -Color (Sol-wound Skin Appearance) Assessed Assessed No Abnormality, Assessed -Temperature (Sol-wound Skin No Abnormality No Abnormality No Abnormality Appearance) (Pt Warm) (Pt Warm) (Pt Warm) -Tenderness on Palpation (Sol-wound No No Yes Skin Appearance) -Ulcer Cleansing Rinsed/ Rinsed/ Rinsed/ Irrigated with Irrigated with Irrigated with Saline Saline Saline -Foul Odor after Cleansing No No No -Anesthetic Used 4% Lidocaine 4% Lidocaine 5% Lidocaine Solution Solution Gel Lower Limb Edema Present NA No WC - Nurse 2 - General Ulcer CM Notes Start: 02/17/21 13:16 Freq: Status: Active Protocol: Activity Type Activity Date Activity User E-Sign Co-Sign Detail Recorded Client Recorded Date Recorded By Document 02/17/21 13:49 PL [id number] 02/17/21 13:50 PL Document 02/24/21 12:44 PL [id number] 02/24/21 12:45 PL 02/17/21 02/24/21 13:49 12:44 Wound Center Nurse 2 #1 sacral -Time 13:30 11:30 -Correct Patient Yes Yes -Correct Side, Site, Position Yes Yes -Correct Procedure Yes Yes -Procedure Performed Yes Yes -Type of Procedure Debridement Debridement -Clinical Debridement Subcutaneous Subcutaneous -Tissue Removed Subcutaneous Subcutaneous -Post Debridement (cm) - Length 0.6 0.3 -Post Debridement (cm) - Width 0.2 0.6 -Post Debridement (cm) - Depth 0.1 0.1 -Total Square (Post) (cm) 0.12 0.18 -Area of Debridement (cm) - Length 0.6 0.3 -Area of Debridement (cm) - Width 0.2 0.6 -Total Square (Area) (cm) 0.12 0.18 -Tunneling No No -Undermining/Tunneling No No -Circular Undermining No No -Wound/Ulcer Outcome Not Healed Not Healed -Ulcer Cleansing Rinsed/ Rinsed/ Irrigated with Irrigated with Saline Saline -Foul Odor after Cleansing No No -Bioengineered Tissue No No -Bleeding Controlled with NA -Treatment Response Procedure Tolerated Well -Debridement - Subq, 1st 20sq cm Yes Yes Pain Scale: 0-10 Numeric Is Patient Pain Free? Yes Yes - Nurse 3 - General Ulcer D/C NN Start: 02/17/21 13:16 Freq: Status: Active Protocol: Activity Type Activity Date Activity User E-Sign Co-Sign Detail Recorded Client Recorded Date Recorded By Document 02/17/21 13:35 MT [id number] 02/17/21 13:36 MT Document 02/17/21 13:39 MT [id number] 02/17/21 13:39 MT Document 02/24/21 11:49 ML [id number] 02/24/21 11:50 ML Document 03/03/21 14:28 MW [id number] 03/03/21 14:29 MW 02/17/21 02/17/21 02/24/21 13:35 13:39 11:49 Wound Care Nurse 3 #1 sacral -Ulcer Cleansing Rinsed/ Irrigated with Saline -Foul Odor after Cleansing -Negative Pressure Wound Therapy -Primary Dressing Applied Mepilex Border, Mepilex Border Promogran Promogran Yudy Matter -Other Dressing foam dressing -Primary Dressing Covered/Secured with -Mepilex Border 1 1 -Promogran 1 -Promogran Yudy Matter 1 Treatment Response Pain Scale: 0-10 Numeric Is Patient Pain Free? Teaching: Wound Center Dressing Your Wound -Person Taught -Teaching Method -Response to teaching - Visit Discharge Discharge Condition Stable Stable Ambulatory Status Walker Ambulatory Transportation Accompanied by Medication Reconcilliation completed & No No provided to patient/care provider Clinical Summary of Care Provided Yes Yes 03/03/21 14:28 Wound Care Nurse 3 #1 sacral -Ulcer Cleansing Not Cleansed -Foul Odor after Cleansing No -Negative Pressure Wound Therapy N/A -Primary Dressing Applied Mepilex Border -Other Dressing -Primary Dressing Covered/Secured with Dry Gauze -Mepilex Border 1 -Promogran -Promogran Yudy Matter Treatment Response Procedure Tolerated Well Pain Scale: 0-10 Numeric Is Patient Pain Free? Yes Teaching: Wound Center Dressing Your Wound -Person Taught Patient,Family -Teaching Method Discussion, Demonstration -Response to teaching Verbalize understanding WC - Visit Discharge Discharge Condition Stable Ambulatory Status Ambulatory, Walker Transportation Private Auto Accompanied by Medication Reconcilliation completed & No provided to patient/care provider Clinical Summary of Care Provided Yes Additional Wound Wound debrided: Stage II pressure injury of coccyx Type of Debridement: Excisional debridement Anesthesia Used: 5% Lidocaine Gel Depth: in the subcutaneous layer Percentage of wound debrided: 100 Instrument Used: 3mm curette Tissue Removed: Slough and devitalized tissue Severity: Fat Layer Exposed Amount of bleeding with debridement: Mild Bleeding Controlled with: Pressure Patient tolerated procedure: Patient tolerated procedure well Assessment/Plan Assessment/Plan (1) Pressure injury of sacral region, stage 2: CODE(S): L89.152 - Pressure ulcer of sacral region, stage 2 (2) Debility: CODE(S): R53.81 - Other malaise (3) Hypertension: CODE(S): I10 - Essential (primary) hypertension (4) Hyperlipidemia: CODE(S): E78.5 - Hyperlipidemia, unspecified (5) Essential hypertension: CODE(S): I10 - Essential (primary) hypertension (6) Alzheimers disease: CODE(S): G30.9 - Alzheimer's disease, unspecified; F02.80 - Dementia in other diseases classified elsewhere without behavioral disturbance (7) Rheumatoid arthritis: CODE(S): M06.9 - Rheumatoid arthritis, unspecified QUALIFIERS: Rheumatoid arthritis location: foot Rheumatoid factor presence: unspecified presence Laterality: right Qualified Code(s): M06.9 - Rheumatoid arthritis, unspecified (8) Peripheral arterial occlusive disease: CODE(S): I77.9 - Disorder of arteries and arterioles, unspecified (9) Gout: CODE(S): M10.9 - Gout, unspecified (10) Depression: CODE(S): F32.9 - Major depressive disorder, single episode, unspecified (11) DDD (degenerative disc disease), lumbar: CODE(S): M51.36 - Other intervertebral disc degeneration, lumbar region PLAN: The patient was seen and examined at the wound center today and was updated on the plan of care. A subcutaneous debridement was performed today. The patient tolerated the procedure well. The patients wound care will consist of: Puraply #2 was applied after subcutaneous debridement, it was then covered with the wound veil and a thin layer of hydrogel, and secured with Steri-Strips, 100% of the product was used with 0% waste. Patient tolerated the procedure well.. Wound cultures were collected prior and showed anaerobic cocci and patient was restarted on Augmentin. Patient educated on the importance of diet on wound healing and instructed to increase protein and vitamin C intake. Patient verbalized understanding. Discussed the importance of protein supplementation and discussed the importance of offloading with the patient's , both verbalized understanding. Patient will follow up at wound healing center in one week or sooner if needed. Given the delayed wound healing and fact that it has been greater than 4 weeks of standard wound care, will apply for advanced skin substitute. This note was generated with e[employer]eter dictation software. It may contain incorrect words, spelling, and punctuation that were not noted in checking the note before signing. I have spent 35 minutes today reviewing labs, records, and history. Time includes coordinating care, interpretation of tests, and counseling the patient/family. This also includes time I spent with the patient for exam, treatment plan, and education as well as documenting clinical information in the electronic health record.
[2021-03-10 15:22] VITALS: BP 144/74; PULSE 92; RESP 16; TEMP 36.2; BMI 23.5
--- NOTE | 2021-03-15 17:07 | PN.PCM_ITS ---
History of Present Illness Date of Service: 03/10/21 Chief Complaint: Nonhealing wound to buttock since November 2020 History of Wound: This is an 85-year-old white male who presents to the wound healing center today with complaint of nonhealing ulcer to the sacral region since November 2020. He has a past medical history significant for dementia, hypertension, hyperlipidemia, restless leg syndrome, gout, BPH, and recent GI bleed with recent hospital stay in November 2020 for GI bleed secondary to gastri tis complicated by acute encephalopathy. The patient presents with his today who states that for wound care they have been utilizing an Allevyn foam dressing for the last month that was prescribed to them by their primary care. States that they leave the dressing on for 5 or 6 days. Patient's does state that patient is mobile, however spends the majority of his time either in bed or in his reclining chair. He does have a offloading pressure relieving cushion in his chair. He denies any systemic or localized signs of infection at this time. He denies any other acute concerns. Past medical, family, and social history reviewed and not pertinent to the current visit and all other systems reviewed and negative with exception of those listed above. Progress of Wound: stable, no new concerns,Patient did well with 2nd appplication of puraply AM and wound size has improved this week, would have liked to apply another application today, however benefits verification is not present in chart as this was handled personally by Paresh UREÑAprogram manager rn who is not working today. Will resubmit benefits verification, in the meantime may utilize Yudy change daily. Objective Data Objective Data Vital Signs: Vital Signs Temp Pulse Resp BP Pulse Ox 97.2 F L 92 16 144/74 H 95 03/10/21 15:22 03/10/21 15:22 03/10/21 15:22 03/10/21 15:22 02/17/21 13:17 Oxygen Delivery Method Room Air Weight: 178 lb Body Mass Index (BMI) 23.5 Lab / Micro Data Micro: Microbiology 02/24/21 10:45 Wound - Leg Gram Stain - Final 02/24/21 10:45 Wound - Leg Wound Culture - Final Staphylococcus aureus Corynebacterium minutissimum Propionibacterium propionicum 02/24/21 10:45 Wound - Leg Anaerobic Culture - Final Anaerobic cocci Actinomyces odontolyticus Charges/Coding Procedures Integumentary [id number]: [id number] Alem subq tissue 20 sq cm/< Physical Exam Const alert, no apparent distress and healthy appearing General Appearance: cooperative Exam Limitations: altered mental status HEENT normocephalic Head and Scalp: normal to inspection Mouth: oral and palatal mucosa normal Eyes General Eye: normal appearance of both eyes Resp normal respiratory effort, normal air movement and no use of accessory muscles Effort and Inspection: able to speak in complete sentences Auscultation: clear to auscultation bilaterally Cardio regular rate, regular rhythm, S1 normal heart sound, S2 normal heart sound, no murmurs and peripheral pulses 2+ throughout Palpation: normal PMI Rate: regular rate Heart Sounds: S1 normal and S2 normal GI normal to inspection, nondistended, normoactive bowel sounds, soft to palpation, non-tender and non-distended Palpation: soft Extremity normal to inspection and full ROM General Extremity: normal exam except as noted Skin Wound Narrative: Stage II pressure injury noted to sacral region with adherent slough, no signs of obvious infection at this time, Neuro moves all extremities Sensorium / Orientation: awake and alert Psych mental status grossly normal, thought process normal and denies hallucinations Appearance: grossly normal Attitude: calm Activity / Motor Behavior: appropriate eye contact Speech: normal speech Thought Process: normal thought process Thought Content: normal thought content Attention / Concentration: attention grossly intact Insight: insight good Judgement: judgement good Debridement Note Debridement Note Post-Debridement Measurements and Additional Note: Post-Debridement Measurements/Treatment TRIXIE - Nurse 1 - General Ulcer Assessment Start: 02/17/21 13:16 Freq: Status: Active Protocol: KAMERNO Activity Type Activity Date Activity User E-Sign Co-Sign Detail Recorded Client Recorded Date Recorded By Document 02/17/21 13:17 MT [id number] 02/17/21 13:27 MT Document 02/24/21 11:02 ML [id number] 02/24/21 11:07 ML Document 03/03/21 13:55 MW [id number] 03/03/21 13:57 MW Document 03/10/21 15:22 ML [id number] 03/10/21 15:30 ML 02/17/21 02/24/21 03/03/21 13:17 11:02 13:55 - Today's Visit Information Type of service Follow-up Visit Follow-up Visit Follow-up Visit (Physician/CORPORATE OPERATIONS COMPLIANCE MANAGER (Physician/CORPORATE OPERATIONS COMPLIANCE MANAGER (Physician/CORPORATE OPERATIONS COMPLIANCE MANAGER ) ) ) Arrival Mode Walker Ambulatory, Ambulatory, Walker Walker Transfer Assistance None None Accompanied by Patient Identification Verified (Name & Yes Yes Yes ) Patient Requires Transmission-Based No No Precautions Safety Precautions NA Fall Prevention Height and Weight Body Mass Index (BMI) 23.5 23.5 23.5 BMI Classification Normal Normal Normal Vital Signs Temperature (97.8 F-99.1 F) 97.0 F L 97.3 F L 97.2 F L Temperature Source Temporal Temporal Temporal Pulse Rate (60-100) 90 73 87 Pulse Location Monitor Monitor Monitor Respiratory Rate (12-18) 18 24 H 18 Respiratory rate source Observation Observation Observation Pulse Oximetry 95 Oxygen Delivery Method Room Air Room Air Blood Pressure (90/60-120/80) 161/76 H 169/62 H 158/80 H Blood Pressure Mean (mm Hg) 104 97 106 Source Monitor Monitor Monitor Position Sitting Sitting Sitting Blood Pressure Location Right Arm Left Arm Right Arm History Since Last Visit- (Skip if this is Patient's initial visit) Have you changed medications since your No No last visit? Any new allergies or adverse reactions No No Had a fall/change in ADL's that may No No increase risk of falls Signs or symptoms of abuse and/or No No neglect since last visit Have you been in the hospital since your No No last visit? Has dressing in place as prescribed Yes Yes Yes Has compression in place as prescribed Yes N/A N/A Has offloadiing in place as prescribed Yes N/A N/A Experienced any changes in pain level or No No No management Left Footwear Regular Shoe Regular Shoe Regular Shoe Right Footwear Regular Shoe Regular Shoe Regular Shoe Pain Scale: 0-10 Numeric Is Patient Pain Free? Yes Yes 03/10/21 15:22 WC - Today's Visit Information Type of service Follow-up Visit (Physician/CORPORATE OPERATIONS COMPLIANCE MANAGER ) Arrival Mode Ambulatory Transfer Assistance None Accompanied by Patient Identification Verified (Name & Yes ) Patient Requires Transmission-Based No Precautions Safety Precautions NA Height and Weight Body Mass Index (BMI) 23.5 BMI Classification Normal Vital Signs Temperature (97.8 F-99.1 F) 97.2 F L Temperature Source Temporal Pulse Rate (60-100) 92 Pulse Location Monitor Respiratory Rate (12-18) 16 Respiratory rate source Observation Pulse Oximetry Oxygen Delivery Method Blood Pressure (90/60-120/80) 144/74 H Blood Pressure Mean (mm Hg) 97 Source Monitor Position Sitting Blood Pressure Location Left Arm History Since Last Visit- (Skip if this is Patient's initial visit) Have you changed medications since your No last visit? Any new allergies or adverse reactions No Had a fall/change in ADL's that may No increase risk of falls Signs or symptoms of abuse and/or No neglect since last visit Have you been in the hospital since your No last visit? Has dressing in place as prescribed Yes Has compression in place as prescribed N/A Has offloadiing in place as prescribed N/A Experienced any changes in pain level or No management Left Footwear Regular Shoe Right Footwear Regular Shoe Pain Scale: 0-10 Numeric Is Patient Pain Free? Yes WC - Nurse 1 - General Ulcer Measurement Start: 02/17/21 13:16 Freq: Status: Active Protocol: Activity Type Activity Date Activity User E-Sign Co-Sign Detail Recorded Client Recorded Date Recorded By Document 02/17/21 13:17 MT [id number] 02/17/21 13:27 MT Document 02/24/21 11:02 ML [id number] 02/24/21 11:07 ML Document 03/03/21 13:55 MW [id number] 03/03/21 13:57 MW Document 03/10/21 15:22 ML [id number] 03/10/21 15:30 ML 02/17/21 02/24/21 03/03/21 13:17 11:02 13:55 Wound Center Nurse 1 #1 sacral -Combined with other wound No -Current Size (cm) - Length 0.8 0.5 0.5 -Current Size (cm) - Width 0.3 0.2 0.2 -Current Size (cm) - Depth 0.2 0.2 0.4 -Total Square Cm 0.24 0.10 0.10 -Photo Taken No -Epithelialization None Present -Tunneling No -Undermining/Tunneling No -Circular Undermining No -Exudate Amt Small Small -Exudate Type Serosanguineous Serosanguineous -Wound Margin Thickened Distinct, Distinct, Outline Outline Attached Attached -Granulation Amt Large (67-100%) Medium (34-66%) Medium (34-66%) -Granulation Quality Pale,[place] Pale,[place] -Slough/Fibrin No No Yes -Necrosis Amt None Present (0 Medium (34-66%) %) -Necrotic Tissue Type Adherent Slough -Structure Exposed N/A -Texture (Sol-wound Skin Appearance) Assessed Assessed Assessed, Scarring -Moisture (Sol-wound Skin Appearance) Assessed Assessed Assessed, Maceration -Color (Sol-wound Skin Appearance) Assessed Assessed No Abnormality, Assessed -Temperature (Sol-wound Skin No Abnormality No Abnormality No Abnormality Appearance) (Pt Warm) (Pt Warm) (Pt Warm) -Tenderness on Palpation (Sol-wound No No Yes Skin Appearance) -Ulcer Cleansing Rinsed/ Rinsed/ Rinsed/ Irrigated with Irrigated with Irrigated with Saline Saline Saline -Foul Odor after Cleansing No No No -Anesthetic Used 4% Lidocaine 4% Lidocaine 5% Lidocaine Solution Solution Gel Lower Limb Edema Present NA No 03/10/21 15:22 Wound Center Nurse 1 #1 sacral -Combined with other wound -Current Size (cm) - Length 0.5 -Current Size (cm) - Width 0.2 -Current Size (cm) - Depth 0.1 -Total Square Cm 0.10 -Photo Taken -Epithelialization -Tunneling -Undermining/Tunneling -Circular Undermining -Exudate Amt Medium -Exudate Type Serosanguineous -Wound Margin Distinct, Outline Attached -Granulation Amt Medium (34-66%) -Granulation Quality -Slough/Fibrin Yes -Necrosis Amt Medium (34-66%) -Necrotic Tissue Type Adherent Slough -Structure Exposed -Texture (Sol-wound Skin Appearance) Assessed -Moisture (Sol-wound Skin Appearance) Assessed -Color (Sol-wound Skin Appearance) Assessed -Temperature (Sol-wound Skin No Abnormality Appearance) (Pt Warm) -Tenderness on Palpation (Sol-wound No Skin Appearance) -Ulcer Cleansing Rinsed/ Irrigated with Saline -Foul Odor after Cleansing No -Anesthetic Used 4% Lidocaine Solution Lower Limb Edema Present WC - Nurse 2 - General Ulcer CM Notes Start: 02/17/21 13:16 Freq: Status: Active Protocol: Activity Type Activity Date Activity User E-Sign Co-Sign Detail Recorded Client Recorded Date Recorded By Document 02/17/21 13:49 PL [id number] 02/17/21 13:50 PL Document 02/24/21 12:44 PL [id number] 02/24/21 12:45 PL Document 03/03/21 16:14 PL [id number] 03/03/21 16:17 PL Document 03/10/21 16:02 MW [id number] 03/10/21 16:05 MW 02/17/21 02/24/21 03/03/21 13:49 12:44 16:14 Wound Center Nurse 2 #1 sacral -Time 13:30 11:30 14:10 -Correct Patient Yes Yes Yes -Correct Side, Site, Position Yes Yes Yes -Correct Procedure Yes Yes Yes -Procedure Performed Yes Yes Yes -Type of Procedure Debridement Debridement Debridement -Clinical Debridement Subcutaneous Subcutaneous Subcutaneous -Tissue Removed Subcutaneous Subcutaneous Subcutaneous -Post Debridement (cm) - Length 0.6 0.3 1.0 -Post Debridement (cm) - Width 0.2 0.6 0.3 -Post Debridement (cm) - Depth 0.1 0.1 0.3 -Total Square (Post) (cm) 0.12 0.18 0.30 -Area of Debridement (cm) - Length 0.6 0.3 1.0 -Area of Debridement (cm) - Width 0.2 0.6 0.3 -Total Square (Area) (cm) 0.12 0.18 0.30 -Tunneling No No No -Undermining/Tunneling No No No -Circular Undermining No No No -Wound/Ulcer Outcome Not Healed Not Healed Not Healed -Ulcer Cleansing Rinsed/ Rinsed/ Rinsed/ Irrigated with Irrigated with Irrigated with Saline Saline Saline -Foul Odor after Cleansing No No No -Bioengineered Tissue No No Yes -Type of Bioengineered Tissue PuraPly AM Disc -Expiration Date 04/15/23 -Product Lot Number [id number] -Percent Used 100 -Bleeding Controlled with NA Pressure -Offloading -Treatment Response Procedure Procedure Tolerated Well Tolerated Well -Debridement - Subq, 1st 20sq cm Yes Yes No -Apply Skin Sub - 1st 25 sq cm - Legs 1 -PuraPly AM 16mm Disc (per sq cm) 2 Pain Scale: 0-10 Numeric Is Patient Pain Free? Yes Yes Yes 03/10/21 16:02 Wound Center Nurse 2 #1 sacral -Time 16:04 -Correct Patient Yes -Correct Side, Site, Position Yes -Correct Procedure Yes -Procedure Performed Yes -Type of Procedure Debridement -Clinical Debridement Subcutaneous -Tissue Removed Subcutaneous -Post Debridement (cm) - Length 0.4 -Post Debridement (cm) - Width 0.3 -Post Debridement (cm) - Depth 0.2 -Total Square (Post) (cm) 0.12 -Area of Debridement (cm) - Length 0.4 -Area of Debridement (cm) - Width 0.3 -Total Square (Area) (cm) 0.12 -Tunneling No -Undermining/Tunneling No -Circular Undermining No -Wound/Ulcer Outcome Not Healed -Ulcer Cleansing Rinsed/ Irrigated with Saline -Foul Odor after Cleansing No -Bioengineered Tissue No -Type of Bioengineered Tissue -Expiration Date -Product Lot Number -Percent Used -Bleeding Controlled with Pressure -Offloading No -Treatment Response Procedure Tolerated Well -Debridement - Subq, 1st 20sq cm Yes -Apply Skin Sub - 1st 25 sq cm - Legs -PuraPly AM 16mm Disc (per sq cm) Pain Scale: 0-10 Numeric Is Patient Pain Free? Yes - Nurse 3 - General Ulcer D/C NN Start: 02/17/21 13:16 Freq: Status: Active Protocol: Activity Type Activity Date Activity User E-Sign Co-Sign Detail Recorded Client Recorded Date Recorded By Document 02/17/21 13:35 MT [id number] 02/17/21 13:36 MT Document 02/17/21 13:39 MT [id number] 02/17/21 13:39 MT Document 02/24/21 11:49 ML [id number] 02/24/21 11:50 ML Document 03/03/21 14:28 MW [id number] 03/03/21 14:29 MW Document 03/10/21 16:24 ML [id number] 03/10/21 16:25 ML 02/17/21 02/17/21 02/24/21 13:35 13:39 11:49 Wound Care Nurse 3 #1 sacral -Ulcer Cleansing Rinsed/ Irrigated with Saline -Foul Odor after Cleansing -Negative Pressure Wound Therapy -Primary Dressing Applied Mepilex Border, Mepilex Border Promogran Promogran Yudy Matter -Other Dressing foam dressing -Primary Dressing Covered/Secured with -Mepilex Border 1 1 -Promogran 1 -Promogran Yudy Matter 1 Treatment Response Pain Scale: 0-10 Numeric Is Patient Pain Free? Teaching: Wound Center Dressing Your Wound -Person Taught -Teaching Method -Response to teaching - Visit Discharge Discharge Condition Stable Stable Ambulatory Status Walker Ambulatory Transportation Accompanied by Medication Reconcilliation completed & No No provided to patient/care provider Clinical Summary of Care Provided Yes Yes 03/03/21 03/10/21 14:28 16:24 Wound Care Nurse 3 #1 sacral -Ulcer Cleansing Not Cleansed Rinsed/ Irrigated with Saline -Foul Odor after Cleansing No No -Negative Pressure Wound Therapy N/A -Primary Dressing Applied Mepilex Border Promogran Yudy Matter -Other Dressing foam dressing -Primary Dressing Covered/Secured with Dry Gauze -Mepilex Border 1 -Promogran -Promogran Yudy Matter 1 Treatment Response Procedure Tolerated Well Pain Scale: 0-10 Numeric Is Patient Pain Free? Yes Teaching: Wound Center Dressing Your Wound -Person Taught Patient,Family -Teaching Method Discussion, Demonstration -Response to teaching Verbalize understanding WC - Visit Discharge Discharge Condition Stable Stable Ambulatory Status Ambulatory, Walker Walker Transportation Private Auto Accompanied by Medication Reconcilliation completed & No No provided to patient/care provider Clinical Summary of Care Provided Yes Yes Additional Wound Wound debrided: Stage II pressure injury of sacrum Type of Debridement: Excisional debridement Anesthesia Used: 5% Lidocaine Gel Depth: in the subcutaneous layer Percentage of wound debrided: 100 Instrument Used: 3mm curette Tissue Removed: Slough and devitalized tissue Severity: Fat Layer Exposed Amount of bleeding with debridement: Mild Bleeding Controlled with: Pressure Patient tolerated procedure: Patient tolerated procedure well Assessment/Plan Assessment/Plan (1) Pressure injury of sacral region, stage 2: CODE(S): L89.152 - Pressure ulcer of sacral region, stage 2 (2) Debility: CODE(S): R53.81 - Other malaise (3) Hypertension: CODE(S): I10 - Essential (primary) hypertension (4) Hyperlipidemia: CODE(S): E78.5 - Hyperlipidemia, unspecified (5) Essential hypertension: CODE(S): I10 - Essential (primary) hypertension (6) Alzheimers disease: CODE(S): G30.9 - Alzheimer's disease, unspecified; F02.80 - Dementia in other diseases classified elsewhere without behavioral disturbance (7) Rheumatoid arthritis: CODE(S): M06.9 - Rheumatoid arthritis, unspecified QUALIFIERS: Laterality: right Rheumatoid arthritis location: foot Rheumatoid factor presence: unspecified presence Qualified Code(s): M06.9 - Rheumatoid arthritis, unspecified (8) Peripheral arterial occlusive disease: CODE(S): I77.9 - Disorder of arteries and arterioles, unspecified (9) Gout: CODE(S): M10.9 - Gout, unspecified (10) Depression: CODE(S): F32.9 - Major depressive disorder, single episode, unspecified (11) DDD (degenerative disc disease), lumbar: CODE(S): M51.36 - Other intervertebral disc degeneration, lumbar region PLAN: The patient was seen and examined at the wound center today and was updated on the plan of care. A subcutaneous debridement was performed today. The patient tolerated the procedure well. The patients wound care will consist of: Daily application of moistened Yudy cover with ABD for offloading. Wound cultures were collected prior and showed anaerobic cocci and patient was restarted on Augmentin which he completed. Patient educated on the importance of diet on wound healing and instructed to increase protein and vitamin C intake. Patient verbalized understanding. Discussed the importance of protein supplementation and discussed the importance of offloading with the patient's , both verbalized understanding. Patient will follow up at wound healing center in one week or sooner if needed. Given the delayed wound healing and fact that it has been greater than 4 weeks of standard wound care, will apply for advanced skin substitute. This note was generated with [employer] dictation software. It may contain incorrect words, spelling, and punctuation that were not noted in checking the note before signing. I have spent 35 minutes today reviewing labs, records, and history. Time includes coordinating care, interpretation of tests, and counseling the patient/family. This also includes time I spent with the patient for exam, treatment plan, and education as well as documenting clinical information in the electronic health record.
== END 2021-03-19 23:59 ==
LOC: WC 15:15
PROVIDERS: PCP Family Medicine Geriatric Medicine; Visit Provider Nurse Practitioner Family
DX: L89.152 Pressure ulcer of sacral region, stage 2 (principal); I10 Essential (primary) hypertension; E78.5 Hyperlipidemia, unspecified; N40.0 Benign prostatic hyperplasia without lower urinary tract symptoms; F02.80 Dementia in other diseases classified elsewhere, unspecified severity, without behavioral disturbance, psychotic disturbance, mood disturbance, and anxiety; G30.9 Alzheimer's disease, unspecified; I73.9 Peripheral vascular disease, unspecified; M06.9 Rheumatoid arthritis, unspecified; M51.36 Other intervertebral disc degeneration, lumbar region; G25.81 Restless legs syndrome
CPT/HCPCS: 11042; 15271; 87070; 87075; 87077; 87186; 87205; Q4196

== ENCOUNTER 2021-03-24 15:30 | Outpatient (RCR) | payer MEDICARE, OTHER, SELFPAY ==
[2021-03-20 00:14] VITALS: BP 144/74; PULSE 92; RESP 16; TEMP 36.2; O2SAT 95
[2021-03-24 15:08] VITALS: BP 173/87; PULSE 87; RESP 20; TEMP 37.1; BMI 23.5
--- NOTE | 2021-03-24 20:29 | PN.PCM_ITS ---
History of Present Illness Date of Service: 03/24/21 Chief Complaint: Nonhealing wound to buttock since November 2020 History of Wound: This is an 85-year-old white male who presents to the wound healing center today with complaint of nonhealing ulcer to the sacral region since November 2020. He has a past medical history significant for dementia, hypertension, hyperlipidemia, restless leg syndrome, gout, BPH, and recent GI bleed with recent hospital stay in November 2020 for GI bleed secondary to gastri tis complicated by acute encephalopathy. The patient presents with his today who states that for wound care they have been utilizing an Allevyn foam dressing for the last month that was prescribed to them by their primary care. States that they leave the dressing on for 5 or 6 days. Patient's does state that patient is mobile, however spends the majority of his time either in bed or in his reclining chair. He does have a offloading pressure relieving cushion in his chair. He denies any systemic or localized signs of infection at this time. He denies any other acute concerns. Past medical, family, and social history reviewed and not pertinent to the current visit and all other systems reviewed and negative with exception of those listed above. Progress of Wound: Site is healed without any signs of infection at this time, no new concerns Objective Data Objective Data Vital Signs: Vital Signs Temp Pulse Resp BP Pulse Ox 98.7 F 87 20 H 173/87 H 95 03/24/21 15:08 03/24/21 15:08 03/24/21 15:08 03/24/21 15:08 03/20/21 00:14 Weight: 178 lb Body Mass Index (BMI) 23.5 Charges/Coding Visit Charges Office Visits / Consults: 30417 OV L3 Est Physical Exam Const alert, no apparent distress and healthy appearing General Appearance: cooperative Exam Limitations: altered mental status HEENT normocephalic Head and Scalp: normal to inspection Mouth: oral and palatal mucosa normal Eyes General Eye: normal appearance of both eyes Resp normal respiratory effort, normal air movement and no use of accessory muscles Effort and Inspection: able to speak in complete sentences Auscultation: clear to auscultation bilaterally Cardio regular rate, regular rhythm, S1 normal heart sound, S2 normal heart sound, no murmurs and peripheral pulses 2+ throughout Palpation: normal PMI Rate: regular rate Heart Sounds: S1 normal and S2 normal GI normal to inspection, nondistended, normoactive bowel sounds, soft to palpation, non-tender and non-distended Palpation: soft Extremity normal to inspection and full ROM General Extremity: normal exam except as noted Skin Wound Narrative: Stage II pressure injury to sacral region healed with no signs of obvious infection at this time, Neuro moves all extremities Sensorium / Orientation: awake and alert Psych mental status grossly normal, thought process normal and denies hallucinations Appearance: grossly normal Attitude: calm Activity / Motor Behavior: appropriate eye contact Speech: normal speech Thought Process: normal thought process Thought Content: normal thought content Attention / Concentration: attention grossly intact Insight: insight good Judgement: judgement good Assessment/Plan Assessment/Plan (1) Pressure injury of sacral region, stage 2: CODE(S): L89.152 - Pressure ulcer of sacral region, stage 2 (2) Debility: CODE(S): R53.81 - Other malaise (3) Hypertension: CODE(S): I10 - Essential (primary) hypertension (4) Hyperlipidemia: CODE(S): E78.5 - Hyperlipidemia, unspecified (5) Essential hypertension: CODE(S): I10 - Essential (primary) hypertension (6) Alzheimers disease: CODE(S): G30.9 - Alzheimer's disease, unspecified; F02.80 - Dementia in other diseases classified elsewhere without behavioral disturbance (7) Rheumatoid arthritis: CODE(S): M06.9 - Rheumatoid arthritis, unspecified QUALIFIERS: Rheumatoid arthritis location: foot Rheumatoid factor presence: unspecified presence Laterality: right Qualified Code(s): M06.9 - Rheumatoid arthritis, unspecified (8) Peripheral arterial occlusive disease: CODE(S): I77.9 - Disorder of arteries and arterioles, unspecified (9) Gout: CODE(S): M10.9 - Gout, unspecified (10) Depression: CODE(S): F32.9 - Major depressive disorder, single episode, unspecified (11) DDD (degenerative disc disease), lumbar: CODE(S): M51.36 - Other intervertebral disc degeneration, lumbar region PLAN: The patient was seen and examined at the wound center today and was updated on the plan of care. His wound is healed without any signs of infection at this time. For wound protection he may utilize Adaptic cover with gauze. Discussed continuing offloading and continued increase protein supplementation. He will be discharged from the wound healing center today and follow-up if new wounds occur. His note was generated with [employer] dictation software. It may contain incorrect words, spelling, and punctuation that were not noted in checking the note before signing. I have spent 25 minutes today reviewing labs, records, and history. Time includes coordinating care, interpretation of tests, and counseling the patient/family. This also includes time I spent with the patient for exam, treatment plan, and education as well as documenting clinical information in the electronic health record.
== END 2021-03-24 16:06 | disposition home or self-care (01) ==
LOC: WC 15:30
PROVIDERS: PCP Family Medicine Geriatric Medicine; Visit Provider Nurse Practitioner Family
DX: L89.152 Pressure ulcer of sacral region, stage 2 (principal); I10 Essential (primary) hypertension; E78.5 Hyperlipidemia, unspecified; N40.0 Benign prostatic hyperplasia without lower urinary tract symptoms; F02.80 Dementia in other diseases classified elsewhere, unspecified severity, without behavioral disturbance, psychotic disturbance, mood disturbance, and anxiety; G30.9 Alzheimer's disease, unspecified; I73.9 Peripheral vascular disease, unspecified; M06.9 Rheumatoid arthritis, unspecified; I77.9 Disorder of arteries and arterioles, unspecified; M10.9 Gout, unspecified; F32.9 Major depressive disorder, single episode, unspecified; M51.36 Other intervertebral disc degeneration, lumbar region
CPT/HCPCS: 99213; G0463

== ENCOUNTER → 2021-03-30 10:13 | Outpatient (CLI) | payer MEDICARE, OTHER, SELFPAY ==
[2021-03-24 15:08] VITALS: BMI 23.5
[2021-03-30 12:41] LABS: Absolute Lymphocyte Count 1.39 X10^3/uL (0.83-4.51); Absolute Neutrophil Count 4.8 X10^3/uL (2.0-7.7); Basophil# 0.06 X10^3/uL; Basophil% 0.8 % (0-1); Eosinophil# 0.96 X10^3/uL; Eosinophils% 12.5 % (0-5); Hematocrit 36.1 % (40-54); Hemoglobin 10.8 g/dL (13.0-16.5); Lymphocyte # 1.39 X10^3/ul (0.83-4.51); Lymphocyte % 18.2 % (19-41); Mean Corp Hgb Conc 29.9 g/dL (32-36); Mean Corpuscular Hgb 25.5 pg (27.0-32.0); Mean Corpuscular Volume 85.1 fL (80-94); Mean Platelet Vol. 9.5 fl (6.2-12.0); Monocyte# 0.39 X10^3/uL; Monocyte% 5.1 % (0-10); NRBC Flagged by Analyzer 0 % (0-5); Neutrophil # 4.81 X10^3/uL (2.7-7.7); Neutrophil % 62.9 % (47-70); Platelet Count 253 K/mm3 (150-450); RBC Distribution Width CV 17.7 % (11.6-14.6); RBC Distribution Width SD 54.3 fl (35.1-43.9); Red Blood Count 4.24 M/mm3 (4.6-6.2); White Blood Count 7.7 K/mm3 (4.4-11.0)
[2021-03-30 13:15] LABS: ALB/GLOB Ratio 0.8 RATIO (0.9-2.4); AST(SGOT) 17 U/L (15-37); Alanine Aminotransfer ALT/SGPT 28 U/L (16-61); Albumin, Serum 3.5 g/dL (3.2-5.0); Alkaline Phosphatase 148 U/L (45-117); Anion Gap 6 (5-15); BUN 22 mg/dL (7-18); BUN/Creat Ratio 19.3 RATIO (10-20); Calcium,Total 9.1 mg/dL (8.5-10.1); Chloride 108 mmol/L (98-107); Creatinine, Serum 1.14 mg/dL (0.70-1.30); EST Glomerular Filtration Rate 65 mL/min (>60); Est Glom Filt Rate - Afr Amer 79 mL/min (>60); Globulin 4.4 g/dL (2.2-4.2); Glucose 90 mg/dL (74-106); Potassium 4.1 mmol/L (3.5-5.1); Protein, Total 7.9 g/dL (6.4-8.2); Sodium Level 139 mmol/L (136-145); Thyroid Stim Hormone (TSH) 1.29 uIU/mL (0.358-3.74); Uric Acid 3.7 mg/dL (3.5-7.2)
== END ==
PROVIDERS: PCP Family Medicine Geriatric Medicine; Visit Provider Family Medicine Geriatric Medicine
DX: I10 Essential (primary) hypertension (principal); E11.9 Type 2 diabetes mellitus without complications; M10.9 Gout, unspecified; E55.9 Vitamin D deficiency, unspecified
CPT/HCPCS: 36415; 80053; 82306; 84443; 84550; 85025

== ENCOUNTER → 2021-06-29 12:07 | Outpatient (CLI) | payer MEDICARE, OTHER, SELFPAY ==
[2021-06-29 12:26] LABS: Absolute Lymphocyte Count 1.34 X10^3/uL (0.83-4.51); Absolute Neutrophil Count 3.5 X10^3/uL (2.0-7.7); Basophil# 0.05 X10^3/uL; Basophil% 0.8 % (0-1); Eosinophil# 0.92 X10^3/uL; Eosinophils% 15.1 % (0-5); Hematocrit 34.8 % (40-54); Hemoglobin 11.3 g/dL (13.0-16.5); Lymphocyte # 1.34 X10^3/ul (0.83-4.51); Mean Corp Hgb Conc 32.5 g/dL (32-36); Mean Corpuscular Hgb 28.6 pg (27.0-32.0); Mean Corpuscular Volume 88.1 fL (80-94); Mean Platelet Vol. 9.4 fl (6.2-12.0); Monocyte# 0.31 X10^3/uL; Monocyte% 5.1 % (0-10); NRBC Flagged by Analyzer 0 % (0-5); Neutrophil # 3.46 X10^3/uL (2.7-7.7); Neutrophil % 56.8 % (47-70); Platelet Count 231 K/mm3 (150-450); RBC Distribution Width CV 15.5 % (11.6-14.6); RBC Distribution Width SD 49.3 fl (35.1-43.9); Red Blood Count 3.95 M/mm3 (4.6-6.2); White Blood Count 6.1 K/mm3 (4.4-11.0)
[2021-06-29 12:53] LABS: Vitamin D,25 Hydroxy 27.1 ng/mL
[2021-06-29 13:22] LABS: ALB/GLOB Ratio 0.6 RATIO (0.9-2.4); AST(SGOT) 17 U/L (15-37); Alanine Aminotransfer ALT/SGPT 19 U/L (16-61); Albumin, Serum 3.3 g/dL (3.2-5.0); Alkaline Phosphatase 34 U/L (45-117); Anion Gap 8 (5-15); BUN 29 mg/dL (7-18); BUN/Creat Ratio 21.2 RATIO (10-20); Calcium,Total 8.8 mg/dL (8.5-10.1); Chloride 110 mmol/L (98-107); Creatinine, Serum 1.37 mg/dL (0.70-1.30); EST Glomerular Filtration Rate 53 mL/min (>60); Est Glom Filt Rate - Afr Amer 64 mL/min (>60); Globulin 5.2 g/dL (2.2-4.2); Glucose 124 mg/dL (74-106); Potassium 3.4 mmol/L (3.5-5.1); Protein, Total 8.5 g/dL (6.4-8.2); Sodium Level 139 mmol/L (136-145); Thyroid Stim Hormone (TSH) 0.88 uIU/mL (0.358-3.74)
== END ==
PROVIDERS: PCP Family Medicine Geriatric Medicine; Visit Provider Family Medicine Geriatric Medicine
DX: E11.9 Type 2 diabetes mellitus without complications (principal); E55.9 Vitamin D deficiency, unspecified; I10 Essential (primary) hypertension; M10.9 Gout, unspecified
CPT/HCPCS: 36415; 80053; 82306; 84443; 84550; 85025

== ENCOUNTER → 2021-07-07 11:51 | Outpatient (CLI) | payer MEDICARE, OTHER, SELFPAY ==
[2021-07-11 14:08] LABS: PROELU- Albumin, Urine 35.2 % (.); PROELU- Alpha-1-Globulin,Ur 2.3 % (.); PROELU- Alpha-2-Globulin,Ur 15.5 % (.); PROELU- Beta Globulin, Ur 24.4 % (.); PROELU- Gamma Globulin, Ur 22.6 % (.); Total Protein, Ur 122.4 mg/dL (Not Estab.)
== END ==
LOC: POLAB3 11:52 → LABSPEC 11:52
PROVIDERS: PCP Family Medicine Geriatric Medicine; Visit Provider Family Medicine Geriatric Medicine
DX: R80.9 Proteinuria, unspecified (principal)
CPT/HCPCS: 84166

== ENCOUNTER 2021-07-16 08:18 | Inpatient (IN) | payer MEDICARE, OTHER, SELFPAY ==
[2021-07-16] VITALS (12 sets, daily range): BP systolic 149–178; BP diastolic 62–74; PULSE 73–105; RESP 16–23; TEMP 36.5–37.1; O2SAT 93–96; BMI 20.5
--- NOTE | 2021-07-16 08:36 | EKG12_ITS ---
Test Reason : Blood Pressure : / mmHG Vent. Rate : 074 BPM Atrial Rate : 074 BPM P-R Int : 170 ms QRS Dur : 094 ms QT Int : 432 ms P-R-T Axes : 018 020 082 degrees QTc Int : 479 ms Sinus rhythm with Premature supraventricular complexes Left ventricular hypertrophy with repolarization abnormality Abnormal ECG Confirmed by EDVIN CHAIDEZ, JOSE MARIA ([id number]), proposal editor MELISSA VARGAS ([id number]) on 07/19/2021 8:52:09 AM Referred By: ISHMAEL Confirmed By:JOSE MARIA PARDO MD
--- NOTE | 2021-07-16 08:38 | EX.ED.DYSGE1 ---
HPI History of Present Illness Chief Complaint: Sore Throat Informant: patient Narrative Narrative: Patient tells me that he gets some pain somewhere in his mouth. Sometimes it will go down his neck into his chest. Sometimes it even goes down into the abdomen. It then goes out of his body on the right side. Nothing seems to make it better or worse. There is note about drainage but he thinks that is not going on. However, his story varies while he tells it. He states his would be able to tell what is going on much better. He states right now he feels fine. He is denying fevers or chills. He cannot think of anything that makes the symptoms come and go. He denies cancer, chemotherapy or radiation. He denies heart disease. I really do not get a good feel as to what is going on. He is very nonspecific. I will talk to his and get her back here and see if we can get more details. We were able to keep in here. The issue is that the patient has had progressive difficulty swallowing. He states over 3 weeks. She states that for 4 days he cannot eat or drink anything. If he seems to swallow it but it then comes back up. This is gotten to the point he cannot swallow water or pills. Patient is not having pain that goes from his mouth through his chest abdomen and out to the world. He states things are not swallowing through now. No fevers or chills. He denies really pain with this. He thinks he might of had something sort of like this back in November after he had an ulcer but they are not sure. He has not had an endoscopy for this. [facility] Medical History (Updated 07/16/21 @ 15:[address] Anthony Bloom MD) Alzheimers disease Bilateral carotid artery stenosis BPH (benign prostatic hyperplasia) DDD (degenerative disc disease), lumbar Depression Duodenal bulb ulcer Essential hypertension Failure to thrive Hx of gout Hx of primary hypertension Mixed hyperlipidemia Peripheral arterial disease Pressure injury of sacral region, stage 2 RLS (restless legs syndrome) Segmental and somatic dysfunction of lumbar region Segmental and somatic dysfunction of pelvic region Syncope Home Medications allopurinol 300 mg tablet 300 mg PO DAILY 09/24/19 [History Last Taken 07/16/21 08:00] doxazosin 2 mg tablet 2 mg PO DAILY 09/24/19 [History Last Taken 07/16/21 08:00] pravastatin 20 mg tablet 20 mg PO DAILY 09/24/19 [History Last Taken 07/15/21 22:00] donepezil 5 mg PO DAILY 10/09/19 [History Last Taken 07/16/21 06:00] memantine 10 mg tablet 10 mg PO BID 05/04/20 [History Last Taken 07/16/21 06:00] pramipexole 1.5 mg tablet 4.5 mg PO QHS tab 05/06/20 [History Last Taken 07/15/21 22:00] sertraline 50 mg tablet 50 mg PO DAILY 05/06/20 [History Last Taken 07/16/21 06:00] polysaccharide iron complex [Ferrex 150] mg 07/16/21 [History Last Taken 07/16/21 08:00] sucralfate 07/16/21 [History Last Taken 07/16/21 08:00] Allergy/AdvReac Type Severity Reaction Status Date / Time No Known Allergies Allergy Verified 12/08/20 09:21 Family History Mother Arthritis Father Hypertension CVA (cerebral vascular accident) Surgical History Amputation of toe of left foot History of back surgery History of hernia repair Social History Smoking Status: Former smoker alcohol intake: never substance use type: does not use caffeine: No ROS ROS ED Constitutional Constitutional ED: Reports weight loss and other Details: About a 15 pound weight loss. Most of this is been in the last week or so. ; Denies fever(s) Eyes Eyes: Denies change in vision ENT ENT ED: Denies rhinorrhea or sore throat Cardiovascular Cardiovascular: Denies chest pain or palpitations Respiratory/Chest Respiratory/Chest: Denies cough or dyspnea Gastrointestinal Gastrointestinal: Reports other Details: He states he is not really vomiting. But he keeps regurgitating. ; Denies nausea or vomiting Genitourinary Genitourinary ED: Denies dysuria or hematuria Musculoskeletal Musculoskeletal: Denies back pain or neck pain Integumentary Denies rash Neurologic Neurologic: Denies headache(s) or weakness Psychiatric Psychiatric: Denies depression Endocrine Endocrinology: Denies polyuria EXAM Physical Exam Const Vital Signs: 07/16/21 08:19 07/16/21 08:21 07/16/21 09:29 Temperature 97.7 F L 97.7 F L Temperature Source Oral Oral Pulse Rate 82 82 82 Respiratory Rate 16 16 23 H Respiratory Effort Normal Non-Labored Respiratory Pattern Normal Blood Pressure 169/71 H 169/71 H 175/72 H Blood Pressure Mean 103 103 106 Pulse Ox 93 93 93 Oxygen Delivery Method Room Air Room Air 07/16/21 09:54 07/16/21 11:50 07/16/21 12:02 Temperature 98 F 98 F Temperature Source Temporal Temporal Pulse Rate 82 91 83 Respiratory Rate 18 19 H 22 H Respiratory Effort Respiratory Pattern Blood Pressure 156/70 H 178/74 H 178/74 H Blood Pressure Mean 98 108 108 Pulse Ox 93 96 Oxygen Delivery Method Room Air Room Air 07/16/21 12:28 Temperature Temperature Source Pulse Rate 83 Respiratory Rate 22 H Respiratory Effort Respiratory Pattern Blood Pressure 178/74 H Blood Pressure Mean 108 Pulse Ox 96 Oxygen Delivery Method Positive well nourished, well developed and cachectic General Appearance ED: well developed, cachectic and NAD Nutritional Appearance: cachectic HEENT HEENT Narrative: Oropharynx is still moist. I see no thrush or abscess or swelling. He does have dentures in. I see no ulcers or sores. trauma Eyes EOMs intact bilaterally Neck no JVD Neck Narrative: I feel no swelling or lymphadenopathy. Resp normal respiratory effort Cardio regular rate and regular rhythm GI normal to inspection, nondistended, normoactive bowel sounds and non-tender Palpation: soft Back/Spine no CVA tenderness Extremity normal to inspection General Extremety ED: Negative for edema or tenderness General Extremity: Negative for edema Neuro Sensorium / Orientation: alert Psych mental status grossly normal Skin no rashes or lesions noted and no wounds MDM MDM MDM Narrative Medical decision making narrative: Patient's blood work does show elevated white count at 16 4. Mild anemia at 11 5. Electrolytes do show a rise of his BUN and creatinine. Glucose is slightly elevated. Troponin is 60. LFTs show minimal rise of total bilirubin. Lactate is negative. Chest x-ray was pointing toward multilobar pneumonia. But this does not match his symptoms. I had concerns about cancer with his difficulty swallowing and age and weight loss. We did CT scans. This does show more signs of pneumonia for which she was treated with antibiotics. It also showed esophageal dilation. They cannot rule out a mass. With patient unable to take p.o., pneumonia, signs of dehydration I think he does need to come in the hospital. I discussed case with hospitalist. Lab Data Attestation: I reviewed the patient's lab results. Labs: Laboratory Results - last 24 hr 07/16/21 07/16/21 07/16/21 10:00 10:00 10:00 WBC 16.4 H RBC 3.93 L Hgb 11.5 L Hct 34.8 L MCV 88.5 MCH 29.3 MCHC 33.0 RDW Std Deviation 49.7 H RDW Coeff of Kristan 15.4 H Plt Count 258 MPV 9.0 Immature Gran % (Auto) 0.400 Neut % (Auto) 92.6 H Lymph % (Auto) 4.6 L [place] % (Auto) 2.3 Eos % (Auto) 0.0 Baso % (Auto) 0.1 Absolute Neuts (auto) 15.2 H Absolute Lymphs (auto) 0.75 L Nucleated RBC % 0 Sodium 144 Potassium 3.8 Chloride 114 H Carbon Dioxide 21.0 Anion Gap 9 BUN 45 H Creatinine 1.43 H Estim Creat Clear Calc 37.37 Est GFR (MDRD) Af Amer 61 Est GFR (MDRD) Non-Af 50 L BUN/Creatinine Ratio 31.5 H Glucose 158 H Lactic Acid Calcium 9.7 Total Bilirubin 1.10 H Direct Bilirubin 0.36 H AST 19 ALT 20 Alkaline Phosphatase 29 L Troponin I High Sens 60 Total Protein 8.7 H Albumin 3.1 L Globulin 5.6 H 07/16/21 13:05 WBC RBC Hgb Hct MCV MCH MCHC RDW Std Deviation RDW Coeff of Kristan Plt Count MPV Immature Gran % (Auto) Neut % (Auto) Lymph % (Auto) [place] % (Auto) Eos % (Auto) Baso % (Auto) Absolute Neuts (auto) Absolute Lymphs (auto) Nucleated RBC % Sodium Potassium Chloride Carbon Dioxide Anion Gap BUN Creatinine Estim Creat Clear Calc Est GFR (MDRD) Af Amer Est GFR (MDRD) Non-Af BUN/Creatinine Ratio Glucose Lactic Acid 1.8 Calcium Total Bilirubin Direct Bilirubin AST ALT Alkaline Phosphatase Troponin I High Sens Total Protein Albumin Globulin Radiography Diagnostic Testing: Clinical Impression(s) from Imaging Studies Chest X-Ray 07/16/21 08:45 IMPRESSION: Chronic obstructive pulmonary disease scarring areas of fibrosis. There is worsening interstitial infiltrates of the left lung which may represent interval infiltrate pneumonia. Electronically Signed: Moira Suarez MD at 9:42 EST Tel , Service support , Chest/Abdomen/Pelvis CT 07/16/21 10:28 IMPRESSION: Left lingular and left lower lobe pneumonia. This is superimposed on chronic lung disease with emphysematous change and areas of fibrosis. There is what is thought to be chronic biapical thickening. Cannot entirely exclude apical infiltrates. Abnormal distended obstructed appearance of the esophagus throughout the focal narrowing towards the distal esophagus which may represent stricture cannot entirely exclude mass. Chronic aspiration not excluded. Moderate constipation. Diverticulosis no diverticulitis. Bilateral renal atrophy. Calcification right kidney no hydronephrosis. Benign-appearing right renal cyst Nonspecific distention of the gallbladder Advanced degenerative change of the thoracolumbar spine. Electronically Signed: Moira Suarez MD at 12:19 EST Tel , Service support , EKG Initial EKG: Comments: EKG done for nonspecific chest symptoms initially. EKG read by me shows sinus rhythm with PACs. Signs of LVH. Secondary changes from LVH. No acute ST elevation or depression. No ventricular ectopy. VA interval and QRS duration is normal. QTc is toward high end at 479 ms. This is similar to 08 December 2020 Discharge Plan Dx/Rx/DC Orders Clinical Impression: Pneumonia, Inability to swallow Disposition Disposition: Acute [facility] Discharge Date/Time: 07/16/21 14:22
--- NOTE | 2021-07-16 08:45 | RAD_ITS ---
STUDY: X-RAY CHEST REASON FOR EXAM: Male, 85 years old. Sore throat TECHNIQUE: PA and lateral views of the chest. COMPARISON: February 14, 2021 chest x-ray March 15, 2020 chest x-ray FINDINGS: There is a pattern of interstitial thickening areas of emphysematous change. There is no demonstrated pleural abnormality. Normal size heart. Normal mediastinum and donal. Normal visualized pulmonary arteries. Normal visualized aortic arch and descending thoracic aorta. Normal visualized thoracic spine. Normal visualized ribs, clavicles, and shoulders. There is no demonstrated abnormality of the visualized soft tissue structures of the upper abdomen. RAD/Chest PA and Lateral IMPRESSION: Chronic obstructive pulmonary disease scarring areas of fibrosis. There is worsening interstitial infiltrates of the left lung which may represent interval infiltrate pneumonia. Electronically Signed: Moira Suarez MD at 9:42 EST Tel , Service support ,
[2021-07-16 10:06] LABS: Absolute Lymphocyte Count 0.75 X10^3/uL (0.83-4.51); Absolute Neutrophil Count 15.2 X10^3/uL (2.0-7.7); Basophil# 0.02 X10^3/uL; Basophil% 0.1 % (0-1); Hematocrit 34.8 % (40-54); Hemoglobin 11.5 g/dL (13.0-16.5); Lymphocyte # 0.75 X10^3/ul (0.83-4.51); Lymphocyte % 4.6 % (19-41); Mean Corpuscular Hgb 29.3 pg (27.0-32.0); Mean Corpuscular Volume 88.5 fL (80-94); Monocyte# 0.37 X10^3/uL; Monocyte% 2.3 % (0-10); NRBC Flagged by Analyzer 0 % (0-5); Neutrophil # 15.19 X10^3/uL (2.7-7.7); Neutrophil % 92.6 % (47-70); Platelet Count 258 K/mm3 (150-450); RBC Distribution Width CV 15.4 % (11.6-14.6); RBC Distribution Width SD 49.7 fl (35.1-43.9); Red Blood Count 3.93 M/mm3 (4.6-6.2); White Blood Count 16.4 K/mm3 (4.4-11.0)
[2021-07-16 10:23] LABS: Anion Gap 9 (5-15); BUN 45 mg/dL (7-18); BUN/Creat Ratio 31.5 RATIO (10-20); Calcium,Total 9.7 mg/dL (8.5-10.1); Chloride 114 mmol/L (98-107); Creatinine, Serum 1.43 mg/dL (0.70-1.30); EST Glomerular Filtration Rate 50 mL/min (>60); Est Glom Filt Rate - Afr Amer 61 mL/min (>60); Estimated Creatinine Clearance 37.37 ml/min; Glucose 158 mg/dL (74-106); Potassium 3.8 mmol/L (3.5-5.1); Sodium Level 144 mmol/L (136-145); Troponin-I HS 60 pg/mL (3.0-78.0)
--- NOTE | 2021-07-16 10:28 | CT_ITS ---
STUDY: CT CHEST, ABDOMEN T PELVIS WITH CONTRAST REASON FOR EXAM: Male, 85 years old. Mass Chest x-ray history: sore throat. RADIATION DOSAGE (If Supplied By Facility): CTDIvol = ( 10.45 ) mGy, DLP = ( 1190.85 ) mGycm TECHNIQUE: Transaxial imaging was performed following intravenous administration of IV 100mL Isovue-370. Multiplanar coronal and sagittal images were reformatted. Individualized dose optimization techniques were used for this CT. COMPARISON: No relevant priors. FINDINGS: CHEST There is biapical scarring. There is a pattern of emphysematous change throughout the lungs. There is patchy density in the left lingula and the left lower lobe suggesting interval pneumonia. There is groundglass opacity in the right lung base which may represent fibrotic change and/or atelectasis. There are areas of air trapping. There is no demonstrated pleural abnormality. There is mild to moderate cardiac enlargement. There are coronary calcifications. There is abnormal distended appearance of the esophagus. At the level of the aortic arch it measures 2.8 x 2.9 cm. At the level the gemma and measures 3 x 4.2 cm and is food or fluid filled. Towards the distal esophagus that measures 4 x 6 cm. There is wall thickening and a narrowed appearance at the level of the hiatus suggesting possible stricture. There is a window lymph node measuring 1.6 x 1.1 cm. There is an AP window lymph node measuring 2.2 x 1.5 cm. There is subcarinal lymphadenopathy. There are bilateral hilar lymph nodes suspicious on the left side measuring 14 x 8 mm. There is a minimal hiatal hernia. There is a right-sided hilar lymph node measuring 1.7 cm per Normal unenhanced pulmonary arteries. There is atherosclerotic calcification of the aortic arch with tortuosity and elongation of the aortic arch and descending thoracic aorta. There are multi-level degenerative changes of the thoracic spine. There is degenerative change in the thoracolumbar spine. There is no visualized acute loss of height or alignment. There is bilateral renal cortical thinning. There is moderate splenomegaly. ABDOMEN There is left lingular left lower lobe infiltrates. Possible right lower lobe infiltrate and/or fibrotic change. There is mild cardiac enlargement or coronary calcifications. Normal liver. The gallbladder bladder is distended. There is moderate splenomegaly. There is diffuse atrophy of the pancreas. Normal bilateral adrenal glands. There is right renal atrophy. There is a 7.6 mm stone lower pole right kidney. There is an exophytic cyst measuring 1.2 cm. There is left renal cortical thinning. Is mentioned above there is abnormal distention of the esophagus. There is a minimal hiatal hernia. There is focal narrowing of the distal esophagus distal to the distention. Normal small intestine. There is abundant stool within the colon. There is diverticulosis without visualized diverticulitis. There is non-visualization of the appendix. Aorta is partially calcified. There is calcification of the mesenteric artery. There is calcification of the celiac. There is calcification of bilateral renal arteries. Normal inferior vena cava. Normal retroperitoneum. Normal abdominal wall. There is advanced degenerative change of the thoracolumbar spine. There is an exaggerated lumbar lordosis and kyphosis. There is multilevel disc space narrowing and vacuum phenomenon and spondylosis multilevel moderate to severe neural foramina narrowing moderate to severe central stenosis. At the level of L4-L5 there is grade 1 anterolisthesis severe neural foramina narrowing severe central stenosis. PELVIS Normal urinary bladder. Normal visualized small intestine. There is moderate stool in the colon. There is diverticulosis without diverticulitis. There is no pelvic fluid. There is no pelvic lymphadenopathy or mass lesion. There is mild to moderate enlargement of the prostate gland. Normal visualized pelvic arteries. There is diffuse atherosclerotic calcification of the pelvic arteries with elongation and tortuosity. Normal abdominal wall. There is mild degenerative change of bilateral hip joints. There is degenerative change in the SI joints. CT/CT Chest, Abd, Pel w/Contrast IMPRESSION: Left lingular and left lower lobe pneumonia. This is superimposed on chronic lung disease with emphysematous change and areas of fibrosis. There is what is thought to be chronic biapical thickening. Cannot entirely exclude apical infiltrates. Abnormal distended obstructed appearance of the esophagus throughout the focal narrowing towards the distal esophagus which may represent stricture cannot entirely exclude mass. Chronic aspiration not excluded. Moderate constipation. Diverticulosis no diverticulitis. Bilateral renal atrophy. Calcification right kidney no hydronephrosis. Benign-appearing right renal cyst Nonspecific distention of the gallbladder Advanced degenerative change of the thoracolumbar spine. Electronically Signed: Moira Suarez MD at 12:19 EST Tel , Service support ,
[2021-07-16] MEDS: Ceftriaxone 1 GM/50 ML BAG IV (13:20)
--- NOTE | 2021-07-16 13:40 | HP.PCM.HOS_ITS ---
HPI - General General Date of Admission: 07/16/21 Date of Service: 07/16/21 Chief Complaint: Unable to swallow HPI Narrative JACK LEBRON, is a 85 M who presented to the emergency department [facility] on 07/16/2021 with the complaint of sore throat and inability to eat. The patient is extremely poor historian and has dementia at baseline. His was at the bedside and provided most of the history although her history was questionable as well. She indicates that on Sunday of this past week he was not able to eat or drink anything because he was not able to keep it down. She said he seems to try to swallow but things come right back up. She indicates that he has lost a significant amount of weight in the last several months but is unable to give me an number. She states that they've had to tighten the bands on his pants and tighten his belts. He had an EGD done in November 2020 when he came into the emergency department with melena. At that time he was vomiting every 2 to 3 days. His EGD was performed on 12/09/2020 and showed a small hiatal hernia with moderate erythematous mucosa in the gastric antrum, one nonbleeding cratered duodenal bulb ulcer that was 10 mm in the largest dimension and had eroded into the pylorus, the rest of the duodenal exam was normal. At that time he was placed on p.o. PPI twice daily. Pathology results showed mild gastritis and biopsies were negative for H. pylori. His vital signs in the emergency department were overall unremarkable his CBC shows a leukocytosis with a left shift, a mild anemia with a hemoglobin of 11.5 which appears to be stable and normal platelet count. His BMP shows mild hyperchloremia at 114, and elevated BUN compared to baseline and a slightly darryl vated serum creatinine from baseline at 1.43. His lactic acid was normal at 1.8 and high-sensitivity troponin was done was within normal limits. Chest x-ray was performed and showed COPD with scarring areas of fibrosis and a worsening infiltrate in the left lung. Given his presentation a CTA of his chest abdomen and pelvis was performed and showed a left lingular infiltrate with possible right lower lobe infiltrate and fibrotic changes, some renal atrophy, distention of the esophagus with a minimal hiatal hernia and focal narrowing of the distal esophagus which is distal to the distention. The esophagus at the aortic arch measures 2.8 x 2.9 cm and at the level of the gemma it is 3 x 4.2 cm and is fluid/food filled. Towards the distal esophagus it measures 4 x 6 cm. Radiology also comments that the esophageal wall is thickened and narrowed. There are also subcarinal and bilateral hilar lymphadenopathy findings that are concerning for malignancy. Given his functional decline, inability eat and finding on CT we requested to admit him to the hospital for further work-up. [facility] Medical History (Updated 07/16/21 @ 14:[address] Ramona Olvera DO) Alzheimers disease Bilateral carotid artery stenosis BPH (benign prostatic hyperplasia) DDD (degenerative disc disease), lumbar Depression Duodenal bulb ulcer Essential hypertension Failure to thrive Hx of gout Hx of primary hypertension Mixed hyperlipidemia Peripheral arterial disease Pressure injury of sacral region, stage 2 RLS (restless legs syndrome) Segmental and somatic dysfunction of lumbar region Segmental and somatic dysfunction of pelvic region Syncope Home Medications allopurinol 300 mg tablet 300 mg PO DAILY 09/24/19 [History Last Taken Unknown] doxazosin 2 mg tablet 2 mg PO DAILY 09/24/19 [History Last Taken 10/13/19 07:00] pravastatin 20 mg tablet 20 mg PO DAILY 09/24/19 [History Last Taken Unknown] donepezil 5 mg PO DAILY 10/09/19 [History Last Taken Unknown] memantine 10 mg tablet 10 mg PO BID 05/04/20 [History Last Taken Unknown] pramipexole 1.5 mg tablet 4.5 mg PO QHS tab 05/06/20 [History Last Taken Unk nown] sertraline 50 mg tablet 50 mg PO DAILY 05/06/20 [History Last Taken Unknown] amoxicillin 875 mg-potassium clavulanate 125 mg tablet 1 tab PO BID #20 tab 03/03/21 [Rx Last Taken Unknown] Allergy/AdvReac Type Severity Reaction Status Date / Time No Known Allergies Allergy Verified 12/08/20 09:21 Family History Mother Arthritis Father Hypertension CVA (cerebral vascular accident) Surgical History Amputation of toe of left foot History of back surgery History of hernia repair Social History Smoking Status: Former smoker alcohol intake: never substance use type: does not use caffeine: No ROS Constitutional Constitutional: Reports anorexia, change in weight and weakness; Denies chills, fatigue, fever(s), malaise, night sweats or other Eyes Eyes: Denies blurry vision, change in eye color, change in vision, discharge from eye(s), double vision, erythema, eye pain, loss of vision or other ENT HEENT: Reports abnormal hearing and hearing loss; Denies dysphagia, ear pain, epistaxis, headache(s), nasal congestion, nasal discharge, post nasal drip, sinus pressure, sore throat or other Cardiovascular Cardiovascular: Denies chest pain, claudication, dyspnea on exertion, edema, lightheadedness, orthopnea, palpitations, paroxysmal nocturnal dyspnea, rapid heart rate, syncope or other Respiratory/Chest Respiratory/Chest: Reports cough; Denies dyspnea, excessive phlegm production, hemoptysis, productive cough, shortness of breath at rest, shortness of breath with exertion, wheezing or other Gastrointestinal Gastrointestinal: Reports vomiting; Denies abdominal pain, coffee ground emesis, constipation, diarrhea, dyspepsia, hematemesis, hematochezia, loose stools, melena, nausea or other Genitourinary Genitourinary: Denies burning urination, difficulty urinating, dysuria, hematuria, nocturia, urinary frequency, urinary hesitancy, urinary incontinence, urinary urgency or other Musculoskeletal Musculoskeletal: Reports back pain, joint pain and joint stiffness; Denies arthralgias, joint swelling, myalgias, neck pain or other Neurologic Neurologic: Denies abnormal gait, abnormal speech, confusion, disequilibrium, dizziness, focal weakness, headache(s), numbness, paresthesias, seizure-like activity, seizures, syncope, tingling, tremor(s) or other Psychiatric Psychiatric: Denies anxiety, depression, homicidal ideation, suicidal ideation or other Endocrine Endocrinology: Reports change in body appearance; Denies cold intolerance, excessive sweating, heat intolerance, polydipsia, polyuria or other Hematologic/Lymphatic Hematologic/Lymphatic: Denies anemia, easy bleeding, easy bruising, lymphadenopathy or other Allergic/Immunologic Allergic/Immunologic: Denies rhinitis, hives, eczemia, asthma or other Vital Signs Vital Signs Vital Signs: 07/16/21 08:19 07/16/21 08:21 07/16/21 09:29 Temperature 97.7 F L 97.7 F L Temperature Source Oral Oral Pulse Rate 82 82 82 Respiratory Rate 16 16 23 H Respiratory Effort Normal Non-Labored Respiratory Pattern Normal Blood Pressure 169/71 H 169/71 H 175/72 H Blood Pressure Mean 103 103 106 Pulse Ox 93 93 93 Oxygen Delivery Method Room Air Room Air 07/16/21 09:54 07/16/21 11:50 07/16/21 12:02 Temperature 98 F 98 F Temperature Source Temporal Temporal Pulse Rate 82 91 83 Respiratory Rate 18 19 H 22 H Respiratory Effort Respiratory Pattern Blood Pressure 156/70 H 178/74 H 178/74 H Blood Pressure Mean 98 108 108 Pulse Ox 93 96 Oxygen Delivery Method Room Air Room Air 07/16/21 12:28 07/16/21 13:15 07/16/21 13:20 Temperature 98.7 F 98.7 F Temperature Source Temporal Temporal Pulse Rate 83 73 73 Respiratory Rate 22 H 19 H 19 H Respiratory Effort Respiratory Pattern Blood Pressure 178/74 H 149/71 H 149/71 H Blood Pressure Mean 108 97 97 Pulse Ox 96 96 96 Oxygen Delivery Method Room Air Room Air Weight Weight: 68.7 kg Body Mass Index (BMI) 0.1 Physical Exam Const alert Constitutional Narrative: Cachectic elderly white male sitting up in bed, significant confusion and is alert and 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 He is unclear where he is or what the month or year are, he is cooperative and pleasant General Appearance: cooperative Orientation / Consciousness: confused and disoriented HEENT normocephalic and head/scalp atraumatic; Negative for dentition normal HEENT Narrative: Temporal wasting, mild hard of hearing Eyes PERRL, EOMs intact bilaterally and conjunctivae normal Eyes Narrative: No scleral icterus Neck no lymphadenopathy, supple, no JVD and no carotid bruits Resp normal respiratory effort, no retractions and no use of accessory muscles Resp Narrative: Crackles in the left base Auscultation: crackles, rhonchi and wheezes Cardio regular rate, regular rhythm, S1 normal heart sound, S2 normal heart sound, no murmurs, no rub, no gallops, no clicks and no JVD GI normal to inspection, nondistended, normoactive bowel sounds, soft to palpation, non-tender and non-distended Extremity no clubbing, cyanosis or edema Peripheral Pulses: Yes pulses 2+ throughout Skin no rashes or lesions noted, no wounds, skin turgor normal, no jaundice, no petechiae and no mottling Skin Narrative: Evidence of healed wounds on bilateral lower extremities, skin is pale Neuro CN's II-XII intact bilaterally, moves all extremities and no focal motor deficits Sensorium / Orientation: awake and alert Speech: speech normal Psych Psych Narrative: Patient is very pleasant but confused Results Lab / Micro Data Attestation: I reviewed the patient's lab results. Result Diagrams: 07/16/21 10:00 07/16/21 10:00 Labs: Laboratory Results - last 24 hr 07/16/21 10:00: WBC 16.4 H, RBC 3.93 L, Hgb 11.5 L, Hct 34.8 L, MCV 88.5, MCH 29.3, MCHC 33.0, RDW Std Deviation 49.7 H, RDW Coeff of Kristan 15.4 H, Plt Count 258, MPV 9.0, Immature Gran % (Auto) 0.400, Neut % (Auto) 92.6 H, Lymph % (Auto) 4.6 L, [place] % (Auto) 2.3, Eos % (Auto) 0.0, Baso % (Auto) 0.1, Absolute Neuts (auto) 15.2 H, Absolute Lymphs (auto) 0.75 L, Nucleated RBC % 0 07/16/21 10:00: Sodium 144, Potassium 3.8, Chloride 114 H, Carbon Dioxide 21.0, Anion Gap 9, BUN 45 H, Creatinine 1.43 H, Estim Creat Clear Calc 37.37, Est GFR (MDRD) Af Amer 61, Est GFR (MDRD) Non-Af 50 L, BUN/Creatinine Ratio 31.5 H, Glucose 158 H, Calcium 9.7, Troponin I High Sens 60 Radiology Impression Chest X-Ray 07/16/21 08:45 IMPRESSION: Chronic obstructive pulmonary disease scarring areas of fibrosis. There is worsening interstitial infiltrates of the left lung which may represent interval infiltrate pneumonia. Electronically Signed: Moira Suarez MD at 9:42 EST Tel , Service support , Chest/Abdomen/Pelvis CT 07/16/21 10:28 IMPRESSION: Left lingular and left lower lobe pneumonia. This is superimposed on chronic lung disease with emphysematous change and areas of fibrosis. There is what is thought to be chronic biapical thickening. Cannot entirely exclude apical infiltrates. Abnormal distended obstructed appearance of the esophagus throughout the focal narrowing towards the distal esophagus which may represent stricture cannot entirely exclude mass. Chronic aspiration not excluded. Moderate constipation. Diverticulosis no diverticulitis. Bilateral renal atrophy. Calcification right kidney no hydronephrosis. Benign-appearing right renal cyst Nonspecific distention of the gallbladder Advanced degenerative change of the thoracolumbar spine. Electronically Signed: Moira Suarez MD at 12:19 EST Tel , Service support , Assessment & Plan Assessment/Plan (1) Debility: (2) Dysphagia: (3) Dehydration: (4) Left lower lobe pneumonia: (5) Severe malnutrition: (6) Esophageal dilatation: PLAN: Dysphagia/esophageal dilation -Patient having difficulty swallowing that has progressively worsened to the point over the last several days he has been unable to take in any kind of food including liquids -EGD done 12/09/2020 without any esophageal abnormalities -CT in the emergency department with abnormalities in the esophagus and abnormal lymphadenopathy in the chest -N.p.o. and hold p.o. meds -We'll need to rule out distal esophageal mass versus stricture -Consult speech therapy -Consult GI Left lower lobe pneumonia -Suspicious for aspiration -Start Unasyn -Check urine Legionella and strep pneumo antigens -Check sputum culture if able -Acapella and Pep -Patient is not requiring any supplemental oxygen at this time Dehydration -Secondary to decreased p.o. intake -BUN is elevated but no significant GINNA -IV fluids at 70 cc/h -Repeat lab in a.m. Debility -May need placement at discharge -PT/OT/speech consults Severe malnutrition -Patient will need to remain n.p.o. at this time -We'll initiate supplements when p.o. intake can be allowed for -Consult dietitian Gout -Hold allopurinol Dementia -Hold Aricept and Namenda Hyperlipidemia -Hold statin BPH -Hold doxazosin History of PUD -Patient with nonbleeding duodenal bulb ulcer in November 2020 -IV Protonix every 12 hours -Hemoglobin is stable without any signs of bleeding Depression -Hold sertraline COPD -Patient with remote history of tobacco abuse -PFTs done 02/17/2021 and show irreversible moderately severe mixed ventilatory defect -As needed nebulizers History of buttocks wound -Watch closely for skin breakdown -Nutritional status will need to be addressed DVT prophylaxis -SCDs -Lovenox 40 mg daily CODE STATUS -Full code as per discussion with the in the emergency department Charges/Coding Visit Charges Inpatient E&M: 55321 Init Hosp L3
[2021-07-16 13:42] LABS: Lactic Acid 1.8 mmol/L (0.4-1.9)
[2021-07-16 14:23] LABS: AST(SGOT) 19 U/L (15-37); Alanine Aminotransfer ALT/SGPT 20 U/L (16-61); Albumin, Serum 3.1 g/dL (3.2-5.0); Alkaline Phosphatase 29 U/L (45-117); Bilirubin, Direct 0.36 mg/dL (0.00-0.30); Globulin 5.6 g/dL (2.2-4.2); Protein, Total 8.7 g/dL (6.4-8.2)
[2021-07-16] MEDS: 0.9% Normal Saline 1,000 ML 75 ML IV (15:29)
--- NOTE | 2021-07-16 17:16 | EX.PCM.CON.G ---
HPI Consult Data Date of Consult: 07/16/21 HPI Narrative HPI Narrative: JACK LEBRON, is a 85 M who presents who presented to the emergency department [facility] on 07/16/2021 with the complaint of esophageal dysphagia. All most of the history is obtained from the chart and the patient's due to the fact that the patient has dementia. He underwent an endoscopy earlier this year for iron deficiency anemia with a hemoglobin of 7.1. His upper endoscopy was discovered to have a normal esophagus and an ulcer in the duodenal bulb was found. He was placed on PPI therapy. There was no sign of malignancy and ulcer. He comes in now with a hemoglobin of 11.5. He underwent a barium esophagram in February of this year and it did not show any signs of hiatal hernia or narrowing at the distal esophagus. There was note of a lack of tertiary esophageal contractions. He was noted to have progressive weight loss as per his . This prompted a CT of the chest abdomen pelvis. It showed significant dilation of the esophagus. It also showed pneumonia possibly secondary to aspiration pneumonia. I was consulted for the evaluation of his esophageal dysphagia. [facility] Medical History (Updated 07/16/21 @ 15:[address] Anthony Bloom MD) Alzheimers disease Bilateral carotid artery stenosis BPH (benign prostatic hyperplasia) DDD (degenerative disc disease), lumbar Depression Duodenal bulb ulcer Essential hypertension Failure to thrive Hx of gout Hx of primary hypertension Mixed hyperlipidemia Peripheral arterial disease Pressure injury of sacral region, stage 2 RLS (restless legs syndrome) Segmental and somatic dysfunction of lumbar region Segmental and somatic dysfunction of pelvic region Syncope Medical History unable to obtain Home Medications allopurinol 300 mg tablet 300 mg PO DAILY 09/24/19 [History Last Taken 07/16/21 08:00] doxazosin 2 mg tablet 2 mg PO DAILY 09/24/19 [History Last Taken 07/16/21 08:00] pravastatin 20 mg tablet 20 mg PO DAILY 09/24/19 [History Last Taken 07/15/21 22:00] donepezil 5 mg PO DAILY 10/09/19 [History Last Taken 07/16/21 06:00] memantine 10 mg tablet 10 mg PO BID 05/04/20 [History Last Taken 07/16/21 06:00] pramipexole 1.5 mg tablet 4.5 mg PO QHS tab 05/06/20 [History Last Taken 07/15/21 22:00] sertraline 50 mg tablet 50 mg PO DAILY 05/06/20 [History Last Taken 07/16/21 06:00] clopidogrel 75 mg PO DAILY 07/16/21 [History Last Taken 07/16/21 06:00] pantoprazole 40 mg PO BID 07/16/21 [History Last Taken 07/16/21 06:00] polysaccharide iron complex [Ferrex 150] mg 07/16/21 [History Last Taken 07/16/21 08:00] sucralfate 07/16/21 [History Last Taken 07/16/21 08:00] Allergy/AdvReac Type Severity Reaction Status Date / Time No Known Allergies Allergy Verified 12/08/20 09:21 Family History Mother Arthritis Father Hypertension CVA (cerebral vascular accident) Family History unable to obtain Surgical History Amputation of toe of left foot History of back surgery History of hernia repair Surgical History unable to obtain Social History Smoking Status: Former smoker alcohol intake: never substance use type: does not use caffeine: No ROS Review of Systems ROS Unobtainable: due to mental status Physical Exam Const alert General Appearance: cooperative Orientation / Consciousness: oriented to person HEENT hearing grossly normal bilaterally Head and Scalp: normal to inspection Face and Sinus: face symmetric Nose: external nose normal Mouth: oral and palatal mucosa normal Eyes conjunctivae normal General Eye: normal appearance of both eyes Neck full ROM General: normal visual inspection Lymph Lymphatic: no lymphadenopathy noted Chest inspection of chest normal and palpation of chest normal Chest: symmetrical chest wall rise Resp normal respiratory effort Effort and Inspection: able to speak in complete sentences Cardio regular rate GI non-distended Percussion: normal to percussion Rectal Exam: deferred Neuro Speech: speech normal Gait (Neuro): normal gait Lab / Micro Data Result Diagrams: 07/16/21 10:00 07/16/21 10:00 Labs: Laboratory Results - last 24 hr 07/16/21 10:00: WBC 16.4 H, RBC 3.93 L, Hgb 11.5 L, Hct 34.8 L, MCV 88.5, MCH 29.3, MCHC 33.0, RDW Std Deviation 49.7 H, RDW Coeff of Kristan 15.4 H, Plt Count 258, MPV 9.0, Immature Gran % (Auto) 0.400, Neut % (Auto) 92.6 H, Lymph % (Auto) 4.6 L, [place] % (Auto) 2.3, Eos % (Auto) 0.0, Baso % (Auto) 0.1, Absolute Neuts (auto) 15.2 H, Absolute Lymphs (auto) 0.75 L, Nucleated RBC % 0 07/16/21 10:00: Sodium 144, Potassium 3.8, Chloride 114 H, Carbon Dioxide 21.0, Anion Gap 9, BUN 45 H, Creatinine 1.43 H, Estim Creat Clear Calc 37.37, Est GFR (MDRD) Af Amer 61, Est GFR (MDRD) Non-Af 50 L, BUN/Creatinine Ratio 31.5 H, Glucose 158 H, Calcium 9.7, Troponin I High Sens 60 07/16/21 10:00: Total Bilirubin 1.10 H, Direct Bilirubin 0.36 H, AST 19, ALT 20, Alkaline Phosphatase 29 L, Total Protein 8.7 H, Albumin 3.1 L, Globulin 5.6 H 07/16/21 13:05: Lactic Acid 1.8 Radiology Impression Chest X-Ray 07/16/21 08:45 IMPRESSION: Chronic obstructive pulmonary disease scarring areas of fibrosis. There is worsening interstitial infiltrates of the left lung which may represent interval infiltrate pneumonia. Electronically Signed: Moira Suarez MD at 9:42 EST Tel , Service support , Chest/Abdomen/Pelvis CT 07/16/21 10:28 IMPRESSION: Left lingular and left lower lobe pneumonia. This is superimposed on chronic lung disease with emphysematous change and areas of fibrosis. There is what is thought to be chronic biapical thickening. Cannot entirely exclude apical infiltrates. Abnormal distended obstructed appearance of the esophagus throughout the focal narrowing towards the distal esophagus which may represent stricture cannot entirely exclude mass. Chronic aspiration not excluded. Moderate constipation. Diverticulosis no diverticulitis. Bilateral renal atrophy. Calcification right kidney no hydronephrosis. Benign-appearing right renal cyst Nonspecific distention of the gallbladder Advanced degenerative change of the thoracolumbar spine. 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 This would explain the patient's esophageal dysphagia. This also could be from an esophageal stricture secondary to erosive esophagitis versus an esophageal ring. His esophageal dysphagia also could be from an underlying malignancy causing a paraneoplastic contraction of the esophagus. I do not suspect that he has a primary esophageal lesion because he recently had an upper endoscopy that did not show any abnormalities. He should undergo repeat upper endoscopy as I suspect that he is aspirating from food that is stuck in the distal esophagus. We will perform esophageal dilation if needed. The lymphadenopathy is concerning. It could be reactive. He would benefit from an EUS guided biopsy or EBUS guided biopsy. (2) Left lower lobe pneumonia: PLAN: I suspect that this is an aspiration pneumonia secondary to his esophageal dysphagia as he has not had this problem before. (3) Upper GI bleed: PLAN: Previous upper GI bleed was thought to be secondary to duodenal ulcer. I will look at his duodenum to see how that ulcer is healing. Thank you very much for allowing me to precipitate in care of his patient. Charges/Coding Visit Charges Inpatient E&M: 91973 Init Hosp L3
[2021-07-16] MEDS: Haloperidol Lactate 5 MG/ML Vial 2 MG IM (23:16)
[2021-07-17] VITALS (17 sets, daily range): BP systolic 109–191; BP diastolic 57–97; PULSE 85–102; RESP 16–24; TEMP 36.4–37.6; O2SAT 88–95; BMI 20.5
--- NOTE | 2021-07-17 | IMM_PTH ---
PATIENT: JACK LEBRON LOC: 3 U#:[id number] AGE/SX: 85/M [place]OM: [facility] [place]16/[address]: Dr. Rogers Marquez DO : 1935 BED: 1 DIS: 07/20/2021 SPEC #: [id number] RECD: 07/25/21 15:11 STATUS: [place] REQ #: [id number] DANIELLE: 07/17/21 00:[address]: Kole Fraga DEPT: IMMUNOHISTOCHEMISTRY RECD BY: Laurie Kenney ENTERED: 07/25/21 15:12 SP TYPE: IMMUNO OTHR DR: Abby Saini, PRINTED CIRCUIT PHOTOGRAPHER-C DO Dr. Reva Medrano MD Dr. Kathryn Lee, DO Dr. Mark Tereletsky, DO Carolyn Graham PRINTED CIRCUIT PHOTOGRAPHER-C Andria Weston, PRINTED CIRCUIT PHOTOGRAPHER-C Rosa Palacio PRINTED CIRCUIT PHOTOGRAPHER-C Tissues: Esophagus, NOS Procedures: MACRO (initial) PHYSICIAN & [address] [address] SPECIMEN INFORMATION: Tissue Source: Esophagus, random biopsy Clinical Info: Inability to swallow, left lower lobe pneumonia, upper GI bleed Specimen Number: [id number] CPT code: 66353 METHODOLOGY: Deparaffinized sections of prefer/formalin-fixed tissue or PAP/DQ stained slides are incubated with monoclonal/polyclonal antibodies/oligonucleotide probes. Localization is made via biotin free immunoperoxidase method. Appropriate controls are performed and reacted as expected. Results on target cell population are indicated in the following table: RESULTS: ANTIBODY / CLONE RESULT Macro ([facility]) positive These tests were developed and their performance characteristics determined by [facility]. They may not have been cleared or approved by the U.S. Food and Drug Administration. The FDA has determined that such clearance or approval is not necessary. The above immunohistochemical/dualISH markers are ordered and reviewed by the Pathologist. INTERPRETATION: Esophagus, random biopsy: Negative for malignancy. ALEJANDRA:sepideh 07/26/2021
--- NOTE | 2021-07-17 01:56 | PCS.PANDOC ---
PANDEMIC DOCUMENTATION INITIATED: Date: 07/16/2021 Time: 1900
[2021-07-17] MEDS: hydrALAZINE 20 MG/ML Vial 10 MG IV ×3 (02:59→21:29)
[2021-07-17] MEDS: 0.9% Saline Lock 10 ML Syringe IV ×3 (02:59→21:29)
[2021-07-17] MEDS: 0.9% Normal Saline 1,000 ML 75 ML IV (05:25)
[2021-07-17 06:32] LABS: Absolute Lymphocyte Count 0.89 X10^3/uL (0.83-4.51); Absolute Neutrophil Count 12.6 X10^3/uL (2.0-7.7); Basophil# 0.02 X10^3/uL; Basophil% 0.1 % (0-1); Eosinophil# 0.04 X10^3/uL; Eosinophils% 0.3 % (0-5); Hematocrit 34.7 % (40-54); Hemoglobin 11.4 g/dL (13.0-16.5); Lymphocyte # 0.89 X10^3/ul (0.83-4.51); Lymphocyte % 6.3 % (19-41); Mean Corp Hgb Conc 32.9 g/dL (32-36); Mean Corpuscular Hgb 28.9 pg (27.0-32.0); Mean Corpuscular Volume 88.1 fL (80-94); Mean Platelet Vol. 9.4 fl (6.2-12.0); Monocyte# 0.49 X10^3/uL; Monocyte% 3.5 % (0-10); NRBC Flagged by Analyzer 0 % (0-5); Neutrophil # 12.59 X10^3/uL (2.7-7.7); Neutrophil % 89.3 % (47-70); Platelet Count 278 K/mm3 (150-450); RBC Distribution Width CV 15.1 % (11.6-14.6); RBC Distribution Width SD 49.3 fl (35.1-43.9); Red Blood Count 3.94 M/mm3 (4.6-6.2); White Blood Count 14.1 K/mm3 (4.4-11.0)
[2021-07-17 07:03] LABS: ALB/GLOB Ratio 0.5 RATIO (0.9-2.4); AST(SGOT) 30 U/L (15-37); Alanine Aminotransfer ALT/SGPT 19 U/L (16-61); Albumin, Serum 2.7 g/dL (3.2-5.0); Alkaline Phosphatase 31 U/L (45-117); Anion Gap 13 (5-15); BUN 43 mg/dL (7-18); BUN/Creat Ratio 35.5 RATIO (10-20); Calcium,Total 9.1 mg/dL (8.5-10.1); Chloride 120 mmol/L (98-107); Creatinine, Serum 1.21 mg/dL (0.70-1.30); EST Glomerular Filtration Rate 61 mL/min (>60); Est Glom Filt Rate - Afr Amer 73 mL/min (>60); Estimated Creatinine Clearance 44.16 ml/min; Globulin 5.6 g/dL (2.2-4.2); Glucose 96 mg/dL (74-106); Magnesium 2.3 mg/dL (1.6-2.6); Phosphorus 2.3 mg/dL (2.5-4.9); Potassium 3.3 mmol/L (3.5-5.1); Protein, Total 8.3 g/dL (6.4-8.2); Sodium Level 149 mmol/L (136-145)
--- NOTE | 2021-07-17 08:05 | EGD_PTH ---
PATIENT: JACK LEBRON LOC: MS3 U#:[id number] AGE/SX: 85/M ROOM: [facility] – [place] RE07/16/[address]: Dr. Rogers Marquez DO : 1935 BED: 1 DIS: 07/20/2021 SPEC #: [id number] RECD: 07/17/21 10:12 STATUS: MADISON RERadha #: [id number] DANIELLE: 07/17/21 08:[address]: Kole Fraga DEPT: SURGICAL PATHOLOGY RECD BY: Chasity Gallego ENTERED: 07/18/21 07:07 SP TYPE: EGD BIOPSY OTHR DR: Abyb Saini, KEY ACCOUNT MANAGER-C DO Dr. Reva Medrano MD Dr. Kathryn Lee, DO Carolyn Graham, NP-C Andria Weston NP-C Rosa Palacio NP-Jh Tissues: Esophagus, NOS Procedures: Special Stain Group I Surgery Specimen Level IV GMS Stain (control) Comments: @ Ordering doctor for SUIV edited from to @ by MARIANNA at 07/19/21823 @ Submitting doctor edited from to @ by MARIANNA at 07/19/21823 HEADER OPERATION: EGD PRE-OP DIAGNOSIS: Inability to swallow, left lower lobe pneumonia, upper GI bleed TISSUE SUBMITTED: random esophagus MICROSCOPIC DIAGNOSIS Esophagus, random biopsy: Extensive ulceration, fibrinopurulent exudation and reactive changes. See comment. SJ:sepideh 07/19/2021 COMMENT Epithelium is completely denuded. Special stain for fungi is negative for organisms; matched control is appropriate. Clinical correlation and appropriate follow up are necessary. Immunohistochemistry ([id number]) supports the above diagnosis. MICROSCOPIC DESCRIPTION Slides are reviewed. GROSS DESCRIPTION Received is one container labeled with the patient name and designated random esophagus. The specimen consists of multiple irregular fragments of sanchez soft tissue that in aggregate measure 1.5 x 0.3 x 0.1 cm. The specimen is totally submitted in one cassette. / ALEJANDRA:sepideh 07/18/21 TC:2 CPT: 12853, 17104
--- NOTE | 2021-07-17 09:38 | OP.EGD_ITS ---
Patient Name: rFanco Yates Procedure Date: 07/17/2021 7:49 AM Date of : 1935 Age: 85 Procedure: Upper GI endoscopy Indications: Dysphagia Providers: Kole Fraga DO Medicines: See the Anesthesia note for documentation of the administered medications Patient Profile: This is an 85 year old male. Refer to note in patient chart for documentation of history and physical. Patient has symptoms of dysphagia with both liquids and solids. The symptoms first began one week ago. He is status post EGD for biopsy within the past six months. Complications: No immediate complications. Procedure: Pre-Anesthesia Assessment: - Prior to the procedure, a History and Physical was performed, and patient medications and allergies were reviewed. The patient is competent. The risks and benefits of the procedure and the sedation options and risks were discussed with the patient. All questions were answered and informed consent was obtained. Patient identification and proposed procedure were verified by the physician in the pre-procedure area. Mental Status Examination: alert and oriented. Airway Examination: normal oropharyngeal airway and neck mobility. Respiratory Examination: clear to auscultation. CV Examination: normal. Prophylactic Antibiotics: The patient does not require prophylactic antibiotics. Prior Anticoagulants: The patient has taken no previous anticoagulant or antiplatelet agents. ASA Grade Assessment: II - A patient with mild systemic disease. After reviewing the risks and benefits, the patient was deemed in satisfactory condition to undergo the procedure. The anesthesia plan was to use moderate sedation / analgesia (conscious sedation). Immediately prior to administration of medications, the patient was re-assessed for adequacy to receive sedatives. The heart rate, respiratory rate, oxygen saturations, blood pressure, adequacy of pulmonary ventilation, and response to care were monitored throughout the procedure. The physical status of the patient was re-assessed after the procedure. After obtaining informed consent, the endoscope was passed under direct vision. Throughout the procedure, the patient's blood pressure, pulse, and oxygen saturations were monitored continuously. The Endoscope was introduced through the mouth, and advanced to the. The upper GI endoscopy was accomplished without difficulty. The patient tolerated the procedure well. Moderate Sedation: Moderate (conscious) sedation was administered by the endoscopy nurse and supervised by the endoscopist. The patient's oxygen saturation, heart rate, blood pressure and response to care were monitored. Total physician intraservice time was 15 minutes. Moderate (conscious) sedation was administered by the endoscopy nurse and supervised by the endoscopist. The patient's oxygen saturation, heart rate, blood pressure and response to care were monitored. Total physician intraservice time was 15 minutes. Scope In: 8:11:44 AM Scope Out: 8:46:23 AM Total Procedure Duration Time 0 hours 34 minutes 39 seconds Findings: Esophagitis was found. Biopsies were taken with a cold forceps for histology. Verification of patient identification for the specimen was done. Estimated blood loss was minimal. Biopsies were taken with a cold forceps for histology. Verification of patient identification for the specimen was done. Estimated blood loss was minimal. The lumen of the upper third of the esophagus was severely dilated. The lower third of the esophagus was grossly tortuous. Food was found in the entire esophagus. Removal of food was accomplished. One benign-appearing, intrinsic stenosis was found 34 to 39 cm from the incisors. This stenosis was severe (stenosis; an endoscope cannot pass) and measured 2 mm (inner diameter) x 3 cm (in length). The stenosis was traversed after dilation. A TTS dilator was passed through the scope. Dilation with a 15-16.5-18 mm balloon dilator was performed to 18 mm. The dilation site was examined following endoscope reinsertion and showed mild improvement in luminal narrowing. Estimated blood loss was minimal. A medium-sized hiatal hernia was present. One non-bleeding linear gastric ulcer with no stigmata of bleeding was found in the prepyloric region of the stomach. The lesion was 6 mm in largest dimension. The second portion of the duodenum was normal. A obstructing Schatzki ring was found in the lower third of the esophagus. A TTS dilator was passed through the scope. Dilation with a 15-16.5-18 mm balloon dilator was performed to 18 mm. The dilation site was examined following endoscope reinsertion and showed mild improvement in luminal narrowing. Estimated blood loss: none. Impression: - LA Grade D erosive esophagitis. Biopsied. - Dilation in the upper third of the esophagus. - Tortuous esophagus. - Food in the esophagus. Removal was successful. - Benign-appearing esophageal stenosis. Dilated. - Medium-sized hiatal hernia. - Non-bleeding gastric ulcer with no stigmata of bleeding. - Normal second portion of the duodenum. Recommendation: - [facility] to [facility] care. - Full liquid diet for 2 weeks. Fluconazole 200 mg a day x14 days - Give Protonix (pantoprazole): initiate therapy with 80 mg IV bolus, then 8 mg/hr IV by continuous infusion today. - Continue present medications. Procedure Code(s): --- Professional --- 94370, Moderate sedation services provided by the same physician or other qualified health intensive care medicine specialist performing the diagnostic or therapeutic service that the sedation supports, requiring the presence of an independent trained observer to assist in the monitoring of the patient's level of consciousness and physiological status; initial 15 minutes of intraservice time, patient age 5 years or older [address], Moderate sedation services provided by the same physician or other qualified health intensive care medicine specialist performing the diagnostic or therapeutic service that the sedation supports, requiring the presence of an independent trained observer to assist in the monitoring of the patient's level of consciousness and physiological status; initial 15 minutes of intraservice time, patient age 5 years or older CPT copyright 2017 [employer]. All rights reserved. The codes documented in this report are preliminary and upon bevel mill operator review may be revised to meet current compliance requirements. Kole Fraga DO 07/17/2021 9:37:39 AM This report has been signed electronically. Number of Addenda: 1 Note Initiated On: 07/17/2021 7:49 AM Addendum Number: 1 Addendum Date: 04/21/2022 6:36:00 AM MAC was used instead of moderate sedation for this patient. Kole Fraga DO 04/21/2022 6:36:08 AM This report has been signed electronically.
[2021-07-17] MEDS: Dextrose 5%-0.2% NS 1,000 ML 70 ML IV (09:59)
[2021-07-17] MEDS: Enoxaparin 40 MG/0.4 ML Syringe SC (10:48)
[2021-07-17] MEDS: Potassium Chloride IVPB 10 MEQ 100 MEQ IV BOLUS ×4 (13:41→17:26)
--- NOTE | 2021-07-17 14:13 | PN.HOSP_ITS ---
Subjective Subjective Patient is sleepy as he is status post EGD. Patient was some sundowning and agitation overnight although did calm down. As needed Haldol used twice with questionable effect. Objective Data Objective Data Vital Signs: Vital Signs Temp Pulse Resp BP Pulse Ox 99.6 F H 96 18 184/97 H 93 07/17/21 10:54 07/17/21 13:52 07/17/21 10:54 07/17/21 13:52 07/17/21 10:54 Oxygen Flow Rate (L/min) 2 Oxygen Delivery Method Room Air Weight: 68.7 kg Body Mass Index (BMI) 20.5 Intake & Output: Intake and Output for Last 24 Hours 07/15/21 07/16/21 07/17/21 23:59 23:59 23:59 Intake Total 840.75 / 840.75 1385.42 / 1385.42 Output Total 300 / 300 400 / 400 Balance 540.75 / 540.75 985.42 / 985.42 Medical Nutrition Assessment Dietitian: Malnutrition Criteria Met Start: 07/17/21 12:47 Freq: Status: Active Protocol: Document 07/17/21 12:47 SLA (Rec: 07/17/21 12:47 SLA [id number]) Nutrition Malnutrition Evidence of Malnutrition Exists Yes Malnutrition (severe): Chronic Evidenced By Suboptimal Energy Intake ( Severe),Weight Loss (Severe), Physical Changes (Moderate) Clinical Problem Chronic Disease or Condition Related Malnutrition Etiology related to alzheimers and aspiration pna/dysphgia Signs/Symptoms as evidenced by NPO status d/t unsafe for po diet and 10.4% wt loss x 6 mo. Pt also w/ fat/muscle loss - temporal/ orbital areas on face, clavicle regions, arms/legs. Status Active Problem Recommendation Dietitian Recommendations/Changes If able to resume po diet, rec liberal regular diet - consistency per KNITTED CLOTH EXAMINER - with ONS at meals and medpass. If pt unable to resume po diet , rec nutrition support to help prevent further decline in pt nutritional status - if in accordance w/ pt/family wishes - consult for rec prn. Lab / Micro Data Result Diagrams: 07/17/21 06:10 07/17/21 06:10 Labs: Laboratory Results - last 24 hr 07/16/21 10:00: Total Bilirubin 1.10 H, Direct Bilirubin 0.36 H, AST 19, ALT 20, Alkaline Phosphatase 29 L, Total Protein 8.7 H, Albumin 3.1 L, Globulin 5.6 H 07/17/21 06:10: WBC 14.1 H, RBC 3.94 L, Hgb 11.4 L, Hct 34.7 L, MCV 88.1, MCH 28.9, MCHC 32.9, RDW Std Deviation 49.3 H, RDW Coeff of Kristan 15.1 H, Plt Count 278, MPV 9.4, Immature Gran % (Auto) 0.500, Neut % (Auto) 89.3 H, Lymph % (Auto) 6.3 L, [place] % (Auto) 3.5, Eos % (Auto) 0.3, Baso % (Auto) 0.1, Absolute Neuts (auto) 12.6 H, Absolute Lymphs (auto) 0.89, Nucleated RBC % 0 07/17/21 06:10: Sodium 149 H, Potassium 3.3 L, Chloride 120 H, Carbon Dioxide 16.0 L, Anion Gap 13, BUN 43 H, Creatinine 1.21, Estim Creat Clear Calc 44.16, Est GFR (MDRD) Af Amer 73, Est GFR (MDRD) Non-Af 61, BUN/Creatinine Ratio 35.5 H , Glucose 96, Calcium 9.1, Phosphorus 2.3 L, Magnesium 2.3, Total Bilirubin 0.80, AST 30, ALT 19, Alkaline Phosphatase 31 L, Total Protein 8.3 H, Albumin 2.7 L, Globulin 5.6 H, Albumin/Globulin Ratio 0.5 L, TSH 1.00 Micro: Microbiology 07/16/21 20:55 Urine, Clean Catch Legionella Antigen - Final 07/16/21 20:55 Urine, Clean Catch Streptococcus pneumoniae Antigen (M - Final Physical Exam Const alert Constitutional Narrative: Cachectic elderly white male lying in bed, he has just returned from EGD and therefore is sleepy, appears comfortable and nontoxic General Appearance: cooperative Orientation / Consciousness: confused and disoriented Exam Limitations: other limitations Nutritional Appearance: cachectic HEENT normocephalic and head/scalp atraumatic; Negative for dentition normal HEENT Narrative: Mallampati 1 Head and Scalp: normocephalic Resp normal respiratory effort, no retractions and no use of accessory muscles Resp Narrative: Crackles in the left base Auscultation: crackles, rhonchi and wheezes Cardio regular rate, regular rhythm, S1 normal heart sound, S2 normal heart sound, no murmurs, no rub, no gallops, no clicks and no JVD GI normal to inspection, nondistended, normoactive bowel sounds, soft to palpation, non-tender and non-distended Extremity no clubbing, cyanosis or edema Neuro Neuro Narrative: Patient is sleeping soundly as he is just returned back from EGD Assessment & Plan Assessment/Plan (1) Debility: (2) Dysphagia: (3) Dehydration: (4) Left lower lobe pneumonia: (5) Severe malnutrition: (6) Esophageal dilatation: PLAN: Dysphagia/esophageal dilation -Patient was having difficulty swallowing that has progressively worsened to the point over the last several days he has been unable to take in any kind of food including liquids--> states this is progressively been worsening in the last year -EGD done 12/09/2020 without any esophageal abnormalities -CT in the emergency department with abnormalities in the esophagus and abnormal lymphadenopathy in the chest -EGD was done today by Dr. Fraga and showed esophagitis (biopsies taken), the lumen of the upper third of the esophagus was severely dilated in the lower third was grossly torturous with food found in the entire esophagus--> food removal was accomplished and 1 benign-appearing intrinsic stenosis was found at the distal esophagus that was severe and the endoscope was not able to pass initially but was traversed after dilation, 1 medium size hiatal hernia, 1 nonbleeding linear gastric ulcer with no stigmata of bleeding, obstructing Schatzki's ring at the distal third of the esophagus that was dilated -Fluconazole 200 mg daily x14 days was initiated -Okay to initiate full liquid diet for at least 2 weeks -Supplements added with Ensure -Speech therapy consult pending -Protonix drip -We will continue IV fluids at this time and reevaluate lab work and p.o. intake in the next 24 hours -We will continue to hold p.o. pills until we see how patient does with liquids -Palliative care consult placed -Dr. Fraga from is following Left lower lobe pneumonia -Suspicious for aspiration -Continue Unasyn and would complete a total 7-day course of aspiration pneumonia coverage -Legionella and strep pneumo antigens are negative -Patient has been unable to produce a sputum culture -Acapella and Pep if patient able with dementia -Patient remains on room air Mediastinal and hilar lymphadenopathy -Etiology questionable -We will treat for aspiration -May need EBUS if aggressive care is desired by family -Could consider repeat CT scan in 6 weeks as well Dehydration -Secondary to decreased p.o. intake -BUN is elevated but no significant GINNA -Continue IV fluids at 70 cc/h -Repeat lab in a.m. Hypernatremia/hyperchloremia -We will stop normal saline and switch to D5 quarter normal with repeat BMP in a.m. Non-anion gap metabolic acidosis secondary to hyperchloremia -IV fluids changed -Repeat lab in a.m. Hypokalemia -Potassium replacement with 40 mEq IV -Repeat lab in a.m. Hypophosphatemia -21 mmol of K-Phos -Repeat Phos level in a.m. -Suspect electrolyte abnormalities may worsen as he may suffer from refeeding syndrome once nutrition is reintroduced Debility -May need placement at discharge -PT/OT/speech consults Severe malnutrition -Full liquid diet initiated -Ensure ordered -Patient may suffer from refeeding and will monitor electrolytes closely -Dietitian consult in place Gout -Hold allopurinol Dementia-Alzheimer's type -Hold Aricept and Namenda Hyperlipidemia -Hold statin BPH -Hold doxazosin History of PUD -Patient with nonbleeding duodenal bulb ulcer in November 2020 -Patient placed on a Protonix drip -Hemoglobin is stable without any signs of bleeding Depression -Hold sertraline COPD -Patient with remote history of tobacco abuse -PFTs done 02/17/2021 and show irreversible moderately severe mixed ventilatory defect -As needed nebulizers History of buttocks wound -Watch closely for skin breakdown -Nutritional status will need to be addressed DVT prophylaxis -SCDs -Lovenox 40 mg daily CODE STATUS -Full code as per discussion with the in the emergency department Charges/Coding Visit Charges Inpatient E&M: 16775 Subs Hosp L2
--- NOTE | 2021-07-17 15:57 | NURSING ---
hospice nurse Tiffani updated on consult. information faxed.
[2021-07-18] VITALS (14 sets, daily range): BP systolic 117–186; BP diastolic 61–90; PULSE 81–100; RESP 16–22; TEMP 36.3–37; O2SAT 92–95
[2021-07-18] MEDS: Dextrose 5%-0.2% NS 1,000 ML 70 ML IV ×2 (03:34→20:15)
[2021-07-18] MEDS: 0.9% Saline Lock 10 ML Syringe IV ×2 (03:37→20:37)
[2021-07-18] MEDS: hydrALAZINE 20 MG/ML Vial 10 MG IV ×3 (03:37→20:36)
[2021-07-18 05:34] LABS: Absolute Lymphocyte Count 0.99 X10^3/uL (0.83-4.51); Absolute Neutrophil Count 9.6 X10^3/uL (2.0-7.7); Basophil# 0.03 X10^3/uL; Basophil% 0.3 % (0-1); Eosinophil# 0.07 X10^3/uL; Eosinophils% 0.6 % (0-5); Hematocrit 32.6 % (40-54); Hemoglobin 10.8 g/dL (13.0-16.5); Lymphocyte # 0.99 X10^3/ul (0.83-4.51); Lymphocyte % 8.9 % (19-41); Mean Corp Hgb Conc 33.1 g/dL (32-36); Mean Corpuscular Hgb 29.2 pg (27.0-32.0); Mean Corpuscular Volume 88.1 fL (80-94); Mean Platelet Vol. 9.6 fl (6.2-12.0); Monocyte# 0.39 X10^3/uL; Monocyte% 3.5 % (0-10); NRBC Flagged by Analyzer 0 % (0-5); Neutrophil # 9.57 X10^3/uL (2.7-7.7); Neutrophil % 86.2 % (47-70); Platelet Count 266 K/mm3 (150-450); RBC Distribution Width CV 15.2 % (11.6-14.6); White Blood Count 11.1 K/mm3 (4.4-11.0)
[2021-07-18 06:05] LABS: ALB/GLOB Ratio 0.4 RATIO (0.9-2.4); AST(SGOT) 30 U/L (15-37); Alanine Aminotransfer ALT/SGPT 18 U/L (16-61); Albumin, Serum 2.2 g/dL (3.2-5.0); Alkaline Phosphatase 30 U/L (45-117); Anion Gap 10 (5-15); BUN 29 mg/dL (7-18); BUN/Creat Ratio 26.9 RATIO (10-20); Calcium,Total 8.8 mg/dL (8.5-10.1); Chloride 122 mmol/L (98-107); Creatinine, Serum 1.08 mg/dL (0.70-1.30); EST Glomerular Filtration Rate 69 mL/min (>60); Est Glom Filt Rate - Afr Amer 84 mL/min (>60); Estimated Creatinine Clearance 49.19 ml/min; Globulin 5.4 g/dL (2.2-4.2); Glucose 116 mg/dL (74-106); Magnesium 2.4 mg/dL (1.6-2.6); Phosphorus 2.4 mg/dL (2.5-4.9); Potassium 3.2 mmol/L (3.5-5.1); Protein, Total 7.6 g/dL (6.4-8.2); Sodium Level 148 mmol/L (136-145)
[2021-07-18] MEDS: Fluconazole 100 MG in Viaflex Bag 1 BAG 50 MG IV (09:59)
[2021-07-18] MEDS: Enoxaparin 40 MG/0.4 ML Syringe SC (10:15)
--- NOTE | 2021-07-18 12:50 | CASEMGMT ---
Social Work Note SW reviewed chart. There was an order for Hospice/Palliative Care. SW spoke with Jamilah from [facility], they didn't receive any information regarding pt. SW updated physician. Mar Vallecillo [employer] DESIGNER, [employer] APPRENTICE
--- NOTE | 2021-07-18 13:18 | CASEMGMT ---
Pt screened with [facility] Palliative Care Screening Tool, pt met criteria. Order completed by physician already. Scanned documents and emailed referral at this time.
--- NOTE | 2021-07-18 13:31 | CASEMGMT ---
TC to pt cell and home phone to complete assessment, no answer. Left message on home phone with call back number.
--- NOTE | 2021-07-18 15:42 | ST.MBS ---
Modified Barium Swallow - Patient Information Study Date: 07/18/21 Study Time: 14:00 Direct Billable Minutes: 120 Total Minutes procedure & reportin Diagnosis: Dysphagia, unspecified (R13.10) Referring Physician: Rogers Marquez Reason for Referral: MBS study necessary to improve specificity of dysphagia interventions selected and further elucidate necessary diet texture/liquid consistency/compensatory strategy recommendations as appropriate. Medical History: Pt is a 85 y/o male who presented to the [facility] ED on 07/16/2021 with the complaint of sore throat and inability to eat or drink. The patient is an extremely poor historian. reports inability to keep food/liquid down /w a significant weight loss over the past several months. Chest x-ray was performed and showed COPD with scarring areas of fibrosis and a worsening infiltrate in the left lung. Given his presentation a CTA of his chest abdomen and pelvis was performed and showed a left lingular infiltrate with possible right lower lobe infiltrate and fibrotic changes, some renal atrophy, distention of the esophagus with a minimal hiatal hernia and focal narrowing of the distal esophagus which is distal to the distention. PMHx: Alzheimer's disease, Bilateral carotid artery stenosis, BPH (benign prostatic hyperplasia), DDD (degenerative disc disease) lumbar, Depression, Duodenal bulb ulcer, Essential hypertension, Failure to thrive, Hx of gout, Hx of primary hypertension, Mixed hyperlipidemia, Peripheral arterial disease, Pressure injury of sacral region stage 2, RLS (restless legs syndrome), Segmental and somatic dysfunction of lumbar region, Segmental and somatic dysfunction of pelvic region, Syncope Pt underwent an EDG 07/17/21 a.m. which revealed: esophagitis, upper third of the esophagus was severely dilated, lower third of the esophagus was grossly tortuous, food was found in the entire esophagus - was removed, benign-appearing intrinsic stenosis (severe)was found 34 to 39 cm from the incisors - was dilated and showed mild improvement in luminal narrowing, medium-sized hiatal hernia, non-bleeding gastric ulcer with no stigmata of bleeding, an obstructing Schatzki ring was found in the lower third of the esophagus - was dilated and showed mild improvement in luminal narrowing. He was recommended for FULL LIQUID DIET for 2 weeks was recommended following EGD completion. Pt was evaluated by ADJUNCT LECTURER on 07/17/21. Pt suspicious for silent aspiration and recommended to maintain NPO status - OK for oral meds w/ purees - frequent oral hygiene. MBS recommended for 07/19/21 to objectively assess swallow function under fluoroscopy. ADJUNCT LECTURER spoke with Dr. Marquez. Pt is okay to trial thin liquids, thickened liquids, pudding, and cookie for MBS study. Mental Status: Impaired Respiratory Status: Oxygenating on 2L/M nasal cannula - Penetration-Aspiration Scale Penetration-Aspiration Scale: OBJECTIVE ASSESSMENT OF SWALLOW FUNCTION (QUANTITATIVE ? PER TRIAL): PENETRATION / ASPIRATION SCALE (GIRALDO): 1 = does not enter airway 2 = enters airway/above vocal folds/ejected 3 = enters airway/above vocal folds/not ejected 4 = enters airway/contacts vocal folds/ejected 5 = enters airway/contacts vocal folds/not ejected 6 = enters airway/below vocal folds/ejected 7 = enters airway/below vocal folds/not ejected despite effort 8 = enters airway/below vocal folds/no effort VIDEOFLOROSCOPIC SCALE SCORE (GIRALDO): Grade I = aspiration of material that has penetrated into the laryngeal vestibule, intact cough reflex Grade II = aspiration < 10 % of the bolus, intact cough reflex Grade III = aspiration of < 10 % of the bolus, reduced cough reflex or aspiration of > 10 % of the bolus, intact cough reflex Grade IV = aspiration of > 10 % of the bolus, reduced cough reflex - Penetration-Aspiration Scale Score Thin Liquid via teaspoon Result: 1= does not enter airway Comment: Majority of bolus remained in floor of the mouth after the swallow. Thin Liquid via teaspoon Trial 2 Result: 8= enters airway/below vocal folds/no effort Thin Liquid via small single sip from cup Result: 7= enters airways/below vocal folds/not ejected despite effort [place] Thick Liquid via 1/2 teaspoon Result: 3= enters airways/above vocal folds/not ejected Comment: Patient required max cues to initiate double swallow. Honey Thick Liquid via 1/2 teaspoon Result: 3= enters airways/above vocal folds/not ejected Comment: ADJUNCT LECTURER observed post prandial aspiration of previous nectar thick trial. Significant retrograde flow of honey thick bolus through UES resulting in severe pharyngeal residue. Pudding via 1/2 teaspoon Result: 3= enters airways/above vocal folds/not ejected Comment: Significant retrograde flow of bolus through UES resulting in severe pharyngeal residue. - Oral Phase Labial Seal: Escape progressing to mid-chin Tongue Control During Bolus Hold: Escape to lateral buccal cavity/floor of mouth Bolus Transport/Lingual Motion: Repetitive/disorganized tongue motion Oral Residue: Minimal to no clearance - Consuming initial trial of thin liquids via tsp. - Pharyngeal Phase Initiation of Pharyngeal Swallow: Bolus head at posterior laryngeal surgace of epiglottis Soft Palate Elevation: Trace column of contrast/air between soft palate and pharyngeal wall Laryngeal Elevation: Partial superior movement thyroid cart/partial apprx aryt-epig petiole Anterior Hyoid Excursion: Partial anterior movement Epiglottic Movement: No inversion - Partial inversion observed in some trials. Laryngeal Vestibule Closure at Height of Swallow: Incomplete; narrow column of air/contrast in laryngeal vestibule Pharyngeal Stripping Wave: Present - diminished Pharyngoesophageal Segment Opening: Parital distension and partial duration; parital obstruction of flow Tongue Base Retraction: Narrow column of contrast between tongue base & post. pharyngeal wall Pharyngeal Residue: Majority of contrast within or on pharyngeal structures - Esophageal Phase Esophageal Clearance: Esophageal retention w/ retrograde flow through pharyngoesophageal seg - Treatment Strategies Effects of treatment strategies attemped:: Decreased bolus size = somewhat effective. Cued cough = ineffective. Double swallow = somewhat effective. - Diagnosis/Impression Diagnosis: severe oropharyngeal phase dysphagia (R13.12) Impression: The oral phase is marked by severe deficits in bolus control and bolus transport characterized by disorganized and repetitive lingual movements and max oral residue of tsp trials of thin liquids after the swallow in the floor of the mouth. ADJUNCT LECTURER did not assess mastication with solid trials due to concerns for choking with pt demonstrating poor oral clearance and significant oral and pharyngeal residues after the swallow. The pharyngeal phase of the swallow is marked by poor airway closure due to delayed initiation of swallow, decreased anterior hyoid excursion, and decreased laryngeal elevation. He demonstrated moderate-severe pharyngeal residue in the pyriforms of trials of thickened liquids and puddings. He demonstrated penetration above the vocal folds without full ejection of nectar thick, honey thick, and pudding trials. The patient demonstrated aspiration of a 1/2 tsp sip of thin liquids, which was SILENTl. Aspiration of thin liquids via cup elicited a weak, ineffective cough. He demonstrated post prandial aspiration of nectar thickened liquids due to extent of residue present in the pyriforms. The patient is a HIGH aspiration risk across all consistencies due to poor bolus control, decreased airway closure, and extent of oral and pharyngeal residues present. He required max verbal cues to utilize a double swallow. Will recommend the patient continue NPO with consideration for alternative means of nutrition versus consideration for comfort care, as the patient demonstrated a HIGH aspiration risk with all consistencies assessed. - Recommendations Diet: NPO Recommend Repeat Modified Barium Swallow: TBD Need for Skilled Speech Therapy Services: Yes Comment: Will recommend continued speech therapy services to trial 1/2 tsp sips of unthickened water and implement oropharyngeal strengthening exercises to improve lingual coordination, lingual strength, and hyolaryngeal elevation and excursion. The patient requires frequent and thorough oral care via toothette swabs to be completed throughout the day. Education Completed: 1. Described result of evaluation., 7. Pt requires further education on strategies & risks., 8. Family/caregivers require further education on strategies & risks. - Status Active ST Patient: Active - Contact Information [facility] Speech Therapy:: Jessica Loera M.A. [facility] Speech-Language Pathologist [facility] [address] [place] [address] [phone] 07/18/21 15:56
--- NOTE | 2021-07-18 15:55 | CASEMGMT ---
ADELITA MARROQUIN Assessment: Face to Face with pt and who is at bedside for initial transition planning/care coordination assessment. ADELITA MARROQUIN introduced self and role at [facility], pt voices understanding and consents to assessment. Pt is lying in bed with eyes closed. Assessment completed per . reports pt is not oriented at home but he can walk with the walker to the bathroom. Care providers, pharmacy, and demographics verified/updated. Admitting Dx: FTT PCP:Randall Specialists: Emily, cardio Preferred [facility]acy: [facility] Insurance: [facility], [facility] Prescription Benefit: yes LW/HPOA: Pt has a LW/DPOA on file at [facility]. Pt DPOA is , Lisa Yates. LNOK: Lisa Yates, Living Arrangements: Pt lives with in a story and a half house. They only use the main level. There are no steps to enter. Pt is dependent on for all ADL's and IADL's. Transportation: Pt transports him to medical appts. DME/HHC/SNF: Pt has a BSC, w/c, walker, grab bars in the bathroom. Pt has had [facility] HHC, no SNF stays. Pt states she has spoke with the doctor and she needs to think about if she would want pt to have a feeding tube. She states if this is the case, then he would need to go to [facility]. She states if pt does not need a PEG, he would go home. She states she still needs to contemplate this. Pt states no further concerns/needs. CM to follow. Advised pt/ to ask CM if any further question/concerns/needs arise, voices understanding. Pt Goal: TBD Plan: TBD
--- NOTE | 2021-07-18 16:11 | PCM.CONS.P ---
Assessment & Plan Assessment/Plan (1) Pneumonia: (2) Inability to swallow: (3) Severe malnutrition: (4) Left lower lobe pneumonia: (5) Dysphagia: (6) Alzheimers disease: (7) Esophageal dilatation: (8) Rheumatoid arthritis: QUALIFIERS: Laterality: right Rheumatoid arthritis location: foot Rheumatoid factor presence: unspecified presence Qualified Code(s): M06.9 - Rheumatoid arthritis, unspecified (9) Upper GI bleed: (10) Acute blood loss anemia: (11) Debility: (12) Anxiety: PLAN: JACK LEBRON, is a 85 M who was referred to [facility] for management of symptoms of decline related to Alzheimer's disease. Patient had an EGD, swallow eval and Barium swallow. Continues to be NPO due to failure of the other. Plan is as follows: 1) Dysphagia/severe malnutrition: Due to functional decline and weight loss with added dysphagia, patient would be hospice appropriate if and family choose. Palliative will provide support whichever way the family decides. 2) Alzheimer's disease: Patient appears to be a FAST stage 6D and PPS OF 30% which also would make him appropriate for additional hospice care in an ECF. To discuss goals of care with family to decide hospice or Palliative care. 3)Debility/ coccyx ulcer: Patient requires 24 hour care. PT/OT if is discharged to a ECF. Will need additional nutritional supplements with protein either by NG tube/peg tube if remains skilled. Palliative left a message for to discuss services and support. 4)Anxiety: Anxiety most likely multifactorial related to hospital environment and advancing Alzheimer's disease. Continue Sertraline at current dose when safety of administration can be agreed upon and established. Has been held due to NPO status. Haldol has been used PRN while hospitalized for anxiety/agitation. May benefit from PRN oral Haldol or low dose Ativan in a controlled setting. 5)Anemia/Hx of GI bleed/RA/Pneumonia: Complicates overall care, management, recovery, and prognosis. Defer care to PCP and specialists for management. Thank you for the opportunity to participate in this patient's care, please do not hesitate to contact [facility] with any further questions or concerns. Palliative direct line is [phone]. We will wait to hear from his and go from there. START time: 1606 END time: 1755 HPI Consult Data Date of Consult: 07/18/21 HPI Narrative HPI Narrative: JACK LEBRON, is a 85 M who was referred to [facility] for management of symptoms of decline related to Alzheimer's disease. Past medical history listed below. Patient had been evaluated by Palliative back during a hospital admission in November 2020, but declined services. Patient was brought to the [facility] ER on 07/16/21 with complaint of pain in his thought and progressive difficulty swallowing. was the main historian due to patient confusion. Reports that this has been going on for 4 days and now unable to swallow water or anything. Reports significant weight loss, but unsure how much. They have had to tighten belts in his pants. White count is 16.4 with mild anemia. Elevation of BUN and creatinine. Glucose is slightly elevated. Troponin is 60 with some rise in bilirubin. Chest X-ray showed chronic obstructive pulmonary disease scarring areas of fibrosis and left lower lobe pneumonia and started on Unasyn for suspicion of aspiration. IV fluids for dehydration. Patient will most likely need ECF placement. EGD performed on 07/17/21 showed Grade D erosive esophagitis (biopsied), dilation in the upper third of the esophagus with tortuous esophagus. Food was noted and removal was successful. Benign esophageal stenosis with medium sized hiatal hernial and nonbleeding gastric ulcer. Was to be on a full liquid diet for 2 weeks but failed swallow study and Barium swallow. also ordered Flucanazole 200mg for 14 days. Protonix infusion with 80mg bolus and 8mg hour continuous. Patient has had functional decline and is a 2 max assist for transfers. Patient is fearful of walking. Patient is confused and becomes agitated requiring PRN Haldol. Seen at bedside. Patient is alert to self picking at his sheets. anxious wanting the TV to be turned off. Denies any pain or distress, but unable to answer questions appropriately. Message left for Lisa to call Palliative office to discuss Palliative services. [facility] Medical History Alzheimers disease Bilateral carotid artery stenosis BPH (benign prostatic hyperplasia) DDD (degenerative disc disease), lumbar Depression Duodenal bulb ulcer Essential hypertension Failure to thrive Hx of gout Hx of primary hypertension Mixed hyperlipidemia Peripheral arterial disease Pressure injury of sacral region, stage 2 RLS (restless legs syndrome) Segmental and somatic dysfunction of lumbar region Segmental and somatic dysfunction of pelvic region Syncope Medical History unable to obtain Home Medications allopurinol 300 mg tablet 300 mg PO DAILY 09/24/19 [History Last Taken 07/16/21 08:00] doxazosin 2 mg tablet 2 mg PO DAILY 09/24/19 [History Last Taken 07/16/21 08:00] pravastatin 20 mg tablet 20 mg PO DAILY 09/24/19 [History Last Taken 07/15/21 22:00] donepezil 5 mg PO DAILY 10/09/19 [History Last Taken 07/16/21 06:00] memantine 10 mg tablet 10 mg PO BID 05/04/20 [History Last Taken 07/16/21 06:00] pramipexole 1.5 mg tablet 4.5 mg PO QHS tab 05/06/20 [History Last Taken 07/15/21 22:00] sertraline 50 mg tablet 50 mg PO DAILY 05/06/20 [History Last Taken 07/16/21 06:00] clopidogrel 75 mg PO DAILY 07/16/21 [History Last Taken 07/16/21 06:00] pantoprazole 40 mg PO BID 07/16/21 [History Last Taken 07/16/21 06:00] polysaccharide iron complex [Ferrex 150] mg 07/16/21 [History Last Taken 07/16/21 08:00] sucralfate 07/16/21 [History Last Taken 07/16/21 08:00] Allergy/AdvReac Type Severity Reaction Status Date / Time No Known Allergies Allergy Verified 12/08/20 09:21 Family History Mother Arthritis Father Hypertension CVA (cerebral vascular accident) Family History unable to obtain Surgical History Amputation of toe of left foot History of back surgery History of hernia repair Surgical History unable to obtain Social History Smoking Status: Former smoker alcohol intake: never substance use type: does not use caffeine: No ROS Review of Systems ROS Unobtainable: due to mental status Physical Exam Const alert General Appearance: frail Orientation / Consciousness: awake, oriented to person and confused Nutritional Appearance: cachectic HEENT normocephalic and head/scalp atraumatic Nose: external nose normal External Ear: external ears normal Mouth: oral and palatal mucosa normal Eyes conjunctivae normal General Eye: normal appearance of both eyes Neck full ROM and supple Chest Chest: symmetrical chest wall rise Resp normal respiratory effort Effort and Inspection: able to speak in complete sentences Auscultation: diminished lung sounds Cardio regular rate, regular rhythm, S1 normal heart sound, S2 normal heart sound and no murmurs GI normal to inspection, nondistended, normoactive bowel sounds and soft to palpation Extremity no clubbing, cyanosis or edema Neuro Sensorium / Orientation: awake, alert, oriented to person and confused Psych Activity / Motor Behavior: fidgetting Memory / Cognition: cognition impaired
--- NOTE | 2021-07-18 18:33 | PN.GI_ITS ---
Subjective Subjective Has become very agitated. He states that he wants to eat. He underwent EGD with removal of Food over the weekend. He underwent a modified barium swallow today and has been very agitated. Objective Data Objective Data Vital Signs: Vital Signs Temp Pulse Resp BP Pulse Ox 97.4 F L 84 16 146/75 H 94 07/18/21 15:06 07/18/21 15:06 07/18/21 15:06 07/18/21 15:06 07/18/21 15:06 Oxygen Flow Rate (L/min) 2 Oxygen Delivery Method Nasal Cannula Weight: 150 lb 9.211 oz Body Mass Index (BMI) 20.5 Intake & Output: Intake and Output for Last 24 Hours 07/16/21 07/17/21 07/18/21 23:59 23:59 23:59 Intake Total 840.75 / 840.75 1988.25 / 1987.25 2177.82 / 2177.82 Output Total 300 / 300 550 / 550 300 / 300 Balance 540.75 / 540.75 1438.25 / 1438.25 1877.82 / 1877.82 Medical Nutrition Assessment Dietitian: Malnutrition Criteria Met Start: 07/17/21 12:47 Freq: Status: Active Protocol: Document 07/17/21 12:47 DIOGENES (Rec: 07/17/21 12:47 SLA [id number]) Nutrition Malnutrition Evidence of Malnutrition Exists Yes Malnutrition (severe): Chronic Evidenced By Suboptimal Energy Intake ( Severe),Weight Loss (Severe), Physical Changes (Moderate) Clinical Problem Chronic Disease or Condition Related Malnutrition Etiology related to alzheimers and aspiration pna/dysphgia Signs/Symptoms as evidenced by NPO status d/t unsafe for po diet and 10.4% wt loss x 6 mo. Pt also w/ fat/muscle loss - temporal/ orbital areas on face, clavicle regions, arms/legs. Status Active Problem Recommendation Dietitian Recommendations/Changes If able to resume po diet, rec liberal regular diet - consistency per ENVIRONMENTAL COMPLIANCE MANAGER - with ONS at meals and medpass. If pt unable to resume po diet , rec nutrition support to help prevent further decline in pt nutritional status - if in accordance w/ pt/family wishes - consult for rec prn. Lab / Micro Data Result Diagrams: 07/18/21 05:05 07/18/21 05:05 Labs: Laboratory Results - last 24 hr 07/18/21 05:05: WBC 11.1 H, RBC 3.70 L, Hgb 10.8 L, Hct 32.6 L, MCV 88.1, MCH 29.2, MCHC 33.1, RDW Std Deviation 49.0 H, RDW Coeff of Kristan 15.2 H, Plt Count 266, MPV 9.6, Immature Gran % (Auto) 0.500, Neut % (Auto) 86.2 H, Lymph % (Auto) 8.9 L, Bradley % (Auto) 3.5, Eos % (Auto) 0.6, Baso % (Auto) 0.3, Absolute Neuts (auto) 9.6 H, Absolute Lymphs (auto) 0.99, Nucleated RBC % 0 07/18/21 05:05: Sodium 148 H, Potassium 3.2 L, Chloride 122 H, Carbon Dioxide 16.0 L, Anion Gap 10, BUN 29 H, Creatinine 1.08, Estim Creat Clear Calc 49.19, Est GFR (MDRD) Af Amer 84, Est GFR (MDRD) Non-Af 69, BUN/Creatinine Ratio 26.9 H , Glucose 116 H, Calcium 8.8, Phosphorus 2.4 L, Magnesium 2.4, Total Bilirubin 0.70, AST 30, ALT 18, Alkaline Phosphatase 30 L, Total Protein 7.6, Albumin 2.2 L, Globulin 5.4 H, Albumin/Globulin Ratio 0.4 L Micro: Microbiology 07/16/21 13:05 Blood Culture (Wb) - Left Forearm Blood Culture - Preliminary No growth in 48 hours. 07/16/21 13:09 Blood Culture (Wb) - Right Forearm Blood Culture - Preliminary No growth in 48 hours. 07/16/21 20:55 Urine, Clean Catch Legionella Antigen - Final 07/16/21 20:55 Urine, Clean Catch Streptococcus pneumoniae Antigen (M - Final Physical Exam Const alert General Appearance: cooperative Orientation / Consciousness: oriented to person HEENT hearing grossly normal bilaterally Head and Scalp: normal to inspection Face and Sinus: face symmetric Nose: external nose normal Mouth: oral and palatal mucosa normal Eyes conjunctivae normal General Eye: normal appearance of both eyes Neck full ROM General: normal visual inspection Lymph Lymphatic: no lymphadenopathy noted Chest inspection of chest normal and palpation of chest normal Chest: symmetrical chest wall rise Resp normal respiratory effort Effort and Inspection: able to speak in complete sentences Cardio regular rate GI non-distended Percussion: normal to percussion Rectal Exam: deferred Neuro Speech: speech normal Gait (Neuro): normal gait Assessment & Plan Assessment/Plan (1) Inability to swallow: PLAN: Patient did not do well on the swallow test today and r ecommendations are for the patient remain n.p.o. He would benefit from a PEG tube however his is undecided at this time. He is currently being seen by palliative medicine. That would be appropriate for him due to his rapid decline in weight and mental status. (2) Esophageal dilatation: PLAN: Secondary to distal esophageal stricture from paraesophageal hernia , Along with vigorous esophageal spasm.The only permanent cure for esophageal spasms is a surgical procedure called myotomy. The surgeon cuts the thick muscle in the lower part of the esophagus. This is only recommended in severe cases when medications and injections don't work. (3) Severe malnutrition: PLAN: Patient is severely malnourished. He may benefit from a PEG tube in the dependent his hospice status or particular status. Also this was brought up to his which she has not decided (4) Left lower lobe pneumonia: PLAN: He is currently being treated for pneumonia which is likely seco ndary to aspiration pneumonia.. Charges/Coding Visit Charges Inpatient E&M: 52073 Subs Hosp L3
--- NOTE | 2021-07-18 20:22 | PN.HOSP_ITS ---
Subjective Subjective Patient was seen and examined today, he remains n.p.o. and failed his speech eval today. I talked with the patient's earlier today by phone and asked her to consider what she would do if the patient was unable to eat, she states she will have to talk with her other children about this. Objective Data Objective Data Vital Signs: Vital Signs Temp Pulse Resp BP Pulse Ox 97.4 F L 84 16 146/75 H 94 07/18/21 15:06 07/18/21 15:06 07/18/21 15:06 07/18/21 15:06 07/18/21 15:06 Oxygen Flow Rate (L/min) 2 Oxygen Delivery Method Nasal Cannula Weight: 68.3 kg Body Mass Index (BMI) 20.5 Intake & Output: Intake and Output for Last 24 Hours 07/16/21 07/17/21 07/18/21 23:59 23:59 23:59 Intake Total 840.75 / 840.75 1988.25 / 1988.25 2657.32 / 2657.32 Output Total 300 / 300 550 / 550 300 / 300 Balance 540.75 / 540.75 1438.25 / 1438.25 2357.32 / 2357.32 Medical Nutrition Assessment Dietitian: Malnutrition Criteria Met Start: 07/17/21 12:47 Freq: Status: Active Protocol: Document 07/17/21 12:47 DIOGENES (Rec: 07/17/21 12:47 DIOGENES [id number]) Nutrition Malnutrition Evidence of Malnutrition Exists Yes Malnutrition (severe): Chronic Evidenced By Suboptimal Energy Intake ( Severe),Weight Loss (Severe), Physical Changes (Moderate) Clinical Problem Chronic Disease or Condition Related Malnutrition Etiology related to alzheimers and aspiration pna/dysphgia Signs/Symptoms as evidenced by NPO status d/t unsafe for po diet and 10.4% wt loss x 6 mo. Pt also w/ fat/muscle loss - temporal/ orbital areas on face, clavicle regions, arms/legs. Status Active Problem Recommendation Dietitian Recommendations/Changes If able to resume po diet, rec liberal regular diet - consistency per MULTI PURPOSE MACHINE OPERATOR - with ONS at meals and medpass. If pt unable to resume po diet , rec nutrition support to help prevent further decline in pt nutritional status - if in accordance w/ pt/family wishes - consult for rec prn. Lab / Micro Data Result Diagrams: 07/18/21 05:05 07/18/21 05:05 Labs: Laboratory Results - last 24 hr 07/18/21 05:05: WBC 11.1 H, RBC 3.70 L, Hgb 10.8 L, Hct 32.6 L, MCV 88.1, MCH 29.2, MCHC 33.1, RDW Std Deviation 49.0 H, RDW Coeff of Kristan 15.2 H, Plt Count 266, MPV 9.6, Immature Gran % (Auto) 0.500, Neut % (Auto) 86.2 H, Lymph % (Auto) 8.9 L, [place] % (Auto) 3.5, Eos % (Auto) 0.6, Baso % (Auto) 0.3, Absolute Neuts (auto) 9.6 H, Absolute Lymphs (auto) 0.99, Nucleated RBC % 0 07/18/21 05:05: Sodium 148 H, Potassium 3.2 L, Chloride 122 H, Carbon Dioxide 16.0 L, Anion Gap 10, BUN 29 H, Creatinine 1.08, Estim Creat Clear Calc 49.19, Est GFR (MDRD) Af Amer 84, Est GFR (MDRD) Non-Af 69, BUN/Creatinine Ratio 26.9 H , Glucose 116 H, Calcium 8.8, Phosphorus 2.4 L, Magnesium 2.4, Total Bilirubin 0.70, AST 30, ALT 18, Alkaline Phosphatase 30 L, Total Protein 7.6, Albumin 2.2 L, Globulin 5.4 H, Albumin/Globulin Ratio 0.4 L Micro: Microbiology 07/16/21 13:05 Blood Culture (Wb) - Left Forearm Blood Culture - Preliminary No growth in 48 hours. 07/16/21 13:09 Blood Culture (Wb) - Right Forearm Blood Culture - Preliminary No growth in 48 hours. 07/16/21 20:55 Urine, Clean Catch Legionella Antigen - Final 07/16/21 20:55 Urine, Clean Catch Streptococcus pneumoniae Antigen (M - Final Physical Exam Const Constitutional Narrative: Patient is lethargic and cachectic appearing General Appearance: cooperative, well kempt and well developed Orientation / Consciousness: awake, oriented to person, oriented to place and oriented to time Nutritional Appearance: cachectic HEENT normocephalic and head/scalp atraumatic Head and Scalp: normocephalic Eyes conjunctivae normal Neck nuchal rigidity, supple, no JVD and thyroid normal General: trachea midline Resp normal respiratory effort, no retractions, no use of accessory muscles and clear to auscultation bilaterally Auscultation: Negative for rales, rhonchi or wheezes Cardio regular rate, regular rhythm, S1 normal heart sound, S2 normal heart sound, no murmurs, no rub and no gallops GI normal to inspection, nondistended, normoactive bowel sounds, soft to palpation, non-tender and non-distended Extremity no clubbing, cyanosis or edema Skin no rashes or lesions noted General Skin Exam: no breakdown Neuro Neuro Narrative: Patient is lethargic and confused Psych thought process normal Psych Narrative: Patient has cognitive impairment Assessment & Plan Assessment/Plan (1) Inability to swallow: PLAN: 1. Oropharyngeal dysphagia-patient's will have to consider insertion of a PEG tube, I will talk again with her tomorrow #2 left lower lobe aspiration pneumonia-continue Unasyn #3 Alzheimer's dementia #4 esophageal stricture from paraesophageal hernia-status post esophageal dilatation, GI is following patient #5 severe protein and caloric malnutrition Patient's consented to a palliative care consultation which was done today. Charges/Coding Visit Charges Inpatient E&M: 81702 Subs Hosp L2
[2021-07-19] VITALS (8 sets, daily range): BP systolic 144–181; BP diastolic 62–93; PULSE 58–83; RESP 16–18; TEMP 36.4–36.9; O2SAT 92–95
[2021-07-19] MEDS: hydrALAZINE 20 MG/ML Vial 10 MG IV (07:41)
[2021-07-19] MEDS: Fluconazole 100 MG in Viaflex Bag 1 BAG 50 MG IV (10:14)
--- NOTE | 2021-07-19 12:34 | CASEMGMT ---
Addendum entered by Cammy Bojorquez 07/19/21 15:09: RN LOPEZ in pt room per request. She is questioning the difference in going to SNF with Palliative vs hospice. Explained the difference. She would like to go to SNF with Palliative Care. Addendum entered by Cammy Bojorquez 07/19/21 12:37: Pt states they would like to use [facility] as well. Original Note: ST made this RN CM aware that pt would like to speak to CM. RN CM in to pt room. Pt states she has spoke with their boys and they have elected to not proceed with the PEG tube and would like pt to go to [facility]. Pt sitting up in bed alert and states They know I am on my way out, what would a glass of water hurt? Made pt aware this RN CM will check on this. Per charge nurse, ok to give pt sips of water. Back in room and pt will assist pt with water. Notified Jordyn of pt request.
[2021-07-19] MEDS: Dextrose 5%-0.2% NS 1,000 ML 70 ML IV (12:45)
--- NOTE | 2021-07-19 14:51 | CHAPLAIN ---
Type of Pastoral Visit _x__ Initial Visit ___ Follow-up Visit ___ On-call Visit ___ General Patient Visit ___ Spiritual Assessment ___ Family Conference ___ Bereavement ___ Rapid Response ___ Code Blue ___ Other (describe below) Pastoral Care Referral From _x__ Patient ___ Family _x__ Nurse ___ Physician ___ Director Export ___ Blood Bank Calendar Control Clerk ___ Other (describe below) Sacrament/Intervention _x__ Active listening ___ Anointing ___ Yazidism ___ Bereavement ___ Communion ___ Debbie exploration ___ ___ Life review _x__ Prayer ___ Reconciliation ___ Sacrament of Sick _x__ Supportive presence ___ Wedding ___ Other (describe below) Pastoral Comments upon entering room the patient is crying out for water to drink; pt is fixed on this purpose throughout the visit as I don't care if I , I just want water. If it kills me then it kills me; tried to comfort patient, hear his concerns, offer perspective of what is best by medical team, prayer support, held his hand all which continued to be refused in plea to have water; came into room at this time and affirmed decision by medical team to withhold water at this time due to aspiration risk; states that they are members of [facility] [employer] and would welcome prayer; prayer and continued presence given;
--- NOTE | 2021-07-19 15:59 | CASEMGMT ---
Social Work Note SW updated that pt's is requesting [facility] with Palliative Care. SW placed a call to [place] and left message regarding referral. SW faxed referral to [facility]. Plan: SNF pending acceptance Mar Vallecillo GEOSPATIAL SPECIALIST, LUNCHROOM ATTENDANT
--- NOTE | 2021-07-19 17:25 | PN.GI_ITS ---
Subjective Subjective Patient still says that he wants something to eat and drink. He also says that he would be okay having a feeding tube. His is undecided regarding a feeding tube at this time. He was seen by palliative medicine and it was deemed that he is appropriate. Objective Data Objective Data Vital Signs: Vital Signs Temp Pulse Resp BP Pulse Ox 97.7 F L 73 16 144/79 H 94 07/19/21 15:18 07/19/21 15:18 07/19/21 15:18 07/19/21 15:18 07/19/21 15:18 Oxygen Flow Rate (L/min) 2 Oxygen Delivery Method Room Air Weight: 150 lb 2.157 oz Body Mass Index (BMI) 20.5 Intake & Output: Intake and Output for Last 24 Hours 07/17/21 07/18/21 07/19/21 23:59 23:59 23:59 Intake Total 1988.25 / 1988.25 2657.32 / 2657.32 1686.0 / 1686.0 Output Total 550 / 550 300 / 300 250 / 250 Balance 1438.25 / 1438.25 2357.32 / 2357.32 1436.0 / 1436.0 Medical Nutrition Assessment Dietitian: Malnutrition Criteria Met Start: 07/17/21 12:47 Freq: Status: Active Protocol: Document 07/17/21 12:47 DIOGENES (Rec: 07/17/21 12:47 DIOGENES [id number]) Nutrition Malnutrition Evidence of Malnutrition Exists Yes Malnutrition (severe): Chronic Evidenced By Suboptimal Energy Intake ( Severe),Weight Loss (Severe), Physical Changes (Moderate) Clinical Problem Chronic Disease or Condition Related Malnutrition Etiology related to alzheimers and aspiration pna/dysphgia Signs/Symptoms as evidenced by NPO status d/t unsafe for po diet and 10.4% wt loss x 6 mo. Pt also w/ fat/muscle loss - temporal/ orbital areas on face, clavicle regions, arms/legs. Status Active Problem Recommendation Dietitian Recommendations/Changes If able to resume po diet, rec liberal regular diet - consistency per PLANT BREEDER SCIENTIST - with ONS at meals and medpass. If pt unable to resume po diet , rec nutrition support to help prevent further decline in pt nutritional status - if in accordance w/ pt/family wishes - consult for rec prn. Lab / Micro Data Result Diagrams: 07/18/21 05:05 07/18/21 05:05 Micro: Microbiology 07/16/21 13:05 Blood Culture (Wb) - Left Forearm Blood Culture - Preliminary No growth in 48 hours. 07/16/21 13:09 Blood Culture (Wb) - Right Forearm Blood Culture - Prelimi nary No growth in 48 hours. 07/16/21 20:55 Urine, Clean Catch Legionella Antigen - Final 07/16/21 20:55 Urine, Clean Catch Streptococcus pneumoniae Antigen (M - Fin al Physical Exam Const alert General Appearance: cooperative Orientation / Consciousness: oriented to person HEENT hearing grossly normal bilaterally Head and Scalp: normal to inspection Face and Sinus: face symmetric Nose: external nose normal Mouth: oral and palatal mucosa normal Eyes conjunctivae normal General Eye: normal appearance of both eyes Neck full ROM General: normal visual inspection Lymph Lymphatic: no lymphadenopathy noted Chest inspection of chest normal and palpation of chest normal Chest: symmetrical chest wall rise Resp normal respiratory effort Effort and Inspection: able to speak in complete sentences Cardio regular rate GI non-distended Percussion: normal to percussion Rectal Exam: deferred Neuro Speech: speech normal Gait (Neuro): normal gait Assessment & Plan Assessment/Plan (1) Inability to swallow: PLAN: Patient is not safe to eat. He failed the swallowing test. Awaiting from his regarding decision for PEG tube (2) Pneumonia: PLAN: Patient is on antibiotics for aspiration pneumonia. He is doing well from the standpoint with no need of supplemental oxygen (3) Severe malnutrition: PLAN: Patient may go to hospice. Awaiting on decision from family. Charges/Coding Visit Charges Inpatient E&M: 53457 Subs Hosp L3
--- NOTE | 2021-07-19 19:48 | PN.HOSP_ITS ---
Subjective Subjective Patient was seen and examined today, I had discussions with his who was at the bedside during the time of my examination. Patient requested to be able to take oral intake, he remained confused however and the stated that she is talked over his care with her son and daughter, at this time they do not want a feeding tube placed on the patient. The would like the patient to be able to at least have liquid oral intake, I think this is reasonable at this time, patient's CODE STATUS was changed to a DNR CC arrest without intubation. wants the patient to go to an extended care facility for rehab services, I talked to her about hospice versus palliative care and told her that if he went to a skilled facility under hospice care, she would be responsible for some of the half-way costs. I recommended that she consider that the patient should go to an extended care facility on palliative care and she agreed with this. Objective Data Objective Data Vital Signs: Vital Signs Temp Pulse Resp BP Pulse Ox 97.7 F L 73 16 144/79 H 94 07/19/21 15:18 07/19/21 15:18 07/19/21 15:18 07/19/21 15:18 07/19/21 15:18 Oxygen Flow Rate (L/min) 2 Oxygen Delivery Method Room Air Weight: 68.1 kg Body Mass Index (BMI) 20.5 Intake & Output: Intake and Output for Last 24 Hours 07/17/21 07/18/21 07/19/21 23:59 23:59 23:59 Intake Total 1988.25 / 1988.25 2657.32 / 2657.32 1798.0 / 1798.0 Output Total 550 / 550 300 / 300 250 / 250 Balance 1438.25 / 1438.25 2357.32 / 2357.32 1548.0 / 1548.0 Medical Nutrition Assessment Dietitian: Malnutrition Criteria Met Start: 07/17/21 12:47 Freq: Status: Active Protocol: Document 07/17/21 12:47 DIOGENES (Rec: 07/17/21 12:47 DIOGENES [id number]) Nutrition Malnutrition Evidence of Malnutrition Exists Yes Malnutrition (severe): Chronic Evidenced By Suboptimal Energy Intake ( Severe),Weight Loss (Severe), Physical Changes (Moderate) Clinical Problem Chronic Disease or Condition Related Malnutrition Etiology related to alzheimers and aspiration pna/dysphgia Signs/Symptoms as evidenced by NPO status d/t unsafe for po diet and 10.4% wt loss x 6 mo. Pt also w/ fat/muscle loss - temporal/ orbital areas on face, clavicle regions, arms/legs. Status Active Problem Recommendation Dietitian Recommendations/Changes If able to resume po diet, rec liberal regular diet - consistency per OLDER ADULT SOCIAL WORK SPECIALIST - with ONS at meals and medpass. If pt unable to resume po diet , rec nutrition support to help prevent further decline in pt nutritional status - if in accordance w/ pt/family wishes - consult for rec prn. Lab / Micro Data Result Diagrams: 07/18/21 05:05 07/18/21 05:05 Micro: Microbiology 07/16/21 13:05 Blood Culture (Wb) - Left Forearm Blood Culture - Preliminary No growth in 48 hours. 07/16/21 13:09 Blood Culture (Wb) - Right Forearm Blood Culture - Preliminary No growth in 48 hours. 07/16/21 20:55 Urine, Clean Catch Legionella Antigen - Final 07/16/21 20:55 Urine, Clean Catch Streptococcus pneumoniae Antigen (M - Final Physical Exam Const alert and no apparent distress Constitutional Narrative: Patient has cognitive impairment and is confused General Appearance: cooperative, well kempt and well developed Orientation / Consciousness: awake, oriented to person, oriented to place and oriented to time Exam Limitations: other limitations Nutritional Appearance: cachectic HEENT normocephalic, head/scalp atraumatic and moist oral mucous membranes Head and Scalp: normocephalic Eyes PERRL, EOMs intact bilaterally and conjunctivae normal Eyes Narrative: No scleral icterus Neck nuchal rigidity, supple, no JVD, thyroid normal and no carotid bruits General: trachea midline Resp normal respiratory effort and clear to auscultation bilaterally Resp Narrative: Crackles in the left base Auscultation: Negative for rales, rhonchi or wheezes Cardio regular rate, regular rhythm, S1 normal heart sound, S2 normal heart sound, no murmurs, no rub and no gallops GI normal to inspection, nondistended, normoactive bowel sounds, soft to palpation, non-tender and non-distended Extremity no clubbing, cyanosis or edema Skin no rashes or lesions noted Skin Narrative: Evidence of healed wounds on bilateral lower extremities, skin is pale General Skin Exam: no breakdown Neuro CN's II-XII intact bilaterally Neuro Narrative: Patient is lethargic and confused Sensorium / Orientation: awake and alert Speech: speech normal Psych thought process normal Psych Narrative: Patient is confused and has cognitive impairment Assessment & Plan Assessment/Plan (1) Pneumonia: (2) Inability to swallow: PLAN: 1. Oropharyngeal dysphagia-patient's does not want the patient to have a PEG tube, she requests that he be allowed to have oral intake which I am okay with at this time. #2 left lower lobe aspiration pneumonia-continue Unasyn #3 Alzheimer's dementia #4 esophageal stricture from paraesophageal hernia-status post esophageal dilatation, GI is following patient patient is currently on a PPI, I will change this to a twice daily dosage rather than a continuous infusion. #5 severe protein and caloric malnutrition-related to Alzheimer's and chronic aspiration as evidenced by 10.4% weight loss over 6 months. It is recommended that the patient resume a liberal regular diet if able to, unfortunately, patient is unable to resume a regular diet at this time and is unlikely to furth er decline in his nutritional status. Patient's family is aware of this. They do not want a PEG tube for enteral feeding. Again, patient's CODE STATUS was changed to DNR CC arrest with no intubation, again patient's is okay with the patient having oral intake and knows there is a risk for aspiration. Charges/Coding Visit Charges Inpatient E&M: 52256 Subs Hosp L2
[2021-07-20 02:31] VITALS: BP 187/97; PULSE 86; RESP 18; TEMP 36.8; O2SAT 94
[2021-07-20 02:40] VITALS: PULSE 86
[2021-07-20] MEDS: 0.9% Saline Lock 10 ML Syringe IV ×2 (02:40→14:27)
[2021-07-20] MEDS: hydrALAZINE 20 MG/ML Vial 10 MG IV ×2 (02:40→14:27)
[2021-07-20] MEDS: Dextrose 5%-0.2% NS 1,000 ML 70 ML IV (03:10)
[2021-07-20 06:20] VITALS: BP 154/68
[2021-07-20 07:46] VITALS: BP 141/62; PULSE 83; RESP 15; TEMP 36.3; O2SAT 94
[2021-07-20] MEDS: Enoxaparin 40 MG/0.4 ML Syringe SC (10:09)
[2021-07-20] MEDS: Fluconazole 100 MG in Viaflex Bag 1 BAG 50 MG IV (10:31)
--- NOTE | 2021-07-20 10:53 | PCS.PANDOC ---
PANDEMIC DOCUMENTATION INITIATED: Date: 04/04/2021 Time: 190
--- NOTE | 2021-07-20 11:14 | CASEMGMT ---
Social Work Note SW placed a call to Lisa on both her work phone and cell phone and left message regarding referral. CORRINE asked for [facility] to let this worker know today if they can or cannot accept pt. CORRINE waiting for call back from [facility]. Mar Vallecillo SEWING MACHINE OPERATOR PLASTIC ZIPPER, INSPECTOR TUBES
--- NOTE | 2021-07-20 12:30 | CASEMGMT ---
Addendum entered by Mar Vallecillo 07/20/21 15:42: SW placed a call to pt's Lisa and let her know that pt has been accepted to [facility] and will discharge there today. Lisa states understanding. Plan: [facility] skilled today under convalescent stay Addendum entered by Mar Vallecillo 07/20/21 15:07: SW spoke with Rebeca at [facility] and they can accept pt today. SW updated physician. Pt to discharge to [facility] with Palliative Care today. Original Note: Social Work Note SW spoke with Lisa at [facility]. [facility] is not able to accept pt. SW in to speak with pt and pt's Lisa. SW updated pt and Lisa that [facility] is not able to accept pt, asked for additional SNF choices. Lisa states she thought pt was going to that facility on [address]. SW informed Lisa that that is inpatient hospice facility, pt is not going there. Lisa with questions again regarding Hospice and Palliative Care. SW answered questions. SW informed Lisa that pt can go to SNF with Palliative Care. Lisa states to try [facility] next since it is close to her. CORRINE placed a call to Rebeca at [facility] and left message regarding referral. SW faxed referral to [facility]. Plan: SNF with Palliative pending acceptance Mar Vallecillo RN OR LPN, PLUG AND MOLD FINISHER
[2021-07-20 14:00] VITALS: BP 188/93; PULSE 83; RESP 16; TEMP 36.6; O2SAT 94
[2021-07-20 14:27] VITALS: BP 188/93; PULSE 83
--- NOTE | 2021-07-20 16:00 | PCM.TXEXTCAR ---
Diet 07/19/21 12:31 Diet: Full Liquid Is pt able to select menu?: No Diet Comments: pleasure feeds only Family does not want PEG tube Routine Orders/Code Status Code Status: DNRCC-A (no intubation) Wound(s) scabbed area on coccyx: Wound Type: Pressure Injury Therapies Weight Bearing: Full weight bearing Physical Therapy: Eval and Treat Occupational Therapy: Eval and Treat Speech Therapy: Eval and Treat Problem/Diagnosis (1) Pneumonia: Status: Acute Comment: probable aspiration (2) Inability to swallow: Status: Acute Comment: dysphagia (3) Severe malnutrition: Status: Acute (4) Left lower lobe pneumonia: Status: Acute Comment: probable aspiration (5) Debility: Status: Acute (6) Alzheimers disease: Status: Chronic (7) Esophageal stricture: Status: Acute Comment: from paraesophageal hernia (8) COPD (chronic obstructive pulmonary disease): Status: Chronic Allergies/Procedures Done in Hospital Allergies No Known Allergies Allergy (Verified 12/08/20 09:21) Procedures: EGD (with esophageal dilation) Type of Care/Length of Stay Estimated LOS: Convalescent Care Less Than 30 days Type of Care Needed: Skilled Rehab Potential: Fair Prognosis: Fair Additional Orders/Day of Discharge Additional Orders: Palliative to follow pt H&P will serve as current which was dated: 07/16/21 Day of Discharge: 07/20/21 Discharge Plan Admission Admit Date/Time: 07/16/21 13:08 Primary Reason for Your Visit: pneumonia Attending Provider: Rogers Marquez Consulting Providers: Abby Saini ; Eran Wilcox ; Reva Grayson ; Lizz Garza ; Andria Weston ; Rosa Palacio SUPERVISOR CYTOGENETIC LABORATORY Instructions Additional Instructions / Restrictions: All tabs must be crushed/given in liquid to patient Discharge Orders/Prescriptions Prescriptions: New acetaminophen-codeine 300 mg-30 mg /12.5 mL Solution 10 ml PO Q6H PRN PRN (Reason: Pain Score 6-10) Qty: 300 RF: 0 esomeprazole magnesium [Nexium] 40 mg capsule,delayed release(DR/EC) 40 mg PO DAILY Qty: 1 RF: 0 amoxicillin-pot clavulanate [Augmentin] 250-62.5 mg/5 mL suspension for reconstitution 10 ml PO TID Qty: 200 RF: 0 fluconazole [Diflucan] 100 mg tablet 100 mg PO DAILY Qty: 7 RF: 0 Discontinued allopurinol 300 mg tablet 300 mg PO DAILY RF: 0 donepezil 5 MG tablet 5 mg PO DAILY RF: 0 clopidogrel 75 mg Tablet 75 mg PO DAILY RF: 0 No Action doxazosin 2 mg tablet 2 mg PO DAILY RF: 0 pravastatin 20 mg tablet 20 mg PO DAILY RF: 0 pramipexole 1.5 mg tablet 4.5 mg PO QHS RF: 0 sertraline 50 mg tablet 50 mg PO DAILY RF: 0 memantine 10 mg tablet 10 mg PO BID RF: 0 polysaccharide iron complex [Ferrex 150] 150 mg iron capsule RF: 0 sucralfate 1 gram tablet RF: 0 pantoprazole 40 mg Tablet,Delayed Release (Dr/Ec) 40 mg PO BID RF: 0 Disposition Disposition (needs filled in before D/C Order can be placed): [facility]
--- NOTE | 2021-07-20 16:05 | CASEMGMT ---
Social Work Note CORRINE placed a call to Rebeca at [facility] and informed her that pt will be discharged today. CORRINE placed Green sheet, transportation forms, COVID tool on pt's chart. CORRINE placed a call to [facility] ED SPORTS ANALYST to complete [facility]val[facility] in [place] once transfer summer is completed by physician. RN updated that pt will need COVID test. CORRINE updated RN and freelance operator that pt can discharge to [facility] today. Plan: [facility] skilled under convalescent stay Mar Vallecillo COMMUNITY RELATIONS DIRECTOR, SPORTS ANALYST
--- NOTE | 2021-07-20 16:23 | DS.PCM_ITS ---
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 EMERGENT Consult: No Notified: Yes Date Notified: 07/17/21 Time Notified: 15:59 Method of Notification: Answering Service Reason For Visit: FAILURE TO THRIVE Diagnosis Discharge Diagnosis (1) Pneumonia: Status: Acute Code(s): J18.9 - Pneumonia, unspecified organism (2) Inability to swallow: Status: Acute Code(s): R13.0 - Aphagia (3) Severe malnutrition: Status: Acute Code(s): E43 - Unspecified severe protein-calorie malnutrition (4) Left lower lobe pneumonia: Status: Acute Code(s): J18.9 - Pneumonia, unspecified organism (5) Debility: Status: Acute Code(s): R53.81 - Other malaise (6) Alzheimers disease: Status: Chronic Code(s): G30.9 - Alzheimer's disease, unspecified; F02.80 - Dementia in other diseases classified elsewhere without behavioral disturbance (7) Esophageal stricture: Status: Acute Code(s): K22.2 - Esophageal obstruction (8) COPD (chronic obstructive pulmonary disease): Status: Chronic Code(s): J44.9 - Chronic obstructive pulmonary disease, unspecified Plan: 1. Oropharyngeal dysphagia #2 left lower lobe aspiration pneumonia #3 Alzheimer's dementia #4 esophageal stricture from paraesophageal hernia-status post esophageal dilatation #5 severe protein and caloric malnutrition-related to Alzheimer's and chronic aspiration as evidenced by 10.4% weight loss over 6 months. It is recommended that the patient resume a liberal regular diet if able to, unfortunately, patient is unable to resume a regular diet at this time and is unlikely to further decline in his nutritional status. #6 erosive esophagitis #7 gastric ulcer #8 chronic obstructive pulmonary disease #9 pulmonary fibrosis Medications at Discharge Home Medications doxazosin 2 mg tablet 2 mg PO DAILY 02/05/20 pravastatin 20 mg tablet 20 mg PO DAILY 09/24/19 memantine 10 mg tablet 10 mg PO BID 05/04/20 pramipexole 1.5 mg tablet 4.5 mg PO QHS tab 05/06/20 sertraline 50 mg tablet 50 mg PO DAILY 05/06/20 pantoprazole 40 mg PO BID 07/16/21 polysaccharide iron complex [Ferrex 150] mg 07/16/21 sucralfate 07/16/21 acetaminophen-codeine 10 ml PO Q6H PRN PRN #300 ml 07/20/21 amoxicillin-pot clavulanate [Augmentin] 10 ml PO TID #200 ml 07/20/21 esomeprazole magnesium [Nexium] 40 mg PO DAILY #1 cap 07/20/21 fluconazole [Diflucan] 100 mg PO DAILY #7 tab 07/20/21 Hospital Course Operations None Procedures EGD Summary of Care Provided Minutes Spent on Discharge: 32 Hospital Course: This 85-year-old white male was seen in the emergency room at [facility] with a chief complaint of difficulty swallowing. Pamela eastman has a history of dementia and medical information was obtained from his in the ER. Patient's stated that when the patient tries to eat, food and liquid comes back up. Blood work done in the emergency room showed an elevated white count at 16.4, there was mild anemia noted at 11.5 hemoglobin. Chest x-ray pointed toward multilobular pneumonia, however the patient did not have any symptoms of pneumonia. CT scan of the chest was performed which showed signs of pneumonia in the left lingular and left lower lobe. Chronic lung disease was also noted to be present with emphysematous changes and areas of fibrosis. Patient was admitted to [place] [id number], he was seen by speech therapy, gastroenterology, and placed on IV antibiotics. EGD was performed which showed evidence of distal esophageal stricture, dilation was carried out, there was noted to be esophagitis and a nonbleeding gastric ulcer. Patient was seen by speech therapy who performed a modified barium swallow, they recommended that the patient be n.p.o. however in talking with the patient's , patient's requested that the patient be able to at least drink liquids. PT and OT also saw the patient, it was recommended that the patient go to an extended care facility for inpatient rehab services. Patient's consented to this. On 07/20/2021, patient was seen and examined: On examination he appeared cache ctic and unwell, patient was confused. Vital signs as documented. Skin warm and dry and without overt rashes. Neck without JVD, neck was supple, trachea midline, thyroid was normal. Lungs clear bilaterally, normal air movement was noted. Heart exam notable for regular rhythm, normal sounds and absence of murmurs, rubs or gallops. Abdomen unremarkable and without evidence of organomegaly, masses, or abdominal aortic enlargement. Bowel sounds are present, abdomen is not distended. Extremities nonedematous, no cyanosis was noted, no clubbing was noted. Neuro: Cranial nerves II through XII are grossly intact, no focal motor deficits were noted, sensation to light touch and pinprick intact, motor exam 5/5 throughout. Psych: Patient is alert and confused On 07/20/2021, patient was transferred to an extended care facility for further inpatient rehab treatment. Medical Records Data Medical Nutrition Assessment Dietitian: Malnutrition Criteria Met Start: 07/17/21 12:47 Freq: Status: Active Protocol: Document 07/17/21 12:47 SLA (Rec: 07/17/21 12:47 SLA [id number]) Nutrition Malnutrition Evidence of Malnutrition Exists Yes Malnutrition (severe): Chronic Evidenced By Suboptimal Energy Intake ( Severe),Weight Loss (Severe), Physical Changes (Moderate) Clinical Problem Chronic Disease or Condition Related Malnutrition Etiology related to alzheimers and aspiration pna/dysphgia Signs/Symptoms as evidenced by NPO status d/t unsafe for po diet and 10.4% wt loss x 6 mo. Pt also w/ fat/muscle loss - temporal/ orbital areas on face, clavicle regions, arms/legs. Status Active Problem Recommendation Dietitian Recommendations/Changes If able to resume po diet, rec liberal regular diet - consistency per [employer] - with ONS at meals and medpass. If pt unable to resume po diet , rec nutrition support to help prevent further decline in pt nutritional status - if in accordance w/ pt/family wishes - consult for rec prn. Weight / BMI Weight Weight: 67.9 kg Body Mass Index (BMI) 20.5 ABG / Lab / Microbiology Data Result Diagrams: 07/18/21 05:05 07/18/21 05:05 Microbiology: Microbiology 07/20/21 15:45 Nasal Secretion SARS-CoV-2 Antigen (Rapid) - Final 07/16/21 13:05 Blood Culture (Wb) - Left Forearm Blood Culture - Preliminary No growth in 48 hours. 07/16/21 13:09 Blood Culture (Wb) - Right Forearm Blood Culture - Preliminary No growth in 48 hours. 07/16/21 20:55 Urine, Clean Catch Legionella Antigen - Final 07/16/21 20:55 Urine, Clean Catch Streptococcus pneumoniae Antigen (M - Final Meaningful Use Info Meaningful Use Diagnoses (Choose all that apply): None applicable Discharge Plan Admission Admit Date/Time: 07/16/21 13:08 Primary Reason for Your Visit: pneumonia Attending Provider: Rogers Marquez Consulting Providers: Abby Saini ; Eran Wilcox ; Reva Grayson ; Lizz Garza ; Andria Weston ; Rosa Palacio [employer] Instructions Additional Instructions / Restrictions: All tabs must be crushed/given in liquid to patient Discharge Orders/Prescriptions Prescriptions: New acetaminophen-codeine 300 mg-30 mg /12.5 mL Solution 10 ml PO Q6H PRN PRN (Reason: Pain Score 6-10) Qty: 300 RF: 0 esomeprazole magnesium [Nexium] 40 mg capsule,delayed release(DR/EC) 40 mg PO DAILY Qty: 1 RF: 0 amoxicillin-pot clavulanate [Augmentin] 250-62.5 mg/5 mL suspension for reconstitution 10 ml PO TID Qty: 200 RF: 0 fluconazole [Diflucan] 100 mg tablet 100 mg PO DAILY Qty: 7 RF: 0 Discontinued allopurinol 300 mg tablet 300 mg PO DAILY RF: 0 donepezil 5 MG tablet 5 mg PO DAILY RF: 0 clopidogrel 75 mg Tablet 75 mg PO DAILY RF: 0 No Action doxazosin 2 mg tablet 2 mg PO DAILY RF: 0 pravastatin 20 mg tablet 20 mg PO DAILY RF: 0 pramipexole 1.5 mg tablet 4.5 mg PO QHS RF: 0 sertraline 50 mg tablet 50 mg PO DAILY RF: 0 memantine 10 mg tablet 10 mg PO BID RF: 0 polysaccharide iron complex [Ferrex 150] 150 mg iron capsule RF: 0 sucralfate 1 gram tablet RF: 0 pantoprazole 40 mg Tablet,Delayed Release (Dr/Ec) 40 mg PO BID RF: 0 Disposition Disposition (needs filled in before D/C Order can be placed): [facility] Charges/Coding Visit Charges Inpatient E&M: 07881 Disch Hosp
== END 2021-07-20 17:45 | disposition skilled nursing facility (03) | DRG 177 ==
LOC: ED 13:09 → MS3 13:29
PROVIDERS: Internal Medicine Gastroenterology; Admitting Provider Internal Medicine; Emergency Provider Emergency Medicine; Visit Provider Internal Medicine
PROC: 0D718ZZ Dilation of Upper Esophagus, Via Natural or Artificial Opening Endoscopic (ICD-10-PCS; principal; 2021-07-17 08:00)
DX: J69.0 Pneumonitis due to inhalation of food and vomit (principal); E43 Unspecified severe protein-calorie malnutrition; J44.0 Chronic obstructive pulmonary disease with (acute) lower respiratory infection; K22.10 Ulcer of esophagus without bleeding; E87.0 Hyperosmolality and hypernatremia; D62 Acute posthemorrhagic anemia; R13.12 Dysphagia, oropharyngeal phase; E86.0 Dehydration; K44.9 Diaphragmatic hernia without obstruction or gangrene; K22.2 Esophageal obstruction; G30.9 Alzheimer's disease, unspecified; F02.80 Dementia in other diseases classified elsewhere, unspecified severity, without behavioral disturbance, psychotic disturbance, mood disturbance, and anxiety; N40.0 Benign prostatic hyperplasia without lower urinary tract symptoms; M99.03 Segmental and somatic dysfunction of lumbar region; I10 Essential (primary) hypertension; E78.2 Mixed hyperlipidemia; M99.05 Segmental and somatic dysfunction of pelvic region; I73.9 Peripheral vascular disease, unspecified; F32.A Depression, unspecified; R59.0 Localized enlarged lymph nodes; E87.6 Hypokalemia; M51.36 Other intervertebral disc degeneration, lumbar region; M10.9 Gout, unspecified; G25.81 Restless legs syndrome; M06.9 Rheumatoid arthritis, unspecified; F41.9 Anxiety disorder, unspecified; L89.152 Pressure ulcer of sacral region, stage 2; Z79.899 Other long term (current) drug therapy; Z79.02 Long term (current) use of antithrombotics/antiplatelets; Z87.891 Personal history of nicotine dependence; Z68.20 Body mass index [BMI] 20.0-20.9, adult
CPT/HCPCS: 36415; 71046; 71260; 74177; 74230; 80048; 80053; 80076; 83605; 83735; 84100; 84443; 84484; 85025; 87040; 87426; 87449; 88305; 88312; 88342; 92526; 92610; 92611; 93005; 97110; 97162; 97166; 97530; 97535; 97802; 99285; J7030; J7040; J7050; Q9967; A4216; J0295